=== PATIENT | male | born 1930 | race Caucasian/White ===

== ENCOUNTER 2017-11-28 11:24 | Emergency (ER) | payer OTHER ==
[~2017-11-28 11:24] MED LIST: ASCAUNK PO; ASPCH81X PO; CLON0.2T11 PO; FINA5TAB4 PO; FOLI1TAB8 PO; GLIM4TAB PO; HYDR12.56 PO; LOSA1TAB38 PO; METO-596 PO; MULTTAB58 PO; PANT40TA PO; SENN1TAB77 PO; SIMV40TA2; SULF800T23 PO; TAMS0.4C59 PO; TRAM-453 PO; WARF5TAB7 PO; [UNRECOGNIZED DRUG - CODE] PO
[2017-11-28 11:31] VITALS: TEMP 36.5
[2017-11-28] MEDS ORDERED: ACET500T58 PO (12:16)
[2017-11-28] MEDS ORDERED: ATOR-24 PO (12:16)
[2017-11-28] MEDS ORDERED: ASCO100061 PO (12:16)
[2017-11-28] MEDS ORDERED: TAMS0.4C38 PO (12:16)
--- NOTE | 2017-11-28 12:50 | DIAGNOSTIC IMAGING REPORT ---
CHEST ONE VIEW PORTABLE CLINICAL HISTORY: Fever. Sepsis. COMPARISON STUDY: Chest radiograph May 18, 2012. FINDINGS: Note is made of median sternotomy wires and mediastinal surgical clips. No pneumothorax is present. A small right pleural effusion is noted. Right infrahilar opacity is present. Note is made of prominent basilar congestion with suspected mild pulmonary edema. There is moderate cardiomegaly. IMPRESSION: 1. Mild pulmonary edema. 2. Small right pleural effusion with right infrahilar opacity which may reflect atelectasis or consolidation. Radiographic follow up to ensure resolution is recommended. 3. Moderate cardiomegaly. Electronically signed by: Valentín García M.D. 11/28/2017 12:49 PM Dictated Date/Time: 11/28/2017 12:47 PM
[2017-11-28 13:10] LABS: BASO % 0.6 %; BASO ABS # 0.04 K/uL (0-0.2); EOS % 2.9 %; EOS ABS # 0.18 K/uL (0-0.5); HEMATOCRIT 33.4 % (42-52); HEMOGLOBIN 11.1 g/dL (14.0-18.0); IG# 0.01 K/uL (0.00-0.02); LYMPH % 9.6 %; MEAN CELL VOLUME 84.8 fL (80-100); MEAN CORPUSCULAR HEMOGLOBIN 28.2 pg (25-34); MEAN CORPUSCULAR HGB CONC 33.2 g/dl (32-36); MEAN PLATELET VOLUME 8.8 fL (7.4-10.4); MONO % 8.9 %; MONO ABS # 0.56 K/uL (0.11-0.59); NEUT % 77.8 %; NEUT ABS # 4.87 K/uL (1.4-6.5); PLATELET COUNT 176 K/uL (130-400); RED CELL DISTRIBUTION WIDTH CV 15.6 % (11.5-14.5); RED CELL DISTRIBUTION WIDTH SD 48.8 fL (36.4-46.3); WHITE BLOOD COUNT 6.26 K/uL (4.8-10.8)
[2017-11-28 13:28] LABS: ALBUMIN 3.3 gm/dl (3.4-5.0); ALT/SGPT 49 U/L (12-78); AST/SGOT 50 U/L (15-37); BLOOD UREA NITROGEN 41 mg/dl (7-18); CALCIUM 8.6 mg/dl (8.5-10.1); CARBON DIOXIDE 22 mmol/L (21-32); CREATININE 2.13 mg/dl (0.60-1.40); GLUCOSE 150 mg/dl (70-99); POTASSIUM 5.2 mmol/L (3.5-5.1); SODIUM 139 mmol/L (136-145)
[2017-11-28 13:33] LABS: ALKALINE PHOSPHATASE 189 U/L (45-117); TOTAL PROTEIN 7.3 gm/dl (6.4-8.2)
[2017-11-28 13:43] LABS: PTT PATIENT 53.9 SECONDS (21.0-31.0)
[2017-11-28 14:03] LABS: INR 3.7 (0.9-1.1)
[2017-11-28] MEDS ORDERED: SODIUM CHLORIDE 0.9% 500ML 500 ML IV STA (14:14)
--- NOTE | 2017-11-28 14:55 | EMERGENCY ROOM VISIT NOTE ---
History Report prepared by Flex: Annmarie Riley Under the Supervision of: Dr. Colt Singleton D.O. First contact with patient: 12:04 Chief Complaint: RASH Stated Complaint: DR THINKS HE MAY HAVE SHINGLES History of Present Illness The patient is an 87 year old male who presents to the Emergency Room with complaints of a worsening rash starting a few days ago. The patient states that he believes that he may have Shingles. He reports that the rash he has is very itchy. He states that the rash started on his back and has since spread down his arms. He states that he easily can rub them open. He reports that at the same time, his lips became dry and keep bleeding. He reports that he had to use a wet wash cloth this morning to get his lips open. The patient states that he is unsure how he got the shingles since he lives by himself. He reports that he came to the ED because his home health nurse thought it was shingles and said he needed to come to the ED. The patient reports that he takes Coumadin. The patient denies seeing his PCP for this rash. Source of History: patient Onset: a few days ago Position: other (global) Quality: other (rash, itching) Timing: worsening Note: The patient complains of his lips being dry and bleeding. Review of Systems See HPI for pertinent positives & negatives. A total of 10 systems reviewed and were otherwise negative. Past Medical & Surgical Medical Problems: (1) GERD (gastroesophageal reflux disease) (2) HTN (hypertension) (3) Hyperlipidemia Surgical Problems: (1) History of open heart surgery Family History No pertinent family history Social History Smoking Status: Never Smoker Drug Use: none Marital Status: single Housing Status: lives alone Occupation Status: retired Current/Historical Medications Scheduled Ascorbic Acid (Ascorbic Acid), 1,000 MG PO BID Aspirin (Aspirin Chewable), 81 MG PO Q2D Atorvastatin (Lipitor), 40 MG PO DAILY Clonidine Hcl (Catapres), 0.2 MG PO TID Finasteride (Proscar), 5 MG PO DAILY Folic Acid (Folvite), 1 MG PO DAILY Glimepiride (Amaryl), 4 MG PO DAILY Hydrochlorothiazide (Hctz), 12.5 MG PO DAILY Losartan Potassium (Cozaar), 100 MG PO DAILY Metoprolol Tartrate (Lopressor), 100 MG PO BID Multiple Vitamin (Multivitamin), 1 TAB PO DAILY Pantoprazole Sodium (Protonix), 40 MG PO DAILY Sennosides (Senokot), 8.6 MG PO BID Sulfa/Trimethoprim (Bactrim Ds 800MG/160MG), 1 TAB PO BID Tamsulosin Hcl (Flomax), 0.4 MG PO DAILY Warfarin Sod (Jantoven), 5 MG PO DAILY Scheduled PRN Acetaminophen (Acetaminophen), 1 TAB PO Q6 PRN for Pain or Fever Miscellaneous Medications Simvastatin (Zocor) Allergies Coded Allergies: Lisinopril (Verified Allergy, Unknown, ., 11/28/17) Physical Exam Vital Signs Date Time Temp Pulse Resp B/P (MAP) Pulse Ox O2 Delivery O2 Flow Rate FiO2 11/28/17 13:20 72 16 115/76 94 Room Air 11/28/17 11:31 36.5 75 16 143/61 94 Room Air Physical Exam CONSTITUTIONAL/VITAL SIGNS: Reviewed / noted above. GENERAL: Non-toxic in appearance. INTEGUMENTARY: Warm, dry, and [place]. 4-5 erythematous blanching non raised lesions on the back as well as several similar appearing lesions on the bilateral upper extremities. Small lesion noted on the right angle of the lip. HEAD: Normocephalic. EYES: without scleral icterus or trauma. ENT/OROPHARYNX: clear and moist. No intraoral lesions. LYMPHADENOPATHY/NECK: Is supple without lymphadenopathy or meningismus. RESPIRATORY: Lungs clear and equal. CARDIOVASCULAR: Regular rate and rhythm. GI/ABDOMEN: Soft and nontender. No organomegaly or pulsatile mass. No rebound or guarding. Normal bowel sounds. EXTREMITIES: Warm and well perfused. BACK: No CVA tenderness. NEUROLOGICAL: Intact without focal deficits. PSYCHIATRIC: normal affect. MUSCULOSKELETAL: Normally developed with good muscle tone. Medical Decision & Procedures ER Provider Diagnostic Interpretation: Radiology results as stated below per my review and radiologist interpretation: CHEST ONE VIEW PORTABLE CLINICAL HISTORY: Fever. Sepsis. COMPARISON STUDY: Chest radiograph May 18, 2012. FINDINGS: Note is made of median sternotomy wires and mediastinal surgical clips. No pneumothorax is present. A small right pleural effusion is noted. Right infrahilar opacity is present. Note is made of prominent basilar congestion with suspected mild pulmonary edema. There is moderate cardiomegaly. IMPRESSION: 1. Mild pulmonary edema. 2. Small right pleural effusion with right infrahilar opacity which may reflect atelectasis or consolidation. Radiographic follow up to ensure resolution is recommended. 3. Moderate cardiomegaly. Electronically signed by: Valentín García M.D. 11/28/2017 12:49 PM Dictated Date/Time: 11/28/2017 12:47 PM Laboratory Results 11/28/17 12:55 Red Blood Count 3.94, Mean Corpuscular Volume 84.8, Mean Corpuscular Hemoglobin 28.2, Mean Corpuscular Hemoglobin Concent 33.2, Mean Platelet Volume 8.8, Neutrophils (%) (Auto) 77.8, Lymphocytes (%) (Auto) 9.6, Monocytes (%) (Auto) 8.9, Eosinophils (%) (Auto) 2.9, Basophils (%) (Auto) 0.6, Neutrophils # (Auto) 4.87, Lymphocytes # (Auto) 0.60, Monocytes # (Auto) 0.56, Eosinophils # (Auto) 0.18, Basophils # (Auto) 0.04 11/28/17 12:55 Test 11/28/17 12:55 White Blood Count 6.26 K/uL (4.8-10.8) Red Blood Count 3.94 M/uL (4.7-6.1) Hemoglobin 11.1 g/dL (14.0-18.0) Hematocrit 33.4 % (42-52) Mean Corpuscular Volume 84.8 fL (80-100) Mean Corpuscular Hemoglobin 28.2 pg (25-34) Mean Corpuscular Hemoglobin Concent 33.2 g/dl (32-36) Platelet Count 176 K/uL (130-400) Mean Platelet Volume 8.8 fL (7.4-10.4) Neutrophils (%) (Auto) 77.8 % Lymphocytes (%) (Auto) 9.6 % Monocytes (%) (Auto) 8.9 % Eosinophils (%) (Auto) 2.9 % Basophils (%) (Auto) 0.6 % Neutrophils # (Auto) 4.87 K/uL (1.4-6.5) Lymphocytes # (Auto) 0.60 K/uL (1.2-3.4) Monocytes # (Auto) 0.56 K/uL (0.11-0.59) Eosinophils # (Auto) 0.18 K/uL (0-0.5) Basophils # (Auto) 0.04 K/uL (0-0.2) RDW Standard Deviation 48.8 fL (36.4-46.3) RDW Coefficient of Variation 15.6 % (11.5-14.5) Immature Granulocyte % (Auto) 0.2 % Immature Granulocyte # (Auto) 0.01 K/uL (0.00-0.02) Erythrocyte Sedimentation Rate 45 mm/hr (0-14) Prothrombin Time 37.8 SECONDS (9.0-12.0) Prothromb Time International Ratio 3.7 (0.9-1.1) Activated Partial Thromboplast Time 53.9 SECONDS (21.0-31.0) Partial Thromboplastin Ratio 2.1 Anion Gap 8.0 mmol/L (3-11) Estimated GFR () 31.3 Estimated GFR (Non- 27.0 BUN/Creatinine Ratio 19.4 (10-20) Calcium Level 8.6 mg/dl (8.5-10.1) Total Bilirubin 0.4 mg/dl (0.2-1) Direct Bilirubin 0.2 mg/dl (0-0.2) Aspartate Amino Transf (AST/SGOT) 50 U/L (15-37) Alanine Aminotransferase (ALT/SGPT) 49 U/L (12-78) Alkaline Phosphatase 189 U/L (45-117) Total Creatine Kinase 76 U/L (39-308) Creatine Kinase MB 2.0 ng/ml (0.5-3.6) Creatine Kinase MB Ratio 2.6 (0-3.0) Troponin I < 0.015 ng/ml (0-0.045) C-Reactive Protein 2.07 mg/dl (0-0.29) Total Protein 7.3 gm/dl (6.4-8.2) Albumin 3.3 gm/dl (3.4-5.0) Laboratory results as stated above per my review. Medications Administered Medications (Trade) Dose Ordered Sig/Mio Route Start Time Stop Time Status Last Admin Dose Admin Sodium Chloride 500 ml @ 999 mls/hr Q31M STAT IV 11/28/17 14:14 11/28/17 14:44 DC 11/28/17 14:18 999 MLS/HR ED Course 1231: Previous medical records were reviewed. The patient was evaluated in room C7. A complete history and physical examination was performed. 1413: I reevaluated the patient and he is doing okay. I am going to speak to the patient's pretzel twister. 1414: Ordered NSS 500 ml @ 999 mls/hr IV. 1439: I discussed the patient's case with Dr. Oropeza -Dermatology. She states that the patient can see them on Tuesday at his scheduled appointment or they can see him sooner if he wants to call them. 1456: On reevaluation, the patient is resting comfortably. I discussed the results and findings with the patient. He verbalized agreement of the treatment plan. The patient was discharged home. 1500: Ordered Triamcinolone Acetonide 1 appln EXT. Medical Decision Differential diagnosis: Etiologies such as contact dermatitis, viral exanthem, urticaria, allergic reaction, Bloom-Johnathan syndrome, toxic epidermal necrolysis, erythema multiforme, cellulitis, scabies, HSV, varicella, zoster, eczema, staph scalded skin syndrome, fungal infection, as well as others were entertained. This is an 87-year-old male who presents to the ED with a chief complaint of a rash. The patient reports it is somewhat itchy. He has noticed that for the past couple of days. The patient has no other specific complaints. Denies any fevers or recent illness. He does have a history of skin cancer. He is seeing a pretzel twister for this. He is scheduled to see them on Tuesday. The patient has no other acute symptoms. The patient's sed rate and CRP are elevated. His creatinine is slightly elevated at 2.1. This is elevated above his baseline around 1.5. BUN is 41. Glucose is 150. INR 3.7. He is on Coumadin. Chest x- ray reveals a right infrahilar opacity versus atelectasis. The patient was told the results of the test. His rash is about quarter sized and erythematous in nature. It is minimally raised at best. The skin appears to be very fragile overlying the rash. It is on his back, slightly on his chest and on his upper extremities. There is no discharge. The patient does not appear to be uncomfortable toxic. I spoke with the patient's pretzel twister Yuliet Oropeza from the [facility] dermatology office in [place]. She gave them the number for the patient to call for follow-up to the nurses station or the patient can wait till Tuesday. She did recommend triamcinolone cream. This was ordered and the patient will be discharged. Medication Reconcilliation Current Medication List: was personally reviewed by me Blood Pressure Screening Patient's blood pressure: Elevated blood pressure Blood pressure disposition: Elevated BP felt to be situational Consults Time Called: 1422 Consulting Physician: Dr. Sandip Casiano Returned Call: [phone] I discussed the patient's case with Dr. Sandip Casiano. She states that the patient can see them on Tuesday at his scheduled appointment or they can see him sooner if he wants to call them. Impression Primary Impression: Rash Scribe Attestation The scribe's documentation has been prepared under my direction and personally reviewed by me in its entirety. I confirm that the note above accurately reflects all work, treatment, procedures, and medical decision making performed by me. Departure Information Dispostion Home / Self-Care Referrals aJgdish Dinh M.D. (PCP) Forms HOME CARE DOCUMENTATION FORM, IMPORTANT VISIT INFORMATION, WORK / SCHOOL INSTRUCTIONS Patient Instructions My [facility] Additional Instructions Follow-up with Dr. Oropeza on Tuesday as scheduled or you can be seen sooner by calling [phone]. Triamcinolone cream: Apply the cream to the affected areas 2-4 times a day. Follow-up with your doctor for further care and evaluation in 1-7 days. Return to the emergency department for worsening or new symptoms or any concerns. You have been examined and treated today on an emergency basis only. This is not a substitute for, or an effort to provide, complete comprehensive medical care. It is impossible to recognize and treat all injuries or illnesses in a single emergency department visit. It is therefore important that you follow up closely with your doctor. Call as soon as possible for an appointment.
[2017-11-28] MEDS ORDERED: TRIAMCINOLONE ACET 0.1% CR 15 GM TUBE EXT ONE (15:00)
[2017-11-28 15:50] VITALS: BP 177/67; PULSE 60; O2SAT 95
== END 2017-11-28 15:50 | disposition home or self-care (01) ==
LOC: C.EDB 11:26 → C.EDC 15:50
DX: R21 Rash and other nonspecific skin eruption (principal); I10 Essential (primary) hypertension; E78.5 Hyperlipidemia, unspecified; K21.9 Gastro-esophageal reflux disease without esophagitis; Z98.890 Other specified postprocedural states; Z88.8 Allergy status to other drugs, medicaments and biological substances; Z85.828 Personal history of other malignant neoplasm of skin; Z79.01 Long term (current) use of anticoagulants; Z79.82 Long term (current) use of aspirin; Z79.899 Other long term (current) drug therapy

== ENCOUNTER 2019-02-07 22:13 | Inpatient (IN) ==
[2019-02-07] MEDS ORDERED: SODIUM CHLORIDE 0.9% 500 ML IV SCH (22:45)
--- NOTE | 2019-02-07 22:52 | XRay Report ---
XR chest 1V portable CLINICAL HISTORY: weakness mental status change COMPARISON STUDY: 11/28/2017 FINDINGS: Infiltrate right base. Prior median sternotomy. Lungs otherwise appear clear. Left hemidiap hragm is smooth. IMPRESSION: Infiltrate right base. The above report was generated using voice recognition software. It may contain grammatical, syntax or spelling errors. Electronically signed by: Cuco Busch M.D. 02/07/2019 10:51 PM
[2019-02-07 23:13] LABS: Basophils # (auto) 0.02 K/uL (0-0.2); Basophils % (auto) 0.1 %; Hematocrit (blood only) 28.8 % (42-52); Hemoglobin 9.6 g/dL (14.0-18.0); Immature Granulocytes # (auto) 0.08 K/uL (0.00-0.02); Immature Granulocytes % (auto) 0.6 %; Lymphocytes # (auto) 0.66 K/uL (1.2-3.4); Lymphocytes % (auto) 4.9 %; Mean Corpuscular Hgb Conc 33.3 g/dL (32-36); Mean Corpuscular Volume 87.8 fL (80-100); Mean Platelet Volume 8.6 fL (7.4-10.4); Monocytes # (auto) 1.13 K/uL (0.11-0.59); Monocytes % (auto) 8.4 %; Neutrophils # (auto) 11.53 K/uL (1.4-6.5); Platelet Count 235 K/uL (130-400); RDW Coefficient of Variation 15.9 % (11.5-14.5); RDW Standard Deviation 50.6 fL (36.4-46.3); Red Blood Count 3.28 M/uL (4.7-6.1); White Blood Count 13.42 K/uL (4.8-10.8)
[2019-02-07 23:32] LABS: Prothrombin Time > 90.0 Seconds (9.0-12.0)
--- NOTE | 2019-02-07 23:33 | Emergency Department Note ---
Entered by Charlene Golden acting as a scribe for Colt Singleton DO History of Present Illness General Chief complaint: Fall Stated complaint: FALL, LACERATION TO ELBOW, RIB PAIN, EYE IMJURY Time Seen by Provider: 02/07/19 22:19 Source: patient Mode of arrival: EMS History of Present Illness Onset (ago): hour(s) 2 Location: hip Pain Consistency: + other (episode ) Maximum Pain Intensity: 6 Exacerbated By: + movement Treatments prior to arrival: none The patient is an 88 year old male who presents to the ED with complaints of an episode of fall injuries sustained about 2 hours prior to arrival. The patient states that he fell in his kitchen. He states that he lives in his own apartment. The patient notes that when he fell, the bracelet he is wearing alarmed his neighbor that he had fell. The patient reports that he was unable to get himself up from the ground because he has bad hips. He reports that he has pain in his hips when he ambulates. He states that he was on the floor for about 30 minutes before someone found him. The patient states that he has no pain in the ED. Home Medications Home Medications Medication Instructions Recorded Confirmed Type ascorbic acid (vitamin C) 500 mg 1,000 mg PO BID cap 03/17/18 02/07/19 History capsule aspirin 81 mg chewable tablet 81 mg PO Q OTHER DAY tab 03/17/18 02/07/19 History atorvastatin 40 mg tablet 40 mg PO DAILY 03/17/18 02/07/19 History clonidine HCl 0.1 mg tablet 0.1 mg PO TID 03/17/18 02/07/19 History ferrous sulfate 325 mg (65 mg 325 mg PO BID tab 03/17/18 02/07/19 History iron) tablet finasteride 5 mg tablet 5 mg PO DAILY tab 03/17/18 02/07/19 History folic acid 1 mg tablet 1 mg PO DAILY 03/17/18 02/07/19 History glimepiride 4 mg tablet 4 mg PO QAM tab 03/17/18 02/07/19 History losartan 100 mg tablet 100 mg PO DAILY 03/17/18 02/07/19 History multivitamin tablet 1 tab PO DAILY 03/17/18 02/07/19 History metoprolol tartrate 50 mg tablet 50 mg PO BID 07/04/18 02/07/19 History doxazosin 1 mg PO HS 02/07/19 02/07/19 History sennosides [Senokot] 8.6 mg PO BID PRN 02/07/19 02/07/19 History triamcinolone acetonide 1 applic TOPICAL BID PRN 02/07/19 02/07/19 History warfarin 1.25 mg PO WK 02/07/19 02/07/19 History warfarin 2.5 mg PO 6XWK 02/07/19 02/07/19 History Allergies Allergy/AdvReac Type Severity Reaction Status Date / Time lisinopril Allergy Unknown Unknown Verified 02/07/19 23:49 Past Med/Surg History Medical History GERD (gastroesophageal reflux disease) (Chronic) HTN (hypertension) (Chronic) Hyperlipidemia (Chronic) Surgical History History of open heart surgery (Chronic) Social History Current Living Situation: Alone Feels Safe at Home: No Smoking Status: Never smoker Review of Systems See HPI for pertinent positives & negatives. and A total of 10 systems reviewed and were otherwise negative Physical Exam Vital Signs Vital Signs - 24 hr 02/07/19 22:20 02/07/19 23:56 Temperature 37.0 C Temperature Source Oral Sepsis Recent Fever Within 48 Hours No Sepsis New/Unexplained Change in Mental Status No Sepsis Action Taken by Nursing No Action Required Pulse Rate 67 Pulse Rate [Right Finger] 60 Pulse Rhythm Regular Pulse Rhythm [Right Finger] Regular Pulse Strength Normal Pulse Strength [Right Finger] Normal Respiratory Rate 20 16 Respiratory Effort / Characteristics Non-Labored Non-Labored Respiratory Depth Normal Normal Respiratory Pattern Regular Regular Blood Pressure 147/53 H Blood Pressure [Right Arm] 147/55 H Blood Pressure Mean 84 Blood Pressure Mean [Right Arm] 85 Blood Pressure Position Lying Blood Pressure Position [Right Arm] Lying Pulse Oximetry 98 95 Oxygen Delivery Method Room Air Room Air CONSTITUTIONAL/VITAL SIGNS: Reviewed / noted above. GENERAL: Non-toxic in appearance. INTEGUMENTARY: Warm, dry, and Athena. Small skin tear to the left elbow with some bruising. Small abrasions on the lower extremities. A couple abrasions to the right arm. HEAD: Normocephalic. EYES: without scleral icterus or trauma. ENT/OROPHARYNX: clear and moist. LYMPHADENOPATHY/NECK: Is supple without lymphadenopathy or meningismus. RESPIRATORY: Lungs clear and equal. CARDIOVASCULAR: Regular rate and rhythm. GI/ABDOMEN: Soft and nontender. No organomegaly or pulsatile mass. No rebound or guarding. Normal bowel sounds. EXTREMITIES: Warm and well perfused. Bandage over the right lower extremity that appears to be chronic in nature. Bilateral hip pain with movement. BACK: No CVA tenderness. NEUROLOGICAL: Intact without focal deficits. PSYCHIATRIC: normal affect. MUSCULOSKELETAL: Normally developed with good muscle tone. Course 2227: Past medical records reviewed. The patient was evaluated in room C9. A complete history and physical exam was performed. 2340: I discussed the patients case with Justine Huertas. He verbally agreed to admit the patient for further management and treatment. Administered Medications Azithromycin 500 mg/ Dextrose 255 mls @ 125 mls/hr IV ONE ONE Stop: 02/08/19 01:38 Last Admin: 02/07/19 23:47 Dose: 125 mls/hr Documented by: [id number] Discontinued Medications Ceftriaxone Sodium (Rocephin) Confirm Administered Dose 1,000 mg IV .STK-MED ONE Stop: 02/07/19 23:50 Last Admin: 02/07/19 23:49 Dose: Not Given Documented by: [id number] Dextrose (Dextrose 50%) Confirm Administered Dose 50 ml IV .STK-MED ONE Stop: 02/07/19 23:59 Last Admin: 02/08/19 00:00 Dose: 50 ml Documented by: [id number] Sodium Chloride (Nss) 500 mls @ 999 mls/hr IV .Q31M LOCO Stop: 02/07/19 23:15 Last Infusion: 02/07/19 23:41 Dose: 0 mls/hr Documented by: [id number] Admin: 02/07/19 23:01 Dose: 999 mls/hr Documented by: [id number] Ceftriaxone Sodium 1,000 mg/ (Dextrose) 60 mls @ 100 mls/hr IV NOW STA; Protocol Stop: 02/08/19 00:11 Last Admin: 02/07/19 23:47 Dose: 100 mls/hr Documented by: [id number] Medical Decision Making Differential Diagnosis Differential diagnosis: Etiologies such as fracture, cervical/vertebral injury, dislocation, intra- abdominal process, pneumothorax, intrathoracic trauma, intracranial injury, soft tissue injury, neurologic process, as well as other traumatic pathologies were entertained. Differential Diagnosis includes but is not limited to dehydration, stroke, anemia, hypoglycemia, hyponatremia, hypernatremia, urinary tract infection, pneumonia, bronchitis, sepsis, gastroenteritis, additional abdominal pathology, metabolic abnormalities and infections. Medical Records Attestation: I reviewed the patient's medical records. Home Medications Current Medication List: was personally reviewed by me Laboratory Data Attestation: I reviewed the patient's lab results. Result diagrams: 02/07/19 23:01 02/07/19 23:01 Lab Results 02/07/19 02/07/19 02/07/19 Range/Units 23:01 23:01 23:01 WBC 13.42 H (4.8-10.8) K/uL RBC 3.28 L (4.7-6.1) M/uL Hgb 9.6 L (14.0-18.0) g/dL Hct 28.8 L (42-52) % MCV 87.8 (80-100) fL MCH 29.3 (25-34) pg MCHC 33.3 (32-36) g/dL RDW Std Deviation 50.6 H (36.4-46.3) fL RDW Coeff of [place] 15.9 H (11.5-14.5) % Plt Count 235 (130-400) K/uL MPV 8.6 (7.4-10.4) fL Immature Gran % (Auto) 0.6 % Neut % (Auto) 86.0 % Lymph % (Auto) 4.9 % Cass % (Auto) 8.4 % Eos % (Auto) 0.0 % Baso % (Auto) 0.1 % Immature Gran # (Auto) 0.08 H (0.00-0.02) K/uL Neut # (Auto) 11.53 H (1.4-6.5) K/uL Lymph # (Auto) 0.66 L (1.2-3.4) K/uL Cass # (Auto) 1.13 H (0.11-0.59) K/uL Eos # (Auto) 0.00 (0-0.5) K/uL Baso # (Auto) 0.02 (0-0.2) K/uL PT > 90.0 H (9.0-12.0) Seconds INR > 10.4 H* (0.9-1.1) Sodium 140 (136-145) mmol/L Potassium 4.8 (3.5-5.1) mmol/L Chloride 111 H (98-107) mmol/L Carbon Dioxide 22 (21-32) mmol/L Anion Gap 7 (3-11) BUN 28 H (7-18) mg/dl Creatinine 2.10 H (0.6-1.4) mg/dl Est Cr Clr Drug Dosing 23.7 ml/min Est GFR ( Amer) 31.6 Est GFR (Non-Af Amer) 27.3 BUN/Creatinine Ratio 13.5 (10-20) Glucose 36 L* (70-99) mg/dl POC Glucose (70-99) Calcium 8.5 (8.5-10.1) mg/dl Magnesium 2.2 (1.8-2.4) mg/dl Total Bilirubin 0.5 (0.2-1) mg/dl AST 60 H (15-37) U/L ALT 50 (12-78) U/L Alkaline Phosphatase 185 H (45-117) U/L Total Creatine Kinase 535 H (39-308) U/L Troponin I 0.029 (0-0.045) ng/ml Total Protein 6.3 L (6.4-8.2) gm/dl Albumin 3.2 L (3.4-5.0) gm/dl Globulin 3.1 (2.5-4.0) gm/dl Albumin/Globulin Ratio 1.0 (0.9-2) TSH 3.300 (0.300-4.500) uIu/ml 02/08/19 02/08/19 Range/Units 00:06 00:47 WBC (4.8-10.8) K/uL RBC (4.7-6.1) M/uL Hgb (14.0-18.0) g/dL Hct (42-52) % MCV (80-100) fL MCH (25-34) pg MCHC (32-36) g/dL RDW Std Deviation (36.4-46.3) fL RDW Coeff of [place] (11.5-14.5) % Plt Count (130-400) K/uL MPV (7.4-10.4) fL Immature Gran % (Auto) % Neut % (Auto) % Lymph % (Auto) % Cass % (Auto) % Eos % (Auto) % Baso % (Auto) % Immature Gran # (Auto) (0.00-0.02) K/uL Neut # (Auto) (1.4-6.5) K/uL Lymph # (Auto) (1.2-3.4) K/uL Cass # (Auto) (0.11-0.59) K/uL Eos # (Auto) (0-0.5) K/uL Baso # (Auto) (0-0.2) K/uL PT (9.0-12.0) Seconds INR (0.9-1.1) Sodium (136-145) mmol/L Potassium (3.5-5.1) mmol/L Chloride (98-107) mmol/L Carbon Dioxide (21-32) mmol/L Anion Gap (3-11) BUN (7-18) mg/dl Creatinine (0.6-1.4) mg/dl Est Cr Clr Drug Dosing ml/min Est GFR ( Amer) Est GFR (Non-Af Amer) BUN/Creatinine Ratio (10-20) Glucose (70-99) mg/dl POC Glucose 125 H 94 (70-99) Calcium (8.5-10.1) mg/dl Magnesium (1.8-2.4) mg/dl Total Bilirubin (0.2-1) mg/dl AST (15-37) U/L ALT (12-78) U/L Alkaline Phosphatase (45-117) U/L Total Creatine Kinase (39-308) U/L Troponin I (0-0.045) ng/ml Total Protein (6.4-8.2) gm/dl Albumin (3.4-5.0) gm/dl Globulin (2.5-4.0) gm/dl Albumin/Globulin Ratio (0.9-2) TSH (0.300-4.500) uIu/ml Imaging Data Radiologist's Impression: Radiology results as stated below per my review and the radiologist's interpretation: XR chest 1V portable CLINICAL HISTORY: weakness mental status change COMPARISON STUDY: 11/28/2017 FINDINGS: Infiltrate right base. Prior median sternotomy. Lungs otherwise appear clear. Left hemidiaphragm is smooth. IMPRESSION: Infiltrate right base. The above report was generated using voice recognition software. It may contain grammatical, syntax or spelling errors. CT thoracic spine wo con CT DOSE: 2285.96 mGy.cm HISTORY: Trauma fall TECHNIQUE: Multiaxial CT images of the thoracic spine were performed and reformatted in the sagittal and coronal plane without the use of contrast. A dose lowering technique was utilized adhering to the principles of ALARA. COMPARISON: None. FINDINGS: Vertebral body stature is unremarkable. Moderate degenerative disc change is noted throughout. There is a right pleural effusion. A small left pleural effusion. There are mild bibasilar parenchymal infiltrative changes. There is atherosclerotic change and ectasia of the thoracic aorta. IMPRESSION: 1. No acute process of the thoracic spine. 2. Moderate degenerative changes throughout. 3. Right and to a lesser extent left pleural effusion. 4. Right and to a lesser extent left basilar parenchymal infiltrative change. The above report was generated using voice recognition software. It may contain grammatical, syntax or spelling errors. Electronically signed by: Cuco Busch M.D. 02/07/2019 11:40 PM Study: CT pelvis HISTORY: Trauma. COMPARISON: None. 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 Degenerative subchondral cystic change. Mild acetabular protrusion. Old healed fracture left pubic ring. Degenerative change of the sacroiliac joints. Degenerative change symphysis pubis. IMPRESSION: 1. No acute bony abnormality. 2. Findings consistent with prior surgery as well as old posttraumatic change. 3. Generalized degenerative changes throughout Electronically signed by: Cuco Busch M.D. 02/07/2019 11:50 PM Electronically signed by: Cuco Busch M.D. 02/07/2019 10:[address] head/brain wo con CT DOSE: HISTORY: Mental status change fall TECHNIQUE: Multiaxial CT images of the head were performed without the use of intravenous contrast. A dose lowering technique was utilized adhering to the p rinciples of ALARA. Comparison: None. Findings: The paranasal sinuses and mastoid air cells are clear. The calvarium and skull base are intact. The ventricles and sulci are within normal limits. Th ere is no mass, hematoma, midline shift, or acute infarct. 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 Age-related atrophy and chronic small vessel changes are also present. Impression: No acute intracranial abnormality. Chronic changes as noted. The above report was generated using voice recognition software. It may contain grammatical, syntax or spelling errors. Electronically signed by: Cuco Busch M.D. 02/07/2019 11:37 PM ECG Data Attestation: I personally reviewed and interpreted this ECG as follows: Indication: other (fall injuries ) Rate (beats per minute): 64 Rhythm: sinus rhythm Findings: + 1st degree AV block; no PAC, no PVC, no ST elevation and no ectopy Blood Pressure Blood Pressure Findings: Elevated blood pressure Blood Pressure Disposition: did not require urgent referral MDM Narrative This is an 88-year-old male who presents to the ED with a chief complaint of a fall and the inability to get up. The patient is somewhat of a poor historian. He states that he fell at his home. He had a medic alert button and called EMS and was brought here for evaluation. The patient reports bilateral hip pain that is mostly chronic in nature. He has difficulty sitting up because of the pain. The patient has some skin tears on the extremities as well as some bruising on the extremities. He has some discomfort with the bilateral hips wit h movement. His initial blood pressure was elevated. He is afebrile. Vital signs are otherwise normal. He was treated with IV fluids normal saline. A chest x-ray reveals a right base infiltrate. A CT scan of the pelvis is negative. CT scan of the thoracic spine was negative. The patient's EKG shows a sinus rhythm at a rate of 64. His hemoglobin is 9.6. His white blood cell count was 13.42. INR is greater than 10.4. His glucose came back at 35. Total CK was 535. The patient was given half amp of D 50. He was also ordered IV Rocephin and IV Zithromax. I spoke with Dr. barreto, who will see the patient for further inpatient evaluation and care. Impression & Plan Right lower lobe pneumonia, Hypoglycemia, Fall, Weakness Discharge Plan Visit Data Chief Complaint: Fall Stated Complaint: FALL, LACERATION TO ELBOW, RIB PAIN, EYE IMJURY ED Provider: Colt Singleton Discharge Problem: Right lower lobe pneumonia, Hypoglycemia, Fall, Weakness Patient Disposition: Being Evaluated by Hospitalist Forms Stand Alone Forms: My [facility] Prescriptions Prescriptions: No Action ascorbic acid (vitamin C) 500 mg capsule 1,000 mg PO BID RF: 0 aspirin [Brandon Chewable Aspirin] 81 mg tablet,chewable 81 mg PO Q OTHER DAY RF: 0 atorvastatin [Lipitor] 40 mg tablet 40 mg PO DAILY RF: 0 clonidine HCl [Catapres] 0.1 mg tablet 0.1 mg PO TID RF: 0 ferrous sulfate 325 mg (65 mg iron) tablet 325 mg PO BID RF: 0 finasteride [Proscar] 5 mg tablet 5 mg PO DAILY RF: 0 folic acid 1 mg tablet 1 mg PO DAILY RF: 0 glimepiride [Amaryl] 4 mg tablet 4 mg PO QAM RF: 0 losartan [Cozaar] 100 mg tablet 100 mg PO DAILY RF: 0 multivitamin tablet 1 tab PO DAILY RF: 0 metoprolol tartrate [Lopressor] 50 mg tablet 50 mg PO BID RF: 0 warfarin 2.5 mg Tablet 2.5 mg PO 6XWK RF: 0 warfarin 2.5 mg Tablet 1.25 mg PO WK RF: 0 sennosides [Senokot] 8.6 mg Tablet 8.6 mg PO BID PRN (Reason: Constipation) RF: 0 doxazosin 1 mg Tablet 1 mg PO HS RF: 0 triamcinolone acetonide 0.1 % Cream 1 applic TOPICAL BID PRN (Reason: Skin Irritation) RF: 0 Referrals Referrals: Varghese Spann DO [Primary Care Provider] - Discharge Problem: Right lower lobe pneumonia Qualifiers: Pneumonia type: due to unspecified organism Qualified Code(s): J18.1 - Lobar pneumonia, unspecified organism Fall Qualifiers: Encounter type: initial encounter Qualified Code(s): W19.XXXA - Unspecified fall, initial encounter The scribe's documentation has been prepared under my direction and personally reviewed by me in its entirety. I confirm that the note above accurately reflects all work, treatment, procedures, and medical decision making performed by me.
[2019-02-07] MEDS ORDERED: AZITHROMYCIN 500 MG in DEXTROSE 5% 250 ML IV ONE (23:36)
[2019-02-07] MEDS ORDERED: cefTRIAXone SODIUM 1,000 MG in DEXTROSE 5% 50 ML IV STA (23:36)
--- NOTE | 2019-02-07 23:38 | CT Scan Report ---
CT head/brain wo con CT DOSE: HISTORY: Mental status change fall TECHNIQUE: Multiaxial CT images of the head were performed without the use of intravenous contrast. A dose lowering technique was utilized adhering to the principles of ALARA. Comparison: None. Findings: The paranasal sinuses and mastoid air cells are clear. The calvarium and skull base are int act. The ventricles and sulci are within normal limits. There is no mass, hematoma, midline shift, or acute infarct. 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 Age-related atrophy and chronic small vessel changes are also present. Impression: No acute intracranial abnormality. Chronic changes as noted. The above report was generated using voice recognition software. It may contain grammatical, syntax or spelling errors. Electronically signed by: Cuco Busch M.D. 02/07/2019 11:37 PM
[2019-02-07 23:40] LABS: INR > 10.4 (0.9-1.1)
--- NOTE | 2019-02-07 23:42 | CT Scan Report ---
CT thoracic spine wo con CT DOSE: 2285.96 mGy.cm HISTORY: Trauma fall TECHNIQUE: Multiaxial CT images of the thoracic spine were performed and reformatted in the sagittal and coronal plane without the use of contrast. A dose lowering technique was utilized adhering to th e principles of ALARA. COMPARISON: None. FINDINGS: Vertebral body stature is unremarkable. Moderate degenerative disc change is noted througho ut. There is a right pleural effusion. A small left pleural effusion. There are mild bibasilar parenchyma l infiltrative changes. There is atherosclerotic change and ectasia of the thoracic aorta. IMPRESSION: 1. No acute process of the thoracic spine. 2. Moderate degenerative changes throughout. 3. Right and to a lesser extent left pleural effusion. 4. Right and to a lesser extent left basilar parenchymal infiltrative change. The above report was generated using voice recognition software. It may contain grammatical, syntax or spelling errors. Electronically signed by: Cuco Busch M.D. 02/07/2019 11:40 PM
[2019-02-07] MEDS ORDERED: cefTRIAXone SODIUM 1000MG/50ML D5W IV ONE (23:49)
[2019-02-07 23:50] LABS: Albumin Level 3.2 gm/dl (3.4-5.0); Bilirubin,Total 0.5 mg/dl (0.2-1); Calcium 8.5 mg/dl (8.5-10.1); Creatinine Clr Calc Pharmacy 23.7 ml/min; Est GFR (African American) 31.6; Est GFR (Non-African American) 27.3; Globulin 3.1 gm/dl (2.5-4.0); Magnesium 2.2 mg/dl (1.8-2.4); Potassium 4.8 mmol/L (3.5-5.1); Total Protein 6.3 gm/dl (6.4-8.2); Troponin I 0.029 ng/ml (0-0.045)
[2019-02-07 23:51] LABS: BUN Creatinine Ratio 13.5 (10-20)
--- NOTE | 2019-02-07 23:51 | CT Scan Report ---
Study: CT pelvis HISTORY: Trauma. COMPARISON: None. 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 Degenerative subchondral cystic change. Mild acetabular protrusion. Old healed fracture left pubic ring. Degenerative change of the sacroiliac joints. Degenerative reis e symphysis pubis. IMPRESSION: 1. No acute bony abnormality. 2. Findings consistent with prior surgery as well as old posttraumatic change. 3. Generalized degenerative changes throughout Electronically signed by: Cuco Busch M.D. 02/07/2019 11:50 PM
[2019-02-07] MEDS ORDERED: DEXTROSE 50% 50 ML SYRINGE IV ONE (23:58)
[2019-02-08] MEDS ORDERED: SENNA 8.6 MG TAB PO PRN (03:47)
[2019-02-08] MEDS ORDERED: SODIUM CHLORIDE 0.9% 1000ML 1,000 ML IV SCH (03:47)
[2019-02-08] MEDS ORDERED: TRIAMCINOLONE ACET 0.1% CR 15 GM TUBE TOP PRN (03:47)
[2019-02-08] MEDS ORDERED: PHYTONADIONE 5 MG TAB PO STA ×2 (03:47→08:28)
[2019-02-08] MEDS ORDERED: ONDANSETRON INJ 2 MG/ML 2 ML VIAL IV PRN (03:47)
[2019-02-08] MEDS ORDERED: POLYETHYLENE (MIRALAX) 17 GM PACK PO PRN (03:47)
[2019-02-08] MEDS ORDERED: NITROGLYCERIN SL 0.4 MG/TAB TAB SL PRN (03:47)
--- NOTE | 2019-02-08 04:33 | History and Physical Report ---
DATE OF ADMISSION: 02/07/2019 CHIEF COMPLAINT: Fall. HISTORY OF PRESENT ILLNESS: This is an 88-year-old male with past medical history significant for type 2 diabetes, hyperlipidemia, CAD, chronic kidney disease stage III, venous insufficiency, lower extremity edema, ulcers to lower extremity, status post prosthetic aortic valve replacement, paroxysmal atrial fibrillation, hypertension, venous thrombosis, BPH, hip joint replacement status, anemia of chronic kidney disease, status post patent foramen ovale closure, history of MRSA, history of TIA, presents with fall. The patient says he lives alone. Neighbors checks on him. There is no family close by. He walks with help of walker, he can drive his car, he generally eats the frozen food. He says there is a lot of pain in his hips, there is some ambulatory dysfunction because of that and he goes to wound care for his lower extremity wounds and lower extremities are wrapped .. Yesterday, he felt weak and fell at home and could not get up and lot of pain in his hip region, was brought in here. In the ER, the workup showed right basilar pneumonia and we are called for admission. The patient denies any fever, denies any cough, no chest pain, no shortness of breath, no headaches. But feeling chilly and shaky. Hard of hearing. No runny nose, no sore throat, no difficulty swallowing as per patient. No nausea, no abdominal pain. Normal bowel and bladder movements. No rash. Currently resting comfortably and hemodynamically stable. ALLERGIES: LISINOPRIL, BACTRIM. PAST MEDICAL HISTORY: As mentioned above. PAST SURGICAL HISTORY: CABG, cystoscopy, Mohs surgery, tonsillectomy, adenoidectomy, repair of the atrial septal defect, inguinal hernia reduction, bioprosthetic aortic valve replacement, right total hip replacement. MEDICATIONS: The patient is on glimepiride 4 mg p.o. daily, metoprolol 50 mg p.o. b.i.d., doxazosin 1 mg p.o. at bedtime, Proscar 5 mg p.o. daily, clonidine 0.1 mg p.o. t.i.d., folic acid 1 mg p.o. daily, ferrous sulfate 325 mg p.o. b.i.d., Lipitor 40 mg p.o. daily, losartan 100 mg p.o. daily, Coumadin 1.5 mg on Tuesday and 2.5 mg on rest of the days, triamcinolone cream apply to affected area b.i.d., Senokot 8.6 mg p.o. b.i.d., multivitamin 1 tablet daily, vitamin C 1000 mg p.o. b.i.d., aspirin 81 mg every other day. FAMILY HISTORY: Significant for father had kidney cancer at age of 68. Mother at the age of 57. Sister has stroke. SOCIAL HISTORY: Single, lives alone. No family close by. No smoking history. No alcohol, no drug use. REVIEW OF SYMPTOMS: As per HPI. Rest of review of systems negative. PHYSICAL EXAMINATION: GENERAL: The patient is alert and oriented. Hard of hearing. VITAL SIGNS: Temperature 37, pulse 60, respiratory rate 16, blood pressure 147/55, oxygen 95% on room air. HEENT: No pallor, no icterus. Pupils equal, round, and reactive to light. NECK: No JVD, no neck masses, no carotid bruits. CARDIOVASCULAR: S1, S2 heard, regular rate and rhythm, no murmur, no gallop. RESPIRATORY SYSTEM: Normal AP diameter. No thyromegaly. No wheezing, no crackles. ABDOMEN: Soft, bowel sounds present, nontender. No distention. CENTRAL NERVOUS SYSTEM: Cranial nerves II-XII grossly intact. Nonfocal. EXTREMITIES: Bilateral lower extremity wounds and bilateral lower extremity were wrapped in dressing, somewhat foul smelling. LABORATORY DATA: WBC 13.4, hemoglobin 9.6, hematocrit 28.8, platelets 235. PT greater than 10. INR greater than 15.4. Sodium 140, potassium 4.8, chloride 118, CO2 of 22, BUN 28, creatinine 2.1, serum glucose 36, calcium 8.5, magnesium 2.2, total bilirubin 0.5, AST 60, ALT 50, alkaline phosphatase is 185, total creatine kinase 585, troponin I less than 0.029, TSH is 3.3. Chest x-ray, infiltrate right base. Thoracic spine CT, no acute findings. Pelvic CT, no acute bony abnormality. CT of the head, no acute findings. EKG: Junctional rhythm with rate of 64, no acute ST changes seen. ASSESSMENT AND PLAN: This 88-year-old male who presents with fall and found to have pneumonia. 1. Status post fall mechanical, most likely secondary to pneumonia. The patient was in junctional rhythm. We will monitor on tele floor. repeat EKG, monitor on tele floor. PT and OT. 2. Pneumonia, right lung base. Starting on Rocephin and doxycycline. Follow the cultures. Follow the response. 3. Bilateral lower extremity wounds, lower extremity edema, history of venous insufficiency, history of venous thrombosis. There are wrapped in dressing. Follows with wound care. We will consult wound care. Antibiotics as above. 4. History of deep venous thrombosis. INR is supratherapeutic at 10.4. Vitamin K 5 mg p.o.now and follow INR. 5. History of atrial fibrillation, currently in junctional rhythm and will follow repeat EKG in morning. Continue his Lopressor with holding parameters. Holding Coumadin because of INR is supratherapeutic. 6. History of coronary artery disease status post coronary artery bypass graft, on aspirin, statin and beta-shubham, currently stable. 7. History of diabetes. Hold glimepiride. Placed on Lantus sliding scale. Follow hemoglobin A1c levels, follow the blood sugars while in the hospital. 8. Hypertension. Continue clonidine, Lopressor, losartan with holding parameters. 9. Anemia of chronic kidney disease. Baseline hemoglobin around 11. Hb 9.6 today. Ordered Hemoccult. will follow the results. 10. VARUN on CKD stage 3. Baseline Cr 1.3. presented with Cr 2. Will follow labs in am., 11. History of prosthetic aortic valve replacement. 12. History of transient ischemic attack, on aspirin and statin. 13. Elevated CPK. Will follow repeat labs. 14. Deep venous thrombosis prophylaxis. INR is supratherapeutic. DISPOSITION: Admit to med/surg tele. Level 1 full code as per discussion with the patient. MTDD
--- NOTE | 2019-02-08 07:06 | CT Scan Report ---
LUMBAR SPINE CT CT DOSE: HISTORY: Back pain. fall TECHNIQUE: Multiaxial CT images of the lumbar spine were performed and reformatted in the sagittal an d coronal plane without the use of contrast. A dose lowering technique was utilized adhering to the principles of ALARA. COMPARISON: None. FINDINGS: No acute fractures within the lumbar spine. Moderate disc space narrowing at L1-L2 and kuldeep re disc space narrowing at L2-L3. Mild disc space narrowing at L4-L5 and L5-S1. Moderate to severe fa cet degenerative changes within the mid to lower lumbar spine. 3 mm of anterolisthesis of L4 and L5. Slight concavity within the inferior endplates of L3 and L4 are likely old. The visualized sacrum mika ears intact. Right pleural effusion is noted. Moderate central canal narrowing at L4-L5. IMPRESSION: No acute fractures within the lumbar spine. Degenerative changes as described above. Electronically signed by: Davidson Carnes M.D. 02/08/2019 7:05 AM
[2019-02-08 07:34] LABS: Basophils # (auto) 0.01 K/uL (0-0.2); Basophils % (auto) 0.1 %; Hematocrit (blood only) 22.6 % (42-52); Hemoglobin 7.7 g/dL (14.0-18.0); Immature Granulocytes # (auto) 0.01 K/uL (0.00-0.02); Immature Granulocytes % (auto) 0.1 %; Lymphocytes # (auto) 0.79 K/uL (1.2-3.4); Lymphocytes % (auto) 10.4 %; Mean Corpuscular Hgb Conc 34.1 g/dL (32-36); Mean Corpuscular Volume 86.9 fL (80-100); Mean Platelet Volume 8.5 fL (7.4-10.4); Monocytes # (auto) 0.86 K/uL (0.11-0.59); Monocytes % (auto) 11.3 %; Neutrophils # (auto) 5.91 K/uL (1.4-6.5); Neutrophils % (auto) 78.1 %; Platelet Count 178 K/uL (130-400); RDW Coefficient of Variation 15.8 % (11.5-14.5); RDW Standard Deviation 48.6 fL (36.4-46.3); White Blood Count 7.58 K/uL (4.8-10.8)
[2019-02-08] MEDS: CARBOHYDRATES FOR HYPOGLYCEMIA PO PRN ×2 (07:45→16:38)
[2019-02-08 07:51] LABS: Prothrombin Time > 90.0 Seconds (9.0-12.0)
[2019-02-08 07:54] LABS: INR > 10.4 (0.9-1.1)
[2019-02-08 08:09] LABS: Acanthocytes 1+
[2019-02-08] MEDS ORDERED: GLUCOSE 10 TABS/TUBE PO PRN (08:15)
[2019-02-08] MEDS ORDERED: GLUCAGON FOR INJ 1 MG VIAL IM PRN (08:15)
[2019-02-08] MEDS ORDERED: GLUCOSE 40% GEL 15 GM TUBE PO PRN (08:15)
[2019-02-08] MEDS: FOLIC ACID 1 MG TAB PO SCH (08:15)
[2019-02-08] MEDS ORDERED: DEXTROSE 50% 50 ML SYRINGE IV PRN (08:15)
[2019-02-08] MEDS: FERROUS SULFATE 325 MG TAB PO SCH ×2 (08:16→20:36)
[2019-02-08] MEDS: FINASTERIDE 5 MG TAB PO SCH (08:16)
[2019-02-08] MEDS: ATORVASTATIN 40 MG TAB PO SCH (08:16)
[2019-02-08] MEDS: MULTIVITAMIN TAB PO SCH (08:16)
[2019-02-08] MEDS: ASCORBIC ACID 500 MG TAB PO SCH ×2 (08:16→20:36)
[2019-02-08 08:18] LABS: BUN Creatinine Ratio 15.4 (10-20); Calcium 7.9 mg/dl (8.5-10.1); Creatinine Clr Calc Pharmacy 25.3 ml/min; Est GFR (African American) 37.6; Est GFR (Non-African American) 32.4; Magnesium 2.1 mg/dl (1.8-2.4)
[2019-02-08 08:19] LABS: Estimated Average Glucose 229 mg/dl; Hemoglobin A1C 9.6 % (4.5-5.6)
--- NOTE | 2019-02-08 08:22 | Hospitalist Progress Note ---
Date of Service February 08, 2019 Assessment & Plan (1) Right lower lobe pneumonia: Patient is a 88-year-old male with multiple comorbidities who came to ED after a fall. He thinks he passed out Complains of pain in his hip, ambulatory dysfunction secondary to fall. In ED, work-up showed right basilar pneumonia, found to be hypoglycemic. S/P Fall/ Probable Syncope Per patient he thinks he passed out and found himself on floor in his bedroom. Was unable to get up, called him med alert button and was brought to hospital. Prior episode of syncope - Tele monitor- Junctional rhythm with HR dropping to as low as 30s - BP - 92/50 CT pelvisno acute fracture, severe degenerative left hip with flattening of superior aspect of femoral head and acetabulum, degenerative subchondral cystic change. Prior surgical findings. Old healed fracture left pubic ring, CT he adno acute abnormality, CT lumbar spineno fractures, degenerative changes, CT thoracic spinedegenerative changes, no fracture, left pleural effusion with left basilar parenchymal infiltrate -Consult cardiology for possible cardiac etiology for syncope/Junctional rhythm History of atrial fibrillation EKG/Monitor= Junctional Rhythm. Heart rate down to 30s. Prior episode of syncope. -On lopressor, clonidine--> Hold for now. -Holding Coumadin because of INR is supratherapeutic. -Cardiology consult placed- discussed case with cardiology as with junctional rhythm, dropping heart rate, prior episode of syncope, need to evaluate further Bilateral Infiltrates on X ray, probably pneumonia X ray Chest- Right basilar infiltrate CT thoracic spine shows- Left pleural effusion > right with left basilar parenchymal infiltrate -Clinically does not have any significant respiratory symptoms -IV Rocephin, Azithromycin in ED, Continue with IV Rocephin, Doxycycline -Blood culture [id number], unable to collect sputum culture Hypoglycemia in setting of diabetes mellitus, [id number] Could be contributing to generalized weakness Blood sugar on [id number], continues to be hypoglycemic with sugar up to 80s now -Home medicationglimepiride 4 mg -Discontinued Lantus -ISS -HBA1C - 9.6 Anemia of chronic kidney disease Acute on chronic anemia, rule out blood loss in setting of supratherapeutic INR, hemoglobin drop Baseline hemoglobin around 11. Hb down to 7.7 -FOBT ordered. No overt signs of GI bleeding, but INR is 10.4 X 2. Per patient dark stool as on iron tablet -Received Vit K 5 mg, still INR 10.4, will give one more dose of vit k as could be bleeding with HB dropping further Supra therapeutic INR INR 10.4 Home regimenwarfarin 2.5 mg 6 times a week, 1.25 mg once a week Indicationatrial fibrillation Received vitamin K 5 mg on admission. INR continues to be 10.4. Will give 1 more dose of 5 mg p.o. as hemoglobin dropped to 7.7 Bilateral lower extremity wounds, lower extremity edema, history of venous insufficiency, history of venous thrombosis. - Follows with wound care. - Consulted wound care - Monitor Hypertension. BP borderline low -Hold clonidine 0.1 mg twice daily, Lopressor 50 mg BID. Will discontinue Losartan -On IVF for CK elevation in 500s -Monitor closely -Continue clonidine, Lopressor, losartan with holding parameters. History of deep venous thrombosis. INR is supratherapeutic History of coronary artery disease status post coronary artery bypass graft - on aspirin, statin and beta-shubham CKD stage 3. Baseline Cr around 2.0 -Creatinine near baseline History of prosthetic aortic valve replacement. History of transient ischemic attack -on aspirin -Hold Statin (CPK elevated) Elevated CPK. CK - 535 s/p fall. -IV Fluids- Continue -Monitor Deep venous thrombosis prophylaxis. INR is supratherapeutic. Disposition Subjective Patient is sitting at the edge of bed. Denies any complaints. Denies any headache, dizziness, lightheadedness, chest pain, shortness of breath, fever, chills. No abdominal pain, diarrhea, constipation. Denies any significant cough, SOB, chest pain Does have chronic hip pain and ambulatory dysfunction at baseline Tele monitor- Junctional rhythm with Heart rhythm going down to as low as 30s Physical Exam Physical Exam: GENERAL- AAOX3, No acute distress, FRAIL , Chronically ill looking EYES- Echymosis below right eye NECK- Supple, no JVD LUNGS- Air entry bilaterally equal. No rales, rhonchi, crackles, wheezes heard. HEART- Regular rate and rhythm. No murmurs ABDOMEN- Soft, non tender, non distended, Bowel sounds heard. EXTREMITIES- Good peripheral pulses, no edema NEUROMUSCULAR- AAOX3, Grossly no focal deficits EXTREMITIES- Bilateral lower extremity wound Results & Data Vital Signs (Past 12 Hours) Vital Signs Temp Pulse Pulse Resp BP BP Pulse Ox 02/08/19 08:14 37.1 C 72 16 116/65 94 02/08/19 05:30 69 02/08/19 03:40 36.7 C 61 20 126/90 97 02/08/19 03:23 66 18 116/47 L 96 02/08/19 01:40 63 16 110/75 95 02/08/19 00:00 95 02/07/19 23:56 60 16 147/55 H 95 02/07/19 22:20 37.0 C 67 20 147/53 H 98 (1) Right lower lobe pneumonia Pneumonia type: due to unspecified organism Qualified Code(s): J18.1 - Lobar pneumonia, unspecified organism
[2019-02-08] MEDS: INSULIN ASPART 100 UNITS/ML 3 ML PEN SC SCH ×4 (08:25→21:39)
[2019-02-08] MEDS ORDERED: cloNIDine HCl 0.1 MG TAB PO SCH (09:00)
[2019-02-08] MEDS ORDERED: INSULIN GLARGINE SOLOSTAR 100 UNITS/ML 3 ML PEN SC SCH ×2 (09:00→21:00)
[2019-02-08] MEDS ORDERED: LOSARTAN POTASSIUM 50 MG TAB PO SCH (09:00)
[2019-02-08] MEDS ORDERED: METOPROLOL TARTRATE 50 MG TAB PO SCH (09:00)
[2019-02-08] MEDS ORDERED: DOXYCYCLINE HYCLATE 100 MG in DEXTROSE 5% 100 ML IV SCH (09:00)
[2019-02-08] MEDS ORDERED: PHARMACY GLYCEMIC MGMT CONSULT PRN (13:42)
--- NOTE | 2019-02-08 14:24 | Pharmacy Report ---
Glycemic Control Consultation - Date of Service February 08, 2019 - Scope Scope: Glycemic Pharmacist consulted by Dr Rodríguez Franz on 02/08/19 for glycemic control and to write orders per [facility] inpatient glycemic control protocol - Objective Weight: 73.7 kg Accuchecks BSG (last 24hrs): 02/07/19 02/08/19 02/08/19 23:01 00:06 00:47 Glucose 36 L* POC Glucose 125 H 94 02/08/19 02/08/19 02/08/19 03:12 07:17 07:38 Glucose 43 L* POC Glucose 122 H 50 L* 02/08/19 02/08/19 02/08/19 07:40 08:04 11:39 Glucose POC Glucose 55 L* 81 74 Laboratory Data (last 24hrs): 02/07/19 02/08/19 23:01 07:17 Potassium 4.8 5.0 Carbon Dioxide 22 21 Anion Gap 7 6.0 Creatinine 2.10 H 1.82 H Est Cr Clr Drug Dosing 23.7 25.3 HbA1c: Hemoglobin A1c 9.6 % (4.5-5.6) H 02/08/19 07:17 - Recent Pertinent Medications Outpatient Anti-diabetic Regimen: * Glimepiride (Amaryl) 4mg PO daily * A1c = 9.6 % 02/08/19 The patient is currently receiving: * Basal insulin: d/c this morning * Correctional Insulin: Novolog Correction per scale ACHS Goal Range: Low 120 mg/dL - High 150 mg/dL Correction Factor: 30 mg/dL/unit * Prandial insulin: Per carb ratio of 1 unit per 12 grams CHO consumed * Oral Agents: On hold for admission Risk Factors for Insulin Resistance: * Infection - Assessment & Plan Assessment & Plan: ASSESSMENT: * 88yo T2DM male admitted with syncope, fall, PNA * Pt is maintained on oral antidiabetic agent as an outpatient (glimepiride). A1c is elevated but near goal range based on age and co-morbidities (goal A1c likely 8-9%) * Sulfonylureas can cause long standing hypoglycemia with renal impairment. Scr 2.1 --> 1.82mg/dl. Pt with hypo on admission and BSGs remain below goal range despite no insulin given. Will continue to titrate insulin conservatively. May consider changing outpatient regimen to alternative agent to prevent hypoglycemia. PLAN FOR INPATIENT GLYCEMIC CONTROL: * Holding outpatient oral diabetes medications * Basal insulin * Hold at this time, may need basal insulin based on A1c but will not give until BSG >180 mg/dl * Lantus 7 units @ HS if BSG > 180mg/dl * Bolus insulin * NovoLog per scale ACHS or Q6hrs while NPO * Goal Range: Low 120 mg/dL - High 150 mg/dL * Correction Factor: 30 mg/dL/unit * Nutritional / Prandial insulin per carb ratio of 1 unit per 12 grams CHO consumed * Please note that the plan above was derived based on current level of insulin resistance and hospital stress. These recommendations are appropriate for inpatient admission only. Plan of care upon discharge will need to be reassessed to avoid potential outpatient hypo/hyperglycemia. Thank you.
--- NOTE | 2019-02-08 14:46 | Cardiology Consultation ---
Date of Consultation February 08, 2019 Assessment & Plan (1) Mobitz type 1 second degree AV block: (2) Junctional bradycardia: (3) Paroxysmal atrial fibrillation: (4) Right lower lobe pneumonia: (5) Hypotension: (6) Hypoglycemia: (7) Fall: (8) Chronic venous insufficiency: 88-year-old patient presents with fall versus syncope. Telemetry reviewed demonstrating sinus rhythm, sinus bradycardia with long first-degree AV block and periods of Mobitz type I second-degree AV block. Heart rate has not significantly changed compared to prior 24-hour Holter monitor performed in December 2017. There are questionable periods of junctional bradycardia during presumed hours of sleep. No significant pauses or symptomatic bradycardia recorded. Recommend holding AV sukhdev blocking agents and clonidine at this time. Continue to monitor telemetry. Patient appears mildly volume depleted in the setting of acute right lower lobe community-acquired pneumonia. Continue gentle hydration and IV antibiotic therapy. He is received 2 doses of vitamin K for supratherapeutic INR. Recommend repeat INR in a.m. Monitor for any signs/symptoms of GI/ blood loss. Follow daily H&H. I will continue to monitor patient during hospitalization. Thank you for allowing me to participate in the care of your patient. History of Present Illness Reason for Consultation: Syncope, junctional bradycardia Requesting Physician: Dr. Lucille Franz Attending Physician: Lucille Franz History of Present Illness 88-year-old male presented to the emergency department with fall possible syncope. Patient well-known to the undersigned. Carries history of paroxysmal atrial fibrillation, second-degree AV block Mobitz type I, bioprosthetic AVR, coronary artery disease with prior bypass grafting, labile hypertension, and chronic lower extremity edema with ulceration. Patient reports walking through his home and then waking up lying on the floor. He is unsure whether he passed out however he does not recall events surrounding the fall. There is evidence of head trauma with ecchymosis near his left orbit. Denies any sensation of lightheadedness, dizziness, syncope or near syncope recently. No chest pain or unusual shortness of breath. Denies cough, fever, chills, or sick contacts. Chest x-ray on admission demonstrates right lower lobe consolidation. Elevated white blood cell count noted on admission. Antibiotics initiated. Patient now borderline hypotensive. Metoprolol and clonidine placed on hold. Hypoglycemia as well as supratherapeutic INR noted on admission. Patient denies any noncompliance with current medications. Recent history significant for prior 24-hour Holter monitor demonstrating second-degree AV block Mobitz type I in December 2017. At that time metoprolol was reduced from 100 mg twice daily down to 50 mg twice daily. At the time patient denied any lightheadedness, dizziness, syncope, or near syncope. Allergies Allergy/AdvReac Type Severity Reaction Status Date / Time lisinopril Allergy Unknown Unknown Verified 02/07/19 23:49 Home Medications Home Medications Medication Instructions Recorded Confirmed Type ascorbic acid (vitamin C) 500 mg 1,000 mg PO BID cap 03/17/18 02/07/19 History capsule aspirin 81 mg chewable tablet 81 mg PO Q OTHER DAY tab 03/17/18 02/07/19 History atorvastatin 40 mg tablet 40 mg PO DAILY 03/17/18 02/07/19 History clonidine HCl 0.1 mg tablet 0.1 mg PO TID 03/17/18 02/07/19 History ferrous sulfate 325 mg (65 mg 325 mg PO BID tab 03/17/18 02/07/19 History iron) tablet finasteride 5 mg tablet 5 mg PO DAILY tab 03/17/18 02/07/19 History folic acid 1 mg tablet 1 mg PO DAILY 03/17/18 02/07/19 History glimepiride 4 mg tablet 4 mg PO QAM tab 03/17/18 02/07/19 History losartan 100 mg tablet 100 mg PO DAILY 03/17/18 02/07/19 History multivitamin tablet 1 tab PO DAILY 03/17/18 02/07/19 History metoprolol tartrate 50 mg tablet 50 mg PO BID 07/04/18 02/07/19 History doxazosin 1 mg PO HS 02/07/19 02/07/19 History sennosides [Senokot] 8.6 mg PO BID PRN 02/07/19 02/07/19 History triamcinolone acetonide 1 applic TOPICAL BID PRN 02/07/19 02/07/19 History warfarin 1.25 mg PO WK 02/07/19 02/07/19 History warfarin 2.5 mg PO [id number] 02/07/19 02/07/19 History Patient History Medical History GERD (gastroesophageal reflux disease) (Chronic) HTN (hypertension) (Chronic) Hyperlipidemia (Chronic) Surgical History History of open heart surgery (Chronic) Social History Preferred Language: [place] Communication Ability: very [place] Communication Ability Comment: wears hearing aides Kaiako Kura [place] Required: No Beliefs That Will Affect Care: None Current Living Situation: Alone Current Living Situation Comment: lives alone in apartment Other Information That Helps Us Care for You: Yes (Goes to wound clinic for bilat. unna boots) Feels Safe at Home: Yes Safety Concerns: Feels Safe At This Time Smoking Status: Never smoker Do You Dip or Chew Tobacco: No Second Hand Exposure: No Hx Alcohol Use: No Hx Substance Use: No Review of Systems Review of Systems: All systems reviewed & are unremarkable except as noted in HPI & below Physical Exam Physical Exam: General: NAD, AAO x3, well nourished. [place]. Chronically ill. HEENT: Normocephalic. Atraumatic. Conjunctiva pink, no scleral icterus. No carotid bruits, the carotid upstrokes are brisk. No JVD. No HJR Heart: Regular normal S-1 and S-2 no S-3 or S-4 gallop. 1-2/6 low pitched early peaking, systolic ejection murmur, heard best at right second intercostal space at the left sternal border. No rubs appreciated. PMI is not displaced. No RV heave. Lungs: Crackles at the bases bilaterally. No rhonchi or wheeze. Abdomen: Normal bowel sounds. Soft. Nontender. No masses or organomegaly. No abdominal bruits. Extremities: No clubbing, or cyanosis. Plus 1-2 B/L LE edema, LE wrapped with compression stocking. Pulses: radial=2/4. Neuro: No focal deficits. Results & Data Vital Signs (Past 12 Hours) Vital Signs Temp Pulse Pulse Resp BP BP Pulse Ox 02/08/19 12:04 36.7 C 53 L 16 92/50 L 97 02/08/19 08:14 37.1 C 72 16 116/65 94 02/08/19 08:00 74 02/08/19 05:30 69 02/08/19 03:40 36.7 C 61 20 126/90 97 02/08/19 03:23 66 18 116/47 L 96 Laboratory Results Laboratory Results - last 24 hr 02/07/19 02/07/19 02/07/19 23:01 23:01 23:01 WBC 13.42 H RBC 3.28 L Hgb 9.6 L Hct 28.8 L MCV 87.8 MCH 29.3 MCHC 33.3 RDW Std Deviation 50.6 H RDW Coeff of [place] 15.9 H Plt Count 235 MPV 8.6 Immature Gran % (Auto) 0.6 Neut % (Auto) 86.0 Lymph % (Auto) 4.9 [place] % (Auto) 8.4 Eos % (Auto) 0.0 Baso % (Auto) 0.1 Immature Gran # (Auto) 0.08 H Neut # (Auto) 11.53 H Lymph # (Auto) 0.66 L [place] # (Auto) 1.13 H Eos # (Auto) 0.00 Baso # (Auto) 0.02 Acanthocytes (Spur) PT > 90.0 H INR > 10.4 H* Sodium 140 Potassium 4.8 Chloride 111 H Carbon Dioxide 22 Anion Gap 7 BUN 28 H Creatinine 2.10 H Est Cr Clr Drug Dosing 23.7 Est GFR ( Amer) 31.6 Est GFR (Non-Af Amer) 27.3 BUN/Creatinine Ratio 13.5 Glucose 36 L* POC Glucose Estimat Average Glucose Hemoglobin A1c Calcium 8.5 Magnesium 2.2 Total Bilirubin 0.5 AST 60 H ALT 50 Alkaline Phosphatase 185 H Total Creatine Kinase 535 H Troponin I 0.029 Total Protein 6.3 L Albumin 3.2 L Globulin 3.1 Albumin/Globulin Ratio 1.0 TSH 3.300 02/08/19 02/08/19 02/08/19 00:06 00:47 03:12 WBC RBC Hgb Hct MCV MCH MCHC RDW Std Deviation RDW Coeff of [place] Plt Count MPV Immature Gran % (Auto) Neut % (Auto) Lymph % (Auto) [place] % (Auto) Eos % (Auto) Baso % (Auto) Immature Gran # (Auto) Neut # (Auto) Lymph # (Auto) [place] # (Auto) Eos # (Auto) Baso # (Auto) Acanthocytes (Spur) PT INR Sodium Potassium Chloride Carbon Dioxide Anion Gap BUN Creatinine Est Cr Clr Drug Dosing Est GFR ( Amer) Est GFR (Non-Af Amer) BUN/Creatinine Ratio Glucose POC Glucose 125 H 94 122 H Estimat Average Glucose Hemoglobin A1c Calcium Magnesium Total Bilirubin AST ALT Alkaline Phosphatase Total Creatine Kinase Troponin I Total Protein Albumin Globulin Albumin/Globulin Ratio [facility] 02/08/19 02/08/19 02/08/19 07:17 07:17 07:17 WBC 7.58 RBC 2.60 L Hgb 7.7 L Hct 22.6 L MCV 86.9 MCH 29.6 MCHC 34.1 RDW Std Deviation 48.6 H RDW Coeff of [place] 15.8 H Plt Count 178 MPV 8.5 Immature Gran % (Auto) 0.1 Neut % (Auto) 78.1 Lymph % (Auto) 10.4 [place] % (Auto) 11.3 Eos % (Auto) 0.0 Baso % (Auto) 0.1 Immature Gran # (Auto) 0.01 Neut # (Auto) 5.91 Lymph # (Auto) 0.79 L [place] # (Auto) 0.86 H Eos # (Auto) 0.00 Baso # (Auto) 0.01 Acanthocytes (Spur) 1+ PT > 90.0 H INR > 10.4 H* Sodium 138 Potassium 5.0 Chloride 111 H Carbon Dioxide 21 Anion Gap 6.0 BUN 28 H Creatinine 1.82 H Est Cr Clr Drug Dosing 25.3 Est GFR ( Amer) 37.6 Est GFR (Non-Af Amer) 32.4 BUN/Creatinine Ratio 15.4 Glucose 43 L* POC Glucose Estimat Average Glucose Hemoglobin A1c Calcium 7.9 L Magnesium 2.1 Total Bilirubin AST ALT Alkaline Phosphatase Total Creatine Kinase Troponin I Total Protein Albumin Globulin Albumin/Globulin Ratio [facility] 02/08/19 02/08/19 02/08/19 07:17 07:17 07:38 WBC RBC Hgb Hct MCV MCH MCHC RDW Std Deviation RDW Coeff of [place] Plt Count MPV Immature Gran % (Auto) Neut % (Auto) Lymph % (Auto) [place] % (Auto) Eos % (Auto) Baso % (Auto) Immature Gran # (Auto) Neut # (Auto) Lymph # (Auto) [place] # (Auto) Eos # (Auto) Baso # (Auto) Acanthocytes (Spur) PT INR Sodium Potassium Chloride Carbon Dioxide Anion Gap BUN Creatinine Est Cr Clr Drug Dosing Est GFR ( Amer) Est GFR (Non-Af Amer) BUN/Creatinine Ratio Glucose POC Glucose 50 L* Estimat Average Glucose 229 Hemoglobin A1c 9.6 H Calcium Magnesium Total Bilirubin AST ALT Alkaline Phosphatase Total Creatine Kinase 707 H Troponin I Total Protein Albumin Globulin Albumin/Globulin Ratio TSH 02/08/19 02/08/19 02/08/19 07:40 08:04 11:39 WBC RBC Hgb Hct MCV MCH MCHC RDW Std Deviation RDW Coeff of [place] Plt Count MPV Immature Gran % (Auto) Neut % (Auto) Lymph % (Auto) [place] % (Auto) Eos % (Auto) Baso % (Auto) Immature Gran # (Auto) Neut # (Auto) Lymph # (Auto) [place] # (Auto) Eos # (Auto) Baso # (Auto) Acanthocytes (Spur) PT INR Sodium Potassium Chloride Carbon Dioxide Anion Gap BUN Creatinine Est Cr Clr Drug Dosing Est GFR ( Amer) Est GFR (Non-Af Amer) BUN/Creatinine Ratio Glucose POC Glucose 55 L* 81 74 Estimat Average Glucose Hemoglobin A1c Calcium Magnesium Total Bilirubin AST ALT Alkaline Phosphatase Total Creatine Kinase Troponin I Total Protein Albumin Globulin Albumin/Globulin Ratio TSH (1) Right lower lobe pneumonia Pneumonia type: due to unspecified organism Qualified Code(s): J18.1 - Lobar pneumonia, unspecified organism (2) Hypotension Hypotension type: hypotension due to hypovolemia Qualified Code(s): I95.89 - Other hypotension; E86.1 - Hypovolemia (3) Fall Encounter type: initial encounter Qualified Code(s): W19.XXXA - Unspecified fall, initial encounter
[2019-02-08] MEDS: ACETAMINOPHEN 325 MG TAB PO PRN (20:24)
[2019-02-08] MEDS: DOXAZOSIN MESYLATE 1 MG TAB PO SCH (20:36)
[2019-02-08] MEDS: DOXYCYCLINE HYCLATE 100 MG CAP PO SCH (20:36)
[2019-02-08] MEDS: TRAMADOL HCL 50 MG TABLET PO PRN (22:42)
[2019-02-08] MEDS ORDERED: cefTRIAXone SODIUM 1,000 MG in DEXTROSE 5% 50 ML IV SCH (23:00)
[2019-02-09 06:05] LABS: Basophils # (auto) 0.01 K/uL (0-0.2); Basophils % (auto) 0.2 %; Hemoglobin 7.1 g/dL (14.0-18.0); Immature Granulocytes # (auto) 0.02 K/uL (0.00-0.02); Immature Granulocytes % (auto) 0.3 %; Lymphocytes # (auto) 0.84 K/uL (1.2-3.4); Lymphocytes % (auto) 13.5 %; Mean Corpuscular Hgb Conc 33.8 g/dL (32-36); Mean Corpuscular Volume 86.8 fL (80-100); Mean Platelet Volume 8.9 fL (7.4-10.4); Monocytes # (auto) 0.65 K/uL (0.11-0.59); Monocytes % (auto) 10.5 %; Neutrophils # (auto) 4.68 K/uL (1.4-6.5); Neutrophils % (auto) 75.5 %; Platelet Count 161 K/uL (130-400); RDW Coefficient of Variation 16.2 % (11.5-14.5); RDW Standard Deviation 50.6 fL (36.4-46.3); Red Blood Count 2.42 M/uL (4.7-6.1)
[2019-02-09 06:16] LABS: INR 1.8 (0.9-1.1); Prothrombin Time 17.8 Seconds (9.0-12.0)
[2019-02-09 06:35] LABS: Acanthocytes 1+; Ovalocytes 1+
[2019-02-09 06:44] LABS: BUN Creatinine Ratio 18.4 (10-20); Calcium 7.5 mg/dl (8.5-10.1); Est GFR (African American) 35.2; Est GFR (Non-African American) 30.4; Potassium 5.4 mmol/L (3.5-5.1)
--- NOTE | 2019-02-09 07:32 | Hospitalist Progress Note ---
Date of Service February 09, 2019 Assessment & Plan (1) Right lower lobe pneumonia: Patient is a 88-year-old male with multiple comorbidities who came to ED after a fall. He thinks he passed out Complains of pain in his hip, ambulatory dysfunction secondary to fall. In ED, work-up showed right basilar pneumonia, found to be hypoglycemic. S/P Fall/ Probable Syncope Per patient he thinks he passed out and found himself on floor in his bedroom. Was unable to get up, called him med alert button and was brought to hospital. Prior episode of syncope - Tele monitor- Junctional rhythm with HR dropping to as low as 30s while at rest. Now 80s after dc of clonidine, metoprolol. Work up- CT pelvisno acute fracture, severe degenerative left hip with flattening of superior aspect of femoral head and acetabulum, degenerative subchondral cystic change. Prior surgical findings. Old healed fracture left pubic ring, CT headno acute abnormality, CT lumbar spineno fractures, degenerative changes, CT thoracic spinedegenerative changes, no fracture, left pleural effusion with left basilar parenchymal infiltrate -Appreciate cardiology inputs History of atrial fibrillation EKG/Monitor= Junctional Rhythm. Heart rate down to 30s while sleeping. Prior episode of syncope. Now HR in 80s after holding clonidine, Lopressor -Held coumadin as INR was supratherapeutic and now hemoglobin dropping -Cardiology inputs appreciated= Monitor while off metoprolol, clonidine Anemia of chronic kidney disease Acute on chronic anemia, rule out blood loss in setting of supratherapeutic INR, hemoglobin drop Baseline hemoglobin around 11. dropping down to 7.1 today -FOBT ordered. No overt signs of GI bleeding, but INR is 10.4 X 2. Per patient dark stool as on iron tablet -Received Vit K 5 mg, x 2 tabs, INR now 1.8 -Will transfuse 1 unit PRBC today -Monitor H & H and f/up FOBT Supra therapeutic INR - Resolved INR 10.4 Home regimenwarfarin 2.5 mg 6 times a week, 1.25 mg once a week Indicationatrial fibrillation with no prior hx of stroke/TIA Received vitamin K 5 mg x 2 --> INR 1.8 -Monitor off coumadin Bilateral Infiltrates on X ray, probably pneumonia X ray Chest- Right basilar infiltrate CT thoracic spine shows- Left pleural effusion > right with left basilar parenchymal infiltrate -Clinically does not have any significant respiratory symptoms -IV Rocephin, Azithromycin in ED, Continue with IV Rocephin, Doxycycline -Blood culture [id number], unable to collect sputum culture Hypoglycemia in setting of diabetes mellitus, [id number] - Resolved Could be contributing to generalized weakness Blood sugar on [id number], continues to be hypoglycemic with sugar up to 80s now -Home medicationglimepiride 4 mg -Holding lantus till BGS > 180. -ISS -HBA1C - 9.6 (Goal given age is higher) -Appreciate pharmacy inputs Elevated CPK. CK - 535 s/p fall. Now increasing -IV Fluids- Continue -Monitor Bilateral lower extremity wounds, lower extremity edema, history of venous insufficiency, history of venous thrombosis. - Follows with wound care. - Consulted wound care - Monitor Hypertension. BP borderline low -Hold clonidine 0.1 mg twice daily, Lopressor 50 mg BID. Will discontinue Losartan -On IVF for CK elevation in 500s -Monitor closely -Continue clonidine, Lopressor, losartan with holding parameters. History of deep venous thrombosis. INR is supratherapeutic History of coronary artery disease status post coronary artery bypass graft - on aspirin, statin and beta-shubham CKD stage 3. Baseline Cr around 2.0 -Creatinine near baseline History of prosthetic aortic valve replacement. History of transient ischemic attack -on aspirin -Hold Statin (CPK elevated) Deep venous thrombosis prophylaxis. INR is 1.8 Disposition Medical mx in progress Subjective Patient is a bit confused today about where he is. Remembers his home address and now knows that he is in the hospital. Denies any complaints. Denies any headache, dizziness, lightheadedness, chest pain, shortness of breath, fever, chills. No abdominal pain, diarrhea, constipation. Denies any significant cough, SOB, chest pain Does have chronic hip pain and ambulatory dysfunction at baseline Tele monitor - NSR now in 80s Physical Exam Physical Exam: GENERAL- AAOX3, No acute distress, FRAIL , Chronically ill looking EYES- Echymosis below right eye NECK- Supple, no JVD LUNGS- Air entry bilaterally equal. No rales, rhonchi, crackles, wheezes heard. HEART- Regular rate and rhythm. No murmurs ABDOMEN- Soft, non tender, non distended, Bowel sounds heard. EXTREMITIES- Good peripheral pulses, no edema NEUROMUSCULAR- AAOX3, Grossly no focal deficits EXTREMITIES- Bilateral lower extremity wound Results & Data Vital Signs (Past 12 Hours) Vital Signs Temp Pulse Pulse Resp BP BP Pulse Ox 02/09/19 05:14 76 02/09/19 04:45 36.6 C 69 18 118/62 96 02/09/19 03:47 02/09/19 00:00 36.6 C 80 20 104/55 L 96 02/08/19 20:00 36.5 C 68 20 108/61 98 Pulse Ox 02/09/19 05:14 02/09/19 04:45 02/09/19 03:47 96 02/09/19 00:00 02/08/19 20:00 (1) Right lower lobe pneumonia Pneumonia type: due to unspecified organism Qualified Code(s): J18.1 - Lobar pneumonia, unspecified organism
[2019-02-09] MEDS ORDERED: SODIUM CHLORIDE 0.9% 250 ML IV PRN (07:57)
[2019-02-09] MEDS: INSULIN ASPART 100 UNITS/ML 3 ML PEN SC SCH ×4 (08:13→20:43)
[2019-02-09] MEDS: INSULIN GLARGINE SOLOSTAR 100 UNITS/ML 3 ML PEN SC SCH ×2 (08:20→20:44)
[2019-02-09 08:29] LABS: Reticulocyte % 2.5 % (0.5-2.0); Reticulocytes # 0.06 10^6/uL (0.02-0.10)
[2019-02-09 08:58] LABS: Ferritin 559.9 ng/ml (8-388)
[2019-02-09] MEDS: ASPIRIN 81 MG ECTAB PO SCH (09:50)
[2019-02-09] MEDS: FERROUS SULFATE 325 MG TAB PO SCH ×2 (09:50→20:52)
[2019-02-09] MEDS: FINASTERIDE 5 MG TAB PO SCH (09:50)
[2019-02-09] MEDS: MULTIVITAMIN TAB PO SCH (09:50)
[2019-02-09] MEDS: DOXYCYCLINE HYCLATE 100 MG CAP PO SCH ×2 (09:50→20:52)
[2019-02-09] MEDS: ASCORBIC ACID 500 MG TAB PO SCH ×2 (09:51→20:52)
[2019-02-09] MEDS: FOLIC ACID 1 MG TAB PO SCH (09:54)
--- NOTE | 2019-02-09 11:25 | Pharmacy Report ---
Pharmacy Glycemic Short Note 2 - Date of Service February 09, 2019 - Glycemic Short BSG Results (Last 24 hours): 02/08/19 02/08/19 02/08/19 11:39 16:34 16:35 Glucose POC Glucose 74 67 L* 61 L* 02/08/19 02/08/19 02/09/19 16:56 20:42 05:41 Glucose 174 H POC Glucose 81 118 H 02/09/19 07:38 Glucose POC Glucose 184 H OUTPATIENT ANTIDIABETIC REGIMEN: * Glimepiride (Amaryl) 4mg PO daily * A1c = 9.6 % 02/08/19 ASSESSMENT: * 88yo T2DM male admitted with syncope, fall, PNA * Pt is maintained on oral antidiabetic agent as an outpatient (glimepiride). A1c is elevated but near goal range based on age and co-morbidities (goal A1c likely 8-9%) * Sulfonylureas can cause long standing hypoglycemia with renal impairment. Scr 2.1 --> 1.82mg/dl. Pt with hypo on admission and BSGs remain below goal range despite no insulin given. Will continue to titrate insulin conservatively. May consider changing outpatient regimen to alternative agent to prevent hypoglycemia. * AM fasting BSG up to 184mg/dl this morning. Will start low dose insulin protocol based on weight and low stress. PLAN FOR INPATIENT GLYCEMIC CONTROL: * Holding outpatient oral diabetes medications * Basal insulin * Lantus SQ BID - dosing based on BSG * BSG below 180 mg/dl --> HOLD * BSG 180mg.dl or above -> 7 units * Bolus insulin: no change * NovoLog per scale ACHS or Q6hrs while NPO * Goal Range: Low 120 mg/dL - High 150 mg/dL * Correction Factor: 30 mg/dL/unit * Nutritional / Prandial insulin per carb ratio of 1 unit per 12 grams CHO consumed
--- NOTE | 2019-02-09 12:00 | Fluoroscopy Report ---
FL video swallow HISTORY: aspiration TECHNIQUE: Video fluoroscopic evaluation of swallowing was performed in the AP and lateral projection s by the speech pathology staff. The patient was fed thin liquid barium, nectar thick liquid, and pud ding, and cracker with paste... FLUOROSCOPY TIME: 1.3 minutes. NUMBER OF FLUOROSCOPY IMAGES: 0 COMPARISON STUDY: None. FINDINGS: No aspiration or penetration was visualized. There is mild vallecular residue. IMPRESSION: 1. Vallecular residue. No evidence for aspiration or penetration. 2. Please see the speech pathologist report for detailed findings and recommendations. Electronically signed by: Franky Lal M.D. 02/09/2019 11:59 AM
--- NOTE | 2019-02-09 13:00 | Cardiology Progress Note ---
Date of Service February 09, 2019 Assessment & Plan (1) Mobitz type 1 second degree AV block: (2) Junctional bradycardia: (3) Paroxysmal atrial fibrillation: (4) Right lower lobe pneumonia: (5) Hypotension: (6) Hypoglycemia: (7) Fall: (8) Chronic venous insufficiency: 88-year-old patient presents with fall versus syncope. Telemetry reviewed demonstrating sinus rhythm, sinus bradycardia with long first-degree AV block and periods of Mobitz type I second-degree AV block. Clonidine and metoprolol placed on hold. Heart rate improving with average heart rates 60 to 75 bpm currently. Intermittent Mobitz type I second-degree AV block noted. Patient denies lightheadedness, dizziness, syncope, or near syncope since admission. No significant pauses on telemetry. Continue to hold AV sukhdev blocking agents and clonidine at this time. Repeat ECG in a.m. Antibiotics and gentle IV hydration per internal medicine. INR subtherapeutic today after 2 doses of vitamin K. Restart Coumadin at reduced dose with repeat INR in a.m. Subjective Patient seen and examined at the bedside. Denies chest pain, shortness of breath, palpitations, lightheadedness, dizziness, syncope, or syncope. Denies cough, orthopnea, or PND. Clonidine and metoprolol remain on hold. Heart rate improved on telemetry. Remains sinus rhythm with a first-degree AV block and intermittent second-degree AV block Mobitz type I. Low amplitude P waves noted. Review of Systems Review of Systems: All systems reviewed & are unremarkable except as noted in HPI & below Physical Exam Physical Exam: General: NAD, AAO x3, well nourished. [place]. Chronically ill. HEENT: Normocephalic. Atraumatic. Conjunctiva pink, no scleral icterus. No carotid bruits, the carotid upstrokes are brisk. No JVD. No HJR Heart: Regular with ectopy, normal S-1 and S-2 no S-3 or S-4 gallop. 1-2/6 low pitched early peaking, systolic ejection murmur, heard best at right second intercostal space at the left sternal border. No rubs appreciated. PMI is not displaced. No RV heave. Lungs: Crackles at the bases bilaterally. No rhonchi or wheeze. Abdomen: Normal bowel sounds. Soft. Nontender. No masses or organomegaly. No abdominal bruits. Extremities: No clubbing, or cyanosis. Plus 1-2 B/L LE edema, LE wrapped. Pulses: radial=2/4. Neuro: No focal deficits. Results & Data Vital Signs (Past 12 Hours) Vital Signs Temp Pulse Pulse Resp BP BP Pulse Ox 02/09/19 12:45 36.5 C 72 18 128/51 L 97 02/09/19 12:15 63 18 103/50 L 98 02/09/19 12:11 36.7 C 63 16 111/48 L 97 02/09/19 12:00 36 C L 63 18 109/66 94 02/09/19 11:42 36.6 C 63 18 120/61 02/09/19 07:49 36.5 C 84 16 127/58 L 93 02/09/19 05:14 76 02/09/19 04:45 36.6 C 69 18 118/62 96 02/09/19 03:47 Pulse Ox 02/09/19 12:45 02/09/19 12:15 02/09/19 12:11 02/09/19 12:00 02/09/19 11:42 02/09/19 07:49 02/09/19 05:14 02/09/19 04:45 02/09/19 03:47 96 (1) Right lower lobe pneumonia Pneumonia type: due to unspecified organism Qualified Code(s): J18.1 - Lobar pneumonia, unspecified organism (2) Hypotension Hypotension type: hypotension due to hypovolemia Qualified Code(s): I95.89 - Other hypotension; E86.1 - Hypovolemia (3) Fall Encounter type: initial encounter Qualified Code(s): W19.XXXA - Unspecified fall, initial encounter
[2019-02-09] MEDS: SODIUM CHLORIDE 0.9% 1000ML 1,000 ML IV SCH (14:26)
[2019-02-09] MEDS ORDERED: SODIUM CHLORIDE 0.9% 500 ML IV SCH (17:00)
[2019-02-09] MEDS: TRAMADOL HCL 50 MG TABLET PO PRN (19:49)
[2019-02-09] MEDS: DOXAZOSIN MESYLATE 1 MG TAB PO SCH (20:52)
[2019-02-10] MEDS: SODIUM CHLORIDE 0.9% 1000ML 1,000 ML IV SCH (03:17)
[2019-02-10] MEDS: FERROUS SULFATE 325 MG TAB PO SCH ×2 (08:27→20:57)
[2019-02-10] MEDS: MULTIVITAMIN TAB PO SCH (08:27)
[2019-02-10] MEDS: FINASTERIDE 5 MG TAB PO SCH (08:27)
[2019-02-10] MEDS: ASCORBIC ACID 500 MG TAB PO SCH ×2 (08:27→20:57)
[2019-02-10] MEDS: FOLIC ACID 1 MG TAB PO SCH (08:28)
[2019-02-10] MEDS: DOXYCYCLINE HYCLATE 100 MG CAP PO SCH ×2 (08:28→20:58)
[2019-02-10] MEDS: INSULIN GLARGINE SOLOSTAR 100 UNITS/ML 3 ML PEN SC SCH ×2 (08:29→20:48)
[2019-02-10] MEDS: INSULIN ASPART 100 UNITS/ML 3 ML PEN SC SCH ×4 (08:40→20:48)
[2019-02-10 08:59] LABS: Hematocrit (blood only) 25.1 % (42-52); Hemoglobin 8.5 g/dL (14.0-18.0); Mean Corpuscular Hgb Conc 33.9 g/dL (32-36); Mean Corpuscular Volume 86.6 fL (80-100); Mean Platelet Volume 8.6 fL (7.4-10.4); Platelet Count 188 K/uL (130-400); RDW Coefficient of Variation 15.8 % (11.5-14.5); RDW Standard Deviation 48.4 fL (36.4-46.3); White Blood Count 8.61 K/uL (4.8-10.8)
[2019-02-10 09:08] LABS: INR 1.2 (0.9-1.1); Prothrombin Time 12.4 Seconds (9.0-12.0)
[2019-02-10 09:17] LABS: BUN Creatinine Ratio 20.3 (10-20); Calcium 7.9 mg/dl (8.5-10.1); Est GFR (African American) 44.3; Est GFR (Non-African American) 38.2; Potassium 4.7 mmol/L (3.5-5.1)
--- NOTE | 2019-02-10 10:07 | Hospitalist Progress Note ---
Date of Service February 10, 2019 Assessment & Plan (1) Right lower lobe pneumonia: Patient is a 88-year-old male with multiple comorbidities who came to ED after a fall. He thinks he passed out Complains of pain in his hip, ambulatory dysfunction secondary to fall. In ED, work-up showed right basilar pneumonia, found to be hypoglycemic. S/P Fall/ Probable Syncope Per patient he thinks he passed out and found himself on floor in his bedroom. Was unable to get up, called him med alert button and was brought to hospital. Prior episode of syncope - Tele monitor- Junctional rhythm with HR dropping to as low as 30s while at rest. Now 80s after dc of clonidine, metoprolol. Work up- CT pelvisno acute fracture, severe degenerative left hip with flattening of superior aspect of femoral head and acetabulum, degenerative subchondral cystic change. Prior surgical findings. Old healed fracture left pubic ring, CT headno acute abnormality, CT lumbar spineno fractures, degenerative changes, CT thoracic spinedegenerative changes, no fracture, left pleural effusion with left basilar parenchymal infiltrate -Appreciate cardiology inputs History of atrial fibrillation EKG/Monitor= Junctional Rhythm. Heart rate down to 30s while sleeping. Prior episode of syncope. Now HR in 80s after holding clonidine, Lopressor -Held coumadin as INR was supratherapeutic and Hb dropped. Risks > Benefits about anticoagulation. Patient lives alone, high risk of fall, multiple bruises, supratherpeutic INR 10 on presentation. Understands risk of stroke. Ok with discontinuation of coumadin. -Cardiology inputs appreciated= Monitor while off metoprolol, clonidine Anemia of chronic kidney disease Acute on chronic anemia, rule out blood loss in setting of supratherapeutic INR, hemoglobin drop Baseline hemoglobin around 11. dropping down to 7.1 today -FOBT ordered. No overt signs of GI bleeding, but INR is 10.4 X 2. Per patient dark stool as on iron tablet -Received Vit K 5 mg, x 2 tabs, INR subtherapeutic -S/P 1 unit PRBC transfusion since admission -Monitor H & H and f/up FOBT Supra therapeutic INR - Resolved INR 10.4 Home regimenwarfarin 2.5 mg 6 times a week, 1.25 mg once a week Indicationatrial fibrillation with no prior hx of stroke/TIA Received vitamin K 5 mg x 2 --> INR 1.8 -Discontinued coumadin as above Bilateral Infiltrates on X ray, probably pneumonia X ray Chest- Right basilar infiltrate CT thoracic spine shows- Left pleural effusion > right with left basilar parenchymal infiltrate -Clinically does not have any significant respiratory symptoms -IV Rocephin, Azithromycin in ED, Continue with Doxycycline -Blood culture x2Neg, unable to collect sputum culture Hypoglycemia in setting of diabetes mellitus, [id number] - Resolved Could be contributing to generalized weakness Blood sugar on [id number], continues to be hypoglycemic with sugar up to 80s now -Home medicationglimepiride 4 mg -On Lantus BID - 7 units if BGS >180, hold if < 180 -ISS -HBA1C - 9.6 (Goal given age is higher) -Appreciate pharmacy inputs Elevated CPK. CK - 535 s/p fall. Increased to 800s -IV Fluids- Ok to discontinue IVF -Monitor Bilateral lower extremity wounds, lower extremity edema, history of venous insufficiency, history of venous thrombosis. - Follows with wound care. - Consulted wound care - Monitor Hypertension. BP borderline low -Hold clonidine 0.1 mg twice daily, Lopressor 50 mg BID. Discontinued Losartan -Monitor closely History of deep venous thrombosis. INR is subtherapeutic now. Hold with HB dropping History of coronary artery disease status post coronary artery bypass graft - on aspirin, statin and beta-shubham CKD stage 3. Baseline Cr around 2.0 -Creatinine near baseline History of prosthetic aortic valve replacement. History of transient ischemic attack -on aspirin -Hold Statin (CPK elevated) Deep venous thrombosis prophylaxis. INR is 1.8 Full code per patient Disposition Medical mx in progress PT/OT pending Lives alone at home. Neighbors help him. No family members, no POAS Subjective Patient states that he does not feel good today. Does feel a little nauseous. Does have some cough but unable to produce phlegm. Does have chronic hip pain bilaterally. Denies any chest pain, shortness of breath, vomiting, abdominal pain, fever, chills. On and off does have some confusion Physical Exam Physical Exam: GENERAL- AAOX3, No acute distress, FRAIL , Chronically ill looking EYES- Ecchymosis below right eye NECK- Supple, no JVD LUNGS- Air entry bilaterally equal. No rales, rhonchi, crackles, wheezes heard. HEART- Regular rate and rhythm. No murmurs ABDOMEN- Soft, non tender, non distended, Bowel sounds heard. EXTREMITIES- Good peripheral pulses, no edema NEUROMUSCULAR- AAOX3, Grossly no focal deficits EXTREMITIES- Bilateral lower extremity wound SKIN- Multiple bruises Results & Data Vital Signs (Past 12 Hours) Vital Signs Temp Pulse Resp BP Pulse Ox 02/10/19 07:56 36.8 C 85 16 122/56 L 97 02/10/19 03:00 36.6 C 88 20 110/56 L 96 02/09/19 23:00 36.8 C 72 20 110/50 L 91 (1) Right lower lobe pneumonia Pneumonia type: due to unspecified organism Qualified Code(s): J18.1 - Lobar pneumonia, unspecified organism
--- NOTE | 2019-02-10 13:48 | Cardiology Progress Note ---
Date of Service February 10, 2019 Assessment & Plan (1) Mobitz type 1 second degree AV block: (2) Junctional bradycardia: (3) Paroxysmal atrial fibrillation: (4) Right lower lobe pneumonia: (5) Hypotension: (6) Hypoglycemia: (7) Fall: (8) Chronic venous insufficiency: 88-year-old patient presents with fall versus syncope. Telemetry reviewed demonstrating sinus rhythm, sinus bradycardia with long first-degree AV block and periods of Mobitz type I second-degree AV block. Clonidine and metoprolol placed on hold. Heart rate improving with average heart rates 60 to 75 bpm currently. Intermittent Mobitz type I second-degree AV block noted. Patient denies lightheadedness, dizziness, syncope, or near syncope since admission. No significant pauses on telemetry. Continue to hold AV sukhdev blocking agents and clonidine at this time. R No further bradycardia arrhythmias other than Mobitz 1 observed of significance. Patient clinically appears to be gradually improving hemoglobin better renal function letter to need to avoid AV node blocking drugs and clonidine and not resume Continue to maintain telemetry as activity levels are increased underlying medical issues are treated Subjective Patient seen and examined chart medications telemetry reviewed. Patient complains of hip pain and chronic chest wall tenderness right greater than left. No cardiac complaints no shortness of breath. No dizziness or lightheadedness. Telemetry reveals sinus mechanism with Mobitz 1 second-degree AV block no profound bradycardia arrhythmias Physical Exam Physical Exam: Exam: General: NAD, AAO x3, thin. [place]. Chronically ill. HEENT: Normocephalic. Atraumatic. Conjunctiva pink, no scleral icterus. No carotid bruits, the carotid upstrokes are brisk. No JVD. No HJR chest focal tenderness on palpation heart: Regular with ectopy, normal S-1 and S-2 no S-3 or S-4 gallop. 1-2/6 low pitched early peaking, systolic ejection murmur, heard b est at right second intercostal space at the left sternal border. No rubs appreciated. PMI is not displaced. No RV heave. Lungs: Crackles at the bases bilaterally. No rhonchi or wheeze. Abdomen: Normal bowel sounds. Soft. Nontender. No masses or organomegaly. No abdominal bruits. Extremities: No clubbing, or cyanosis. Plus 1-2 B/L LE edema, LE wrapped. Pulses: radial=2/4. Neuro: No focal deficits. Results & Data Vital Signs (Past 12 Hours) Vital Signs Temp Pulse Resp BP Pulse Ox 02/10/19 11:00 36.5 C 93 H 16 103/56 L 98 02/10/19 07:56 36.8 C 85 16 122/56 L 97 02/10/19 03:00 36.6 C 88 20 110/56 L 96 Laboratory Results Laboratory Results - last 24 hr 02/09/19 02/09/19 02/09/19 08:08 16:17 20:04 WBC RBC Hgb Hct MCV MCH MCHC RDW Std Deviation RDW Coeff of [place] Plt Count MPV PT INR Sodium Potassium Chloride Carbon Dioxide Anion Gap BUN Creatinine Est Cr Clr Drug Dosing Est GFR ( Amer) Est GFR (Non-Af Amer) BUN/Creatinine Ratio Glucose POC Glucose 181 H 193 H Calcium Total Creatine Kinase Crossmatch See Detail 02/10/19 02/10/19 02/10/19 07:33 08:43 08:43 WBC 8.61 RBC 2.90 L Hgb 8.5 L Hct 25.1 L MCV 86.6 MCH 29.3 MCHC 33.9 RDW Std Deviation 48.4 H RDW Coeff of [place] 15.8 H Plt Count 188 MPV 8.6 PT 12.4 H INR 1.2 H Sodium Potassium Chloride Carbon Dioxide Anion Gap BUN Creatinine Est Cr Clr Drug Dosing Est GFR ( Amer) Est GFR (Non-Af Amer) BUN/Creatinine Ratio Glucose POC Glucose 153 H Calcium Total Creatine Kinase Crossmatch 02/10/19 02/10/19 08:43 11:34 WBC RBC Hgb Hct MCV MCH MCHC RDW Std Deviation RDW Coeff of [place] Plt Count MPV PT INR Sodium 140 Potassium 4.7 Chloride 111 H Carbon Dioxide 20 L Anion Gap 9.0 BUN 32 H Creatinine 1.59 H D Est Cr Clr Drug Dosing 29.0 Est GFR ( Amer) 44.3 Est GFR (Non-Af Amer) 38.2 BUN/Creatinine Ratio 20.3 H Glucose 145 H POC Glucose 160 H Calcium 7.9 L Total Creatine Kinase 534 H Crossmatch (1) Right lower lobe pneumonia Pneumonia type: due to unspecified organism Qualified Code(s): J18.1 - Lobar pneumonia, unspecified organism (2) Hypotension Hypotension type: hypotension due to hypovolemia Qualified Code(s): I95.89 - Other hypotension; E86.1 - Hypovolemia (3) Fall Encounter type: initial encounter Qualified Code(s): W19.XXXA - Unspecified fall, initial encounter
[2019-02-10] MEDS: DOCUSATE SODIUM 100 MG CAP PO SCH (20:57)
[2019-02-10] MEDS: DOXAZOSIN MESYLATE 1 MG TAB PO SCH (20:58)
[2019-02-11 08:02] LABS: INR 1.2 (0.9-1.1); Prothrombin Time 12.4 Seconds (9.0-12.0)
[2019-02-11] MEDS ORDERED: POLYETHYLENE (MIRALAX) 17 GM PACK PO PRN (09:21)
[2019-02-11] MEDS: FERROUS SULFATE 325 MG TAB PO SCH ×2 (10:11→20:26)
[2019-02-11] MEDS: DOXYCYCLINE HYCLATE 100 MG CAP PO SCH ×2 (10:12→20:26)
[2019-02-11] MEDS: ASCORBIC ACID 500 MG TAB PO SCH ×2 (10:12→20:26)
[2019-02-11] MEDS: FOLIC ACID 1 MG TAB PO SCH (10:12)
[2019-02-11] MEDS: INSULIN GLARGINE SOLOSTAR 100 UNITS/ML 3 ML PEN SC SCH ×2 (10:12→20:13)
[2019-02-11] MEDS: MULTIVITAMIN TAB PO SCH (10:12)
[2019-02-11] MEDS: ASPIRIN 81 MG ECTAB PO SCH (10:12)
[2019-02-11] MEDS: INSULIN ASPART 100 UNITS/ML 3 ML PEN SC SCH ×4 (10:14→20:13)
[2019-02-11] MEDS: FINASTERIDE 5 MG TAB PO SCH (10:17)
[2019-02-11] MEDS: DOCUSATE SODIUM 100 MG CAP PO SCH (10:20)
--- NOTE | 2019-02-11 10:21 | Hospitalist Progress Note ---
Date of Service February 11, 2019 Assessment & Plan (1) Right lower lobe pneumonia: Patient is a 88-year-old male with multiple comorbidities who came to ED after a fall. He thinks he passed out Complains of pain in his hip, ambulatory dysfunction secondary to fall. In ED, work-up showed right basilar pneumonia, found to be hypoglycemic. S/P Fall/ Probable Syncope Per patient he thinks he passed out and found himself on floor in his bedroom. Was unable to get up, called him med alert button and was brought to hospital. Prior episode of syncope - Tele monitor- Junctional rhythm with HR dropping to as low as 30s while at rest. Now 80s after dc of clonidine, metoprolol. Work up- CT pelvisno acute fracture, severe degenerative left hip with flattening of superior aspect of femoral head and acetabulum, degenerative subchondral cystic change. Prior surgical findings. Old healed fracture left pubic ring, CT headno acute abnormality, CT lumbar spineno fractures, degenerative changes, CT thoracic spinedegenerative changes, no fracture, left pleural effusion with left basilar parenchymal infiltrate -Appreciate cardiology inputs History of atrial fibrillation EKG/Monitor= Junctional Rhythm/ Mobitz type 1 . Heart rate down to 30s while sleeping. Now HR is up to 130s. -Metoprolol 50 mg bid and Clonidine 0.1 mg TID were held due to Mobitz type 1 and HR down to 30s--> Restart Metoprolol at 12.5 mg PO BID - d/w cardiology -Held coumadin as INR was supratherapeutic and Hb dropped. Risks > Benefits about anticoagulation. Patient lives alone, high risk of fall, multiple bruises, supratherpeutic INR 10 on presentation. Understands risk of stroke. Ok with discontinuation of coumadin. -Cardiology inputs appreciated= Monitor while off metoprolol, clonidine Anemia of chronic kidney disease Acute on chronic anemia, rule out blood loss in setting of supratherapeutic INR, Hb drop Baseline hemoglobin around 11. dropping down to 7.1 today -FOBT ordered. No overt signs of GI bleeding, but INR is 10.4 X 2. Per patient dark stool as on iron tablet -Received Vit K 5 mg, x 2 tabs, INR subtherapeutic -S/P 1 unit PRBC transfusion since admission -Monitor H & H and f/up FOBT Supra therapeutic INR - Resolved INR 10.4 Home regimenwarfarin 2.5 mg 6 times a week, 1.25 mg once a week Indicationatrial fibrillation with no prior hx of stroke/TIA Received vitamin K 5 mg x 2 --> INR 1.8 -Discontinued coumadin as above Bilateral Infiltrates on X ray, probably pneumonia X ray Chest- Right basilar infiltrate CT thoracic spine shows- Left pleural effusion > right with left basilar parenchymal infiltrate -Clinically does not have any significant respiratory symptoms -S/P IV Rocephin, Azithromycin in ED, Continue with Doxycycline -Blood culture x2 Neg, unable to collect sputum culture Hypoglycemia in setting of diabetes mellitus, [id number] - Resolved Could be contributing to generalized weakness Blood sugar on [id number], continues to be hypoglycemic with sugar up to 80s now -Home medicationglimepiride 4 mg -On Lantus BID - 7 units if BGS >180, hold if < 180 -ISS -HBA1C - 9.6 (Goal given age is higher) -Appreciate pharmacy inputs Elevated CPK. CK - 535 s/p fall. Increased to 800s -S/P IVF -Monitor Bilateral lower extremity wounds, lower extremity edema, history of venous insufficiency, history of venous thrombosis. - Follows with wound care. - Consulted wound care - Monitor Hypertension. BP borderline low -Hold clonidine 0.1 mg twice daily, Lopressor 50 mg BID. Discontinued Losartan -Monitor closely History of deep venous thrombosis. INR is subtherapeutic now. Hold with HB dropping History of coronary artery disease status post coronary artery bypass graft - on aspirin, statin and beta-shubham CKD stage 3. Baseline Cr around 2.0 -Creatinine near baseline History of prosthetic aortic valve replacement. History of transient ischemic attack -on aspirin -Hold Statin (CPK elevated) Deep venous thrombosis prophylaxis. INR is 1.8 Full code per patient Disposition Medical mx in progress PT/OT pending Lives alone at home. Neighbors help him. No family members, no POAS Will need to go to a facility as unable to care for himself. Hesitant but understands and agreeable. Subjective Patient is very hard of hearing. Patient denies any complaints. Appetite is poor. Denies any nausea, vomiting, pain. Generalized weakness + Telemetry reveals Mobitz 1 second-degree AV block and now HR going up to 130s Physical Exam Physical Exam: GENERAL- AAOX3, No acute distress, FRAIL , Chronically ill looking HARD OF HEARING + Few teeth left EYES- Ecchymosis below right eye NECK- Supple, no JVD LUNGS- Air entry bilaterally equal. No rales, rhonchi, crackles, wheezes heard. HEART- Regular rate and rhythm. No murmurs ABDOMEN- Soft, non tender, non distended, Bowel sounds heard. EXTREMITIES- Good peripheral pulses, no edema NEUROMUSCULAR- AAOX2, Grossly no focal deficits EXTREMITIES- Bilateral lower extremity wounds-compression wraps SKIN- Multiple bruises/ ecchymosis - joe right lower abdomen Pressure ulcers on sacrum , tear left elbow Results & Data Vital Signs (Past 12 Hours) Vital Signs Temp Pulse Resp BP Pulse Ox 02/11/19 07:36 37.2 C 73 18 137/57 L 92 02/11/19 03:23 37.6 C H 97 H 18 107/49 L 90 02/11/19 00:00 36.9 C 110 H 18 95/46 L 95 (1) Right lower lobe pneumonia Pneumonia type: due to unspecified organism Qualified Code(s): J18.1 - Lobar pneumonia, unspecified organism
--- NOTE | 2019-02-11 11:35 | Cardiology Progress Note ---
Date of Service February 11, 2019 Assessment & Plan (1) Mobitz type 1 second degree AV block: Heart rates now running higher being driven by other issues. Plan on resuming beta-shubham at reduced dose watch closely for signs or symptoms of tachybradycardia syndrome further high degree AV (2) Junctional bradycardia: (3) Paroxysmal atrial fibrillation: (4) Right lower lobe pneumonia: (5) Hypotension: (6) Hypoglycemia: (7) Fall: (8) Chronic venous insufficiency: 88-year-old patient presents with fall versus syncope. Telemetry reviewed demonstrating sinus rhythm, sinus bradycardia with long first-degree AV block and periods of Mobitz type I second-degree AV block. Clonidine and metoprolol placed on hold. Heart rate improving with average heart rates 60 to 75 bpm currently. Intermittent Mobitz type I second-degree AV block noted. Patient denies lightheadedness, dizziness, syncope, or near syncope since admission. No significant pauses on telemetry. Continue to hold AV sukhdev blocking agents and clonidine at this time. R No further bradycardia arrhythmias other than Mobitz 1 observed of significance. Patient clinically appears to be gradually improving hemoglobin better renal function letter to need to avoid AV node blocking drugs and clonidine and not resume Continue to maintain telemetry as activity levels are increased underlying medical issues are treated Subjective And treatment Patient is very hard of hearing. Patient denies any complaints. Still poor appetite and chest wall tenderness Telemetry reveals Mobitz 1 second-degree AV block and now HR going up to 130s Physical Exam Physical Exam: Exam: General: NAD, AAO x3, thin. [place]. Chronically ill. HEENT: Normocephalic. Atraumatic. Conjunctiva pink, no scleral icterus. No carotid bruits, the carotid upstrokes are brisk. No JVD. No HJR chest focal tenderness on palpation. Heart: Regular with ectopy, normal S-1 and S-2 no S-3 or S-4 gallop. 1-2/6 low pitched early peaking, systolic ejection murmur, heard best at right second intercostal space at the left sternal border. No rubs appreciated. PMI is not displaced. No RV heave. Lungs: Crackles at the bases bilaterally. No rhonchi or wheeze. Abdomen: Normal bowel sounds. Soft. Nontender. No masses or organomegaly. No abdominal bruits. Extremities: No clubbing, or cyanosis. Plus 1-2 B/L LE edema, LE wrapped. Pulses: radial=2/4. Neuro: No focal deficits. Results & Data Vital Signs (Past 12 Hours) Vital Signs Temp Pulse Resp BP Pulse Ox 02/11/19 11:14 36.6 C 119 H 18 122/55 L 90 02/11/19 07:36 37.2 C 73 18 137/57 L 92 02/11/19 03:23 37.6 C H 97 H 18 107/49 L 90 02/11/19 00:00 36.9 C 110 H 18 95/46 L 95 (1) Right lower lobe pneumonia Pneumonia type: due to unspecified organism Qualified Code(s): J18.1 - Lobar pneumonia, unspecified organism (2) Hypotension Hypotension type: hypotension due to hypovolemia Qualified Code(s): I95.89 - Other hypotension; E86.1 - Hypovolemia (3) Fall Encounter type: initial encounter Qualified Code(s): W19.XXXA - Unspecified fall, initial encounter
[2019-02-11] MEDS: TRAMADOL HCL 50 MG TABLET PO PRN (13:20)
--- NOTE | 2019-02-11 14:35 | Pharmacy Report ---
PHA: Glycemic Control AP - Date of Service February 11, 2019 - Assessment & Plan The patient is currently receiving 14 units of insulin per day. BSGs ranging 118 - 160 mg/dl over the past 24hrs. * Basal insulin: Lantus 5 units every 12 hours * Correctional Insulin: Novolog Correction per scale ACHS Goal Range: Low 120 mg/dL - High 150 mg/dL Correction Factor: 25 mg/dL/unit * Prandial insulin: Per carb ratio of 1 unit per 10 grams CHO consumed BSGs continue to improve, no changes needed to inpatient regimen at this time. Pharmacy will continue to monitor patient daily and write orders per [facility] inpatient glycemic control protocol. Thanks. * Please note that the plan above was derived based on current level of insulin resistance and hospital stress. These recommendations are appropriate for inpatient admission only. Plan of care upon discharge will need to be reassessed to avoid potential outpatient hypo/hyperglycemia.
[2019-02-11 14:49] LABS: Appearance Urine Cloudy (Clear); Bacteria Urine Automated Negative (Negative); Bilirubin Urine Negative (Negative); Blood Urine 3+ (Negative); Color Urine Dark Yellow; Glucose Urine UA Negative (Negative); Ketones Urine Trace (Negative); Leukocyte Esterase Urine 1+ (Negative); Nitrite Urine Negative (Negative); Protein Urine 1+ (Negative); RBC Urine Automated >30 /hpf (0-4); Specific Gravity Urine 1.023 (1.000-1.030); Urobilinogen Urine Negative (Negative)
[2019-02-11] MEDS: METOPROLOL TARTRATE 25 MG TAB PO SCH (20:26)
[2019-02-11] MEDS: DOXAZOSIN MESYLATE 1 MG TAB PO SCH (20:26)
[2019-02-11] MEDS ORDERED: DOCUSATE SODIUM 100 MG CAP PO SCH (21:00)
[2019-02-12 07:29] LABS: Hematocrit (blood only) 24.7 % (42-52); Hemoglobin 8.1 g/dL (14.0-18.0); Mean Corpuscular Hgb Conc 32.8 g/dL (32-36); Mean Corpuscular Volume 89.2 fL (80-100); Mean Platelet Volume 8.5 fL (7.4-10.4); Platelet Count 216 K/uL (130-400); RDW Coefficient of Variation 17.3 % (11.5-14.5); RDW Standard Deviation 52.1 fL (36.4-46.3); Red Blood Count 2.77 M/uL (4.7-6.1); White Blood Count 7.83 K/uL (4.8-10.8)
[2019-02-12 07:46] LABS: INR 1.3 (0.9-1.1); Prothrombin Time 12.7 Seconds (9.0-12.0)
[2019-02-12 08:07] LABS: BUN Creatinine Ratio 24.3 (10-20); Calcium 8.4 mg/dl (8.5-10.1); Creatinine Clr Calc Pharmacy 29.7 ml/min; Est GFR (African American) 45.6; Est GFR (Non-African American) 39.4; Potassium 5.1 mmol/L (3.5-5.1)
[2019-02-12] MEDS: FOLIC ACID 1 MG TAB PO SCH (08:39)
[2019-02-12] MEDS: MULTIVITAMIN TAB PO SCH (08:39)
[2019-02-12] MEDS: ASCORBIC ACID 500 MG TAB PO SCH ×2 (08:40→22:39)
[2019-02-12] MEDS: DOXYCYCLINE HYCLATE 100 MG CAP PO SCH ×2 (08:40→22:38)
[2019-02-12] MEDS: FINASTERIDE 5 MG TAB PO SCH (08:40)
[2019-02-12] MEDS: METOPROLOL TARTRATE 25 MG TAB PO SCH ×2 (08:40→21:34)
[2019-02-12] MEDS: INSULIN ASPART 100 UNITS/ML 3 ML PEN SC SCH ×4 (08:44→21:33)
[2019-02-12] MEDS: INSULIN GLARGINE SOLOSTAR 100 UNITS/ML 3 ML PEN SC SCH ×2 (08:49→21:36)
[2019-02-12] MEDS: FERROUS SULFATE 325 MG TAB PO SCH ×2 (10:35→21:28)
[2019-02-12] MEDS ORDERED: MICONAZOLE NITRATE POWDER 43 GM EXT PRN (12:08)
--- NOTE | 2019-02-12 12:16 | Cardiology Progress Note ---
Date of Service February 12, 2019 Assessment & Plan (1) Mobitz type 1 second degree AV block: Tolerating reduced medications on low-dose beta-shubham without high degree AV block would continue low-dose Blood pressures begun to run higher off high-dose Toprol and clonidine Would consider increasing doxazosin if blood pressure persistently elevated Would not increase metoprolol or restart clonidine r (2) Junctional bradycardia: No further recurrences of significance (3) Paroxysmal atrial fibrillation: Brief episodes observe this admission note patient high risk for anticoagulation multiple falls including current admission (4) Right lower lobe pneumonia: (5) Hypotension: (6) Hypoglycemia: (7) Fall: (8) Chronic venous insufficiency: Lower extremities wrapped Subjective Patient seen and examined, chart medications telemetry reviewed No significant arrhythmias patient variable AV block but no high-grade conduction abnormalities or pauses. 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) Chest (Breasts): Additional Comments: Tender palpation right greater than left with flank ecchymosis on the right Gastrointestinal (Abdomen): Percussion/Palpation: abdomen soft; abdomen nontender Results & Data Vital Signs (Past 12 Hours) Vital Signs Laboratory Results - last 24 hr 02/11/19 02/11/19 02/11/19 16:33 19:42 Unknown WBC RBC Hgb Hct MCV MCH MCHC RDW Std Deviation RDW Coeff of [place] Plt Count MPV PT INR Sodium Potassium Chloride Carbon Dioxide Anion Gap BUN Creatinine Est Cr Clr Drug Dosing Est GFR ( Amer) Est GFR (Non-Af Amer) BUN/Creatinine Ratio Glucose POC Glucose 154 H 191 H Calcium Total Creatine Kinase Urine Color Dark Yellow Urine Appearance Cloudy A Urine pH 5.0 Ur Specific [place] 1.023 Urine Protein 1+ H Urine Glucose (UA) Negative Urine Ketones Trace H Urine Blood 3+ H Urine Nitrite Negative Urine Bilirubin Negative Urine Urobilinogen Negative Ur Leukocyte Esterase 1+ H Urine WBC (Auto) 1-5 Urine RBC (Auto) >30 H U Hyaline Cast (Auto) 1-5 U Epithel Cells (Auto) 5-10 H Urine Bacteria (Auto) Negative 02/12/19 02/12/19 02/12/19 07:15 07:15 07:15 WBC 7.83 RBC 2.77 L Hgb 8.1 L Hct 24.7 L MCV 89.2 MCH 29.2 MCHC 32.8 RDW Std Deviation 52.1 H RDW Coeff of [place] 17.3 H Plt Count 216 MPV 8.5 PT 12.7 H INR 1.3 H Sodium 141 Potassium 5.1 Chloride 111 H Carbon Dioxide 20 L Anion Gap 10.0 BUN 38 H Creatinine 1.55 H Est Cr Clr Drug Dosing 29.7 Est GFR ( Amer) 45.6 Est GFR (Non-Af Amer) 39.4 BUN/Creatinine Ratio 24.3 H Glucose 206 H POC Glucose Calcium 8.4 L Total Creatine Kinase 562 H Urine Color Urine Appearance Urine pH Ur Specific [place] Urine Protein Urine Glucose (UA) Urine Ketones Urine Blood Urine Nitrite Urine Bilirubin Urine Urobilinogen Ur Leukocyte Esterase Urine WBC (Auto) Urine RBC (Auto) U Hyaline Cast (Auto) U Epithel Cells (Auto) Urine Bacteria (Auto) 02/12/19 02/12/19 07:35 12:05 WBC RBC Hgb Hct MCV MCH MCHC RDW Std Deviation RDW Coeff of [place] Plt Count MPV PT INR Sodium Potassium Chloride Carbon Dioxide Anion Gap BUN Creatinine Est Cr Clr Drug Dosing Est GFR ( Amer) Est GFR (Non-Af Amer) BUN/Creatinine Ratio Glucose POC Glucose 223 H 190 H Calcium Total Creatine Kinase Urine Color Urine Appearance Urine pH Ur Specific [place] Urine Protein Urine Glucose (UA) Urine Ketones Urine Blood Urine Nitrite Urine Bilirubin Urine Urobilinogen Ur Leukocyte Esterase Urine WBC (Auto) Urine RBC (Auto) U Hyaline Cast (Auto) U Epithel Cells (Auto) Urine Bacteria (Auto) Temp Pulse Pulse Resp BP Pulse Ox 02/12/19 08:48 106 H 02/12/19 07:51 36.5 C 79 16 164/70 H 92 02/12/19 07:12 36.6 C 86 20 143/66 H 92 02/12/19 05:36 36.4 C L 91 H 20 169/64 H 90 (1) Right lower lobe pneumonia Pneumonia type: due to unspecified organism Qualified Code(s): J18.1 - Lobar pneumonia, unspecified organism (2) Hypotension Hypotension type: hypotension due to hypovolemia Qualified Code(s): I95.89 - Other hypotension; E86.1 - Hypovolemia (3) Fall Encounter type: initial encounter Qualified Code(s): W19.XXXA - Unspecified fall, initial encounter
--- NOTE | 2019-02-12 13:01 | Hospitalist Progress Note ---
Date of Service February 12, 2019 Assessment & Plan (1) Right lower lobe pneumonia: Patient is a 88-year-old male with multiple comorbidities who came to ED after a fall. He thinks he passed out Complains of pain in his hip, ambulatory dysfunction secondary to fall. In ED, work-up showed right basilar pneumonia, found to be hypoglycemic. S/P Fall/ Probable Syncope : Per patient he thinks he passed out and found himself on floor in his bedroom. Was unable to get up, called him med alert button and was brought to hospital. Prior episode of syncope - Tele monitor- Junctional rhythm with HR dropping to as low as 30s while at rest. Doing well with reduced dose of metoprolol, off clonidine. No further junctional rhythm noted. Work up- CT pelvisno acute fracture, severe degenerative left hip with flattening of superior aspect of femoral head and acetabulum, degenerative subchondral cystic change. Prior surgical findings. Old healed fracture left pubic ring, CT headno acute abnormality, CT lumbar spineno fractures, degenerative changes, CT thoracic spinedegenerative changes, no fracture, left pleural effusion with left basilar parenchymal infiltrate -Appreciate cardiology inputs History of atrial fibrillation EKG/Monitor= Junctional Rhythm/ Mobitz type 1 second-degree AV block. HR had dropped to 30s with junctional rhythm while sleeping x 1 episode --> held metoprolol 50 mg twice daily/clonidine 0.1 mg TID --> Mobitz type I second- degree AV block with normal rate --> HR did go up to 130s --> Restarted Metoprolol 12.5 mg PO BID on 02/11/19 --> HR now stable -Held coumadin as INR was supratherapeutic and Hb dropped. Risks > Benefits about anticoagulation. Patient lives alone, high risk of fall, multiple bruises, supratherpeutic INR 10 on presentation. Understands risk of stroke. Ok with discontinuation of coumadin. -Cardiology inputs appreciated= Monitor while off metoprolol, clonidine Anemia of chronic kidney disease Acute on chronic anemia, rule out blood loss in setting of supratherapeutic INR, Hb drop Baseline hemoglobin around 11. dropping down to 7.1 today -FOBT - +ve . No overt signs of GI bleeding, but INR is 10.4 X 2. Per patient dark stool as on iron tablet. D/w about scopes- hesitant and refusing at present. -Received Vit K 5 mg, x 2 tabs, INR subtherapeutic -S/P 1 unit PRBC transfusion since admission -Monitor H & H - stable so far Supra therapeutic INR - Resolved INR 10.4 Home regimenwarfarin 2.5 mg 6 times a week, 1.25 mg once a week Indicationatrial fibrillation with no prior hx of stroke/TIA Received vitamin K 5 mg x 2 --> INR 1.3 -Discontinued coumadin as above Bilateral Infiltrates on X ray, probably pneumonia X ray Chest- Right basilar infiltrate CT thoracic spine shows- Left pleural effusion > right with left basilar parenchymal infiltrate -Clinically does not have any significant respiratory symptoms -S/P IV Rocephin, Azithromycin in ED, Continue with Doxycycline -Blood culture x 2 Neg, unable to collect sputum culture Hypoglycemia in setting of diabetes mellitus, [id number] - Resolved Could be contributing to generalized weakness Blood sugar on [id number], continues to be hypoglycemic with sugar up to 80s now -Home medicationglimepiride 4 mg -On Lantus / ISS per pharmacy -HBA1C - 9.6 (Goal given age is higher) -Appreciate pharmacy inputs Elevated CPK - Trending down CK - 535 s/p fall. -S/P IVF -Monitor Bilateral lower extremity wounds, lower extremity edema, history of venous insufficiency, history of venous thrombosis. - Follows with wound care. - Consulted wound care - Monitor Hypertension. BP borderline low -Hold clonidine 0.1 mg twice daily, Lopressor 50 mg BID. Discontinued Losartan -Monitor closely History of deep venous thrombosis. INR is subtherapeutic now. Hold with HB dropping History of coronary artery disease status post coronary artery bypass graft - on aspirin, statin and beta-shubham CKD stage 3. Baseline Cr around 2.0 -Creatinine near baseline History of prosthetic aortic valve replacement. History of transient ischemic attack -on aspirin -Hold Statin (CPK elevated) Physical deconditioning Has had multiple falls, lives alone at home. Bilateral lower extremity wounds with chronic skin changes. Unable to move on his own. -PT/OT on board Deep venous thrombosis prophylaxis. INR is 1.8 Full code per patient Disposition Medical mx in progress [facility]commends [facility] Lives alone at home. Neighbors help him. No family members, no POAS Agreeable to going to penitentiary facility Likely discharge in 1-2 days Subjective Hard of hearing, hears better with an amplifier Patient is concerned about his mobility as hardly able to move his legs. Denies any significant pain, cough, shortness of breath, fever, chills Denies any abdominal pain, nausea, vomiting. Saturating at 92% on room air Physical Exam Physical Exam: GENERAL- AAOX3, No acute distress, FRAIL , Chronically ill looking EYES- Ecchymosis below right eye NECK- Supple, no JVD LUNGS- Air entry bilaterally equal. No rales, rhonchi, crackles, wheezes heard. HEART- Regular rate and rhythm. No murmurs ABDOMEN- Soft, non tender, non distended, Bowel sounds heard. EXTREMITIES- Good peripheral pulses, no edema NEUROMUSCULAR- AAOX3, Grossly no focal deficits EXTREMITIES- Bilateral lower extremity wounds with chronic skin changes - Compression wraps + SKIN- Multiple bruises and ecchymosis all over, especially on right lower chest Results & Data Vital Signs (Past 12 Hours) Vital Signs Temp Pulse Pulse Resp BP Pulse Ox 02/12/19 08:48 106 H 02/12/19 07:51 36.5 C 79 16 164/70 H 92 02/12/19 07:12 36.6 C 86 20 143/66 H 92 02/12/19 05:36 36.4 C L 91 H 20 169/64 H 90 (1) Right lower lobe pneumonia Pneumonia type: due to unspecified organism Qualified Code(s): J18.1 - Lobar pneumonia, unspecified organism
[2019-02-12] MEDS: DOXAZOSIN MESYLATE 1 MG TAB PO SCH (21:37)
[2019-02-13 06:25] LABS: INR 1.3 (0.9-1.1); Prothrombin Time 13.5 Seconds (9.0-12.0)
[2019-02-13] MEDS: INSULIN GLARGINE SOLOSTAR 100 UNITS/ML 3 ML PEN SC SCH ×2 (09:07→20:20)
[2019-02-13] MEDS: INSULIN ASPART 100 UNITS/ML 3 ML PEN SC SCH ×4 (09:08→20:21)
[2019-02-13] MEDS: FERROUS SULFATE 325 MG TAB PO SCH ×2 (09:11→20:19)
[2019-02-13] MEDS: FOLIC ACID 1 MG TAB PO SCH (09:11)
[2019-02-13] MEDS: ASPIRIN 81 MG ECTAB PO SCH (09:11)
[2019-02-13] MEDS: DOXYCYCLINE HYCLATE 100 MG CAP PO SCH ×2 (09:12→20:20)
[2019-02-13] MEDS: FINASTERIDE 5 MG TAB PO SCH (09:12)
[2019-02-13] MEDS: METOPROLOL TARTRATE 25 MG TAB PO SCH (09:12)
[2019-02-13] MEDS: MULTIVITAMIN TAB PO SCH (09:12)
[2019-02-13] MEDS: ASCORBIC ACID 500 MG TAB PO SCH ×2 (09:12→20:19)
--- NOTE | 2019-02-13 10:43 | Hospitalist Progress Note ---
Date of Service February 13, 2019 Assessment & Plan (1) Right lower lobe pneumonia: Patient is a 88-year-old male with multiple comorbidities who came to ED after a fall. He thinks he passed out Complains of pain in his hip, ambulatory dysfunction secondary to fall. In ED, work-up showed right basilar pneumonia, found to be hypoglycemic. Tachybradycardia syndrome : Hx of A fib on coumadin EKG/Monitor on admission --> Junctional Rhythm/ Mobitz type 1 second-degree AV block. HR had dropped to 30s with junctional rhythm while sleeping x 1 episode --> held metoprolol 50 mg BID/clonidine 0.1 mg TID --> Mobitz type I second-degree AV block with normal rate --> HR did go up to 130s --> Restarted Metoprolol 12.5 mg PO BID on 02/11/19 --> HR better--> 02/13/19- again HR dropped to 30s -Discussed with cardiology - Plan is for pacemaker tomorrow as had syncope in past, multiple falls, unreliable historian. -Held coumadin as INR was supratherapeutic and Hb dropped/multiple falls/lives alone. Risks > Benefits about anticoagulation. Patient lives alone, high risk of fall, multiple bruises, supratherpeutic INR 10 on presentation. Understands risk of stroke. Ok with discontinuation of coumadin. (Has bioprosthetic valve per cardiology review of notes) -Appreciate cardiology inputs S/P Fall/ Probable Syncope : Per patient he thinks he passed out and found himself on floor in his bedroom. Was unable to get up, called him med alert button and was brought to hospital. Prior episode of syncope - Mx as above Work up- CT pelvisno acute fracture, severe degenerative left hip with flatte radha of superior aspect of femoral head and acetabulum, degenerative subchondral cystic change. Prior surgical findings. Old healed fracture left pubic ring, CT headno acute abnormality, CT lumbar spineno fractures, degenerative changes, CT thoracic spinedegenerative changes, no fracture, left pleural effusion with left basilar parenchymal infiltrate -Appreciate cardiology inputs Anemia of chronic kidney disease Acute on chronic anemia, rule out blood loss in setting of supratherapeutic INR, Hb drop Baseline hemoglobin around 11. dropping down to 7.1 today -FOBT - +ve . No overt signs of GI bleeding, but INR is 10.4 X 2. Per patient dark stool as on iron tablet. D/w about scopes- hesitant and refusing at present. -Received Vit K 5 mg, x 2 tabs, INR subtherapeutic -S/P 1 unit PRBC transfusion since admission -Monitor H & H - stable so far Supra therapeutic INR - Resolved INR 10.4 Home regimenwarfarin 2.5 mg 6 times a week, 1.25 mg once a week Indicationatrial fibrillation with no prior hx of stroke/TIA, Bioprosthetic valve (per cardiology review of notes) Received vitamin K 5 mg x 2 --> INR subtherapeutic -Discontinued coumadin as above Bilateral Infiltrates on X ray, probably pneumonia X ray Chest- Right basilar infiltrate CT thoracic spine shows- Left pleural effusion > right with left basilar parenchymal infiltrate -Clinically does not have any significant respiratory symptoms -S/P IV Rocephin, Azithromycin in ED, Continue with Doxycycline (Day 6/7) -Blood culture x 2 Neg, unable to collect sputum culture Hypoglycemia in setting of diabetes mellitus, [id number] - Resolved Could be contributing to generalized weakness Blood sugar on [id number], continues to be hypoglycemic with sugar up to 80s now -Home medicationglimepiride 4 mg -On Lantus / ISS per pharmacy -HBA1C - 9.6 (Goal given age is higher) -Appreciate pharmacy inputs Elevated CPK - Trending down CK - 535 s/p fall. -S/P IVF -Restarted Atorvastatin Bilateral lower extremity wounds, lower extremity edema, history of venous insufficiency, history of venous thrombosis. - Follows with wound care. - Consulted wound care Hypertension. BP borderline low -Held clonidine 0.1 mg twice daily, Lopressor dose decreased to 12.5 mg BID from 50 mg BID. Discontinued Losartan as CKD. Increased Doxazosin to 2 mg from 1 mg -Monitor History of deep venous thrombosis. INR is subtherapeutic now. Hold with HB dropping History of coronary artery disease status post coronary artery bypass graft - on aspirin, statin and beta-shubham (dose reduced as above) CKD stage 3. Baseline Cr around 2.0 -Creatinine near baseline History of bioprosthetic aortic valve replacement. -Held coumadin as above. History of transient ischemic attack -on aspirin , statin restarted Physical deconditioning Has had multiple falls, lives alone at home. Bilateral lower extremity wounds with chronic skin changes. Unable to move on his own. -PT/OT on board Deep venous thrombosis prophylaxis. INR is 1.8 Full code per patient Disposition For pacemaker tomorrow PT/OTrecommends correction facility Lives alone at home. Neighbors help him. No family members, no POAs Agreeable to going to correction facility Likely discharge in 1-2 days after pacemaker placement tomorrow Subjective Hard of hearing, hears better with an amplifier Patient is concerned about his mobility as hardly able to move his legs. Denies any significant pain, cough, shortness of breath, fever, chills Denies any abdominal pain, nausea, vomiting. Saturating at 94% on room air Tele monitor- HR dropping down to 30s. Tachy rodrigue syndrome Physical Exam Physical Exam: GENERAL- AAOX3, No acute distress, FRAIL , Chronically ill looking EYES- Ecchymosis below right eye NECK- Supple, no JVD LUNGS- Air entry bilaterally equal. No rales, rhonchi, crackles, wheezes heard. HEART- Regular rate and rhythm. No murmurs ABDOMEN- Soft, non tender, non distended, Bowel sounds heard. NEUROMUSCULAR- AAOX3, Grossly no focal deficits EXTREMITIES- Bilateral lower extremity wounds with chronic skin changes - Compression wraps + SKIN- Multiple bruises and ecchymosis all over, especially on right lower chest and back PRESSURE ULCER= SACRUM Results & Data Vital Signs (Past 12 Hours) Vital Signs Temp Pulse Pulse Resp BP Pulse Ox 02/13/19 07:38 36.4 C L 71 16 123/65 94 02/13/19 04:00 37.0 C 69 20 122/58 L 93 02/13/19 00:00 36.9 C 60 20 105/54 L 92 02/12/19 23:30 59 L (1) Right lower lobe pneumonia Pneumonia type: due to unspecified organism Qualified Code(s): J18.1 - Lobar pneumonia, unspecified organism
--- NOTE | 2019-02-13 11:04 | Cardiology Progress Note ---
Date of Service February 13, 2019 Assessment & Plan (1) Tachy-rodrigue syndrome: Patient continues to demonstrate evidence of variable AV conduction with tachybradycardia syndrome despite very low-dose therapies. Given presentation with falls and syncope, significant tachybradycardia syndrome will require pacemaker for ongoing management Discussed with the EP with tentative plans for tomorrow (2) Paroxysmal atrial fibrillation: Brief episodes observe this admission note patient high risk for anticoagulation multiple falls including current admission (3) Chronic venous insufficiency: Lower extremities wrapped (4) S/P AVR: Patient status post bioprosthetic aortic valve replacement and coronary bypass grafting in 2006 Patient received a 23 mm Jose Gordon bioprosthesis Coronary bypass grafting with ABAD graft to LAD, saphenous vein graft diagonal, saphenous vein graft to posterior descending artery as well as PFO closure Echocardiogram February 2017 with normal valve gradients, normal LV function We will repeat this inpatient stay (5) 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 Telemetry however demonstrates worsening tachybradycardia phenomena despite very low-dose beta- shubham. No fevers or chills. No chest pains or discomfort. Appetite fair Physical Exam Eyes: PERRL, conjunctivae normal, anicteric sclerae Neck: trachea midline, no thyromegaly Respiratory: Auscultation: + diminished lung sounds Cardiovascular: Rate/Rhythm: regular rate Heart Sounds: normal S1 and + murmur (Harsh grade 2/6 to 3/6 systolic murmur heard best left lower sternal border no diastolic murmur) Vessels: no JVD Extremities: + edema (Chronic wrapped stasis induration of both lower extremities) Gastrointestinal (Abdomen): Percussion/Palpation: abdomen soft; abdomen nontender Results & Data Vital Signs (Past 12 Hours) Vital Signs Temp Pulse Pulse Resp BP Pulse Ox 02/13/19 07:38 36.4 C L 71 16 123/65 94 02/13/19 04:00 37.0 C 69 20 122/58 L 93 02/13/19 00:00 36.9 C 60 20 105/54 L 92 02/12/19 23:30 59 L
[2019-02-13] MEDS: DOXAZOSIN MESYLATE 1 MG TAB PO SCH (20:20)
[2019-02-14 07:32] LABS: Hematocrit (blood only) 22.9 % (42-52); Hemoglobin 7.5 g/dL (14.0-18.0); Mean Corpuscular Hgb Conc 32.8 g/dL (32-36); Mean Corpuscular Volume 91.2 fL (80-100); Mean Platelet Volume 8.6 fL (7.4-10.4); Platelet Count 179 K/uL (130-400); RDW Coefficient of Variation 19.1 % (11.5-14.5); RDW Standard Deviation 55.5 fL (36.4-46.3); Red Blood Count 2.51 M/uL (4.7-6.1); White Blood Count 4.76 K/uL (4.8-10.8)
[2019-02-14 08:05] LABS: BUN Creatinine Ratio 35.3 (10-20); Calcium 8.3 mg/dl (8.5-10.1); Creatinine Clr Calc Pharmacy 39.7 ml/min; Est GFR (African American) 64.8; Est GFR (Non-African American) 55.9; Magnesium 2.1 mg/dl (1.8-2.4); Potassium 4.1 mmol/L (3.5-5.1)
[2019-02-14] MEDS: INSULIN ASPART 100 UNITS/ML 3 ML PEN SC SCH ×4 (08:54→20:18)
[2019-02-14] MEDS: INSULIN GLARGINE SOLOSTAR 100 UNITS/ML 3 ML PEN SC SCH ×2 (08:57→20:18)
[2019-02-14] MEDS: ATORVASTATIN 40 MG TAB PO SCH (09:00)
[2019-02-14] MEDS: FINASTERIDE 5 MG TAB PO SCH (09:00)
[2019-02-14] MEDS: FERROUS SULFATE 325 MG TAB PO SCH ×2 (09:00→20:07)
[2019-02-14] MEDS: FOLIC ACID 1 MG TAB PO SCH (09:00)
[2019-02-14] MEDS: MULTIVITAMIN TAB PO SCH (09:00)
[2019-02-14] MEDS: ASCORBIC ACID 500 MG TAB PO SCH ×2 (09:00→20:08)
[2019-02-14] MEDS: DOXYCYCLINE HYCLATE 100 MG CAP PO SCH ×2 (09:00→20:08)
[2019-02-14] MEDS ORDERED: LIDOCAINE HCL 1% 20 ML VIAL ONE (10:50)
[2019-02-14] MEDS ORDERED: BACITRACIN INJ 50,000 UNIT VIAL ONE (10:50)
[2019-02-14] MEDS ORDERED: BUPIVACAINE 0.25% 30 ML VIAL ONE (10:50)
[2019-02-14] MEDS ORDERED: fentaNYL citrate 100 MCG/2 ML VIAL ONE (10:59)
[2019-02-14] MEDS ORDERED: CEFAZOLIN 250 MG/ML 1 GM VIAL ONE (10:59)
[2019-02-14] MEDS ORDERED: MIDAZOLAM HCL 5 MG/ML 1 ML VIAL ONE (10:59)
[2019-02-14] MEDS ORDERED: SODIUM CHLORIDE 0.9% 250 ML IV PRN (11:20)
--- NOTE | 2019-02-14 11:31 | Hospitalist Progress Note ---
Date of Service February 14, 2019 Assessment & Plan (1) Right lower lobe pneumonia: Patient is a 88-year-old male with multiple comorbidities who came to ED after a fall. He thinks he passed out Complains of pain in his hip, ambulatory dysfunction secondary to fall. In ED, work-up showed right basilar pneumonia, found to be hypoglycemic. Tachybradycardia syndrome : Hx of A fib on coumadin at baseline EKG/Monitor on admission --> Junctional Rhythm/ Mobitz type 1 second-degree AV block with fluctuating HR 30-130s. -Initially metoprolol 50 mg twice daily/clonidine 0.1 mg 3 times daily were held. Heart rate went up to 130s. Metoprolol was restarted at 12.5 mg twice daily,HR went down to 30s again. -Discussed with cardiology/ EP - Plan is for pacemaker today as had syncope in past, multiple falls, significant tachybradycardia syndrome, unreliable historian. -Held coumadin as INR was supratherapeutic and Hb dropped/multiple falls/lives alone. Risks > Benefits about anticoagulation. Patient lives alone, high risk of fall, multiple bruises, supratherpeutic INR 10 on presentation. Understands risk of stroke. Ok with discontinuation of coumadin. (Has bioprosthetic aortic valve per cardiology review of notes) -Appreciate cardiology/ EP inputs S/P Fall/ Probable Syncope : Per patient he thinks he passed out and found himself on floor in his bedroom. Was unable to get up, called him med alert button and was brought to hospital. Prior episode of syncope / Falls - Mx as above Work up- CT pelvisno acute fracture, severe degenerative left hip with flattening of superior aspect of femoral head and acetabulum, degenerative subchondral cystic change. Prior surgical findings. Old healed fracture left pubic ring, CT headno acute abnormality, CT lumbar spineno fractures, degenerative changes, CT thoracic spinedegenerative changes, no fracture, left pleural effusion with left basilar parenchymal infiltrate Anemia of chronic kidney disease Acute on chronic anemia, probable blood loss in setting of supratherapeutic INR Baseline hemoglobin around 11. dropped down to 7.1 and now again to 7.6 -FOBT - +ve . No overt signs of GI bleeding, but INR is 10.4 X 2. Per patient dark stool as on iron tablet. D/w about scopes- hesitant and refusing at present. -Received Vit K 5 mg, x 2 tabs, INR subtherapeutic -S/P 1 unit PRBC transfusion since admission. Giving 1 unit PRBC today. -Monitor H & H and tranfuse PRN Supra therapeutic INR - Resolved INR 10.4 Home regimenwarfarin 2.5 mg 6 times a week, 1.25 mg once a week Indicationatrial fibrillation with no prior hx of stroke/TIA, Bioprosthetic aortic valve (per cardiology review of notes) Received vitamin K 5 mg x 2 --> INR subtherapeutic -Discontinued coumadin as above Bilateral Infiltrates on X ray, probably pneumonia X ray Chest- Right basilar infiltrate CT thoracic spine shows- Left pleural effusion > right with left basilar parenchymal infiltrate -Clinically does not have any significant respiratory symptoms -S/P IV Rocephin, Azithromycin in ED, Continue with Doxycycline (Day 01/21). Last day today -Blood culture x 2 Neg, unable to collect sputum culture Hypoglycemia in setting of diabetes mellitus, [id number] - Resolved Could be contributing to generalized weakness Blood sugar on [id number], continues to be hypoglycemic with sugar up to 80s now -Home medicationglimepiride 4 mg -On Lantus / ISS per pharmacy -HBA1C - 9.6 (Goal given age is higher) -Appreciate pharmacy inputs Elevated CPK - Trending down CK - 535 s/p fall. -S/P IVF -Restarted Atorvastatin Bilateral lower extremity wounds, lower extremity edema, history of venous insufficiency, history of venous thrombosis. - Follows with wound care. - Consulted wound care Hypertension. BP borderline low -Discontinued clonidine 0.1 mg twice daily, Lopressor dose decreased to 12.5 mg BID from 50 mg BID. Discontinued Losartan as CKD. Increased Doxazosin to 2 mg from 1 mg -Monitor History of deep venous thrombosis. INR is subtherapeutic now. Hold with HB dropping History of coronary artery disease status post coronary artery bypass graft - on aspirin, statin and beta-shubham (dose reduced as above) CKD stage 3. Baseline Cr around 2.0 -Creatinine near baseline History of bioprosthetic aortic valve replacement. -Held coumadin as above. 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 Bilateral lower extremity wounds with chronic skin changes. Unable to move on his own without assistance -PT/OT on board Nutrition Patient only has one tooth. Lives on frozen food/soups/cookies at home. Appetite continues to be fair. States he just does not feel like eating -[employer] consulted Deep venous thrombosis prophylaxis. INR is subtherapeutic. Avoid chemical prophylaxis given dropping hemoglobin Full code per patient Disposition For pacemaker today PT/OTrecommends senior care facility- [facility] referral placed. Agreeable to go to SNF as unable to take care of himself at home, lives alone with no family members or POAs. Likely discharge in 1-2 days Subjective Hard of hearing, hears better with an amplifier Patient does have generalized weakness. Body aches/soreness. No bloody bowel movements. Appetite continues to be fair. Has only one tooth. Denies any chest pain, dizziness, lightheadedness, palpitations, shortness of breath. Telemetry monitorshows tachybradycardia syndrome Physical Exam Physical Exam: GENERAL- AAOX2, No acute distress, FRAIL , Chronically ill looking HEENT-hard of hearing, ecchymosis below right eye. Has only one tooth LUNGS- Air entry bilaterally equal. No rales, rhonchi, crackles, wheezes heard. HEART- Regular rate and rhythm. No murmurs ABDOMEN- Soft, non tender, non distended, Bowel sounds heard. NEUROMUSCULAR- AAOX2, Grossly no focal deficits EXTREMITIES- Bilateral lower extremity wounds with chronic skin changes - Compression wraps + SKIN- Multiple bruises and ecchymosis all over, especially on right lower chest and back PRESSURE ULCER= SACRUM Results & Data Vital Signs (Past 12 Hours) Vital Signs Temp Pulse Resp BP Pulse Ox 02/14/19 08:28 36.9 C 63 18 122/52 L 93 02/14/19 04:00 36.6 C 61 20 116/59 L 94 (1) Right lower lobe pneumonia Pneumonia type: due to unspecified organism Qualified Code(s): J18.1 - Lobar pneumonia, unspecified organism
--- NOTE | 2019-02-14 12:24 | Post Anesthesia Assessment ---
Date of Service February 14, 2019 Post Sedation Assessment Vital Signs Temp Pulse Pulse Resp BP Pulse Ox 02/14/19 08:28 36.9 C 63 18 122/52 L 93 02/14/19 04:00 36.6 C 61 20 116/59 L 94 02/13/19 23:13 36.7 C 57 L 21 109/42 L 93 02/13/19 19:03 36.7 C 70 20 145/68 H 92 02/13/19 16:53 56 L 02/13/19 15:07 36.5 C 62 20 148/62 H 91 Recovery Score Activity: Moves 4 extremities Respiration: Deep Breath/Cough Circulation: +/-20% PreAnes Value Consciousness: Fully Awake Oxygen Saturation: > 92% On Room Air Discharge Sedation Level of Care: Fast Track Phase II Post Sedation Plan On clinical assessment, the patient appears to have tolerated the sedation without complications. Patient is recovering as anticipated. Patient will continue to be monitored by nursing and may be discharged when sedation discharge criteria are met per below protocol. Upon Completions of procedure and additional 15 minutes continue every 5 minute vital signs and the P.A.R. score; then discharge to a Phase I or Fast Track to Phase II per the following guidelines: * Discharge Patient to appropriate Phase II area if PAR is 8 or greater or return to pre- procedure baseline. The post - procedure orders will be as directed. * If PAR score is less than 8 or not return to pre-procedure baseline then patient will follow Phase I monitoring till PAR is reached for Phase II. The Phase I may be done in procedure room or may call to secure a Phase I area. * If naloxone or flumazenil are used for reversal, hold in Phase I for continued monitoring from when last reversal dose was given for a minimum of 60 minutes or longer pending the nurse and/or physician discretion of patient condition before discharge to Phase II. Please call the Sedation Physician to re-evaluate and complete post-note for discharge to Phase II area. Do NOT discharge from procedure sedation or Phase 1 until post- sedation evaluation note is complete by procedure /sedation MD Sedation Discharge Instructions to be given to the patient at discharge to home.
--- NOTE | 2019-02-14 12:25 | Cardiology Progress Note ---
Date of Service February 14, 2019 Assessment & Plan (1) Tachy-rodrigue syndrome: Patient continues to demonstrate evidence of variable AV conduction with tachybradycardia syndrome despite very low-dose therapies. Given presentation with falls and syncope, significant tachybradycardia syndrome will require pacemaker for ongoing management Tentative plans for pacemaker today If patient is transition to extended care facility or fall management can be entertained consideration may be made for resumption of warfarin until now would remain off (2) Paroxysmal atrial fibrillation: Brief episodes observe this admission note patient high risk for anticoa gulation multiple falls including current admission (3) Chronic venous insufficiency: Lower extremities wrapped (4) S/P AVR: Patient status post bioprosthetic aortic valve replacement and coronary bypass grafting in 2006 Patient received a 23 mm Jose Gordon bioprosthesis Coronary bypass grafting with ABAD graft to LAD, saphenous vein graft diagonal, saphenous vein graft to posterior descending artery as well as PFO closure Echocardiogram February 2017 with normal valve gradients, normal LV function We will repeat this inpatient stay (5) Venous stasis ulcers of both lower extremities: Chronic, blood cultures this admission negative (6) HTN (hypertension): Subjective No acute complaints other than chronic leg pain Hard of hearing, hears better with an amplifier No acute complaints other than chronic leg pain No further dizziness or syncope Telemetry monitorshows tachybradycardia syndrome Physical Exam Eyes: PERRL, conjunctivae normal, anicteric sclerae Neck: trachea midline, no thyromegaly Respiratory: Auscultation: + diminished lung sounds Cardiovascular: Rate/Rhythm: regular rate Heart Sounds: normal S1 and + murmur (Harsh grade 2/6 to 3/6 systolic murmur heard best left lower sternal border no diastolic murmur) Vessels: no JVD Extremities: + edema (Chronic wrapped stasis induration of both lower extremities) Gastrointestinal (Abdomen): Percussion/Palpation: abdomen soft; abdomen nontender Skin: Diffuse ecchymoses gradually improving, chronic stasis induration wrapped on lower extrema Results & Data Vital Signs (Past 12 Hours) Vital Signs Temp Pulse Resp BP Pulse Ox 02/14/19 08:28 36.9 C 63 18 122/52 L 93 02/14/19 04:00 36.6 C 61 20 116/59 L 94
--- NOTE | 2019-02-14 12:26 | Operative Report ---
Post Operative Report Pre & Post Diagnosis tbs Operation Date: 02/14/19 15:00 <No data on this case meets the specified criteria> Procedure Operation Date: 02/14/19 15:00 Actual Procedures p Pacer with A/V Leads (Dual) - Georgiana Fabian DO Surgeon Georgiana Fabian, DO Auto Body Mechanic none Estimated Blood Loss 15 Findings Consistent with Post-Op Diagnosis Specimens none Description of Procedure see official report I attest to the content of the Intraoperative Record and any orders documented therein. Any exceptions are noted below.
--- NOTE | 2019-02-14 15:19 | Pharmacy Report ---
Pharmacy Glycemic Short Note 2 - Date of Service February 14, 2019 - Glycemic Short BSG Results (Last 24 hours): 02/13/19 02/13/19 02/14/19 16:35 20:11 06:44 Glucose 137 H POC Glucose 174 H 242 H 02/14/19 07:58 Glucose POC Glucose 158 H OUTPATIENT ANTIDIABETIC REGIMEN: * Glimepiride (Amaryl) 4mg PO daily * A1c = 9.6 % 02/08/19 ASSESSMENT: * 88yo T2DM male admitted with syncope, fall, PNA * Pt is maintained on oral antidiabetic agent as an outpatient (glimepiride). A1c is elevated but near goal range based on age and co-morbidities (goal A1c likely 8-9%) * Sulfonylureas can cause long standing hypoglycemia with renal impairment. Scr 2.1 --> 1.16mg/dl. Will continue to titrate insulin. May consider changing outpatient regimen to alternative agent to prevent hypoglycemia. PLAN FOR INPATIENT GLYCEMIC CONTROL: * Holding outpatient oral diabetes medications * Basal insulin * Lantus SQ BID - dosing based on BSG * BSG below 180 mg/dl --> 5 * BSG 180mg/dl or above -> 7 units * Bolus insulin: no change * NovoLog per scale ACHS or Q6hrs while NPO * Goal Range: Low 120 mg/dL - High 150 mg/dL * Correction Factor: 25 mg/dL/unit * Nutritional / Prandial insulin per carb ratio of 1 unit per 10 grams CHO consumed
[2019-02-14] MEDS: ACETAMINOPHEN 325 MG TAB PO PRN (18:26)
[2019-02-14] MEDS: TRAMADOL HCL 50 MG TABLET PO PRN (19:21)
[2019-02-14] MEDS: DOXAZOSIN MESYLATE 1 MG TAB PO SCH (20:07)
[2019-02-14] MEDS: CEFAZOLIN 1000MG 1,000 MG/7.5 ML SYR IV SCH (20:11)
[2019-02-14] MEDS ORDERED: METOPROLOL TARTRATE 25 MG TAB PO SCH (21:00)
[2019-02-15 05:59] LABS: Basophils # (auto) 0.01 K/uL (0-0.2); Basophils % (auto) 0.2 %; Hematocrit (blood only) 27.4 % (42-52); Hemoglobin 8.9 g/dL (14.0-18.0); Immature Granulocytes # (auto) 0.02 K/uL (0.00-0.02); Immature Granulocytes % (auto) 0.4 %; Lymphocytes # (auto) 0.64 K/uL (1.2-3.4); Lymphocytes % (auto) 12.9 %; Mean Corpuscular Hgb Conc 32.5 g/dL (32-36); Mean Corpuscular Volume 91.9 fL (80-100); Mean Platelet Volume 8.7 fL (7.4-10.4); Monocytes # (auto) 0.63 K/uL (0.11-0.59); Monocytes % (auto) 12.7 %; Neutrophils # (auto) 3.66 K/uL (1.4-6.5); Neutrophils % (auto) 73.8 %; Platelet Count 163 K/uL (130-400); RDW Coefficient of Variation 19.4 % (11.5-14.5); RDW Standard Deviation 58.3 fL (36.4-46.3); Red Blood Count 2.98 M/uL (4.7-6.1); White Blood Count 4.96 K/uL (4.8-10.8)
[2019-02-15 06:27] LABS: Calcium 8.3 mg/dl (8.5-10.1); Creatinine Clr Calc Pharmacy 43.9 ml/min; Est GFR (African American) 73.1; Est GFR (Non-African American) 63.1; Potassium 3.9 mmol/L (3.5-5.1)
--- NOTE | 2019-02-15 07:36 | XRay Report ---
XR chest 2V routine CLINICAL HISTORY: Post pacemaker chest x-ray COMPARISON STUDY: 02/07/2019 FINDINGS: The heart is enlarged. There is been interval placement of a left subclavian dual-chamber c entral venous pacemaker. No pneumothorax is visualized. There is an increasing right pleural effusion . There is a small left pleural effusion. There are associated right lower lung zone airspace opacity statistically representing compressive atelectasis although an infectious/inflammatory process could appear similar.[ IMPRESSION: 1. No evidence of pneumothorax status post placement of a left subclavian dual-chamber central venous pacemaker 2. Increasing right pleural effusion with associated right basilar atelectasis/consolidation 3. Small left pleural effusion Electronically signed by: Franky Lal M.D. 02/15/2019 7:35 AM
[2019-02-15] MEDS: TRAMADOL HCL 50 MG TABLET PO PRN (08:10)
[2019-02-15] MEDS: ATORVASTATIN 40 MG TAB PO SCH (08:11)
[2019-02-15] MEDS: FOLIC ACID 1 MG TAB PO SCH (08:11)
[2019-02-15] MEDS: DOXYCYCLINE HYCLATE 100 MG CAP PO SCH (08:11)
[2019-02-15] MEDS: ASCORBIC ACID 500 MG TAB PO SCH ×2 (08:11→21:29)
[2019-02-15] MEDS: FINASTERIDE 5 MG TAB PO SCH (08:11)
[2019-02-15] MEDS: FERROUS SULFATE 325 MG TAB PO SCH ×2 (08:11→21:25)
[2019-02-15] MEDS: ASPIRIN 81 MG ECTAB PO SCH (08:11)
[2019-02-15] MEDS: MULTIVITAMIN TAB PO SCH (08:11)
[2019-02-15] MEDS: INSULIN ASPART 100 UNITS/ML 3 ML PEN SC SCH ×4 (08:13→21:28)
[2019-02-15] MEDS: INSULIN GLARGINE SOLOSTAR 100 UNITS/ML 3 ML PEN SC SCH ×2 (08:14→21:26)
[2019-02-15] MEDS: CEFAZOLIN 1000MG 1,000 MG/7.5 ML SYR IV SCH (08:27)
--- NOTE | 2019-02-15 14:14 | Cardiology Progress Note ---
Date of Service February 15, 2019 Assessment & Plan (1) Tachy-rodrigue syndrome: Patient continues to demonstrate evidence of variable AV conduction with tachybradycardia syndrome despite very low-dose therapies. Given presentation with falls and syncope, significant tachybradycardia syndrome will require pacemaker for ongoing management Pacemaker inserted 02/14/2019 now with good function Beta-shubham increased to 25 mg twice per day of metoprolol. Rhythm demonstrates atrial fibrillation controlled ventricular response rate, intermittent pacing Appears patient is being transitioned to extended care facility. Would consider cautiously resuming warfarin once stability assured (2) Paroxysmal atrial fibrillation: Brief episodes observe this admission note patient high risk for anticoagulation multiple falls including current admission (3) Chronic venous insufficiency: Lower extremities wrapped (4) S/P AVR: Patient status post bioprosthetic aortic valve replacement and coronary bypass grafting in 2006 Patient received a 23 mm Jose Gordon bioprosthesis Coronary bypass grafting with ABAD graft to LAD, saphenous vein graft diagonal, saphenous vein graft to posterior descending artery as well as PFO closure Echocardiogram February 2017 with normal valve gradients, normal LV function We will repeat this inpatient stay (5) Venous stasis ulcers of both lower extremities: Chronic, blood cultures this admission negative (6) HTN (hypertension): Subjective Patient seen and examined, chart, telemetry reviewed. No specific complaints aches and pains are getting better though hip and leg novelty twister tender. Pacemaker site is healing with mild tenderness no ecchymosis or hematoma. Device functioning appropriately Physical Exam Constitutional: + frail appearing; no acute distress Eyes: PERRL, conjunctivae normal, anicteric sclerae Neck: trachea midline, no thyromegaly Respiratory: Auscultation: + diminished lung sounds Cardiovascular: Rate/Rhythm: regular rate Heart Sounds: normal S1 and + murmur (Harsh grade 2/6 to 3/6 systolic murmur heard best left lower sternal border no diastolic murmur) Vessels: no JVD Extremities: + edema (Chronic wrapped stasis induration of both lower extremities) Chest (Breasts): Chest: + pacemaker (Pacemaker site intact without hematoma or drainage) Gastrointestinal (Abdomen): Percussion/Palpation: abdomen soft; abdomen nontender Musculoskeletal: Lower extremities with stasis changes and wrapped Results & Data Vital Signs (Past 12 Hours) Vital Signs Temp Pulse Pulse Resp BP BP Pulse Ox 02/15/19 11:13 36.4 C L 69 23 127/48 L 93 02/15/19 08:00 61 02/15/19 07:17 36.8 C 71 18 156/74 H 96 02/15/19 04:13 36.5 C 63 22 149/60 H 92 Laboratory Results Laboratory Results - last 24 hr 02/14/19 02/14/19 02/14/19 13:06 16:25 20:12 WBC RBC Hgb Hct MCV MCH MCHC RDW Std Deviation RDW Coeff of [place] Plt Count MPV Immature Gran % (Auto) Neut % (Auto) Lymph % (Auto) Hickman % (Auto) Eos % (Auto) Baso % (Auto) Immature Gran # (Auto) Neut # (Auto) Lymph # (Auto) Hickman # (Auto) Eos # (Auto) Baso # (Auto) Sodium Potassium Chloride Carbon Dioxide Anion Gap BUN Creatinine Est Cr Clr Drug Dosing Est GFR ( Amer) Est GFR (Non-Af Amer) BUN/Creatinine Ratio Glucose POC Glucose 145 H 162 H Calcium Blood Type A Positive Antibody Screen NEGATIVE Crossmatch See Detail 02/15/19 02/15/19 02/15/19 05:27 05:27 07:15 WBC 4.96 RBC 2.98 L Hgb 8.9 L Hct 27.4 L MCV 91.9 MCH 29.9 MCHC 32.5 RDW Std Deviation 58.3 H RDW Coeff of [place] 19.4 H Plt Count 163 MPV 8.7 Immature Gran % (Auto) 0.4 Neut % (Auto) 73.8 Lymph % (Auto) 12.9 Hickman % (Auto) 12.7 Eos % (Auto) 0.0 Baso % (Auto) 0.2 Immature Gran # (Auto) 0.02 Neut # (Auto) 3.66 Lymph # (Auto) 0.64 L Hickman # (Auto) 0.63 H Eos # (Auto) 0.00 Baso # (Auto) 0.01 Sodium 148 H Potassium 3.9 Chloride 119 H Carbon Dioxide 24 Anion Gap 5.0 BUN 35 H Creatinine 1.05 Est Cr Clr Drug Dosing 43.9 Est GFR ( Amer) 73.1 Est GFR (Non-Af Amer) 63.1 BUN/Creatinine Ratio 33.0 H Glucose 104 H POC Glucose 117 H Calcium 8.3 L Blood Type Antibody Screen Crossmatch 02/15/19 11:15 WBC RBC Hgb Hct MCV MCH MCHC RDW Std Deviation RDW Coeff of [place] Plt Count MPV Immature Gran % (Auto) Neut % (Auto) Lymph % (Auto) Hickman % (Auto) Eos % (Auto) Baso % (Auto) Immature Gran # (Auto) Neut # (Auto) Lymph # (Auto) Hickman # (Auto) Eos # (Auto) Baso # (Auto) Sodium Potassium Chloride Carbon Dioxide Anion Gap BUN Creatinine Est Cr Clr Drug Dosing Est GFR ( Amer) Est GFR (Non-Af Amer) BUN/Creatinine Ratio Glucose POC Glucose 168 H Calcium Blood Type Antibody Screen Crossmatch
--- NOTE | 2019-02-15 16:09 | Hospitalist Progress Note ---
Date of Service February 15, 2019 Assessment & Plan (1) Right lower lobe pneumonia: Patient is an 88 yr male with multiple comorbidities who came to ED after a fall and Possible Syncope. Complains of pain in his hip, ambulatory dysfunction secondary to fall. In ED, work-up showed right basilar pneumonia, found to be hypoglycemic. Tachybradycardia syndrome : H/O A fib on coumadin at baseline Variable AV conduction with tachybradycardia syndrome Presented with fall, syncope S/P pacemaker insertion on February 14, 2019 Metoprolol, Coumadin to be resumed as per cardiology recommendations Appreciate cardiology input Given H/O multiple falls, bruises/lives alone, Microscopic hematuria and FOBT in setting of supratherapeutic INR, S/P 2 units PRBCs--anticoagulation held for now Microscopic Hematuria: In setting of Supratherapeutic INR Plan to repeat UA in 2 weeks as outpatient May need Urology eval as outpatient Monitor CBC FOBT: In Setting of supratherapeutic INR No overt bleeding Refuses Scopes currently May need further eval by GI as outpatient Monitor CBC S/P Fall/ Probable Syncope : Patient believes that he passed out and found himself on floor in his bedroom. Was unable to get up, called him med alert button and was brought to hospital. Prior episode of syncope / Falls CT pelvisno acute fracture, severe degenerative left hip with flattening of superior aspect of femoral head and acetabulum, degenerative subchondral cystic change. Prior surgical findings. Old healed fracture left pubic ring CT headno acute abnormality CT lumbar spineno fractures, degenerative changes CT thoracic spinedegenerative changes, no fracture, left pleural effusion with left basilar parenchymal infiltrate Anemia of chronic kidney disease Acute on chronic anemia, probable blood loss in setting of supratherapeutic INR Baseline hemoglobin around 10 S/P 2 units PRBCs FOBT+ve in setting of Supratherapeutic INR: No overt GI bleeding, refuses Scopes currently INR reversed with Vit K 5 mg Monitor CBC History of bioprosthetic aortic valve Supra therapeutic INR S/P Vit K Resolved Coumadin held for now Possible Pneumonia Atelectasis X ray Chest- Right basilar infiltrate CT thoracic spine shows- Left pleural effusion > right with left basilar parenchymal infiltrate Has minimal dry Cough S/P IV Rocephin, Azithromycin in ED, To complete 7 day course of Doxycycline Blood culture x 2:Neg Incentive spirometry for atlectasis Hypoglycemia in setting of diabetes mellitus, [id number] - Resolved Could be contributing to generalized weakness Blood sugar on [id number] -Home medicationglimepiride 4 mg On Lantus / ISS per pharmacy HBA1C - 9.6 (Goal given age is higher) Appreciate pharmacy inputs Elevated CPK - Trending down CK - 535 s/p fall. S/P IVF Restarted Atorvastatin Bilateral lower extremity wounds, lower extremity edema H/O venous insufficiency H/O venous thrombosis. Follows with wound care. Consulted wound care Hypertension. BP borderline low Discontinued clonidine 0.1 mg twice daily Discontinued Losartan due to CKD Lopressor dose need to be adjusted Increased Doxazosin to 2 mg from 1 mg Monitor H/O DVT INR subtherapeutic on presentation Coumadin held for now due to above H/O CAD S/P CABG on aspirin, statin beta-shubham need to be resumed CKD III Baseline Cr around 2.0 Cr at baseline History of bioprosthetic aortic valve replacement. Held coumadin as above. 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 Bilateral lower extremity wounds with chronic skin changes. Unable to move on his own without assistance PT/OT Nutrition Patient only has one tooth. Lives on frozen food/soups/cookies at home. Appetite continues to be fair. States he just does not feel like eating Country Director consulted DVT Px: Teds for now Code Status Full code Disposition Needs SNF placement Agreeable to go to SNF as unable to take care of himself at home, lives alone with no family members or POAs. Subjective Patient is seen and examined at bedside Has minimal dry cough Complains of mild soreness at the site of pacemaker Complains of chronic bilateral hip pain States having right rib pain since the fall Denies any SOB, dizziness, nausea, abd pain Offers no other complaints Review of Systems Review of Systems: All systems reviewed & are unremarkable except as noted in HPI & below Physical Exam Physical Exam: Physical Exam: Vitals signs as noted above General Appearance:No apparent distress, +Frail Head: normocephalic, Atraumatic Eyes: normal inspection, EOMI Neck: supple, Trachea midline Respiratory/Chest: Decreased breath sounds on right , CTA, +Pacemaker on left side Cardiovascular: S1, S2, +systolic murmur Abdomen/GI:Soft, Non tender, Bowel sounds present Extremities/Musculoskelatal:normal inspection, B/L LE edema Neurologic/Psych:AAOX3, grossly no focal neurological deficits, +hearing loss Skin: normal color, warm Results & Data Vital Signs (Past 12 Hours) Vital Signs Temp Pulse Pulse Resp BP BP Pulse Ox 02/15/19 15:47 36.4 C L 65 18 121/56 L 93 02/15/19 11:13 36.4 C L 69 23 127/48 L 93 02/15/19 08:00 61 02/15/19 07:17 36.8 C 71 18 156/74 H 96 02/15/19 04:13 36.5 C 63 22 149/60 H 92 Laboratory Results Short CBC 02/15/19 Range/Units 05:27 WBC 4.96 (4.8-10.8) K/uL Hgb 8.9 L (14.0-18.0) g/dL Hct 27.4 L (42-52) % Plt Count 163 (130-400) K/uL BMP 02/15/19 05:27 Sodium 148 H Potassium 3.9 Chloride 119 H Carbon Dioxide 24 BUN 35 H Creatinine 1.05 Glucose 104 H Calcium 8.3 L Diagnostic Findings CXR: 1. No evidence of pneumothorax status post placement of a left subclavian dual- chamber central venous pacemaker 2. Increasing right pleural effusion with associated right basilar atelectasis/consolidation 3. Small left pleural effusion (1) Right lower lobe pneumonia Pneumonia type: due to unspecified organism Qualified Code(s): J18.1 - Lobar pneumonia, unspecified organism
[2019-02-15] MEDS: DOXAZOSIN MESYLATE 1 MG TAB PO SCH (21:25)
[2019-02-15] MEDS: ACETAMINOPHEN 325 MG TAB PO PRN (23:32)
[2019-02-16 05:41] LABS: Hematocrit (blood only) 28.7 % (42-52); Hemoglobin 9.4 g/dL (14.0-18.0)
[2019-02-16 06:20] LABS: Calcium 8.2 mg/dl (8.5-10.1); Est GFR (African American) 81.5; Est GFR (Non-African American) 70.3; Potassium 3.9 mmol/L (3.5-5.1)
[2019-02-16] MEDS: INSULIN ASPART 100 UNITS/ML 3 ML PEN SC SCH ×2 (08:02→12:20)
[2019-02-16] MEDS: ASCORBIC ACID 500 MG TAB PO SCH (08:03)
[2019-02-16] MEDS: ATORVASTATIN 40 MG TAB PO SCH (08:03)
[2019-02-16] MEDS: MULTIVITAMIN TAB PO SCH (08:03)
[2019-02-16] MEDS: INSULIN GLARGINE SOLOSTAR 100 UNITS/ML 3 ML PEN SC SCH (08:03)
[2019-02-16] MEDS: FERROUS SULFATE 325 MG TAB PO SCH (08:04)
[2019-02-16] MEDS: FOLIC ACID 1 MG TAB PO SCH (08:04)
[2019-02-16] MEDS: FINASTERIDE 5 MG TAB PO SCH (08:04)
[2019-02-16] MEDS: TRAMADOL HCL 50 MG TABLET PO PRN ×2 (08:13→14:37)
--- NOTE | 2019-02-16 10:57 | Cardiology Progress Note ---
Date of Service February 16, 2019 Assessment & Plan (1) Tachy-rodrigue syndrome: Patient continues to demonstrate evidence of variable AV conduction with tachybradycardia syndrome despite very low-dose therapies. Given presentation with falls and syncope, significant tachybradycardia syndrome Pacemaker inserted 02/14/2019 now with good function Beta-shubham increased to 25 mg twice per day of metoprolol. Rhythm demonstrates atrial fibrillation controlled ventricular response rate, intermitt ent pacing Metoprolol reordered Appears patient is being transitioned to extended care facility. Would consider cautiously resuming warfarin once stability assured (2) Paroxysmal atrial fibrillation: Brief episodes observe this admission note patient high risk for anticoagulation multiple falls including current admission If patient in stable facility and fall risk reduced anticoagulation indicated from cardiac standpoint (3) Chronic venous insufficiency: Lower extremities wrapped (4) S/P AVR: Patient status post bioprosthetic aortic valve replacement and coronary bypass grafting in 2006 Patient received a 23 mm Jose Gordon bioprosthesis Coronary bypass grafting with ABAD graft to LAD, saphenous vein graft diagonal, saphenous vein graft to posterior descending artery as well as PFO closure Echocardiogram this admission demonstrates moderate severe aortic prosthetic valve stenosis as well as mild to moderate mitral stenosis Management as previously ordered (5) Venous stasis ulcers of both lower extremities: Chronic, blood cultures this admission negative (6) HTN (hypertension): Subjective Patient seen and examined, chart, medications, telemetry reviewed. No complaints other than mild tenderness of the pacemaker site multiple arthralgias and contusions. Patient metoprolol is been on hold no dizziness or lightheadedness no significant tachyarrhythmias. Pacemaker functioning appropriately Physical Exam Constitutional: + frail appearing; no acute distress Eyes: PERRL, conjunctivae normal, anicteric sclerae Neck: trachea midline, no thyromegaly Respiratory: Auscultation: + diminished lung sounds Cardiovascular: Rate/Rhythm: regular rate Heart Sounds: normal S1 and + murmur (Harsh grade 2/6 to 3/6 systolic murmur heard best left lower sternal border no diastolic murmur) Vessels: no JVD Extremities: + edema (Chronic wrapped stasis induration of both lower extremities) Chest (Breasts): Chest: + pacemaker (Pacemaker site intact without hematoma or drainage) Gastrointestinal (Abdomen): Percussion/Palpation: abdomen soft; abdomen n ontender Skin: Diffuse ecchymosis right flank and shoulder improving Results & Data Vital Signs (Past 12 Hours) Vital Signs Temp Pulse Resp BP Pulse Ox 02/16/19 07:10 36.7 C 64 24 126/55 L 95 02/16/19 03:59 36.5 C 71 20 126/56 L 94 02/15/19 23:28 36.6 C 68 16 136/59 L 93
--- NOTE | 2019-02-16 11:25 | Pharmacy Report ---
Glycemic Control Progress Note - Date of Service February 16, 2019 - Scope Glycemic Pharmacist consulted for glycemic control to write orders per [facility] inpatient glycemic control protocol. - Objective Accuchecks BSG(last 24 hours):: 02/15/19 02/15/19 02/15/19 11:15 16:06 20:06 Glucose POC Glucose 168 H 120 H 174 H 02/16/19 02/16/19 05:19 08:00 Glucose 98 POC Glucose 96 HbA1c:: Hemoglobin A1c 9.6 % (4.5-5.6) H 02/08/19 07:17 - Recent Pertinent Medications The patient is currently receiving: * Basal insulin: Lantus 5 or 7 units every 12 hours * Correctional Insulin: Novolog Correction per scale ACHS Goal Range: Low 110 mg/dL - High 150 mg/dL Correction Factor: 25 mg/dL/unit * Prandial insulin: Per carb ratio of 1 unit per 10 grams CHO consumed - Outpatient Anti-Diabetic Meds amaryl 4 mg PO daily - Assessment & Plan ASSESSMENT: * See progress note from 02/09/19 for more background info, in short: * Pt receiving SQ basal bolus insulin regimen for hyperglycemia secondary to baseline DM (outpatient regimen on hold). * Patient is currently receiving an average of 20 units of insulin per day * 12 units of basal insulin * 8 units of prandial/correctional insulin * BSGs ranging 117 - 174 mg/dl over the past 24hrs * Changes needed to insulin regimen: * AM Fasting BSG = 96 mg/dl. This is below goal range for patient based on inpatient targets and co-morbidities. Therefore Basal insulin will be reduced to 5 units twice daily (16% reduction) * Post-prandial BSGs are in range typically. Tighten carbohydrate ratio slightly. * Total daily dose = ~20 units. PLAN FOR INPATIENT GLYCEMIC CONTROL: * DECREASING Lantus to 5 units SQ BID * Continuing correction factor of 25 mg/dl/unit * Continuing carb ratio of 1 unit per 9 grams CHO consumed * Continuing goal range of Low 110 mg/dL - High 150 mg/dL RECOMMENDATIONS FOR DISCHARGE: * Patient's HbA1C is uncontrolled at 9.6%. Could consider initiation of insulin as an outpatient per the ADA guidelines for HbA1C over 9%. * Please note that the plan above was derived based on current level of insulin resistance and hospital stress. These recommendations are appropriate for inpatient admission only. Plan of care upon discharge will need to be reassessed to avoid potential outpatient hypo/hyperglycemia. Thank you.
[2019-02-16 11:39] VITALS: PULSE 62; TEMP 97.5; O2SAT 93
--- NOTE | 2019-02-16 12:28 | Hospitalist Progress Note ---
Date of Service February 16, 2019 Assessment & Plan (1) Right lower lobe pneumonia: Patient is an 88 yr male with multiple comorbidities who came to ED after a fall and Possible Syncope. Complains of pain in his hip, ambulatory dysfunction secondary to fall. In ED, work-up showed right basilar pneumonia, found to be hypoglycemic. Tachybradycardia syndrome : H/O A fib on coumadin at baseline Variable AV conduction with tachybradycardia syndrome Presented with fall, syncope S/P pacemaker insertion on February 14, 2019 Continue Metoprolol Appreciate cardiology input Given H/O multiple falls, bruises/lives alone, Microscopic hematuria and FOBT in setting of supratherapeutic INR, S/P 2 units PRBCs--anticoagulation held for now Plan to restart Coumadin cautiously as per cardiology recommendations when able Microscopic Hematuria: In setting of Supratherapeutic INR Plan to repeat UA in 2 weeks as outpatient May need Urology eval as outpatient Monitor CBC Hb stable FOBT: In Setting of supratherapeutic INR No overt bleeding Refuses Scopes currently May need further eval by GI as outpatient Monitor CBC Hb stable S/P Fall/ Probable Syncope : Patient believes that he passed out and found himself on floor in his bedroom. Was unable to get up, called him med alert button and was brought to hospital. Prior episode of syncope / Falls CT pelvisno acute fracture, severe degenerative left hip with flattening of superior aspect of femoral head and acetabulum, degenerative subchondral cystic change. Prior surgical findings. Old healed fracture left pubic ring CT headno acute abnormality CT lumbar spineno fractures, degenerative changes CT thoracic spinedegenerative changes, no fracture, left pleural effusion with left basilar parenchymal infiltrate Anemia of chronic kidney disease Acute on chronic anemia, probable blood loss in setting of supratherapeutic INR Baseline hemoglobin around 10 S/P 2 units PRBCs FOBT+ve in setting of Supratherapeutic INR: No overt GI bleeding, refuses Scopes currently INR reversed with Vit K 5 mg Monitor CBC History of bioprosthetic aortic valve Supra therapeutic INR S/P Vit K Resolved Coumadin held for now Possible Pneumonia Atelectasis X ray Chest- Right basilar infiltrate CT thoracic spine shows- Left pleural effusion > right with left basilar parenchymal infiltrate Has minimal dry Cough S/P IV Rocephin, Azithromycin in ED, Completed 7 day course of Doxycycline Blood culture x 2:Neg Incentive spirometry for atlectasis Hypoglycemia in setting of diabetes mellitus, [id number] - Resolved Could be contributing to generalized weakness Blood sugar on [id number] Home medicationglimepiride 4 mg On Lantus / ISS per pharmacy HBA1C - 9.6 (Goal given age is higher) Appreciate pharmacy inputs May need to discharge on Basal insulin upon discharge May need to discontinue glimepiride due to hypoglycemic episodes Elevated CPK - Trending down CK - 535 s/p fall. S/P IVF Restarted Atorvastatin Bilateral lower extremity wounds, lower extremity edema H/O venous insufficiency H/O venous thrombosis. Follows with wound care. Consulted wound care Hypertension. BP borderline low Discontinued clonidine 0.1 mg twice daily Discontinued Losartan due to CKD Continue Metorpolol 25mg BID Increased Doxazosin to 2 mg from 1 mg Monitor H/O DVT INR subtherapeutic on presentation Coumadin held for now due to above H/O CAD S/P CABG on aspirin, statin, Beta Alton CKD III Baseline Cr around 2.0 Cr at baseline History of bioprosthetic aortic valve replacement. Held coumadin as above. 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 Bilateral lower extremity wounds with chronic skin changes. Unable to move on his own without assistance PT/OT Nutrition Patient only has one tooth. Lives on frozen food/soups/cookies at home. Appetite continues to be fair. States he just does not feel like eating Supervisor [employer] consulted DVT Px: Teds for now Code Status Full code Disposition Needs SNF placement Agreeable to go to SNF as unable to take care of himself at home, lives alone with no family members or POAs. Case Management on board Subjective Patient is seen and examined at bedside Reports generalized pain No other complaints Has mild soreness at the site of pacemaker Denies any SOB, dizziness, nausea, abd pain Discussed with Cardiology today Review of Systems Review of Systems: All systems reviewed & are unremarkable except as noted in HPI & below Physical Exam Physical Exam: Physical Exam: Vitals signs as noted above General Appearance:No apparent distress, +Frail Head: normocephalic, Atraumatic Eyes: normal inspection, EOMI Neck: supple, Trachea midline Respiratory/Chest: Decreased breath sounds on right , CTA, +Pacemaker on left side Cardiovascular: S1, S2, +systolic murmur Abdomen/GI:Soft, Non tender, Bowel sounds present Extremities/Musculoskelatal:normal inspection, B/L LE edema Neurologic/Psych:AAOX3, grossly no focal neurological deficits, +hearing loss Skin: normal color, warm Results & Data Vital Signs (Past 12 Hours) Vital Signs Temp Pulse Resp BP Pulse Ox 02/16/19 11:38 36.4 C L 62 18 113/42 L 93 02/16/19 07:10 36.7 C 64 24 126/55 L 95 02/16/19 03:59 36.5 C 71 20 126/56 L 94 Laboratory Results Short CBC 02/16/19 Range/Units 05:19 Hgb 9.4 L (14.0-18.0) g/dL Hct 28.7 L (42-52) % BMP 02/16/19 05:19 Sodium 145 Potassium 3.9 Chloride 116 H Carbon Dioxide 23 BUN 34 H Creatinine 0.96 Glucose 98 Calcium 8.2 L (1) Right lower lobe pneumonia Pneumonia type: due to unspecified organism Qualified Code(s): J18.1 - Lobar pneumonia, unspecified organism
--- NOTE | 2019-02-16 15:01 | Discharge Summary ---
Date of Service February 16, 2019 Admission HPI Per Admitting Provider DATE OF ADMISSION: 02/07/2019 CHIEF COMPLAINT: Fall. HISTORY OF PRESENT ILLNESS: This is an 88-year-old male with past medical history significant for type 2 diabetes, hyperlipidemia, CAD, chronic kidney disease stage III, venous insufficiency, lower extremity edema, ulcers to lower extremity, status post prosthetic aortic valve replacement, paroxysmal atrial fibrillation, hypertension, venous thrombosis, BPH, hip joint replacement status, anemia of chronic kidney disease, status post patent foramen ovale closure, history of MRSA, history of TIA, presents with fall. The patient says he lives alone. Neighbors checks on him. There is no family close by. He walks with help of walker, he can drive his car, he generally eats the frozen food. He says there is a lot of pain in his hips, there is some ambulatory dysfunction because of that and he goes to wound care for his lower extremity wounds and lower extremities are wrapped .. Yesterday, he felt weak and fell at home and could not get up and lot of pain in his hip region, was brought in here. In the ER, the workup showed right basilar pneumonia and we are called for admission. The patient denies any fever, denies any cough, no chest pain, no shortness of breath, no headaches. But feeling chilly and shaky. Hard of hearing. No runny nose, no sore throat, no difficulty swallowing as per patient. No nausea, no abdominal pain. Normal bowel and bladder movements. No rash. Currently resting comfortably and hemodynamically stable. Admission Exam Per Admitting Provider PHYSICAL EXAMINATION: GENERAL: The patient is alert and oriented. Hard of hearing. VITAL SIGNS: Temperature 37, pulse 60, respiratory rate 16, blood pressure 147/55, oxygen 95% on room air. HEENT: No pallor, no icterus. Pupils equal, round, and reactive to light. NECK: No JVD, no neck masses, no carotid bruits. CARDIOVASCULAR: S1, S2 heard, regular rate and rhythm, no murmur, no gallop. RESPIRATORY SYSTEM: Normal AP diameter. No thyromegaly. No wheezing, no crackles. ABDOMEN: Soft, bowel sounds present, nontender. No distention. CENTRAL NERVOUS SYSTEM: Cranial nerves II-XII grossly intact. Nonfocal. EXTREMITIES: Bilateral lower extremity wounds and bilateral lower extremity were wrapped in dressing, somewhat foul smelling. Principal Diagnosis Discharge Information Discharge Diagnosis Tachybradycardia syndrome S/P Pacemaker Syncope Supra therapeutic INR Possible Pneumonia Multiple falls Hypoglycemia Discharge Goals Decrease discomfort,Improve disease control, Improve function Discharge Activity Limitations As commented below Discharge Data Allergies Allergy/AdvReac Type Severity Reaction Status Date / Time lisinopril Allergy Unknown Unknown Verified 02/07/19 23:49 Consultations 02/07/19 23:38 ED Decision to Admit Stat 02/08/19 03:47 Consult Case Management - Discharge Planning Routine 02/08/19 13:18 Consult Cardiology Routine 02/13/19 10:02 Consult Nutrition Routine Procedures Performed Operation Date: 02/14/19 15:00 Actual Procedures p Pacer with A/V Leads (Dual) - Georgiana Fabian, Thoracic CT: 1. No acute process of the thoracic spine. 2. Moderate degenerative changes throughout. 3. Right and to a lesser extent left pleural effusion. 4. Right and to a lesser extent left basilar parenchymal infiltrative change. Pelvic CT: 1. No acute bony abnormality. 2. Findings consistent with prior surgery as well as old posttraumatic change. 3. Generalized degenerative changes throughout Lumbar CT: No acute fractures within the lumbar spine. Degenerative changes as described above. CT Head: No acute intracranial abnormality. Chronic changes as noted. CXR: Infiltrate right base. Video Swallow: 1. Vallecular residue. No evidence for aspiration or penetration. 2. Please see the speech pathologist report for detailed findings and recommendations. Ordered Studies 02/07/19 22:37 CT head/brain wo con Stat CT lumbar spine wo con Stat CT pelvis wo con Stat CT thoracic spine wo con Stat 02/09/19 11:00 FL video swallow Routine 02/14/19 06:45 EP Lab Images for PACS ONCE Hospital Course (1) Right lower lobe pneumonia: Patient is an 88 yr male with multiple comorbidities who came to ED after a fall and Possible Syncope. Complains of pain in his hip, ambulatory dysfunction secondary to fall. In ED, work-up showed right basilar pneumonia, found to be hypoglycemic. Tachybradycardia syndrome : H/O A fib on coumadin at baseline Variable AV conduction with tachybradycardia syndrome Presented with fall, syncope S/P pacemaker insertion on February 14, 2019 Continue Metoprolol Appreciate cardiology input Given H/O multiple falls, bruises/lives alone, Microscopic hematuria and FOBT in setting of supratherapeutic INR, S/P 2 units PRBCs--anticoagulation held for now Plan to restart Coumadin cautiously as per cardiology recommendations when able Microscopic Hematuria: In setting of Supratherapeutic INR Plan to repeat UA in 2 weeks as outpatient May need Urology eval as outpatient Monitor CBC Hb stable FOBT: In Setting of supratherapeutic INR No overt bleeding Refuses Scopes currently May need further eval by GI as outpatient Monitor CBC Hb stable S/P Fall/ Probable Syncope : Patient believes that he passed out and found himself on floor in his bedroom. Was unable to get up, called him med alert button and was brought to hospital. Prior episode of syncope / Falls CT pelvisno acute fracture, severe degenerative left hip with flattening of superior aspect of femoral head and acetabulum, degenerative subchondral cystic change. Prior surgical findings. Old healed fracture left pubic ring CT headno acute abnormality CT lumbar spineno fractures, degenerative changes CT thoracic spinedegenerative changes, no fracture, left pleural effusion with left basilar parenchymal infiltrate Anemia of chronic kidney disease Acute on chronic anemia, probable blood loss in setting of supratherapeutic INR Baseline hemoglobin around 10 S/P 2 units PRBCs FOBT+ve in setting of Supratherapeutic INR: No overt GI bleeding, refuses Scopes currently INR reversed with Vit K 5 mg Monitor CBC History of bioprosthetic aortic valve Supra therapeutic INR S/P Vit K Resolved Coumadin held for now Possible Pneumonia Atelectasis X ray Chest- Right basilar infiltrate CT thoracic spine shows- Left pleural effusion > right with left basilar parenchymal infiltrate Has minimal dry Cough S/P IV Rocephin, Azithromycin in ED, Completed 7 day course of Doxycycline Blood culture x 2:Neg Incentive spirometry for atlectasis Hypoglycemia in setting of diabetes mellitus, [id number] - Resolved Could be contributing to generalized weakness Blood sugar on [id number] Home medicationglimepiride 4 mg On Lantus / ISS per pharmacy HBA1C - 9.6 (Goal given age is higher) Appreciate pharmacy inputs May need to discharge on Basal insulin upon discharge May need to discontinue glimepiride due to hypoglycemic episodes Elevated CPK - Trending down CK - 535 s/p fall. S/P IVF Restarted Atorvastatin Bilateral lower extremity wounds, lower extremity edema H/O venous insufficiency H/O venous thrombosis. Follows with wound care. Consulted wound care Hypertension. BP borderline low Discontinued clonidine 0.1 mg twice daily Discontinued Losartan due to CKD Continue Metorpolol 25mg BID Increased Doxazosin to 2 mg from 1 mg Monitor H/O DVT INR subtherapeutic on presentation Coumadin held for now due to above H/O CAD S/P CABG on aspirin, statin, Beta Alton CKD III Baseline Cr around 2.0 Cr at baseline History of bioprosthetic aortic valve replacement. Held coumadin as above. 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 Bilateral lower extremity wounds with chronic skin changes. Unable to move on his own without assistance PT/OT Nutrition Patient only has one tooth. Lives on frozen food/soups/cookies at home. Appetite continues to be fair. States he just does not feel like eating Petroleum Inspector consulted DVT Px: Teds for now Code Status Full code Disposition Needs SNF placement Agreeable to go to SNF as unable to take care of himself at home, lives alone with no family members or POAs. Case Management on board Total Time Total Time Spent Total Time Spent (In Minutes): 42 minutes Total Time Includes: Examination of the Patient, Discharge Planning, Medication Reconciliation, Communication With Other Providers and Other Discharge Plan Discharge Items Patient Disposition: Transfer [facility] Reason For Visit: FALL Discharge Diagnosis: Tachybradycardia syndrome S/P Pacemaker Syncope Supra therapeutic INR Possible Pneumonia Multiple falls Hypoglycemia Discharge Goals: Decrease discomfort, Improve disease control and Improve function Activity: As commented below Activity Comment: do not lift the left elbow over the left shoulder for 1 month Lifting: No more than 10 pounds Lifting Comment: do not lift more than 10 pounds with the left arm for 2 weeks Bathing: Keep incision dry Bathing Comment: can shower 02/16; let water run over the insicion do not scrub it Non-emergency contact: Primary Care Provider and Stock Crane Operator Call non-emergency contact if: you have any medication questions, your symptoms worsen, your pain is not controlled, your pain is worsening, your pain is unusual for you, your pain is concerning for you, you have a fever, your wound has increased redness, your wound has increased drainage and your wound pain has increased Follow-up/Referrals: Varghese Spann DO [Primary Care Provider] - Diet: Carb Consistent or DM2 and Heart Healthy Diet Texture: Dental soft (bite-sized) Other Ambulatory Orders: Complete Blood Count no Diff (Routine) Timeframe: 1 Week Location: Determined by Patient Ordered By: Alan Green Prothrombin Time INR (Routine) Timeframe: 2 Days Facility: [facility] - Location: Administration / Operations Ordered By: Alan Green Addtl Provider Instructions: Follow-up with your primary care physician Dr. Olivia on February 21, 2019 at 10:55 AM Follow-up with your artificial inseminator Dr. Fabian/ for pacemaker check and follow up evaluation Follow up with [facility] for management of coumadin dosing Discussed with your physician for further evaluation of blood in urine (Microscopic Hematuria) and blood in stool (Positive Fecal Occult) in setting of Elevated INR--as outpatient as advised Your glimepiride is discontinued secondary to hypoglycemic episodes Your started on Lantus 10 units daily, Januvia 50 mg daily for management of your blood sugar levels Discuss with your Physician for further medication adjustments Your Coumadin was held during hospital stay, secondary to elevated INR and risk for falls. Plan to restart Coumadin 02/17/19 as recommended by your Stock Crane Operator. If you develop any bleeding issues, please stop taking coumadin and discuss with your Physician for further recommendations. Your losartan, clonidine were discontinued. Your doxazosin dose is increased to 2 mg daily. And your metoprolol dose is decreased to 25 mg twice a day. Seek immediate medical attention if your symptoms reoccur or worsen ACTIVITY RECOMMENDATIONS: * Do not raise affected arm over head for 2 weeks. SPECIAL CARE INSTRUCTIONS: * If bleeding occurs, apply direct pressure to area for 5 minutes. * Call your doctor if you have severe pain, fever, drainage or bleeding at site. * Keep dressing on and dry for 48 hours then remove. * Keep any scheduled doctor's appointment. * Implant Card - hand held device with website information given. SKIN IRRITATION: * You may experience some redness and/or swelling in the area where radiation was administered. If any skin irritation occurs, please contact your family physician. FOLLOW UP VISIT: Keep any scheduled doctor appointments Prescriptions: New doxazosin [Cardura] 1 mg Tablet 2 mg PO HS 30 Days Qty: 60 RF: 0 metoprolol tartrate 25 mg Tablet 25 mg PO BID 30 Days Qty: 60 RF: 0 Lantus Solostar U-100 Insulin 100 unit/mL (3 mL) Insulin Pen 10 unit SC DAILY 30 Days Qty: 3 RF: 0 Januvia 50 mg tablet 50 mg PO DAILY Qty: 30 RF: 1 Continued ascorbic acid (vitamin C) 500 mg capsule 1,000 mg PO BID RF: 0 aspirin [Brandon Chewable Aspirin] 81 mg tablet,chewable 81 mg PO Q OTHER DAY RF: 0 atorvastatin [Lipitor] 40 mg tablet 40 mg PO DAILY RF: 0 ferrous sulfate 325 mg (65 mg iron) tablet 325 mg PO BID RF: 0 finasteride [Proscar] 5 mg tablet 5 mg PO DAILY RF: 0 folic acid 1 mg tablet 1 mg PO DAILY RF: 0 multivitamin tablet 1 tab PO DAILY RF: 0 warfarin 2.5 mg Tablet 2.5 mg PO [id number] RF: 0 warfarin 2.5 mg Tablet 1.25 mg PO WK RF: 0 sennosides [Senokot] 8.6 mg Tablet 8.6 mg PO BID PRN (Reason: Constipation) RF: 0 triamcinolone acetonide 0.1 % Cream 1 applic TOPICAL BID PRN (Reason: Skin Irritation) RF: 0 Discontinued clonidine HCl [Catapres] 0.1 mg tablet 0.1 mg PO TID RF: 0 glimepiride [Amaryl] 4 mg tablet 4 mg PO QAM RF: 0 losartan [Cozaar] 100 mg tablet 100 mg PO DAILY RF: 0 metoprolol tartrate [Lopressor] 50 mg tablet 50 mg PO BID RF: 0 doxazosin 1 mg Tablet 1 mg PO HS RF: 0 Stand-Alone Forms: [facility] Discharge Orders: Discharge Order (Routine); Ordered 02/16/19 Ordered By: Alan Green Skilled Items Patient informed of condition?: Yes DNR: No Discharge Level of Care: Skilled Communicable Disease: No Discharge Prognosis: Improving Admission Data Admit Date/Time: 02/08/19 01:32 Attending Provider: Alan Green Admit Provider: Johnnie Ruiz Primary Care Provider: Varghese Spann Other Providers: Johnnie Ruiz ; Kendall Juarez ; Lucille Franz Service: Telemetry Medical Other Interventions: Discharge Summary Assessment (RN) Last Done: 02/16/19 15:41 Pending Studies at Discharge: No
[2019-02-16 15:44] VITALS: BP 127/48
[2019-02-16] MEDS ORDERED: INSULIN GLARGINE SOLOSTAR 100 UNITS/ML 3 ML PEN SC SCH (21:00)
--- NOTE | 2019-02-27 15:55 | Operative Report ---
DATE OF OPERATION: 02/14/2019 PREOPERATIVE DIAGNOSIS: Tachybrady syndrome. POSTOPERATIVE DIAGNOSIS: Tachybrady syndrome. PROCEDURE: Dual chamber rate responsive permanent pacemaker under fluoroscopic guidance. SURGEON: Georgiana Fabian DO. ARCHITECTURAL MODEL MAKER: None. ANESTHESIA: Monitored conscious sedation administered under my supervision by Nadine Holly. Start time 11:22, end time 12:15. Total of 3 mg of Versed and 75 mcg of fentanyl. INTRAVENOUS FLUIDS: 50 mL. ANTIBIOTICS: 1 gram of Ancef. URINE OUTPUT: Not applicable. SPECIMENS: None. FINDINGS: See below. DRAINS: None. BLOOD LOSS: Less than 20 mL. INDICATIONS: This is an 88-year-old gentleman with a past medical history for tachybrady syndrome, paroxysmal atrial fibrillation, no longer on anticoagulation due to high fall risk, chronic venous insufficiency, status post AVR with Jose-Gordon 23 mm bioprosthetic valve in the past as well as CAD status post CABG in 2006 with ABAD to LAD, SVG to diagonal and PDA, hypertension and a PFO closure. He was admitted to [facility] on 02/08/2019 secondary to falls and found to have evidence of tachybrady syndrome and recommended a dual chamber pacemaker prior to discharge. CONSENT: Consent was obtained prior to the patient going into the Electrophysiology lab. The patient was informed of the risks, benefits and alternative procedure. Risks include but not limited to sudden cardiac , cardiac arrhythmias, cerebrovascular accident, myocardial infarction, injury to the blood vessels, chamber of the heart, lung, bleeding, and infection. The patient understood these risks and agreed to the procedure as planned. Informed consent was obtained. DESCRIPTION OF THE PROCEDURE: 10 mL of 1% lidocaine, bupivacaine mixture were given in the left deltopectoral groove. Incision was made in left deltopectoral groove. Blunt dissection was performed down to identify the cephalic vein. Cephalic vein was identified and isolated using 0 silk ties. The vein was nicked with 11 blade and a guidewire was inserted without any resistance. An 8-Mauritanian sheath was inserted over the guidewire without any resistance. Dilator was removed and a second guidewire was inserted through the 8-Mauritanian sheath to allow for retained venous access. Sheath was removed, flushed, dilator reinserted over and then was reinserted over one of the guidewires. The guidewire and dilator removed. Right ventricular pacing lead was then advanced into right ventricle and positioned into right ventricular apex under fluoroscopic guidance. There was adequate pacing and sensing thresholds and no diaphragmatic stimulation with high output pacing. The 8-Mauritanian sheath was peeled away and the second 8-Mauritanian sheath was inserted over the retained guidewire without any resistance. Guidewire and dilator removed. The right atrial lead was then advanced into right atrium and positioned interatrial appendage under fluoroscopic guidance. There was adequate pacing and sensing thresholds and no diaphragmatic stimulation with high output pacing. The 8-Mauritanian sheath was peeled away and lead was fixated to pectoralis muscle using 0 silk suture. The pacemaker pocket was created using blunt dissection over the pectoralis muscle within the pectoral fascia. The pocket was flushed with copious amounts of bacitracin, saline wash and inspected for hemostasis. Pulse generator was then attached to leads, making sure that the pins were in appropriate position, passed set screw and set screws were all tightened. Pulse generator was then placed in the TYRX pouch followed then by being placed in the pocket, making sure that the leads were lying flat beneath the device. A stay stitch using 0 silk suture was used to secure the device to pectoralis muscle. The incision was then closed in 3-layer fashion with 2-0 Vicryl and sutures followed by 3-0 Vicryl interrupted suture. A 4-0 Monocryl running stitch and Dermabond was applied. EQUIPMENT: 1. Pulse generator is a Medtronic Erica XT DR HAHN MariiaDelfin [id number], serial number [id number], antibiotic TYRX pouch, lot number [id number], expiration 03/17/2019: 2. Right atrial lead Medtronic 5076-52 cm, serial number [id number]. 2. Right ventricular lead, Medtronic 5076-58 cm, serial number [id number]. INTRAOPERATIVE TESTIN. Right atrial lead: Fib waves were 4.1 millivolts, impedance 621 ohms, no threshold testing as patient was in AFib. 2. Right ventricular lead: R-wave 10.5 millivolts, impedance 765 ohms, threshold 0.4 volts at 0.7 milliamps. FINAL MEASUREMENTS THROUGH THE DEVICE: 1. Right atrial lead fib waves 0.8 millivolts, impedance 418 ohms, no threshold testing. The patient is in AFib. 2. Right ventricular lead: R-wave 10.2 millivolts, impedance 650 ohms, threshold 0.75 volts at 0.4 milliseconds. FINAL PARAMETERS: MVP-60/120. Right atrial amplitude 3.5 volts, pulse width 0.4 milliseconds, sensitivity 0.3 millivolts. Right ventricular amplitude 3.5 volts, pulse width 0.4 milliseconds, sensitivity 0.9 millivolts. IMPRESSION: Successful implantation of a dual chamber rate responsive permanent pacemaker under fluoroscopic guidance secondary to tachybrady syndrome. PLAN: Monitor patient overnight, 12-lead ECG, chest x-ray. He is not allowed to lift left elbow or left shoulder for 1 month. He cannot lift more than 10 pounds with the left arm for 2 weeks. He can shower in 2 days, at that time, he can remove the Tegaderm and he will follow up in our [facility] office for device and wound check on 02/23/2019. I attest to the content of the Intraoperative Record and any orders documented therein. Any exception s are noted below.
== END 2019-02-16 16:56 | DRG 242 ==
LOC: ED 22:13 → SUATTDRO 02-08 01:32 → 2N 02-08 01:32 → 2E 02-14 12:40

== ENCOUNTER 2019-02-28 09:28 | Inpatient (IN) ==
[2019-02-28] MEDS ORDERED: SODIUM CHLORIDE 0.9% 250 ML IV PRN ×2 (09:54→17:00)
[2019-02-28] MEDS ORDERED: SODIUM CHLORIDE 0.9% 1000ML 1,000 ML IV SCH (10:00)
[2019-02-28 10:38] LABS: Hematocrit (blood only) 21.7 % (42-52); Hemoglobin 7.3 g/dL (14.0-18.0); Mean Corpuscular Hgb Conc 33.6 g/dL (32-36); Mean Corpuscular Volume 91.6 fL (80-100); Platelet Count 242 K/uL (130-400); RDW Coefficient of Variation 17.6 % (11.5-14.5); RDW Standard Deviation 58.2 fL (36.4-46.3); Red Blood Count 2.37 M/uL (4.7-6.1); White Blood Count 10.42 K/uL (4.8-10.8)
[2019-02-28 10:55] LABS: Alanine Aminotransferase 17 U/L (12-78); Albumin Level 1.9 gm/dl (3.4-5.0); Aspartate Aminotransferase 21 U/L (15-37); BUN Creatinine Ratio 70.5 (10-20); Blood Urea Nitrogen 98 mg/dl (7-18); Calcium 7.4 mg/dl (8.5-10.1); Carbon Dioxide 24 mmol/L (21-32); Chloride 111 mmol/L (98-107); Est GFR (African American) 52.1; Est GFR (Non-African American) 44.9; Glucose 223 mg/dl (70-99); Potassium 4.8 mmol/L (3.5-5.1); Sodium 141 mmol/L (136-145)
[2019-02-28 10:58] LABS: Albumin Globulin Ratio 0.7 (0.9-2); Alkaline Phosphatase 161 U/L (45-117); Bilirubin,Total 0.6 mg/dl (0.2-1); Globulin 2.6 gm/dl (2.5-4.0); Total Protein 4.5 gm/dl (6.4-8.2)
[2019-02-28 11:01] LABS: Partial Thromboplastin Ratio 1.9; Prothrombin Time 70.1 Seconds (9.0-12.0)
[2019-02-28 11:03] LABS: INR 7.9 (0.9-1.1); Partial Thromboplastin Time 51.8 Seconds (21.0-31.0)
[2019-02-28 11:05] LABS: Acanthocytes 1+; Anisocytosis Present; Basophils # (auto) 0.03 K/uL (0-0.2); Basophils % (auto) 0.3 %; Immature Granulocytes # (auto) 0.06 K/uL (0.00-0.02); Immature Granulocytes % (auto) 0.6 %; Lymphocytes # (auto) 0.78 K/uL (1.2-3.4); Lymphocytes % (auto) 7.5 %; Monocytes % (auto) 7.7 %; Neutrophils # (auto) 8.75 K/uL (1.4-6.5); Neutrophils % (auto) 83.9 %
[2019-02-28] MEDS ORDERED: PHYTONADIONE 10 MG in SODIUM CHLORIDE 0.9% 50 ML IV ONE (12:06)
[2019-02-28] MEDS ORDERED: PANTOprazole 80 MG in DEXTROSE 5% 100 ML IV ONE (14:00)
--- NOTE | 2019-02-28 14:14 | Gastrointestinal Consultation ---
Date of Consultation February 28, 2019 Assessment & Plan (1) GI bleed: 88 year old male with history of afib on coumadin, x/p AV replacement in 2006, tachy rodrigue syndrome s/p pacer placement and recent admission for falls, pneumonia presenting from OP cardiology for SOB. Noted to have melena in the ED w/ HGB 7.3 w/ slight bump in BUN to 98 w/ INR 7.9. He denies pain, nausea/vomiting or prior coffee ground emesis/hematemesis. He is awake, alert and oriented answering questions appropriately although a poor historian. Vitals stable w/ systolic BP 120's. and pulse 60. Would recommend to trend HGB, reverse INR, transfuse and keep NPO for EGD pending clinical course. DDX: AVM, gastric/duodenal ulcer or gastritis given elevated INR. - NPO - IV PPI bolus and drip - Hold Coumadin - 10 mg Vit K was given in the ED - Would repeat INR tonight - INR less than 1.6 for EGD - Please arrange additional Vit K PRN persistently elevated INR - Trend HGB - RBC Transfusion per primary sevice - FFP x 1 dose - Chest XR - Check BNP - Check troponin - PRN lasix if volume overload - Tentative plan for EGD 03/01/19 in GI lab pending anesthesia assesment Thank you for allowing us to participate in the care of this patient. Please call with any acute changes, questions or concerns. Please see addendum below with additional recommendation from my supervising physician. Present on Admission?: Yes Supervising Physician Co-Signing Physician Notes I have seen and examined the patient and discussed the management with ZANDRA Vaca. 88 yo male with longstanding prosthetic aortic valve (2006), recent pacemaker placement mika 14 days ago, recent admission for pna to [facility], recommended to come to the ER per his outpatient cardiology clinic provider for symptomatic sob. One reported episode of melena in ed, hgb 7.3, and slight bun rise from chronic baseline elevation. Patient does have symptomatic sob, no accessory respiratory muscle use, no visible jvd seen on exam, abd soft nt nd +bs, no visible melena seen by myself. No reported hematemesis. He is a poor historian but agreeable to an egd. Would plan for EGD upon reversal of his INR and cardiology assessment. Further detailed plan of care per recommendations as in Ingrid's assessment and plan. History of Present Illness Reason for Consultation: melena Requesting Physician: Catherine Attending Physician: Catherine History of Present Illness 88 year old male with history of T2DM, CKD-3, CAD s/p CABG, dyslipidemia, HTN, BPH, anemia of CKD, TIA, s/p aortiv valve replacement in 2006 and afib on coumadin, tachybrady s/p pacer in January who presents from OP cardiology appointment for evaluation of SOB - GI was asked to evaluate for anemia and melena. Pt was seen and evaluated, chart reviewed. No family/friends at bedside. Pt is a poor historian. Unclear to me who is POA. Recent admission for fall, pneumonia, supratherapeutic INR He is not certain why he is here and is very concerned about missing his appointment. He denies any abdominal pain, nausea, vomiting. He does report chronic GERD explained as a mild epigastric burning w/ regurgitation. He is unsure of any change in his bowel movements but does note increased frequency of stool. Denies any vomiting, hematemesis or coffee ground emesis. Per nursing in the ED, pt had a large episodes of melanotic stool around 1pm. He reports dizziness and SOB but denies any chest pain. EGD 2006: Bulge seen in stomach body, likely secondary to impression of gallbladder. Apparent stricture at apex of bulb. No activeulcer disease was seen. EGD 2006: Normal esophagus. Gastritis. Biopsied for H.pylori. Multiple duodenal ulcers with clean base. Duodenitis. Biopsied for histology. None of the lesions noted appeared to be at risk forrebleeding. Allergies Allergy/AdvReac Type Severity Reaction Status Date / Time lisinopril Allergy Unknown Unknown Verified 02/28/19 10:31 sulfamethoxazole Allergy Unknown Unverified 02/28/19 10:31 [From Bactrim] trimethoprim [From Bactrim] Allergy Unknown Unverified 02/28/19 10:31 Home Medications Home Medications Medication Instructions Recorded Confirmed Type ascorbic acid (vitamin C) 500 mg 1,000 mg PO BID cap 03/17/18 02/28/19 History capsule aspirin 81 mg chewable tablet 81 mg PO Q OTHER DAY tab 03/17/18 02/28/19 History atorvastatin 40 mg tablet 40 mg PO DAILY 03/17/18 02/28/19 History ferrous sulfate 325 mg (65 mg 325 mg PO BID tab 03/17/18 02/28/19 History iron) tablet finasteride 5 mg tablet 5 mg PO DAILY tab 03/17/18 02/28/19 History folic acid 1 mg tablet 1 mg PO DAILY 03/17/18 02/28/19 History multivitamin tablet 1 tab PO DAILY 03/17/18 02/28/19 History sennosides [Senokot] 8.6 mg PO BID PRN 02/07/19 02/28/19 History triamcinolone acetonide 1 applic TOPICAL BID PRN 02/07/19 02/28/19 History doxazosin [Cardura] 2 mg PO HS 30 Days #60 tab 02/16/19 02/28/19 Rx insulin glargine [Lantus Solostar 10 unit SC DAILY 30 Days #3 ml 02/16/19 02/28/19 Rx U-100 Insulin] metoprolol tartrate 25 mg PO BID 30 Days #60 tab 02/16/19 02/28/19 Rx sitagliptin 50 mg tablet 50 mg PO DAILY 02/23/19 02/28/19 History warfarin 4 mg tablet 4 mg PO DIRECTED 02/23/19 02/28/19 History warfarin 5 mg tablet 5 mg PO DIRECTED 02/23/19 02/28/19 History acetaminophen 650 mg PO Q6H PRN 02/28/19 02/28/19 History acetaminophen 650 mg PO Q6H PRN 02/28/19 02/28/19 History dronabinol [Marinol] 2.5 mg PO BID 02/28/19 02/28/19 History tramadol 50 mg PO DAILY PRN 02/28/19 02/28/19 History Patient History Medical History History of TIA (transient ischemic attack) (Chronic) BPH (benign prostatic hyperplasia) (Chronic) 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) Aortic valve stenosis (Chronic) s/p bioprosthetic avr 11/21/06 along with CABG x 2 and PFO closure T2DM (type 2 diabetes mellitus) (Chronic) CAD (coronary artery disease) (Chronic) Tachy-rodrigue syndrome Paroxysmal atrial fibrillation Junctional bradycardia Mobitz type 1 second degree AV block Weakness (Chronic) 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) Chronic venous insufficiency (Chronic) HTN (hypertension) (Chronic) Hyperlipidemia (Chronic) GERD (gastroesophageal reflux disease) (Chronic) GERD (gastroesophageal reflux disease) (Chronic) HTN (hypertension) (Chronic) Hyperlipidemia (Chronic) Surgical History History of total right hip arthroplasty Status post patent foramen ovale closure 11/21/06 S/P AVR s/p bioprosthetic avr 11/21/06 along with CABG x 2 and PFO closure History of open heart surgery (Chronic) History of open heart surgery (Chronic) Family History Father Cancer kidney Mother Stroke Sister Stroke Social History Preferred Language: Icelandic Communication Ability: Effective Supervisor Sheet Manufacturing Required: No Beliefs That Will Affect Care: None Current Living Situation: Snf Current Living Situation Comment: Has been at [facility] x 2-3 weeks s/p hospitalization Feels Safe at Home: Yes Smoking Status: Never smoker Second Hand Exposure: No ; Hx Alcohol Use: No Hx Substance Use: No Review of Systems Constitutional: no fever, no chills and no fatigue Ear, Nose, Mouth, Throat: + dizziness Respiratory: + dyspnea; no cough, no chest congestion and no wheezing Cardiovascular: + dyspnea and + lightheadedness; no chest pain, no chest pain at rest, no dyspnea at rest, no palpitations and no syncope Gastrointestinal: + heartburn and + diarrhea/loose stools; no abdominal pain, no belching, no vomiting, no coffee ground emesis, no hematemesis, no dysphagia and no blood in stools Physical Exam Constitutional: + ill appearing (chronicly ill); no acute distress Neck: trachea midline Respiratory: Auscultation: + diminished lung sounds; no wheezes Pt has difficulty completing sentence due to shortness of breath Cardiovascular: Heart Sounds: normal S1, normal S2 and + murmur (systolic) Gastrointestinal (Abdomen): normal bowel sounds, soft, nontender, no hepatosplenomegaly Skin: palor Results & Data Vital Signs (Past 12 Hours) Vital Signs Temp Pulse Resp BP Pulse Ox 02/28/19 13:45 60 22 123/42 L 100 02/28/19 13:31 60 27 H 115/42 L 100 02/28/19 13:30 36.7 C 60 22 91/43 L 100 02/28/19 13:25 61 23 91/43 L 100 02/28/19 13:20 62 20 02/28/19 13:10 60 20 100 02/28/19 13:00 61 22 101/38 L 02/28/19 12:50 60 32 H 02/28/19 12:40 60 24 02/28/19 12:31 61 22 78/40 L 02/28/19 12:30 57 L 24 02/28/19 12:20 60 19 02/28/19 12:10 60 20 02/28/19 12:01 62 22 104/50 L 02/28/19 12:00 64 23 02/28/19 11:50 61 17 02/28/19 11:40 60 18 02/28/19 11:30 60 21 143/58 H 02/28/19 11:20 62 30 H 02/28/19 11:10 60 18 02/28/19 11:00 60 14 111/60 97 02/28/19 10:50 60 19 96 02/28/19 10:43 63 18 98/48 L 98 02/28/19 10:40 60 18 02/28/19 10:30 60 18 02/28/19 10:20 66 35 H 02/28/19 10:10 60 19 02/28/19 10:00 60 25 H 116/43 L 99 02/28/19 09:50 55 L 23 94 02/28/19 09:47 61 27 H 97 02/28/19 09:46 36.8 C 67 28 H 124/42 L 98 02/28/19 09:44 61 24 114/44 L 95 02/28/19 09:41 60 28 H 96 Laboratory Results 02/28/19 02/28/19 02/28/19 Range/Units 10:03 10:03 10:03 WBC 10.42 (4.8-10.8) K/uL RBC 2.37 L (4.7-6.1) M/uL Hgb 7.3 L (14.0-18.0) g/dL Hct 21.7 L (42-52) % MCV 91.6 (80-100) fL MCH 30.8 (25-34) pg MCHC 33.6 (32-36) g/dL RDW Std Deviation 58.2 H (36.4-46.3) fL RDW Coeff of [place] 17.6 H (11.5-14.5) % Plt Count 242 (130-400) K/uL MPV 9.0 (7.4-10.4) fL Immature Gran % (Auto) 0.6 % Neut % (Auto) 83.9 % Lymph % (Auto) 7.5 % Major % (Auto) 7.7 % Eos % (Auto) 0.0 % Baso % (Auto) 0.3 % Immature Gran # (Auto) 0.06 H (0.00-0.02) K/uL Neut # (Auto) 8.75 H (1.4-6.5) K/uL Lymph # (Auto) 0.78 L (1.2-3.4) K/uL Major # (Auto) 0.80 H (0.11-0.59) K/uL Eos # (Auto) 0.00 (0-0.5) K/uL Baso # (Auto) 0.03 (0-0.2) K/uL Anisocytosis Present Acanthocytes (Spur) 1+ PT 70.1 H (9.0-12.0) Seconds INR 7.9 H* (0.9-1.1) APTT 51.8 H* (21.0-31.0) Seconds PTT Ratio 1.9 Sodium 141 (136-145) mmol/L Potassium 4.8 (3.5-5.1) mmol/L Chloride 111 H (98-107) mmol/L Carbon Dioxide 24 (21-32) mmol/L Anion Gap 6.0 (3-11) BUN 98 H (7-18) mg/dl Creatinine 1.39 (0.6-1.4) mg/dl Est Cr Clr Drug Dosing Not Reportable Est GFR ( Amer) 52.1 Est GFR (Non-Af Amer) 44.9 BUN/Creatinine Ratio 70.5 H (10-20) Glucose 223 H (70-99) mg/dl Calcium 7.4 L (8.5-10.1) mg/dl Total Bilirubin 0.6 (0.2-1) mg/dl AST 21 (15-37) U/L ALT 17 (12-78) U/L Alkaline Phosphatase 161 H (45-117) U/L Total Protein 4.5 L (6.4-8.2) gm/dl Albumin 1.9 L (3.4-5.0) gm/dl Globulin 2.6 (2.5-4.0) gm/dl Albumin/Globulin Ratio 0.7 L (0.9-2) POC Stool Occult Blood (Negative) Blood Type Antibody Screen Crossmatch 02/28/19 02/28/19 Range/Units 10:03 09:41 WBC (4.8-10.8) K/uL RBC (4.7-6.1) M/uL Hgb (14.0-18.0) g/dL Hct (42-52) % MCV (80-100) fL MCH (25-34) pg MCHC (32-36) g/dL RDW Std Deviation (36.4-46.3) fL RDW Coeff of [place] (11.5-14.5) % Plt Count (130-400) K/uL MPV (7.4-10.4) fL Immature Gran % (Auto) % Neut % (Auto) % Lymph % (Auto) % Major % (Auto) % Eos % (Auto) % Baso % (Auto) % Immature Gran # (Auto) (0.00-0.02) K/uL Neut # (Auto) (1.4-6.5) K/uL Lymph # (Auto) (1.2-3.4) K/uL Major # (Auto) (0.11-0.59) K/uL Eos # (Auto) (0-0.5) K/uL Baso # (Auto) (0-0.2) K/uL Anisocytosis Acanthocytes (Spur) PT (9.0-12.0) Seconds INR (0.9-1.1) APTT (21.0-31.0) Seconds PTT Ratio Sodium (136-145) mmol/L Potassium (3.5-5.1) mmol/L Chloride (98-107) mmol/L Carbon Dioxide (21-32) mmol/L Anion Gap (3-11) BUN (7-18) mg/dl Creatinine (0.6-1.4) mg/dl Est Cr Clr Drug Dosing Est GFR ( Amer) Est GFR (Non-Af Amer) BUN/Creatinine Ratio (10-20) Glucose (70-99) mg/dl Calcium (8.5-10.1) mg/dl Total Bilirubin (0.2-1) mg/dl AST (15-37) U/L ALT (12-78) U/L Alkaline Phosphatase (45-117) U/L Total Protein (6.4-8.2) gm/dl Albumin (3.4-5.0) gm/dl Globulin (2.5-4.0) gm/dl Albumin/Globulin Ratio (0.9-2) POC Stool Occult Blood Positive A (Negative) Blood Type A Positive Antibody Screen NEGATIVE Crossmatch See Detail
--- NOTE | 2019-02-28 14:25 | History & Physical Report ---
Date of Service February 28, 2019 Assessment & Plan (1) Symptomatic anemia: (2) GI bleed: (3) Supratherapeutic INR: (4) Acute kidney injury superimposed on chronic kidney disease: (5) Weakness: This is a 88-year-old male who has a known significant past medical history of recent TBS s/p PPM 02/14, PAF on Coumadin, CAD with history of CABG x2 in 11/2006, history of PFO closure 11/2006, history of bioprosthetic AVR in 11/2006, moderate stenosis of bioprosthetic AVR, bilateral venous insufficiency, T2DM, HTN, HLD, CKD stage III, anemia of chronic disease, history of TIA, BPH who presents to [facility] ED secondary to shortness of breath melena x1 day. In ED patient was found to have hemoglobin of 7.3 and 21.7 along with notable melena, FOBT positive Patient otherwise poor historian chief complaint is SOB, otherwise no abdominal pain INR significantly elevated 7.9 -spoke with [facility] who stated last dose of Coumadin was 4 mg on 02/23 and has been on hold secondary to elevated INR BUN/creatinine elevated at 98 and 1.39, likely prerenal in etiology given hypovo lemia Pt initially hypotensive but improved with IVF Received 10mg Vit K IV x1, 2 units PRBC ordered PPI bolus and gtt started in ED admit to telemetry GI consulted - spoke with ZANDRA Quintero NPO Transfuse 2 units PRBC - Lasix 20mg IV in between units due to Aortic valve stenosis H/H q6 hr repeat PT/INR at 4pm - administer additional VIT K if INR > 1.6 obtain CXR, troponin, pro-bnp hold warfarin tentative EGD 03/01 per GI pending anesthesia assessment Spoke with Dr. Mcleod, recommends repeat PT/INR 9pm, does not recommend FFP. IF INR still not in range in a.m. 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 Fabian pacer site healing well monitor (9) Aortic valve stenosis: Patient had bioprosthetic aortic valve in 11/2006 Echocardiogram 01/2019 revealed EF 65 to 70%, bioprosthetic AVR with moderate to borderline severe aortic valve stenosis, mild to moderate mitral valve stenosis, right ventricular systolic pressure 50-60mmhg caution with IVF and blood products Give Lasix in between units of blood (10) Chronic venous insufficiency: pt with b/l lower ext venous insufficiency also with sacral erythema present on admission consult wound care nurse daily wound care (11) T2DM (type 2 diabetes mellitus): Last AIC 9.6, 02/07/19 hold januvia lantus/novolog per protocol (12) HTN (hypertension): Blood pressure low in setting of hypovolemia hold oral antihypertensives (13) Hyperlipidemia: on statin, hold in current setting (14) DVT prophylaxis: None given GIB no SCD/TEDS given significant PVD and wounds to lower ext Disposition: case management consulted, likely return to [facility] Follow up: PCP: Dr. Spann upon discharge, Dr. Griffith at [facility] Patient was seen and examined in collaboration with Dr. Alexander, please see addendum History of Present Illness Chief Complaint: SOB, melena x 1 day. Primary Care Provider: [facility] This is a 88-year-old male who has a known significant past medical history of recent TBS s/p PPM 02/14, PAF on Coumadin, CAD with history of CABG x2 in 11/2006, history of PFO closure 11/2006, history of bioprosthetic AVR in 11/2006, moderate stenosis of bioprosthetic AVR, bilateral venous insufficiency, T2DM, HTN, HLD, CKD stage III, anemia of chronic disease, history of TIA, BPH who presents to [facility] ED secondary to shortness of breath melena x1 day. Patient had follow-up in cardiology clinic for pacemaker today in which she was notably dyspneic with conversation, fatigue, complaining of dizziness and overall look for; therefore, he was referred to ED. Of significance patient recently confined 02/08-02/16 secondary to falls and possible pneumonia. 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 Fabian. He was also noted to have anemia requiring 2 units of PRBC and a positive FOBT. Patient was not seen by GI was referred colonoscopies and was having no signs of GI bleeding; therefore was not further explored. Patient is overall poor historian and ROS is unreliable. He does admit to being treated with at rest and with exertion, decreased appetite, weakness, difficulty with walking. He denies any f/c/s, chest pain, palpitations, n/v/d. He is unsure if he stool has been black, but nurse at bedside states pt just had loose dark tarry BM. Allergies Allergy/AdvReac Type Severity Reaction Status Date / Time lisinopril Allergy Unknown Unknown Verified 02/28/19 10:31 sulfamethoxazole Allergy Unknown Unverified 02/28/19 10:31 [From Bactrim] trimethoprim [From Bactrim] Allergy Unknown Unverified 02/28/19 10:31 Home Medications Home Medications Medication Instructions Recorded Confirmed Type ascorbic acid (vitamin C) 500 mg 1,000 mg PO BID cap 03/17/18 02/28/19 History capsule aspirin 81 mg chewable tablet 81 mg PO Q OTHER DAY tab 03/17/18 02/28/19 History atorvastatin 40 mg tablet 40 mg PO DAILY 03/17/18 02/28/19 History ferrous sulfate 325 mg (65 mg 325 mg PO BID tab 03/17/18 02/28/19 History iron) tablet finasteride 5 mg tablet 5 mg PO DAILY tab 03/17/18 02/28/19 History folic acid 1 mg tablet 1 mg PO DAILY 03/17/18 02/28/19 History multivitamin tablet 1 tab PO DAILY 03/17/18 02/28/19 History sennosides [Senokot] 8.6 mg PO BID PRN 02/07/19 02/28/19 History triamcinolone acetonide 1 applic TOPICAL BID PRN 02/07/19 02/28/19 History doxazosin [Cardura] 2 mg PO HS 30 Days #60 tab 02/16/19 02/28/19 Rx insulin glargine [Lantus Solostar 10 unit SC DAILY 30 Days #3 ml 02/16/19 02/28/19 Rx U-100 Insulin] metoprolol tartrate 25 mg PO BID 30 Days #60 tab 02/16/19 02/28/19 Rx sitagliptin 50 mg tablet 50 mg PO DAILY 02/23/19 02/28/19 History warfarin 4 mg tablet 4 mg PO DIRECTED 02/23/19 02/28/19 History warfarin 5 mg tablet 5 mg PO DIRECTED 02/23/19 02/28/19 History acetaminophen 650 mg PO Q6H PRN 02/28/19 02/28/19 History acetaminophen 650 mg PO Q6H PRN 02/28/19 02/28/19 History dronabinol [Marinol] 2.5 mg PO BID 02/28/19 02/28/19 History tramadol 50 mg PO DAILY PRN 02/28/19 02/28/19 History Past Med/Surg History Medical History History of TIA (transient ischemic attack) (Chronic) BPH (benign prostatic hyperplasia) (Chronic) 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) Aortic valve stenosis (Chronic) s/p bioprosthetic avr 11/21/06 along with CABG x 2 and PFO closure T2DM (type 2 diabetes mellitus) (Chronic) CAD (coronary artery disease) (Chronic) Tachy-rodrigue syndrome Paroxysmal atrial fibrillation Junctional bradycardia Mobitz type 1 second degree AV block Weakness (Chronic) 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) Chronic venous insufficiency (Chronic) HTN (hypertension) (Chronic) Hyperlipidemia (Chronic) GERD (gastroesophageal reflux disease) (Chronic) GERD (gastroesophageal reflux disease) (Chronic) HTN (hypertension) (Chronic) Hyperlipidemia (Chronic) Surgical History History of total right hip arthroplasty Status post patent foramen ovale closure 11/21/06 S/P AVR s/p bioprosthetic avr 11/21/06 along with CABG x 2 and PFO closure History of open heart surgery (Chronic) History of open heart surgery (Chronic) Family History Father Cancer kidney Mother Stroke Sister Stroke Social History Preferred Language: Serbian Communication Ability: Effective 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 Required: No Beliefs That Will Affect Care: None Current Living Situation: Care Home Current Living Situation Comment: Has been at [facility] x 2-3 weeks s/p hospitalization Feels Safe at Home: Yes Smoking Status: Never smoker Second Hand Exposure: No ; Hx Alcohol Use: No Hx Substance Use: No Review of Systems Review of Systems: Unobtainable due to cognitive status ROS obtainable but unreliable due to confusion Physical Exam Physical Exam: Gen:Elderly, well developed M, lying in bed, chronically ill appearing, NAD, +pale, dyspneic with conversation, answers questions appropriately but unsure of accuracy Head: Normocephalic, Atraumatic Eyes: Sclera pale, no conjunctival injection, PERRLA, EOMI ENT: Gross hearing intact, normal pharynx, mucous membranes dry poor dentition Neck: supple, no adenopathy, No JVD, no bruit, Resp: Clear to auscultation b/l, diminished at bases b/l poor inspiratory effort on ausculatation, no wheeze, rales, rhonchi. Normal insp/exp effort, no accessory muscle use CV: LACW PPM incision site CDI healing well. Regular rate, regular rhythm, no murmur, rub, gallop, or ectopy Abd: +BS x 4, soft, nontender, nondistended Musculoskeletal: moves extremities active rom x 4, strength intact, good teachers aide strength Extremities: b/l venous stasis with ulcerations lower ext, no sudarshan edema b/l Skin: warm, moist, no rash, + turgor, cap refill > 2sec Neuro: Alert and oriented x 3, speech normal, good mood/affect, cran nerve 2-12 intact grossly : + erythema to sacrum, blanchable, noted black tarry stool around rectum no sudarshan blood Results & Data Vital Signs (Past 12 Hours) Vital Signs Temp Pulse Resp BP Pulse Ox 02/28/19 13:45 60 22 123/42 L 100 02/28/19 13:31 60 27 H 115/42 L 100 02/28/19 13:30 36.7 C 60 22 91/43 L 100 02/28/19 13:25 61 23 91/43 L 100 02/28/19 13:20 62 20 02/28/19 13:10 60 20 100 02/28/19 13:00 61 22 101/38 L 02/28/19 12:50 60 32 H 02/28/19 12:40 60 24 02/28/19 12:31 61 22 78/40 L 02/28/19 12:30 57 L 24 02/28/19 12:20 60 19 02/28/19 12:10 60 20 02/28/19 12:01 62 22 104/50 L 02/28/19 12:00 64 23 02/28/19 11:50 61 17 02/28/19 11:40 60 18 02/28/19 11:30 60 21 143/58 H 02/28/19 11:20 62 30 H 02/28/19 11:10 60 18 02/28/19 11:00 60 14 111/60 97 02/28/19 10:50 60 19 96 02/28/19 10:43 63 18 98/48 L 98 02/28/19 10:40 60 18 02/28/19 10:30 60 18 02/28/19 10:20 66 35 H 02/28/19 10:10 60 19 02/28/19 10:00 60 25 H 116/43 L 99 02/28/19 09:50 55 L 23 94 02/28/19 09:47 61 27 H 97 02/28/19 09:46 36.8 C 67 28 H 124/42 L 98 02/28/19 09:44 61 24 114/44 L 95 02/28/19 09:41 60 28 H 96 Laboratory Results Short CBC 02/28/19 Range/Units 10:03 WBC 10.42 (4.8-10.8) K/uL Hgb 7.3 L (14.0-18.0) g/dL Hct 21.7 L (42-52) % Plt Count 242 (130-400) K/uL BMP 02/28/19 10:03 Sodium 141 Potassium 4.8 Chloride 111 H Carbon Dioxide 24 BUN 98 H Creatinine 1.39 Glucose 223 H Calcium 7.4 L Liver Function 02/28/19 Range/Units 10:03 Total Bilirubin 0.6 (0.2-1) mg/dl AST 21 (15-37) U/L ALT 17 (12-78) U/L Alkaline Phosphatase 161 H (45-117) U/L Albumin 1.9 L (3.4-5.0) gm/dl Medications Administered Sodium Chloride (Nss 1000ml) 1,000 mls @ 100 mls/hr IV .Q10H LOCO Stop: 02/28/19 19:59 Last Admin: 02/28/19 11:00 Dose: 100 mls/hr Documented by: [id number] Discontinued Medications Phytonadione 10 mg/ Sodium (Chloride) 51 mls @ 102 mls/hr IV ONE ONE Stop: 02/28/19 12:35 Last Infusion: 02/28/19 13:15 Dose: 0 mls/hr Documented by: [id number] Admin: 02/28/19 12:45 Dose: 102 mls/hr Documented by: [id number] ECG Rate (beats per minute): 64 Findings: + paced rhythm Code Status & VTE Plan Code Status Full Code VTE Prophylaxis Plan VTE Prophylaxis will be ordered: No Supervising Physician Co-Signing Physician Notes Attending addendum: The patient was seen and examined in the emergency room This is a 88-year-old male who has a known significant past medical history of recent TBS s/p PPM 02/14, PAF on Coumadin, CAD with history of CABG x2 in 11/2006, history of PFO closure 11/2006, history of bioprosthetic AVR in 11/2006, moderate stenosis of bioprosthetic AVR, bilateral venous insufficiency, T2DM, HTN, HLD, CKD stage III, anemia of chronic disease, history of TIA, BPH who presents to [facility] ED secondary to shortness of breath melena x1 day. Urinary to have very low hemoglobin on admission with use amount of black tarry stool positive for blood Complains to have weakness but denies any other symptoms On examination Generally weak and lying in bed comfortably Hemodynamically stable with blood pressure the lower side Chest-minimal crackles at the bases Heart-S1-S2 2/6 systolic murmur over precordium, Abdomenbenign ANALYST-alert and awake. Has dementia Extremities chronic skin changes involving the lower leg, bilateral leg ulceration and excoriation of the feet Labs and imaging studies reviewed Has significant GI bleed with low hemoglobin and high INR Discussed with GI and coagulation clinic Has been getting blood transfusion sent INR reversed with intravenous vitamin K Agree with assessment plan as outlined above by Adelaida Alexander
[2019-02-28] MEDS: PANTOprazole 40 MG in DEXTROSE 5% 100 ML IV SCH ×2 (15:09→20:18)
--- NOTE | 2019-02-28 16:22 | Emergency Department Note ---
Entered by Paige Dinh acting as a scribe for Sergo Caal DO History of Present Illness General Chief complaint: Abnormal Labs/Diagnostic Testing Stated complaint: anemic, hypotensive Time Seen by Provider: 02/28/19 09:43 Source: patient and EMS Mode of arrival: EMS Limitations: no limitations History of Present Illness Onset (ago): day(s) 1 Radiation: non-radiation Pain Consistency: + constant Relieved By: + none Exacerbated By: + none Associated symptoms: + shortness of breath and + other (-hematochezia, -melena, +dizziness); no chest pain Treatments prior to arrival: none The patient is an 88 year old male w/ PMHx of paroxysmal A-Fib, dementia, HTN and HLD who presents to the ED w/ CC of abnormal lab work. He was brought to the ED via EMS from [facility]. EMS reports he is at [facility] because he underwent pacemaker insertion surgery approximately 2 weeks ago at [facility]. This morning, the patient was seen at [facility] for a recheck appointment. At the office, he was found be pale with fast respirations and a Hemoglobin of 7, so they called EMS to bring the patient to the ED. The patient states "I was a little dizzy this morning". He is normal ly on 2L NC and complains of increased shortness of breath for the past few days. He denies any chest pain, hematochezia or melena. Home Medications Home Medications Medication Instructions Recorded Confirmed Type ascorbic acid (vitamin C) 500 mg 1,000 mg PO BID cap 03/17/18 02/28/19 History capsule aspirin 81 mg chewable tablet 81 mg PO Q OTHER DAY tab 03/17/18 02/28/19 History atorvastatin 40 mg tablet 40 mg PO DAILY 03/17/18 02/28/19 History ferrous sulfate 325 mg (65 mg 325 mg PO BID tab 03/17/18 02/28/19 History iron) tablet finasteride 5 mg tablet 5 mg PO DAILY tab 03/17/18 02/28/19 History folic acid 1 mg tablet 1 mg PO DAILY 03/17/18 02/28/19 History multivitamin tablet 1 tab PO DAILY 03/17/18 02/28/19 History sennosides [Senokot] 8.6 mg PO BID PRN 02/07/19 02/28/19 History triamcinolone acetonide 1 applic TOPICAL BID PRN 02/07/19 02/28/19 History doxazosin [Cardura] 2 mg PO HS 30 Days #60 tab 02/16/19 02/28/19 Rx insulin glargine [Lantus Solostar 10 unit SC DAILY 30 Days #3 ml 02/16/19 02/28/19 Rx U-100 Insulin] metoprolol tartrate 25 mg PO BID 30 Days #60 tab 02/16/19 02/28/19 Rx sitagliptin 50 mg tablet 50 mg PO DAILY 02/23/19 02/28/19 History warfarin 4 mg tablet 4 mg PO DIRECTED 02/23/19 02/28/19 History warfarin 5 mg tablet 5 mg PO DIRECTED 02/23/19 02/28/19 History acetaminophen 650 mg PO Q6H PRN 02/28/19 02/28/19 History acetaminophen 650 mg PO Q6H PRN 02/28/19 02/28/19 History dronabinol [Marinol] 2.5 mg PO BID 02/28/19 02/28/19 History tramadol 50 mg PO DAILY PRN 02/28/19 02/28/19 History Allergies Allergy/AdvReac Type Severity Reaction Status Date / Time lisinopril Allergy Unknown Unknown Verified 02/28/19 10:31 sulfamethoxazole Allergy Unknown Unverified 02/28/19 10:31 [From Bactrim] trimethoprim [From Bactrim] Allergy Unknown Unverified 02/28/19 10:31 Past Med/Surg History Medical History History of TIA (transient ischemic attack) (Chronic) BPH (benign prostatic hyperplasia) (Chronic) 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) Aortic valve stenosis (Chronic) s/p bioprosthetic avr 11/21/06 along with CABG x 2 and PFO closure T2DM (type 2 diabetes mellitus) (Chronic) CAD (coronary artery disease) (Chronic) Tachy-rodrigue syndrome Paroxysmal atrial fibrillation Junctional bradycardia Mobitz type 1 second degree AV block Weakness (Chronic) 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) Chronic venous insufficiency (Chronic) HTN (hypertension) (Chronic) Hyperlipidemia (Chronic) GERD (gastroesophageal reflux disease) (Chronic) GERD (gastroesophageal reflux disease) (Chronic) HTN (hypertension) (Chronic) Hyperlipidemia (Chronic) Surgical History History of total right hip arthroplasty Status post patent foramen ovale closure 11/21/06 S/P AVR s/p bioprosthetic avr 11/21/06 along with CABG x 2 and PFO closure History of open heart surgery (Chronic) History of open heart surgery (Chronic) Family History Father Cancer kidney Mother Stroke Sister Stroke Social History Preferred Language: German Communication Ability: Effective Stratigrapher Required: No Beliefs That Will Affect Care: None Current Living Situation: Senior Care Current Living Situation Comment: Has been at [facility] x 2-3 weeks s/p h ospitalization Feels Safe at Home: Yes Smoking Status: Never smoker Second Hand Exposure: No ; Hx Alcohol Use: No Hx Substance Use: No Review of Systems See HPI for pertinent positives & negatives. and A total of 10 systems reviewed and were otherwise negative Physical Exam Vital Signs Vital Signs - 24 hr 02/28/19 09:41 02/28/19 09:44 02/28/19 09:46 Temperature 36.8 C Temperature Source Oral Sepsis Recent Fever Within 48 Hours No Sepsis New/Unexplained Change in Mental Status No Sepsis Action Taken by Nursing No Action Required Pulse Rate 60 61 67 Pulse Rate [Finger] Pulse Rate from SpO2 Sensor 61 Pulse Rhythm Regular Pulse Strength Normal Respiratory Rate 28 H 24 28 H Respiratory Effort / Characteristics Non-Labored Spontaneous Respiratory Depth Normal Respiratory Pattern Tachypnea Blood Pressure 114/44 L 124/42 L Blood Pressure [Left Arm] Blood Pressure Mean 67 69 Blood Pressure Mean [Left Arm] Blood Pressure Position Lying Pulse Oximetry 96 95 98 Oxygen Delivery Method Nasal Cannula Nasal Cannula Nasal Cannula Oxygen Flow Rate 2 2 2 02/28/19 09:47 02/28/19 09:50 02/28/19 10:00 Temperature Temperature Source Sepsis Recent Fever Within 48 Hours Sepsis New/Unexplained Change in Mental Status Sepsis Action Taken by Nursing Pulse Rate 61 55 L 60 Pulse Rate [Finger] Pulse Rate from SpO2 Sensor 61 60 60 Pulse Rhythm Pulse Strength Respiratory Rate 27 H 23 25 H Respiratory Effort / Characteristics Respiratory Depth Respiratory Pattern Blood Pressure 116/43 L Blood Pressure [Left Arm] Blood Pressure Mean 67 Blood Pressure Mean [Left Arm] Blood Pressure Position Pulse Oximetry 97 94 99 Oxygen Delivery Method Nasal Cannula Nasal Cannula Nasal Cannula Oxygen Flow Rate 2 2 2 02/28/19 10:10 02/28/19 10:15 02/28/19 10:20 Temperature Temperature Source Sepsis Recent Fever Within 48 Hours Sepsis New/Unexplained Change in Mental Status Sepsis Action Taken by Nursing Pulse Rate 60 60 66 Pulse Rate [Finger] Pulse Rate from SpO2 Sensor Pulse Rhythm Pulse Strength Respiratory Rate 19 19 35 H Respiratory Effort / Characteristics Respiratory Depth Respiratory Pattern Blood Pressure Blood Pressure [Left Arm] Blood Pressure Mean Blood Pressure Mean [Left Arm] Blood Pressure Position Pulse Oximetry Oxygen Delivery Method Nasal Cannula Nasal Cannula Oxygen Flow Rate 2 2 02/28/19 10:30 02/28/19 10:40 02/28/19 10:43 Temperature Temperature Source Sepsis Recent Fever Within 48 Hours Sepsis New/Unexplained Change in Mental Status Sepsis Action Taken by Nursing Pulse Rate 60 60 63 Pulse Rate [Finger] Pulse Rate from SpO2 Sensor 63 Pulse Rhythm Pulse Strength Respiratory Rate 18 18 18 Respiratory Effort / Characteristics Respiratory Depth Respiratory Pattern Blood Pressure 98/48 L Blood Pressure [Left Arm] Blood Pressure Mean 64 Blood Pressure Mean [Left Arm] Blood Pressure Position Pulse Oximetry 98 Oxygen Delivery Method Nasal Cannula Nasal Cannula Nasal Cannula Oxygen Flow Rate 2 2 2 02/28/19 10:45 02/28/19 10:50 02/28/19 11:00 Temperature Temperature Source Sepsis Recent Fever Within 48 Hours Sepsis New/Unexplained Change in Mental Status Sepsis Action Taken by Nursing Pulse Rate 62 60 60 Pulse Rate [Finger] Pulse Rate from SpO2 Sensor 60 60 Pulse Rhythm Pulse Strength Respiratory Rate 19 19 14 Respiratory Effort / Characteristics Respiratory Depth Respiratory Pattern Blood Pressure 111/60 Blood Pressure [Left Arm] Blood Pressure Mean 77 Blood Pressure Mean [Left Arm] Blood Pressure Position Pulse Oximetry 97 96 97 Oxygen Delivery Method Nasal Cannula Nasal Cannula Oxygen Flow Rate 2 2 02/28/19 11:10 02/28/19 11:15 02/28/19 11:20 Temperature Temperature Source Sepsis Recent Fever Within 48 Hours Sepsis New/Unexplained Change in Mental Status Sepsis Action Taken by Nursing Pulse Rate 60 60 62 Pulse Rate [Finger] Pulse Rate from SpO2 Sensor Pulse Rhythm Pulse Strength Respiratory Rate 18 15 30 H Respiratory Effort / Characteristics Respiratory Depth Respiratory Pattern Blood Pressure Blood Pressure [Left Arm] Blood Pressure Mean Blood Pressure Mean [Left Arm] Blood Pressure Position Pulse Oximetry Oxygen Delivery Method Nasal Cannula Nasal Cannula Oxygen Flow Rate 2 2 02/28/19 11:30 02/28/19 11:40 02/28/19 11:45 Temperature Temperature Source Sepsis Recent Fever Within 48 Hours Sepsis New/Unexplained Change in Mental Status Sepsis Action Taken by Nursing Pulse Rate 60 60 66 Pulse Rate [Finger] Pulse Rate from SpO2 Sensor Pulse Rhythm Pulse Strength Respiratory Rate 21 18 28 H Respiratory Effort / Characteristics Respiratory Depth Respiratory Pattern Blood Pressure 143/58 H Blood Pressure [Left Arm] Blood Pressure Mean 86 Blood Pressure Mean [Left Arm] Blood Pressure Position Pulse Oximetry Oxygen Delivery Method Nasal Cannula Nasal Cannula Oxygen Flow Rate 2 2 2 02/28/19 11:50 02/28/19 12:00 02/28/19 12:01 Temperature Temperature Source Sepsis Recent Fever Within 48 Hours Sepsis New/Unexplained Change in Mental Status Sepsis Action Taken by Nursing Pulse Rate 61 64 62 Pulse Rate [Finger] Pulse Rate from SpO2 Sensor Pulse Rhythm Pulse Strength Respiratory Rate 17 23 22 Respiratory Effort / Characteristics Respiratory Depth Respiratory Pattern Blood Pressure 104/50 L Blood Pressure [Left Arm] Blood Pressure Mean 68 Blood Pressure Mean [Left Arm] Blood Pressure Position Pulse Oximetry Oxygen Delivery Method Nasal Cannula Nasal Cannula Nasal Cannula Oxygen Flow Rate 2 2 2 02/28/19 12:10 02/28/19 12:15 02/28/19 12:20 Temperature Temperature Source Sepsis Recent Fever Within 48 Hours Sepsis New/Unexplained Change in Mental Status Sepsis Action Taken by Nursing Pulse Rate 60 60 60 Pulse Rate [Finger] Pulse Rate from SpO2 Sensor Pulse Rhythm Pulse Strength Respiratory Rate 20 23 19 Respiratory Effort / Characteristics Respiratory Depth Respiratory Pattern Blood Pressure Blood Pressure [Left Arm] Blood Pressure Mean Blood Pressure Mean [Left Arm] Blood Pressure Position Pulse Oximetry Oxygen Delivery Method Nasal Cannula Nasal Cannula Oxygen Flow Rate 2 2 2 02/28/19 12:30 02/28/19 12:31 02/28/19 12:40 Temperature Temperature Source Sepsis Recent Fever Within 48 Hours Sepsis New/Unexplained Change in Mental Status Sepsis Action Taken by Nursing Pulse Rate 57 L 61 60 Pulse Rate [Finger] Pulse Rate from SpO2 Sensor Pulse Rhythm Pulse Strength Respiratory Rate 24 22 24 Respiratory Effort / Characteristics Respiratory Depth Respiratory Pattern Blood Pressure 78/40 L Blood Pressure [Left Arm] Blood Pressure Mean 52 Blood Pressure Mean [Left Arm] Blood Pressure Position Pulse Oximetry Oxygen Delivery Method Nasal Cannula Nasal Cannula Nasal Cannula Oxygen Flow Rate 2 2 2 02/28/19 12:45 02/28/19 12:50 02/28/19 13:00 Temperature Temperature Source Sepsis Recent Fever Within 48 Hours Sepsis New/Unexplained Change in Mental Status Sepsis Action Taken by Nursing Pulse Rate 60 60 61 Pulse Rate [Finger] Pulse Rate from SpO2 Sensor Pulse Rhythm Pulse Strength Respiratory Rate 28 H 32 H 22 Respiratory Effort / Characteristics Respiratory Depth Respiratory Pattern Blood Pressure 101/38 L Blood Pressure [Left Arm] Blood Pressure Mean 59 Blood Pressure Mean [Left Arm] Blood Pressure Position Pulse Oximetry Oxygen Delivery Method Nasal Cannula Nasal Cannula Oxygen Flow Rate 2 2 2 02/28/19 13:10 02/28/19 13:15 02/28/19 13:20 Temperature Temperature Source Sepsis Recent Fever Within 48 Hours Sepsis New/Unexplained Change in Mental Status Sepsis Action Taken by Nursing Pulse Rate 60 61 62 Pulse Rate [Finger] Pulse Rate from SpO2 Sensor 60 Pulse Rhythm Pulse Strength Respiratory Rate 20 24 20 Respiratory Effort / Characteristics Respiratory Depth Respiratory Pattern Blood Pressure Blood Pressure [Left Arm] Blood Pressure Mean Blood Pressure Mean [Left Arm] Blood Pressure Position Pulse Oximetry 100 100 Oxygen Delivery Method Nasal Cannula Nasal Cannula Oxygen Flow Rate 2 2 2 02/28/19 13:25 02/28/19 13:30 02/28/19 13:31 Temperature 36.7 C Temperature Source Rectal Sepsis Recent Fever Within 48 Hours Sepsis New/Unexplained Change in Mental Status Sepsis Action Taken by Nursing Pulse Rate 61 60 60 Pulse Rate [Finger] Pulse Rate from SpO2 Sensor 62 60 60 Pulse Rhythm Pulse Strength Respiratory Rate 23 22 27 H Respiratory Effort / Characteristics Respiratory Depth Respiratory Pattern Blood Pressure 91/43 L 91/43 L 115/42 L Blood Pressure [Left Arm] Blood Pressure Mean 59 59 66 Blood Pressure Mean [Left Arm] Blood Pressure Position Pulse Oximetry 100 100 100 Oxygen Delivery Method Nasal Cannula Nasal Cannula Nasal Cannula Oxygen Flow Rate 2 2 2 02/28/19 13:45 02/28/19 13:46 02/28/19 14:00 Temperature Temperature Source Sepsis Recent Fever Within 48 Hours Sepsis New/Unexplained Change in Mental Status Sepsis Action Taken by Nursing Pulse Rate 60 60 60 Pulse Rate [Finger] Pulse Rate from SpO2 Sensor Pulse Rhythm Pulse Strength Respiratory Rate 30 H 31 H 31 H Respiratory Effort / Characteristics Respiratory Depth Respiratory Pattern Blood Pressure 123/42 L 123/42 L Blood Pressure [Left Arm] Blood Pressure Mean 69 69 Blood Pressure Mean [Left Arm] Blood Pressure Position Lying Pulse Oximetry 100 Oxygen Delivery Method Oxygen Flow Rate 2 2 2 02/28/19 14:01 02/28/19 14:15 02/28/19 14:30 Temperature Temperature Source Sepsis Recent Fever Within 48 Hours Sepsis New/Unexplained Change in Mental Status Sepsis Action Taken by Nursing Pulse Rate 59 L 61 60 Pulse Rate [Finger] Pulse Rate from SpO2 Sensor Pulse Rhythm Pulse Strength Respiratory Rate 28 H 27 H 21 Respiratory Effort / Characteristics Respiratory Depth Respiratory Pattern Blood Pressure 105/49 L 113/56 L 96/44 L Blood Pressure [Left Arm] Blood Pressure Mean 67 75 61 Blood Pressure Mean [Left Arm] Blood Pressure Position Pulse Oximetry 100 100 100 Oxygen Delivery Method Oxygen Flow Rate 2 2 2 02/28/19 14:45 02/28/19 15:00 02/28/19 15:15 Temperature Temperature Source Sepsis Recent Fever Within 48 Hours Sepsis New/Unexplained Change in Mental Status Sepsis Action Taken by Nursing Pulse Rate 60 61 60 Pulse Rate [Finger] Pulse Rate from SpO2 Sensor Pulse Rhythm Pulse Strength Respiratory Rate 22 19 19 Respiratory Effort / Characteristics Respiratory Depth Respiratory Pattern Blood Pressure 109/41 L 102/42 L 100/43 L Blood Pressure [Left Arm] Blood Pressure Mean 63 62 62 Blood Pressure Mean [Left Arm] Blood Pressure Position Pulse Oximetry 100 100 100 Oxygen Delivery Method Oxygen Flow Rate 2 2 2 02/28/19 16:00 Temperature Temperature Source Sepsis Recent Fever Within 48 Hours Sepsis New/Unexplained Change in Mental Status Sepsis Action Taken by Nursing Pulse Rate Pulse Rate [Finger] 61 Pulse Rate from SpO2 Sensor Pulse Rhythm Pulse Strength Respiratory Rate 20 Respiratory Effort / Characteristics Respiratory Depth Respiratory Pattern Blood Pressure Blood Pressure [Left Arm] 110/41 L Blood Pressure Mean Blood Pressure Mean [Left Arm] 64 Blood Pressure Position Pulse Oximetry 99 Oxygen Delivery Method Oxygen Flow Rate GENERAL: Patient is laying in bed, alert, ill appearing, pale and disheveled, no distress, non-toxic EYE EXAM: normal conjunctiva OROPHARYNX: no exudate, no erythema, lips, buccal mucosa, and tongue normal and mucous membranes are moist NECK: supple, no nuchal rigidity, no adenopathy, non-tende LUNGS: Clear to auscultation. Normal chest wall mechanics HEART: no murmurs, S1 normal and S2 normal CHEST: Pacer pocket in left upper chest wall with dermabond in place ABDOMEN: abdomen soft, non-tender, normo-active bowel sounds, no masses, no rebound or guarding. RECTAL: Gross melena BACK: Back is symmetrical on inspection and there is no deformity, no midline tenderness, no CVA tenderness. SKIN: no rashes, bruising along left lateral leg. UPPER EXTREMITIES: upper extremities are grossly normal. LOWER EXTREMITIES: No pitting edema. Wound on left mid velez, wound on right mid velez. NEURO EXAM: Patient is awake and alert, following commands, not oriented to year, cranial nerves II-XII grossly intact, normal speech, no gross weakness of arms, no gross weakness of legs. Gross sensation intact. Course ED COURSE: Vital signs were reviewed and showed the patient is hypotensive. The patients medical record was reviewed The above diagnostic studies were performed and reviewed. ED treatments and interventions as stated above. 0948: The patient was evaluated in room B6. A complete history and physical examination was performed. 1210: I discussed the patients case with Ira Mijares PA-C, [facility] Hospitalist. The patient will be further evaluated 1225: Upon reevaluation, the patient is resting comfortably. I discussed my findings with the patient and he understands and agrees with the treatment plan. Based on the patients age, coexisting illnesses, exam and lab findings the decision to treat as an inpatient was made. The patient remained stable while under my care. The patient will be evaluated for further management. Administered Medications Sodium Chloride (Nss 1000ml) 1,000 mls @ 100 mls/hr IV .Q10H [facility] Stop: 02/28/19 19:59 Last Admin: 02/28/19 11:00 Dose: 100 mls/hr Documented by: [id number] Pantoprazole Sodium 40 mg/ (Dextrose) 100 mls @ 20 mls/hr IV Q5H [facility] Stop: 03/30/19 14:14 Last Admin: 02/28/19 15:09 Dose: 20 mls/hr Documented by: [id number] Discontinued Medications Phytonadione 10 mg/ Sodium (Chloride) 51 mls @ 102 mls/hr IV ONE ONE Stop: 02/28/19 12:35 Last Infusion: 02/28/19 13:15 Dose: 0 mls/hr Documented by: [id number] Admin: 02/28/19 12:45 Dose: 102 mls/hr Documented by: [id number] Pantoprazole Sodium 80 mg/ (Dextrose) 120 mls @ 480 mls/hr IV NOW ONE Stop: 02/28/19 14:14 Last Infusion: 02/28/19 15:09 Dose: 0 mls/hr Documented by: [id number] Admin: 02/28/19 14:51 Dose: 480 mls/hr Documented by: [id number] Medical Decision Making Differential Diagnosis Differential Diagnosis includes but is not limited to dehydration, stroke, anemia, hypoglycemia, hyponatremia, hypernatremia, urinary tract infection, pneumonia, bronchitis, sepsis, gastroenteritis, additional abdominal pathology, metabolic abnormalities and infections. Medical Records Attestation: I reviewed the patient's medical records. Home Medications Current Medication List: was personally reviewed by me Laboratory Data Attestation: I reviewed the patient's lab results. Result diagrams: 02/28/19 10:03 02/28/19 10:03 Lab Results 02/28/19 02/28/19 02/28/19 Range/Units 09:41 10:03 10:03 WBC 10.42 (4.8-10.8) K/uL RBC 2.37 L (4.7-6.1) M/uL Hgb 7.3 L (14.0-18.0) g/dL Hct 21.7 L (42-52) % MCV 91.6 (80-100) fL MCH 30.8 (25-34) pg MCHC 33.6 (32-36) g/dL RDW Std Deviation 58.2 H (36.4-46.3) fL RDW Coeff of [place] 17.6 H (11.5-14.5) % Plt Count 242 (130-400) K/uL MPV 9.0 (7.4-10.4) fL Immature Gran % (Auto) 0.6 % Neut % (Auto) 83.9 % Lymph % (Auto) 7.5 % [place] % (Auto) 7.7 % Eos % (Auto) 0.0 % Baso % (Auto) 0.3 % Immature Gran # (Auto) 0.06 H (0.00-0.02) K/uL Neut # (Auto) 8.75 H (1.4-6.5) K/uL Lymph # (Auto) 0.78 L (1.2-3.4) K/uL [place] # (Auto) 0.80 H (0.11-0.59) K/uL Eos # (Auto) 0.00 (0-0.5) K/uL Baso # (Auto) 0.03 (0-0.2) K/uL Anisocytosis Present Acanthocytes (Spur) 1+ PT (9.0-12.0) Seconds INR (0.9-1.1) APTT (21.0-31.0) Seconds PTT Ratio Sodium (136-145) mmol/L Potassium (3.5-5.1) mmol/L Chloride (98-107) mmol/L Carbon Dioxide (21-32) mmol/L Anion Gap (3-11) BUN (7-18) mg/dl Creatinine (0.6-1.4) mg/dl Est Cr Clr Drug Dosing Est GFR ( Amer) Est GFR (Non-Af Amer) BUN/Creatinine Ratio (10-20) Glucose (70-99) mg/dl Calcium (8.5-10.1) mg/dl Total Bilirubin (0.2-1) mg/dl AST (15-37) U/L ALT (12-78) U/L Alkaline Phosphatase (45-117) U/L Total Protein (6.4-8.2) gm/dl Albumin (3.4-5.0) gm/dl Globulin (2.5-4.0) gm/dl Albumin/Globulin Ratio (0.9-2) POC Stool Occult Blood Positive A (Negative) Blood Type A Positive Antibody Screen NEGATIVE Crossmatch See Detail 02/28/19 02/28/19 Range/Units 10:03 10:03 WBC (4.8-10.8) K/uL RBC (4.7-6.1) M/uL Hgb (14.0-18.0) g/dL Hct (42-52) % MCV (80-100) fL MCH (25-34) pg MCHC (32-36) g/dL RDW Std Deviation (36.4-46.3) fL RDW Coeff of [place] (11.5-14.5) % Plt Count (130-400) K/uL MPV (7.4-10.4) fL Immature Gran % (Auto) % Neut % (Auto) % Lymph % (Auto) % [place] % (Auto) % Eos % (Auto) % Baso % (Auto) % Immature Gran # (Auto) (0.00-0.02) K/uL Neut # (Auto) (1.4-6.5) K/uL Lymph # (Auto) (1.2-3.4) K/uL [place] # (Auto) (0.11-0.59) K/uL Eos # (Auto) (0-0.5) K/uL Baso # (Auto) (0-0.2) K/uL Anisocytosis Acanthocytes (Spur) PT 70.1 H (9.0-12.0) Seconds INR 7.9 H* (0.9-1.1) APTT 51.8 H* (21.0-31.0) Seconds PTT Ratio 1.9 Sodium 141 (136-145) mmol/L Potassium 4.8 (3.5-5.1) mmol/L Chloride 111 H (98-107) mmol/L Carbon Dioxide 24 (21-32) mmol/L Anion Gap 6.0 (3-11) BUN 98 H (7-18) mg/dl Creatinine 1.39 (0.6-1.4) mg/dl Est Cr Clr Drug Dosing Not Reportable Est GFR ( Amer) 52.1 Est GFR (Non-Af Amer) 44.9 BUN/Creatinine Ratio 70.5 H (10-20) Glucose 223 H (70-99) mg/dl Calcium 7.4 L (8.5-10.1) mg/dl Total Bilirubin 0.6 (0.2-1) mg/dl AST 21 (15-37) U/L ALT 17 (12-78) U/L Alkaline Phosphatase 161 H (45-117) U/L Total Protein 4.5 L (6.4-8.2) gm/dl Albumin 1.9 L (3.4-5.0) gm/dl Globulin 2.6 (2.5-4.0) gm/dl Albumin/Globulin Ratio 0.7 L (0.9-2) POC Stool Occult Blood (Negative) Blood Type Antibody Screen Crossmatch ECG Data Attestation: I personally reviewed and interpreted this ECG as follows: Indication: weakness Rate (beats per minute): 64 Rhythm: other (Ventricularly paced) Findings: + PVC and + left axis deviation Blood Pressure Blood Pressure Findings: Low blood pressure MDM Narrative Patient is an 80-year-old male who was referred in from cardiology as he appeared weak and lethargic. Upon arrival he is found to be slightly hypotensive. Does have a past medical history of recent pacemaker placement along with a prosthetic valve on Coumadin. IV was established blood work was obtained and showed a hemoglobin of 7.3. Previous hemoglobin was 9. INR was at 7.9. BMP was elevated glucose. Patient had dark melanotic stool which was heme positive. Patient was typed and crossed and was ordered 2 units of PRBCs while in the ER. Patient was updated bedside and discussed with the hospitalist. His INR was treated with IV vitamin K he was monitored closely. Patient was c onsented for blood and admitted to the hospitalist Impression & Plan GI bleed, Symptomatic anemia Critical Care Time Critical Care Time: Yes Total Critical Care Time: 30 I have personally spent 30 minutes of critical care time in the direct ma nagement of this patient. This includes bedside care, interpretation of diagnostic studies, and testing, discussion with consultants, patient, and family members, and other required patient management activities. This 30 minutes is in excess of all separately billable procedures. Discharge Plan Visit Data Chief Complaint: Abnormal Labs/Diagnostic Testing Stated Complaint: anemic, hypotensive ED Provider: Sergo Caal Discharge Problem: GI bleed, Symptomatic anemia Patient Disposition: Being Evaluated by Hospitalist The scribe's documentation has been prepared under my direction and personally reviewed by me in its entirety. I confirm that the note above accurately reflects all work, treatment, procedures, and medical decision making performed by me.
[2019-02-28] MEDS ORDERED: GLUCAGON FOR INJ 1 MG VIAL SQ PRN (17:00)
[2019-02-28] MEDS ORDERED: GLUCOSE 10 TABS/TUBE PO PRN (17:00)
[2019-02-28] MEDS ORDERED: POLYETHYLENE (MIRALAX) 17 GM PACK PO PRN (17:00)
[2019-02-28] MEDS ORDERED: ACETAMINOPHEN 325 MG TAB PO PRN (17:00)
[2019-02-28] MEDS ORDERED: INSULIN ASPART 100 UNITS/ML 3 ML PEN SC SCH (17:00)
[2019-02-28] MEDS ORDERED: ONDANSETRON INJ 2 MG/ML 2 ML VIAL IV PRN (17:00)
[2019-02-28] MEDS ORDERED: DEXTROSE 50% 50 ML SYRINGE IV PRN (17:00)
[2019-02-28] MEDS ORDERED: GLUCOSE 40% GEL 15 GM TUBE PO PRN (17:00)
[2019-02-28] MEDS ORDERED: CARBOHYDRATES FOR HYPOGLYCEMIA PO PRN (17:00)
[2019-02-28] MEDS ORDERED: FUROSEMIDE 20 MG in SYRINGE 0 ML IV ONE (17:00)
[2019-02-28 17:15] LABS: Troponin I 0.064 ng/ml (0-0.045)
--- NOTE | 2019-02-28 17:33 | XRay Report ---
TWO VIEW CHEST CLINICAL HISTORY: Preoperative examination. FINDINGS: AP and lateral chest radiographs are compared to study dated 02/15/2019. The AP view is signi ficantly degraded by patient rotation. A 2-lead cardiac pacemaker is unchanged in position and partia lly obscures the left upper chest. The patient is status post midline sternotomy and cardiac valve thorne rgery. The heart is enlarged and there is atherosclerotic calcification of the thoracic aorta. There is pulmonary vascular congestion. There are layering pleural effusions with bibasilar consolidation, right larger than left. There is no pneumothorax. The skeletal structures are osteopenic. The bony th orax appears intact. IMPRESSION: 1. Cardiomegaly with evidence of congestive failure. 2. There are right larger than left pleural effusions with bibasilar consolidation. The right pleural effusion appears modestly decreased in size from 02/15/2019. Electronically signed by: Ahsan Lutz M.D. 02/28/2019 5:32 PM
[2019-02-28 17:57] LABS: Hematocrit (blood only) 25.9 % (42-52); Hemoglobin 8.5 g/dL (14.0-18.0)
[2019-02-28] MEDS ORDERED: Nursing to Pharmacy Communication ONE (17:57)
[2019-02-28 18:32] LABS: Appearance Urine Cloudy (Clear); Bacteria Urine Automated Negative (Negative); Bilirubin Urine Negative (Negative); Blood Urine Trace (Negative); Color Urine Dark Yellow; Epithelial Cell Urine Auto 0-5 /lpf (0-5); Glucose Urine UA Negative (Negative); Ketones Urine Negative (Negative); Leukocyte Esterase Urine 3+ (Negative); Nitrite Urine Negative (Negative); Protein Urine Negative (Negative); Specific Gravity Urine 1.022 (1.000-1.030); Urobilinogen Urine Negative (Negative); WBC Urine Automated >30 /hpf (0-5)
[2019-02-28] MEDS: INSULIN ASPART 100 UNITS/ML 3 ML PEN SC SCH (18:41)
[2019-02-28] MEDS: INSULIN GLARGINE SOLOSTAR 100 UNITS/ML 3 ML PEN SC SCH (20:19)
[2019-02-28] MEDS: METOPROLOL TARTRATE 25 MG TAB PO SCH (20:20)
[2019-02-28 21:18] LABS: INR 1.7 (0.9-1.1); Prothrombin Time 16.7 Seconds (9.0-12.0)
[2019-02-28 23:25] LABS: Hematocrit (blood only) 26.1 % (42-52); Hemoglobin 8.6 g/dL (14.0-18.0)
[2019-02-28] MEDS: TRAMADOL HCL 50 MG TABLET PO PRN (23:53)
[2019-03-01] MEDS: INSULIN ASPART 100 UNITS/ML 3 ML PEN SC SCH ×5 (00:05→20:20)
[2019-03-01] MEDS: PANTOprazole 40 MG in DEXTROSE 5% 100 ML IV SCH ×4 (01:41→17:06)
[2019-03-01 05:54] LABS: Hematocrit (blood only) 25.2 % (42-52); Hemoglobin 8.5 g/dL (14.0-18.0); Mean Corpuscular Hgb Conc 33.7 g/dL (32-36); Mean Corpuscular Volume 90.3 fL (80-100); Mean Platelet Volume 9.9 fL (7.4-10.4); Platelet Count 203 K/uL (130-400); RDW Coefficient of Variation 16.3 % (11.5-14.5); RDW Standard Deviation 53.4 fL (36.4-46.3); Red Blood Count 2.79 M/uL (4.7-6.1); White Blood Count 8.11 K/uL (4.8-10.8)
[2019-03-01 06:05] LABS: INR 1.4 (0.9-1.1); Prothrombin Time 13.6 Seconds (9.0-12.0)
[2019-03-01 06:41] LABS: BUN Creatinine Ratio 76.8 (10-20); Blood Urea Nitrogen 109 mg/dl (7-18); Calcium 7.3 mg/dl (8.5-10.1); Carbon Dioxide 24 mmol/L (21-32); Chloride 114 mmol/L (98-107); Est GFR (African American) 50.7; Est GFR (Non-African American) 43.8; Glucose 145 mg/dl (70-99); Potassium 3.9 mmol/L (3.5-5.1); Sodium 145 mmol/L (136-145)
[2019-03-01] MEDS: INSULIN GLARGINE SOLOSTAR 100 UNITS/ML 3 ML PEN SC SCH ×2 (08:32→21:02)
[2019-03-01] MEDS: METOPROLOL TARTRATE 25 MG TAB PO SCH ×2 (08:38→21:02)
--- NOTE | 2019-03-01 10:05 | History & Physical Bridge Note ---
Date of Service March 01, 2019 History & Physical Bridge Note I have examined the patient, reviewed the History & Physical and in the interval since the performance of the History & Physical I have noted the following changes of clinical significance: no changes noted EGD for evaluation of melena yesterday in the setting of a supratherapeutic INR
--- NOTE | 2019-03-01 10:08 | Anesthesiology Consultation ---
Date of Service March 01, 2019 Assessment & Plan (1) Encounter for pre-operative examination: Chart Review Chart Review: Acceptable Risk for Surgery and Patient NOT seen in Pre Admission Testing Consults Requested none ASA ASA4 Proposed Anesthesia Anesthesia Type: MAC Risk / Benefits Reviewed With: PT / POA / Parent / Guardian, Accepts Plan and Informed Consent Obtained History Surgery Operation Date: 03/01/19 08:30 Proposed Procedures p Esophagogastroduodenoscopy Dr. Soledad Rowe M.D. Height/Weight Weight: 67.1 kg Allergies Allergy/AdvReac Type Severity Reaction Status Date / Time lisinopril Allergy Unknown Unknown Verified 02/28/19 10:31 sulfamethoxazole Allergy Unknown Unverified 02/28/19 10:31 [From Bactrim] trimethoprim [From Bactrim] Allergy Unknown Unverified 02/28/19 10:31 Medications Home Medications Medication Instructions Recorded Confirmed Last Taken ascorbic acid (vitamin C) 500 mg 1,000 mg PO BID cap 03/17/18 02/28/19 02/27/19 capsule aspirin 81 mg chewable tablet 81 mg PO Q OTHER DAY tab 03/17/18 02/28/19 02/27/19 atorvastatin 40 mg tablet 40 mg PO DAILY 03/17/18 02/28/19 02/27/19 ferrous sulfate 325 mg (65 mg 325 mg PO BID tab 03/17/18 02/28/19 02/27/19 iron) tablet finasteride 5 mg tablet 5 mg PO DAILY tab 03/17/18 02/28/19 02/27/19 folic acid 1 mg tablet 1 mg PO DAILY 03/17/18 02/28/19 02/27/19 multivitamin tablet 1 tab PO DAILY 03/17/18 02/28/19 02/27/19 sennosides [Senokot] 8.6 mg PO BID PRN 02/07/19 02/28/19 Unknown triamcinolone acetonide 1 applic TOPICAL BID PRN 02/07/19 02/28/19 Unknown doxazosin [Cardura] 2 mg PO HS 30 Days #60 tab 02/16/19 02/28/19 02/27/19 insulin glargine [Lantus Solostar 10 unit SC DAILY 30 Days #3 ml 02/16/19 02/28/19 02/27/19 U-100 Insulin] metoprolol tartrate 25 mg PO BID 30 Days #60 tab 02/16/19 02/28/19 02/27/19 sitagliptin 50 mg tablet 50 mg PO DAILY 02/23/19 02/28/19 02/27/19 warfarin 4 mg tablet 4 mg PO DIRECTED 02/23/19 02/28/19 02/23/19 warfarin 5 mg tablet 5 mg PO DIRECTED 02/23/19 02/28/19 02/22/19 acetaminophen 650 mg PO Q6H PRN 02/28/19 02/28/19 Unknown acetaminophen 650 mg PO Q6H PRN 02/28/19 02/28/19 02/24/19 dronabinol [Marinol] 2.5 mg PO BID 02/28/19 02/28/19 02/27/19 tramadol 50 mg PO DAILY PRN 02/28/19 02/28/19 Unknown Active Medications Generic Name Dose Route Start Last Admin Trade Name Freq PRN Reason Stop Dose Admin Pantoprazole Sodium 40 mg/ 100 mls @ 20 mls/hr 02/28/19 14:15 03/01/19 08:38 Dextrose IV 03/30/19 14:14 20 mls/hr Q5H LOCO Administration Insulin Aspart 0 units 02/28/19 18:00 03/01/19 06:28 Novolog Flexpen SC 03/30/19 17:59 1 units Q6H LOCO Administration Insulin Glargine 0 - 6 units 02/28/19 21:00 03/01/19 08:32 Lantus Solostar Pen SC 03/30/19 20:59 3 units BID LOCO Administration Metoprolol Tartrate 25 mg 02/28/19 21:00 03/01/19 08:38 Lopressor PO 03/30/19 20:59 25 mg BID LOCO Administration Tramadol HCl 50 mg 02/28/19 17:00 02/28/19 23:53 Ultram PO 03/30/19 16:59 50 mg DAILY PRN Administration Pain NPO Date Last Intake of Fluids: 02/28/19 Time Last Intake of Fluids: 22:00 Date Last Intake of Solids: 02/28/19 Time Last Intake of Solids: 18:00 Past Medical History Medical History History of TIA (transient ischemic attack) (Chronic) BPH (benign prostatic hyperplasia) (Chronic) 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) Aortic valve stenosis (Chronic) s/p bioprosthetic avr 11/21/06 along with CABG x 2 and PFO closure T2DM (type 2 diabetes mellitus) (Chronic) CAD (coronary artery disease) (Chronic) Tachy-rodrigue syndrome Paroxysmal atrial fibrillation Junctional bradycardia Mobitz type 1 second degree AV block Weakness (Chronic) 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) Chronic venous insufficiency (Chronic) HTN (hypertension) (Chronic) Hyperlipidemia (Chronic) GERD (gastroesophageal reflux disease) (Chronic) GERD (gastroesophageal reflux disease) (Chronic) HTN (hypertension) (Chronic) Hyperlipidemia (Chronic) Exercise / Class Metabolic Activity II 4-5 Yardwork/Stairs/Walk up hill Past Family History Family History Father Cancer kidney Mother Stroke Sister Stroke Past Surgical History Surgical History History of total right hip arthroplasty Status post patent foramen ovale closure 11/21/06 S/P AVR s/p bioprosthetic avr 11/21/06 along with CABG x 2 and PFO closure History of open heart surgery (Chronic) History of open heart surgery (Chronic) Past Anesthesia History No Hx of Anesthesia Complications and No Family Hx of Anesthesia Complications History of PONV No Hx of PONV and No Hx of Motion Sickness Social History Smoking Status: Unknown if ever smoked Hx Alcohol Use: No Hx Substance Use: No Physical Exam Vital Signs Last Vital Signs Temp 36.4 C L 03/01/19 09:39 Pulse 60 03/01/19 09:39 Resp 18 03/01/19 09:39 BP 114/45 L 03/01/19 09:39 Pulse Ox 98 03/01/19 09:39 ENMT Mouth: no TMJ abnormality Thyromental Distance: > or= 3.5 Finger Breadths Mallampati Class: II Neck normal visual inspection Respiratory normal respiratory effort Auscultation: lungs clear to auscultation bilaterally Cardiovascular Rate/Rhythm: regular rate and regular rhythm Heart Sounds: no murmur Vessels: no carotid bruit Neurologic moves all extremities Psychiatric Orientation: alert and oriented x 3 Testing Laboratory Results 03/01/19 05:18 03/01/19 05:18 PT 13.6 Seconds (9.0-12.0) H 03/01/19 05:18 INR 1.4 (0.9-1.1) H 03/01/19 05:18 APTT 51.8 Seconds (21.0-31.0) H* 02/28/19 10:03 Urine Color Dark Yellow 02/28/19 18:15 Urine Appearance Cloudy (Clear) A 02/28/19 18:15 Urine pH 5.0 (4.5-7.5) 02/28/19 18:15 Ur Specific [place] 1.022 (1.000-1.030) 02/28/19 18:15 Urine Protein Negative (Negative) 02/28/19 18:15 Urine Glucose (UA) Negative (Negative) 02/28/19 18:15 Urine Ketones Negative (Negative) 02/28/19 18:15 Urine Nitrite Negative (Negative) 02/28/19 18:15 Ur Leukocyte Esterase 3+ (Negative) H 02/28/19 18:15 Urine WBC (Auto) >30 /hpf (0-5) H 02/28/19 18:15 Urine RBC (Auto) 5-10 /hpf (0-4) H 02/28/19 18:15 U Hyaline Cast (Auto) 1-5 /lpf (0-5) 02/28/19 18:15 U Epithel Cells (Auto) 0-5 /lpf (0-5) 02/28/19 18:15 Urine Bacteria (Auto) Negative (Negative) 02/28/19 18:15 Blood Type A Positive 02/28/19 10:03 Antibody Screen NEGATIVE 02/28/19 10:03 03/01/19 02/28/19 06:13 23:49 POC Glucose 173 H 157 H
[2019-03-01] MEDS ORDERED: PROPOFOL IV EMULSION 10 MG/ML 20 ML VIAL IV ONE (10:25)
[2019-03-01] MEDS ORDERED: PHENYLEPHRINE 100MCG/ML 5ML SYR ONE (10:25)
[2019-03-01] MEDS ORDERED: LIDOCAINE HCL 2% 2 ML VIAL/AMP(20MG/ML) INFIL ONE (10:25)
--- NOTE | 2019-03-01 10:27 | GI REPORT ---
Patient Name: Kolton You Procedure Date: 03/01/2019 10:06 AM Date of : 1930 Admit Type: Inpatient Age: 88 Gender: Male Attending MD: Cata Rowe M.d. Procedure: Upper GI endoscopy Providers: Cata Rowe M.d. Referring MD: Alan Green Md Indications: Melena Medicines: Propofol per Anesthesia, Lidocaine Complications: No immediate complications. Estimated Blood Loss: Estimated blood loss: none. Procedure: Pre-Anesthesia Assessment: - Patient identification and proposed procedure were verified prior to the procedure by the physician, the nurse and the anesthesiologist. The procedure was verified in the pre-procedure area. - Prior to the procedure, a History and Physical was performed, and patient medications, allergies and sensitivities were reviewed. The patient's tolerance of previous anesthesia was reviewed. - The risks and benefits of the procedure and the sedation options and risks were discussed with the patient. All questions were answered and informed consent was obtained. - ASA Grade Assessment: III - A patient with severe systemic disease. After obtaining informed consent, the endoscope was passed under direct vision. Throughout the procedure, the patient's blood pressure, pulse, and oxygen saturations were monitored continuously. The Scope was introduced through the mouth, and advanced to the third part of duodenum. The upper GI endoscopy was accomplished without difficulty. The patient tolerated the procedure well. Findings: The examined esophagus was normal. A single localized, 4 mm non-bleeding erosion was found in the gastric fundus. There were no stigmata of recent bleeding. The entire examined stomach was normal. The duodenal bulb and second portion of the duodenum were normal. There was bile present. Impression: - Normal esophagus. - Erosion noted in the fundus. - Normal stomach. - Normal duodenal bulb and second portion of the duodenum. Recommendation: - Allow IV PPI drip to run out then would transition to PPI 40 mg po daily (given ckdz), prior to his am meal, for at least the next 8 weeks. - Likely bled in the setting of a supratherapeutic INR (INR of approximately 7.9) at the time of reported melenic episode. - Return to the floor. Oriana Flores M.d. 03/01/2019 10:26:40 AM This report has been signed electronically. Note Initiated On: 03/01/2019 10:06 AM Number of Addenda: 0 I attest to the content of the Intraoperative Record and orders documented therein, exceptions below {[id number]}
--- NOTE | 2019-03-01 11:34 | Anesthesiology Progress Note ---
Date of Service March 01, 2019 Anesthesia Post Procedure Vital Signs Vital Signs: Temp Pulse Pulse Resp BP BP BP 03/01/19 11:28 60 20 117/40 L 03/01/19 11:18 60 20 101/38 L 03/01/19 11:09 61 20 105/43 L 03/01/19 10:59 60 20 97/38 L 03/01/19 10:50 60 20 103/42 L 03/01/19 10:43 97/40 L 03/01/19 10:40 90/42 L 03/01/19 10:35 61 20 94/39 L 03/01/19 10:28 70/39 L 03/01/19 09:39 36.4 C L 60 18 114/45 L 03/01/19 08:00 60 03/01/19 06:57 36.3 C L 63 20 91/47 L 03/01/19 04:09 36.5 C 61 21 95/51 L 03/01/19 00:40 60 02/28/19 23:27 36.8 C 60 23 96/55 L 02/28/19 20:33 36.7 C 67 120/40 L 02/28/19 20:00 36.5 C 62 130/58 L 02/28/19 19:50 36.4 C L 61 16 121/66 02/28/19 19:03 36.7 C 61 122/62 02/28/19 18:48 36.6 C 62 129/53 L 02/28/19 18:30 36.4 C L 60 18 118/83 02/28/19 16:50 36.5 C 60 18 117/59 L 02/28/19 16:27 36.2 C L 60 132/65 02/28/19 16:15 60 16 106/74 02/28/19 16:01 60 25 H 110/41 L 02/28/19 16:00 60 61 23 110/41 L 02/28/19 15:46 60 23 106/42 L 02/28/19 15:45 61 22 02/28/19 15:31 60 21 100/35 L 02/28/19 15:30 60 24 02/28/19 15:15 60 19 100/43 L 02/28/19 15:00 61 19 102/42 L 02/28/19 14:45 60 22 109/41 L 02/28/19 14:30 60 21 96/44 L 02/28/19 14:15 61 27 H 113/56 L 02/28/19 14:01 59 L 28 H 105/49 L 02/28/19 14:00 60 31 H 02/28/19 13:46 60 31 H 123/42 L 02/28/19 13:45 60 30 H 123/42 L 02/28/19 13:31 60 27 H 115/42 L 02/28/19 13:30 36.7 C 60 22 91/43 L 02/28/19 13:25 61 23 91/43 L 02/28/19 13:20 62 20 02/28/19 13:15 61 24 02/28/19 13:10 60 20 02/28/19 13:00 61 22 101/38 L 02/28/19 12:50 60 32 H 02/28/19 12:45 60 28 H 02/28/19 12:40 60 24 02/28/19 12:31 61 22 78/40 L 02/28/19 12:30 57 L 24 02/28/19 12:20 60 19 02/28/19 12:15 60 23 02/28/19 12:10 60 20 02/28/19 12:01 62 22 104/50 L 02/28/19 12:00 64 23 02/28/19 11:50 61 17 02/28/19 11:45 66 28 H 02/28/19 11:40 60 18 Pulse Ox 03/01/19 11:28 98 03/01/19 11:18 98 03/01/19 11:09 98 03/01/19 10:59 97 03/01/19 10:50 96 03/01/19 10:43 03/01/19 10:40 03/01/19 10:35 100 03/01/19 10:28 03/01/19 09:39 98 03/01/19 08:00 03/01/19 06:57 99 03/01/19 04:09 100 03/01/19 00:40 02/28/19 23:27 92 02/28/19 20:33 02/28/19 20:00 02/28/19 19:50 100 02/28/19 19:03 02/28/19 18:48 02/28/19 18:30 98 02/28/19 16:50 94 02/28/19 16:27 02/28/19 16:15 100 02/28/19 16:01 02/28/19 16:00 100 02/28/19 15:46 02/28/19 15:45 02/28/19 15:31 02/28/19 15:30 100 02/28/19 15:15 100 02/28/19 15:00 100 02/28/19 14:45 100 02/28/19 14:30 100 02/28/19 14:15 100 02/28/19 14:01 100 02/28/19 14:00 02/28/19 13:46 02/28/19 13:45 100 02/28/19 13:31 100 02/28/19 13:30 100 02/28/19 13:25 100 02/28/19 13:20 02/28/19 13:15 100 02/28/19 13:10 100 02/28/19 13:00 02/28/19 12:50 02/28/19 12:45 02/28/19 12:40 02/28/19 12:31 02/28/19 12:30 02/28/19 12:20 02/28/19 12:15 02/28/19 12:10 02/28/19 12:01 02/28/19 12:00 02/28/19 11:50 02/28/19 11:45 02/28/19 11:40 Pain Intensity Bilateral Leg: Pain Intensity: 5 Transfer of Care Handoff Completed per policy Notes Mental Status: alert / awake / arousable Patient Amnestic to Procedure: Yes Nausea / Vomiting: adequately controlled Pain: adequately controlled Airway Patency, RR, SpO2: stable & adequate BP & HR: stable & adequate Hydration State: stable & adequate Anesthetic Complications: no major complications apparent and Pt Satisfied with anesthetic care
[2019-03-01 12:41] LABS: Hematocrit (blood only) 22.7 % (42-52); Hemoglobin 7.8 g/dL (14.0-18.0)
--- NOTE | 2019-03-01 16:34 | Hospitalist Progress Note ---
Date of Service March 01, 2019 Assessment & Plan (1) Symptomatic anemia: (2) GI bleed: (3) Supratherapeutic INR: (4) Acute kidney injury superimposed on chronic kidney disease: (5) Weakness: Patient is an 88 yr male with multiple comorbidities presents with H/O secondary to shortness of breath, melena x1 day. Symptomatic anemia Acute GI bleeding Likely secondary to Coumadin in setting of Supratherapeutic INR S/P EGD:Normal esophagus. Erosion noted in the fundus. Normal stomach. Normal duodenal bulb and second portion of the duodenum. S/P 2 units PRBCs Hb drop today likely hemodilutional secondary to IV fluids INR reversed Hold Coumadin for now Monitor CBC and Transfuse PRBCs PRN Appreciate GI Input On IV protonix ggt Plan to transition to PO Protonix in AM VARUN on CKD III Baseline Cr around Mid 1s Received IV fluids For nephrotoxic agents as able Monitor renal function (6) CAD (coronary artery disease): H/O CABG X2 11/2006 along with PFO closure ABAD-LAD, SVG to daig and PDA Was on asa every other day, statin, BB H/O Intolerance to sam inhibitors Resume home medications as able Hold aspirin for now (7) Paroxysmal atrial fibrillation: Ventricular paced Rate controlled on metoprolol hold warfarin in setting of GI bleed Monitor INR (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 Fabian Coumadin held for now On Metoprolol monitor (9) Aortic valve stenosis: Patient had bioprosthetic aortic valve in 11/2006 Echocardiogram 01/2019 revealed EF 65 to 70%, bioprosthetic AVR with moderate to borderline severe aortic valve stenosis, mild to moderate mitral valve stenosis, right ventricular systolic pressure 50-60mmhg Monitor volume status (10) Chronic venous insufficiency: B/L lower extremity venous insufficiency Sacral erythema present on admission consulted wound care nurse (11) T2DM (type 2 diabetes mellitus): Last AIC 9.6, 02/07/19 hold januvia Continue Lantus/novolog per protocol (12) HTN (hypertension): BP relatively low Hold Doxazosin for now Monitor (13) Hyperlipidemia: on statin Chronic respiratory failure with hypoxia Continue supplemental oxygen (14) DVT prophylaxis: DVT Px: SCD/TEDS Disposition: case management consulted Subjective Patient is seen and examined at bedside Had EGD today Complains of abdominal pain today Also complains of right leg pain since the fall Denies any chest pain, shortness of breath, nausea, dizziness On IV Protonix drip Review of Systems Review of Systems: All systems reviewed & are unremarkable except as noted in HPI & below Physical Exam Physical Exam: Physical Exam: Vitals signs as noted above General Appearance:No apparent distress, +Frail Head: normocephalic, Atraumatic Eyes: normal inspection, EOMI Neck: supple, Trachea midline Respiratory/Chest: Decreased breath sounds, CTA, +Pacemaker on left side Cardiovascular: S1, S2, +systolic murmur Abdomen/GI:Soft, Epigastric tender, Bowel sounds present Extremities/Musculoskelatal:normal inspection, B/L LE edema, leg wounds Neurologic/Psych:AAOX3, grossly no focal neurological deficits, +hearing loss Skin: normal color, warm Results & Data Vital Signs (Past 12 Hours) Vital Signs Temp Pulse Pulse Resp BP BP Pulse Ox 03/01/19 15:27 36.3 C L 60 17 100/54 L 99 03/01/19 11:38 60 20 107/39 L 98 03/01/19 11:28 60 20 117/40 L 98 03/01/19 11:18 60 20 101/38 L 98 03/01/19 11:09 61 20 105/43 L 98 03/01/19 10:59 60 20 97/38 L 97 03/01/19 10:50 60 20 103/42 L 96 03/01/19 10:43 97/40 L 03/01/19 10:40 90/42 L 03/01/19 10:35 61 20 94/39 L 100 03/01/19 10:28 70/39 L 03/01/19 09:39 36.4 C L 60 18 114/45 L 98 03/01/19 08:00 60 03/01/19 06:57 36.3 C L 63 20 91/47 L 99 Laboratory Results Short CBC 02/28/19 02/28/19 03/01/19 Range/Units 17:50 23:07 05:18 WBC 8.11 (4.8-10.8) K/uL Hgb 8.5 L 8.6 L 8.5 L (14.0-18.0) g/dL Hct 25.9 L 26.1 L 25.2 L (42-52) % Plt Count 203 (130-400) K/uL 03/01/19 Range/Units 12:28 WBC (4.8-10.8) K/uL Hgb 7.8 L (14.0-18.0) g/dL Hct 22.7 L (42-52) % Plt Count (130-400) K/uL BMP 03/01/19 05:18 Sodium 145 Potassium 3.9 D Chloride 114 H Carbon Dioxide 24 BUN 109 H Creatinine 1.42 H Glucose 145 H Calcium 7.3 L Cardiac Enzymes 02/28/19 02/28/19 02/28/19 Range/Units 10:03 17:50 23:07 Troponin I 0.064 H* 0.078 H* 0.080 H* (0-0.045) ng/ml Urine 02/28/19 Range/Units 18:15 Urine Color Dark Yellow Urine Appearance Cloudy A (Clear) Urine pH 5.0 (4.5-7.5) Ur Specific [place] 1.022 (1.000-1.030) Urine Protein Negative (Negative) Urine Glucose (UA) Negative (Negative)
[2019-03-01] MEDS ORDERED: TRIAMCINOLONE ACET 0.1% CR 15 GM TUBE TOP PRN (16:37)
[2019-03-01] MEDS ORDERED: SENNA 8.6 MG TAB PO PRN (16:37)
[2019-03-01 17:40] LABS: Hematocrit (blood only) 22.6 % (42-52); Hemoglobin 7.8 g/dL (14.0-18.0)
[2019-03-01] MEDS ORDERED: Nursing to Pharmacy Communication ONE (20:06)
[2019-03-01] MEDS: DRONABINOL 2.5 MG CAP PO SCH (21:01)
[2019-03-02 00:04] LABS: Hematocrit (blood only) 21.8 % (42-52); Hemoglobin 7.3 g/dL (14.0-18.0)
[2019-03-02 05:45] LABS: Hemoglobin 7.3 g/dL (14.0-18.0)
[2019-03-02 06:13] LABS: INR 1.3 (0.9-1.1); Prothrombin Time 13.4 Seconds (9.0-12.0)
[2019-03-02 06:14] LABS: Est GFR (African American) 55.4; Est GFR (Non-African American) 47.8
[2019-03-02] MEDS ORDERED: SODIUM CHLORIDE 0.9% 250 ML IV PRN (08:18)
[2019-03-02] MEDS: FINASTERIDE 5 MG TAB PO SCH (08:19)
[2019-03-02] MEDS: METOPROLOL TARTRATE 25 MG TAB PO SCH ×2 (08:19→20:39)
[2019-03-02] MEDS: PANTOprazole 40 MG TAB PO SCH (08:20)
[2019-03-02] MEDS: ATORVASTATIN 40 MG TAB PO SCH (08:20)
[2019-03-02] MEDS: FOLIC ACID 1 MG TAB PO SCH (08:20)
[2019-03-02] MEDS: DRONABINOL 2.5 MG CAP PO SCH ×2 (08:28→20:39)
[2019-03-02] MEDS: INSULIN ASPART 100 UNITS/ML 3 ML PEN SC SCH ×4 (08:49→20:41)
[2019-03-02] MEDS: INSULIN GLARGINE SOLOSTAR 100 UNITS/ML 3 ML PEN SC SCH ×2 (08:50→20:42)
[2019-03-02 16:16] LABS: Hematocrit (blood only) 26.6 % (42-52); Hemoglobin 8.9 g/dL (14.0-18.0)
--- NOTE | 2019-03-02 17:23 | Hospitalist Progress Note ---
Date of Service March 02, 2019 Assessment & Plan (1) Symptomatic anemia: (2) GI bleed: (3) Supratherapeutic INR: (4) Acute kidney injury superimposed on chronic kidney disease: (5) Weakness: Patient is an 88 yr male with multiple comorbidities presents with H/O secondary to shortness of breath, melena x1 day. Symptomatic anemia Acute GI bleeding Likely secondary to Coumadin in setting of Supratherapeutic INR S/P EGD:Normal esophagus. Erosion noted in the fundus. Normal stomach. Normal duodenal bulb and second portion of the duodenum. S/P 3 units PRBCs Hb drop to 7.3 today INR reversed Hold Aspirin, Coumadin for now Monitor CBC and Transfuse PRBCs PRN Appreciate GI Input IV Protonix ggt>> transitioned to PO Anemia work up pending VARUN on CKD III Baseline Cr around Mid 1s Received IV fluids For nephrotoxic agents as able Monitor renal function (6) CAD (coronary artery disease): H/O CABG X2 11/2006 along with PFO closure ABAD-LAD, SVG to daig and PDA Was on asa every other day, statin, BB H/O Intolerance to sam inhibitors Resume home medications as able Hold aspirin for now (7) Paroxysmal atrial fibrillation: Ventricular paced Rate controlled on metoprolol hold warfarin in setting of GI bleed Monitor INR (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 Fabian Coumadin held for now On Metoprolol monitor (9) Aortic valve stenosis: Patient had bioprosthetic aortic valve in 11/2006 Echocardiogram 01/2019 revealed EF 65 to 70%, bioprosthetic AVR with moderate to borderline severe aortic valve stenosis, mild to moderate mitral valve stenosis, right ventricular systolic pressure 50-60mmhg Monitor volume status (10) Chronic venous insufficiency: B/L lower extremity venous insufficiency Sacral erythema present on admission consulted wound care nurse (11) T2DM (type 2 diabetes mellitus): Last AIC 9.6, 02/07/19 hold januvia Continue Lantus/novolog per protocol (12) HTN (hypertension): BP relatively low Hold Doxazosin for now Monitor (13) Hyperlipidemia: on statin Chronic respiratory failure with hypoxia Continue supplemental oxygen (14) DVT prophylaxis: DVT Px: SCD/TEDS Disposition: case management consulted Subjective Patient is seen and examined at bedside Hb dropped to 7.3 today We will give 1 unit PRBC No obvious source of bleeding Abdominal pain resolved Denies any chest pain, shortness of breath, nausea, dizziness No other complaints Review of Systems Review of Systems: All systems reviewed & are unremarkable except as noted in HPI & below Physical Exam Physical Exam: Physical Exam: Vitals signs as noted above General Appearance:No apparent distress, +Frail Head: normocephalic, Atraumatic Eyes: normal inspection, EOMI Neck: supple, Trachea midline Respiratory/Chest: Decreased breath sounds, CTA, +Pacemaker on left side Cardiovascular: S1, S2, +systolic murmur Abdomen/GI:Soft, non tender, Bowel sounds present Extremities/Musculoskelatal:normal inspection, B/L LE edema, leg wounds Neurologic/Psych:AAOX3, grossly no focal neurological deficits, +hearing loss Skin: normal color, warm Results & Data Vital Signs (Past 12 Hours) Vital Signs Temp Pulse Pulse Resp BP BP Pulse Ox 03/02/19 15:35 36.6 C 60 19 100/44 L 100 03/02/19 12:07 36.5 C 60 18 106/56 L 100 03/02/19 11:47 36.7 C 60 16 125/61 99 03/02/19 11:12 36.8 C 61 16 117/58 L 100 03/02/19 10:47 36.6 C 60 18 98/43 L 99 03/02/19 10:17 36.5 C 60 18 101/52 L 100 03/02/19 10:02 36.5 C 60 18 108/55 L 100 03/02/19 10:01 36.6 C 60 18 108/55 L 99 03/02/19 09:42 36.5 C 60 16 104/56 L 99 Laboratory Results Short CBC 03/01/19 03/01/19 03/02/19 Range/Units 17:27 23:44 05:10 Hgb 7.8 L 7.3 L 7.3 L (14.0-18.0) g/dL Hct 22.6 L 21.8 L 22.0 L (42-52) % 03/02/19 Range/Units 15:48 Hgb 8.9 L (14.0-18.0) g/dL Hct 26.6 L (42-52) % BMP 03/02/19 05:10 Creatinine 1.32
[2019-03-02] MEDS: TRAMADOL HCL 50 MG TABLET PO PRN (20:38)
[2019-03-03 06:37] LABS: INR 1.4 (0.9-1.1); Prothrombin Time 13.8 Seconds (9.0-12.0)
[2019-03-03 06:40] LABS: Hematocrit (blood only) 26.3 % (42-52); Hemoglobin 8.6 g/dL (14.0-18.0); Reticulocyte % 4.2 % (0.5-2.0); Reticulocytes # 0.12 10^6/uL (0.02-0.10)
[2019-03-03 07:12] LABS: Est GFR (African American) 58.6; Est GFR (Non-African American) 50.6
[2019-03-03 07:17] LABS: Ferritin 287.4 ng/ml (8-388); Iron 31 mcg/dl (35-175)
[2019-03-03 08:37] LABS: Folate (Folic Acid) 21.79 ng/ml (>5.38)
[2019-03-03] MEDS: METOPROLOL TARTRATE 25 MG TAB PO SCH ×2 (08:42→21:00)
[2019-03-03] MEDS: FOLIC ACID 1 MG TAB PO SCH (08:42)
[2019-03-03] MEDS: FINASTERIDE 5 MG TAB PO SCH (08:42)
[2019-03-03] MEDS: PANTOprazole 40 MG TAB PO SCH (08:42)
[2019-03-03] MEDS: ATORVASTATIN 40 MG TAB PO SCH (08:42)
[2019-03-03] MEDS: DRONABINOL 2.5 MG CAP PO SCH ×2 (08:47→20:59)
[2019-03-03] MEDS: INSULIN ASPART 100 UNITS/ML 3 ML PEN SC SCH ×4 (09:04→21:00)
[2019-03-03] MEDS: INSULIN GLARGINE SOLOSTAR 100 UNITS/ML 3 ML PEN SC SCH ×2 (09:05→20:59)
[2019-03-03] MEDS: ASPIRIN 81 MG ECTAB PO SCH (13:08)
[2019-03-03] MEDS: DOXYCYCLINE HYCLATE 100 MG CAP PO SCH ×2 (13:08→21:00)
--- NOTE | 2019-03-03 17:00 | Hospitalist Progress Note ---
Date of Service March 03, 2019 Assessment & Plan (1) Symptomatic anemia: (2) GI bleed: (3) Supratherapeutic INR: (4) Acute kidney injury superimposed on chronic kidney disease: (5) Weakness: Patient is an 88 yr male with multiple comorbidities presents with H/O secondary to shortness of breath, melena x1 day. Symptomatic anemia Acute GI bleeding Likely secondary to Coumadin in setting of Supratherapeutic INR S/P EGD:Normal esophagus. Erosion noted in the fundus. Normal stomach. Normal duodenal bulb and second portion of the duodenum. S/P 3 units PRBCs INR reversed Hb drop to 8.6 today IV Protonix ggt>> transitioned to PO Resume Aspirin today Continue to hold Coumadin Monitor CBC and Transfuse PRBCs PRN Appreciate GI Input Normal Ferritin, Folate, Vit B12 levels Peripheral smear pending VARUN on CKD III Baseline Cr around Mid 1s Received IV fluids For nephrotoxic agents as able Monitor renal function B/L LE wounds Empirically started on Doxycycline Wound Care consulted (6) CAD (coronary artery disease): H/O CABG X2 11/2006 along with PFO closure ABAD-LAD, SVG to daig and PDA H/O Intolerance to sam inhibitors Resume aspirin Continue lipitor, Metoprolol (7) Paroxysmal atrial fibrillation: Ventricular paced Rate controlled on metoprolol hold warfarin in setting of GI bleed Monitor INR (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 Fabian Coumadin held for now On Metoprolol monitor (9) Aortic valve stenosis: Patient had bioprosthetic aortic valve in 11/2006 Echocardiogram 01/2019 revealed EF 65 to 70%, bioprosthetic AVR with moderate to borderline severe aortic valve stenosis, mild to moderate mitral valve stenosis, right ventricular systolic pressure 50-60mmhg Monitor volume status (10) Chronic venous insufficiency: B/L lower extremity venous insufficiency Sacral erythema present on admission consulted wound care nurse (11) T2DM (type 2 diabetes mellitus): Last AIC 9.6, 02/07/19 hold januvia Continue Lantus/novolog per protocol (12) HTN (hypertension): BP improving Hold Doxazosin for now Monitor (13) Hyperlipidemia: on statin Chronic respiratory failure with hypoxia Continue supplemental oxygen (14) DVT prophylaxis: DVT Px: SCD/TEDS Disposition: case management consulted Subjective Patient is seen and examined at bedside No bleeding issues today Hb 8.6 today Offers no complaints Will resume aspirin today Denies any chest pain, shortness of breath, nausea, dizziness, abd pain No other complaints Review of Systems Review of Systems: All systems reviewed & are unremarkable except as noted in HPI & below Physical Exam Physical Exam: Physical Exam: Vitals signs as noted above General Appearance:No apparent distress, +Frail Head: normocephalic, Atraumatic Eyes: normal inspection, EOMI Neck: supple, Trachea midline Respiratory/Chest: Decreased breath sounds, CTA, +Pacemaker on left side Cardiovascular: S1, S2, +systolic murmur Abdomen/GI:Soft, Epigastric tender, Bowel sounds present Extremities/Musculoskelatal:normal inspection, B/L LE edema, leg wounds Neurologic/Psych:AAOX3, grossly no focal neurological deficits, +hearing loss Skin: normal color, warm Results & Data Vital Signs (Past 12 Hours) Vital Signs Temp Pulse Resp BP BP Pulse Ox 03/03/19 15:32 36.5 C 75 18 119/57 L 100 03/03/19 11:25 36.4 C L 60 20 111/51 L 98 03/03/19 07:08 36.6 C 63 16 100/33 L 98 Laboratory Results Short CBC 03/03/19 Range/Units 05:29 Hgb 8.6 L (14.0-18.0) g/dL Hct 26.3 L (42-52) % BMP 03/03/19 05:29 Creatinine 1.26
[2019-03-03] MEDS: TRAMADOL HCL 50 MG TABLET PO PRN (20:59)
[2019-03-04 06:11] LABS: Hematocrit (blood only) 26.7 % (42-52); Hemoglobin 8.8 g/dL (14.0-18.0)
[2019-03-04] MEDS: METOPROLOL TARTRATE 25 MG TAB PO SCH ×2 (08:15→21:31)
[2019-03-04] MEDS: FINASTERIDE 5 MG TAB PO SCH (08:16)
[2019-03-04] MEDS: FOLIC ACID 1 MG TAB PO SCH (08:16)
[2019-03-04] MEDS: PANTOprazole 40 MG TAB PO SCH (08:16)
[2019-03-04] MEDS: DOXYCYCLINE HYCLATE 100 MG CAP PO SCH ×2 (08:16→21:29)
[2019-03-04] MEDS: ATORVASTATIN 40 MG TAB PO SCH (08:16)
[2019-03-04] MEDS: DRONABINOL 2.5 MG CAP PO SCH ×2 (08:18→21:28)
[2019-03-04] MEDS: INSULIN GLARGINE SOLOSTAR 100 UNITS/ML 3 ML PEN SC SCH ×2 (08:20→21:21)
[2019-03-04] MEDS: INSULIN ASPART 100 UNITS/ML 3 ML PEN SC SCH ×4 (08:24→21:21)
--- NOTE | 2019-03-04 14:54 | Hospitalist Progress Note ---
Date of Service March 04, 2019 Assessment & Plan (1) Symptomatic anemia: (2) GI bleed: (3) Supratherapeutic INR: (4) Acute kidney injury superimposed on chronic kidney disease: (5) Weakness: Patient is an 88 yr male with multiple comorbidities presents with H/O secondary to shortness of breath, melena x1 day. Symptomatic anemia Acute GI bleeding Likely secondary to Coumadin in setting of Supratherapeutic INR S/P EGD:Normal esophagus. Erosion noted in the fundus. Normal stomach. Normal duodenal bulb and second portion of the duodenum. S/P 3 units PRBCs INR reversed Hb drop to 8.8 today IV Protonix ggt>> transitioned to PO Resume Aspirin today Continue to hold Coumadin Monitor CBC and Transfuse PRBCs PRN Appreciate GI Input Normal Ferritin, Folate, Vit B12 levels Peripheral smear pending VARUN on CKD III:Resolved Baseline Cr around Mid 1s Received IV fluids For nephrotoxic agents as able Monitor renal function B/L LE wounds Continue Doxycycline Day#2 Wound Care consulted (6) CAD (coronary artery disease): H/O CABG X2 11/2006 along with PFO closure ABAD-LAD, SVG to daig and PDA H/O Intolerance to sam inhibitors Continue lipitor, Metoprolol Aspirin resumed (7) Paroxysmal atrial fibrillation: Ventricular paced Rate controlled on metoprolol Monitor INR:1.4 Resume low dose coumadin today If Hb drops, will plan to discontinue coumadin considering risks Vs benefits (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 Fabian On Metoprolol, coumadin monitor (9) Aortic valve stenosis: Patient had bioprosthetic aortic valve in 11/2006 Echocardiogram 01/2019 revealed EF 65 to 70%, bioprosthetic AVR with moderate to borderline severe aortic valve stenosis, mild to moderate mitral valve stenosis, right ventricular systolic pressure 50-60mmhg Monitor volume status (10) Chronic venous insufficiency: B/L lower extremity venous insufficiency Sacral erythema present on admission consulted wound care nurse (11) T2DM (type 2 diabetes mellitus): Last AIC 9.6, 02/07/19 hold januvia Continue Lantus/novolog per protocol (12) HTN (hypertension): BP improving Hold Doxazosin for now Monitor (13) Hyperlipidemia: on statin Chronic respiratory failure with hypoxia Continue supplemental oxygen (14) DVT prophylaxis: DVT Px: Resumed coumadin Disposition: case management consulted Subjective Patient is seen and examined at bedside Hb stable Feels tired No acute bleeding issues Will coumadin today Denies any chest pain, shortness of breath, nausea, dizziness, abd pain No other complaints Review of Systems Review of Systems: All systems reviewed & are unremarkable except as noted in HPI & below Physical Exam Physical Exam: Physical Exam: Vitals signs as noted above General Appearance:No apparent distress, +Frail Head: normocephalic, Atraumatic Eyes: normal inspection, EOMI Neck: supple, Trachea midline Respiratory/Chest: Decreased breath sounds, CTA, +Pacemaker on left side Cardiovascular: S1, S2, +systolic murmur Abdomen/GI:Soft, Epigastric tender, Bowel sounds present Extremities/Musculoskelatal:normal inspection, B/L LE edema, leg wounds Neurologic/Psych:AAOX3, grossly no focal neurological deficits, +hearing loss Skin: normal color, warm Results & Data Vital Signs (Past 12 Hours) Vital Signs Temp Pulse Resp BP BP Pulse Ox 03/04/19 13:18 36.7 C 62 17 116/50 L 96 03/04/19 07:20 36.5 C 62 20 100/45 L 95 03/04/19 03:23 36.3 C L 63 16 128/59 L 96 Laboratory Results Short CBC 03/04/19 Range/Units 05:18 Hgb 8.8 L (14.0-18.0) g/dL Hct 26.7 L (42-52) %
[2019-03-04] MEDS: WARFARIN SOD 2.5 MG TAB PO SCH (17:31)
[2019-03-05 06:00] LABS: INR 1.6 (0.9-1.1); Prothrombin Time 15.9 Seconds (9.0-12.0)
[2019-03-05 06:17] LABS: BUN Creatinine Ratio 38.8 (10-20); Blood Urea Nitrogen 44 mg/dl (7-18); Calcium 8.1 mg/dl (8.5-10.1); Carbon Dioxide 26 mmol/L (21-32); Chloride 115 mmol/L (98-107); Est GFR (African American) 66.2; Est GFR (Non-African American) 57.1; Glucose 106 mg/dl (70-99); Potassium 3.8 mmol/L (3.5-5.1); Sodium 146 mmol/L (136-145)
[2019-03-05 08:23] LABS: Basophils # (auto) 0.04 K/uL (0-0.2); Basophils % (auto) 0.6 %; Eosinophils # (auto) 0.01 K/uL (0-0.5); Eosinophils % (auto) 0.1 %; Hemoglobin 9.5 g/dL (14.0-18.0); Immature Granulocytes # (auto) 0.04 K/uL (0.00-0.02); Immature Granulocytes % (auto) 0.6 %; Lymphocytes # (auto) 0.85 K/uL (1.2-3.4); Lymphocytes % (auto) 12.2 %; Mean Corpuscular Hgb Conc 32.8 g/dL (32-36); Mean Corpuscular Volume 93.5 fL (80-100); Mean Platelet Volume 9.1 fL (7.4-10.4); Monocytes # (auto) 0.83 K/uL (0.11-0.59); Monocytes % (auto) 11.9 %; Neutrophils # (auto) 5.18 K/uL (1.4-6.5); Neutrophils % (auto) 74.6 %; Platelet Count 257 K/uL (130-400); RDW Coefficient of Variation 17.2 % (11.5-14.5); RDW Standard Deviation 56.2 fL (36.4-46.3); White Blood Count 6.95 K/uL (4.8-10.8)
[2019-03-05] MEDS: INSULIN ASPART 100 UNITS/ML 3 ML PEN SC SCH ×4 (08:52→21:04)
[2019-03-05] MEDS: FINASTERIDE 5 MG TAB PO SCH (08:53)
[2019-03-05] MEDS: DOXYCYCLINE HYCLATE 100 MG CAP PO SCH ×2 (08:53→21:03)
[2019-03-05] MEDS: ASPIRIN 81 MG ECTAB PO SCH (08:53)
[2019-03-05] MEDS: PANTOprazole 40 MG TAB PO SCH (08:54)
[2019-03-05] MEDS: METOPROLOL TARTRATE 25 MG TAB PO SCH ×2 (08:54→21:05)
[2019-03-05] MEDS: FOLIC ACID 1 MG TAB PO SCH (08:54)
[2019-03-05] MEDS: INSULIN GLARGINE SOLOSTAR 100 UNITS/ML 3 ML PEN SC SCH ×2 (08:54→21:03)
[2019-03-05] MEDS: ATORVASTATIN 40 MG TAB PO SCH (08:54)
[2019-03-05] MEDS ORDERED: MICONAZOLE NITRATE POWDER 43 GM EXT PRN (09:00)
[2019-03-05] MEDS: DRONABINOL 2.5 MG CAP PO SCH ×2 (09:13→21:11)
[2019-03-05] MEDS: TRAMADOL HCL 50 MG TABLET PO PRN (10:16)
--- NOTE | 2019-03-05 17:25 | Hospitalist Progress Note ---
Date of Service March 05, 2019 Assessment & Plan (1) Symptomatic anemia: (2) GI bleed: (3) Supratherapeutic INR: (4) Acute kidney injury superimposed on chronic kidney disease: (5) Weakness: Patient is an 88 yr male with multiple comorbidities presents with H/O secondary to shortness of breath, melena x1 day. Symptomatic anemia Acute GI bleeding Likely secondary to Coumadin in setting of Supratherapeutic INR S/P EGD:Normal esophagus. Erosion noted in the fundus. Normal stomach. Normal duodenal bulb and second portion of the duodenum. S/P 3 units PRBCs INR reversed Hb 9.5 today IV Protonix ggt>> transitioned to PO Resumed Aspirin, Coumadin Monitor CBC and Transfuse PRBCs PRN Appreciate GI Input Normal Ferritin, Folate, Vit B12 levels Peripheral smear suggestive of secondary to CKG, GI bleed Black stools today Monitor CBC closely VARUN on CKD III:Resolved Baseline Cr around Mid 1s Received IV fluids For nephrotoxic agents as able Monitor renal function B/L LE wounds Continue Doxycycline Day#3 Continue Wound Care (6) CAD (coronary artery disease): H/O CABG X2 11/2006 along with PFO closure ABAD-LAD, SVG to daig and PDA H/O Intolerance to sam inhibitors Continue Aspirin, lipitor, Metoprolol (7) Paroxysmal atrial fibrillation: Ventricular paced Rate controlled on metoprolol Monitor INR:1.6 Resumed low dose coumadin yesterday If Hb drops, will plan to discontinue coumadin considering risks Vs benefits (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 Fabian On Metoprolol, coumadin monitor (9) Aortic valve stenosis: Patient had bioprosthetic aortic valve in 11/2006 Echocardiogram 01/2019 revealed EF 65 to 70%, bioprosthetic AVR with moderate to borderline severe aortic valve stenosis, mild to moderate mitral valve stenosis, right ventricular systolic pressure 50-60mmhg Monitor volume status (10) Chronic venous insufficiency: B/L lower extremity venous insufficiency Sacral erythema present on admission consulted wound care nurse (11) T2DM (type 2 diabetes mellitus): Last AIC 9.6, 02/07/19 hold januvia Continue Lantus/novolog per protocol (12) HTN (hypertension): BP Stable Continue current meds Monitor (13) Hyperlipidemia: on statin Chronic respiratory failure with hypoxia Continue supplemental oxygen (14) DVT prophylaxis: DVT Px: On coumadin Disposition: case management consulted Subjective Patient is seen and examined at bedside Has Urinary Retention Had black stools today as per RN Hb stable Denies any chest pain, shortness of breath, nausea, dizziness, abd pain Review of Systems Review of Systems: All systems reviewed & are unremarkable except as noted in HPI & below Physical Exam Physical Exam: Physical Exam: Vitals signs as noted above General Appearance:No apparent distress, +Frail Head: normocephalic, Atraumatic Eyes: normal inspection, EOMI Neck: supple, Trachea midline Respiratory/Chest: Decreased breath sounds, CTA, +Pacemaker on left side Cardiovascular: S1, S2, +systolic murmur Abdomen/GI:Soft, Epigastric tender, Bowel sounds present Extremities/Musculoskelatal:normal inspection, B/L LE edema, leg wounds Neurologic/Psych:AAOX3, grossly no focal neurological deficits, +hearing loss Skin: normal color, warm Results & Data Vital Signs (Past 12 Hours) Vital Signs Temp Pulse Resp BP BP Pulse Ox 03/05/19 14:50 36.2 C L 60 17 122/66 97 03/05/19 07:25 36.5 C 61 17 120/64 98 Laboratory Results Short CBC 03/05/19 Range/Units 05:31 WBC 6.95 (4.8-10.8) K/uL Hgb 9.5 L (14.0-18.0) g/dL Hct 29.0 L (42-52) % Plt Count 257 (130-400) K/uL BMP 03/05/19 05:30 Sodium 146 H Potassium 3.8 Chloride 115 H Carbon Dioxide 26 BUN 44 H Creatinine 1.14 Glucose 106 H Calcium 8.1 L
[2019-03-05] MEDS: WARFARIN SOD 2.5 MG TAB PO SCH (17:32)
[2019-03-05 20:24] LABS: Hematocrit (blood only) 29.6 % (42-52); Hemoglobin 9.9 g/dL (14.0-18.0)
[2019-03-05] MEDS ORDERED: DOXAZOSIN MESYLATE 1 MG TAB PO SCH (21:00)
[2019-03-06 05:54] LABS: Hematocrit (blood only) 26.9 % (42-52); Hemoglobin 8.9 g/dL (14.0-18.0)
[2019-03-06 06:03] LABS: INR 1.9 (0.9-1.1)
[2019-03-06] MEDS: ATORVASTATIN 40 MG TAB PO SCH (08:56)
[2019-03-06] MEDS: FINASTERIDE 5 MG TAB PO SCH (08:56)
[2019-03-06] MEDS: DOXYCYCLINE HYCLATE 100 MG CAP PO SCH (08:56)
[2019-03-06] MEDS: PANTOprazole 40 MG TAB PO SCH (08:56)
[2019-03-06] MEDS: FOLIC ACID 1 MG TAB PO SCH (08:56)
[2019-03-06] MEDS: METOPROLOL TARTRATE 25 MG TAB PO SCH (08:56)
[2019-03-06] MEDS: INSULIN GLARGINE SOLOSTAR 100 UNITS/ML 3 ML PEN SC SCH (08:57)
[2019-03-06] MEDS: INSULIN ASPART 100 UNITS/ML 3 ML PEN SC SCH ×2 (08:58→12:48)
[2019-03-06] MEDS: DRONABINOL 2.5 MG CAP PO SCH (09:01)
[2019-03-06] MEDS: AMOXICILLIN/CLAVULANATE 875 MG TAB PO SCH ×2 (10:12→15:29)
--- NOTE | 2019-03-06 15:02 | Hospitalist Progress Note ---
Date of Service March 06, 2019 Assessment & Plan (1) Symptomatic anemia: (2) GI bleed: (3) Supratherapeutic INR: (4) Acute kidney injury superimposed on chronic kidney disease: (5) Weakness: Patient is an 88 yr male with multiple comorbidities presents with H/O secondary to shortness of breath, melena x1 day. Symptomatic anemia Acute GI bleeding Likely secondary to Coumadin in setting of Supratherapeutic INR S/P EGD:Normal esophagus. Erosion noted in the fundus. Normal stomach. Normal duodenal bulb and second portion of the duodenum. S/P 3 units PRBCs INR reversed Hb Stable IV Protonix ggt>> transitioned to PO Resumed Aspirin, Coumadin Monitor CBC and Transfuse PRBCs PRN Appreciate GI Input Normal Ferritin, Folate, Vit B12 levels Peripheral smear suggestive of secondary to CKG, GI bleed Monitor CBC VARUN on CKD III:Resolved Baseline Cr around Mid 1s Received IV fluids For nephrotoxic agents as able Monitor renal function B/L LE wounds Continue Doxycycline Day#4 Added Augmentin Day #2 Continue Wound Care Needs follow up with wound clinic upon discharge (6) CAD (coronary artery disease): H/O CABG X2 11/2006 along with PFO closure ABAD-LAD, SVG to daig and PDA H/O Intolerance to sam inhibitors Continue Aspirin, lipitor, Metoprolol (7) Paroxysmal atrial fibrillation: Ventricular paced Rate controlled on metoprolol Monitor INR:1.9 Decrease coumadin to 2mg If Hb drops, will plan to discontinue coumadin considering risks Vs benefits (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 Fabian On Metoprolol, coumadin monitor (9) Aortic valve stenosis: Patient had bioprosthetic aortic valve in 11/2006 Echocardiogram 01/2019 revealed EF 65 to 70%, bioprosthetic AVR with moderate to borderline severe aortic valve stenosis, mild to moderate mitral valve stenosis, right ventricular systolic pressure 50-60mmhg Monitor volume status (10) Chronic venous insufficiency: B/L lower extremity venous insufficiency Sacral erythema present on admission consulted wound care nurse (11) T2DM (type 2 diabetes mellitus): Last AIC 9.6, 02/07/19 hold januvia Continue Lantus/novolog per protocol (12) HTN (hypertension): BP Stable Continue current meds Monitor Urinary Retention: Could have underlying BPH Resumed Doxazosin Continue hoyos for now Voiding trial at Rehab facility Consider Urology follow up as outpatient (13) Hyperlipidemia: on statin Chronic respiratory failure with hypoxia Continue supplemental oxygen (14) DVT prophylaxis: DVT Px: On coumadin Disposition: Discharge to Rehab facility Subjective Patient is seen and examined at bedside Doing much better today Leg wounds improving No bleeding issues Denies any chest pain, shortness of breath, nausea, dizziness, abd pain Planned to be discharged to Rehab facility today Review of Systems Review of Systems: All systems reviewed & are unremarkable except as noted in HPI & below Physical Exam Physical Exam: Physical Exam: Vitals signs as noted above General Appearance:No apparent distress, +Frail Head: normocephalic, Atraumatic Eyes: normal inspection, EOMI Neck: supple, Trachea midline Respiratory/Chest: Decreased breath sounds, CTA, +Pacemaker on left side Cardiovascular: S1, S2, +systolic murmur Abdomen/GI:Soft, Epigastric tender, Bowel sounds present Extremities/Musculoskelatal:normal inspection, B/L LE edema, leg wounds Neurologic/Psych:AAOX3, grossly no focal neurological deficits, +hearing loss Skin: normal color, warm Results & Data Vital Signs (Past 12 Hours) Vital Signs Temp Pulse Resp BP Pulse Ox 03/06/19 07:31 36.5 C 60 16 119/57 L 99 Laboratory Results Short CBC 03/05/19 03/06/19 Range/Units 20:11 05:19 Hgb 9.9 L 8.9 L (14.0-18.0) g/dL Hct 29.6 L 26.9 L (42-52) %
--- NOTE | 2019-03-06 15:20 | Discharge Summary ---
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 Patient had follow-up in cardiology clinic for pacemaker today in which she was notably dyspneic with conversation, fatigue, complaining of dizziness and overall look for; therefore, he was referred to ED. Of significance patient recently confined 02/08-02/16 secondary to falls and possible pneumonia. 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 Fabian. He was also noted to have anemia requiring 2 units of PRBC and a positive FOBT. Patient was not seen by GI was referred colonoscopies and was having no signs of GI bleeding; therefore was not further explored. Patient is overall poor historian and ROS is unreliable. He does admit to being treated with at rest and with exertion, decreased appetite, weakness, difficulty with walking. He denies any f/c/s, chest pain, palpitations, n/v/d. He is unsure if he stool has been black, but nurse at bedside states pt just had loose dark tarry BM. Admission Exam Per Admitting Provider Physical Exam Physical Exam: Gen:Elderly, well developed M, lying in bed, chronically ill appearing, NAD, +pale, dyspneic with conversation, answers questions appropriately but unsure of accuracy Head: Normocephalic, Atraumatic Eyes: Sclera pale, no conjunctival injection, PERRLA, EOMI ENT: Gross hearing intact, normal pharynx, mucous membranes dry poor dentition Neck: supple, no adenopathy, No JVD, no bruit, Resp: Clear to auscultation b/l, diminished at bases b/l poor inspiratory effort on ausculatation, no wheeze, rales, rhonchi. Normal insp/exp effort, no accessory muscle use CV: LACW PPM incision site CDI healing well. 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 Extremities: b/l venous stasis with ulcerations lower ext, no sudarshan edema b/l Skin: warm, moist, no rash, + turgor, cap refill > 2sec Neuro: Alert and oriented x 3, speech normal, good mood/affect, cran nerve 2-12 intact grossly : + erythema to sacrum, blanchable, noted black tarry stool around rectum no sudarshan blood Principal Diagnosis Discharge Information Discharge Diagnosis Symptomatic anemia Acute GI bleeding Bilateral Leg wounds Acute Kidney Injury Urinary Retention Discharge Goals Decrease discomfort,Improve disease control, Improve function Discharge Activity Limitations Resume your previous activity Discharge Data Allergies Allergy/AdvReac Type Severity Reaction Status Date / Time lisinopril Allergy Unknown Unknown Verified 02/28/19 10:31 sulfamethoxazole Allergy Unknown Unverified 02/28/19 10:31 [From Bactrim] trimethoprim [From Bactrim] Allergy Unknown Unverified 02/28/19 10:31 Consultations 02/28/19 12:07 ED Decision to Admit Stat 02/28/19 14:06 Consult Gastroenterology Routine 02/28/19 17:00 Consult Case Management - Discharge Planning Routine Procedures Performed Operation Date: 03/01/19 08:30 Actual Procedures p Esophagogastroduodenoscopy(Not Applicable) - Cata Rowe M.D. CXR: 1. Cardiomegaly with evidence of congestive failure. 2. There are right larger than left pleural effusions with bibasilar consolidation. The right pleural effusion appears modestly decreased in size from 02/15/2019. EGD: Impression: - Normal esophagus. - Erosion noted in the fundus. - Normal stomach. - Normal duodenal bulb and second portion of the duodenum. Recommendation: - Allow IV PPI drip to run out then would transition to PPI 40 mg po daily (given ckdz), prior to his am meal, for at least the next 8 weeks. - Likely bled in the setting of a supratherapeutic INR (INR of approximately 7.9) at the time of reported melenic episode. - Return to the floor. Hospital Course (1) Symptomatic anemia: (2) GI bleed: (3) Supratherapeutic INR: (4) Acute kidney injury superimposed on chronic kidney disease: (5) Weakness: Patient is an 88 yr male with multiple comorbidities presents with H/O secondary to shortness of breath, melena x1 day. Symptomatic anemia Acute GI bleeding Likely secondary to Coumadin in setting of Supratherapeutic INR S/P EGD:Normal esophagus. Erosion noted in the fundus. Normal stomach. Normal duodenal bulb and second portion of the duodenum. S/P 3 units PRBCs INR reversed Hb Stable IV Protonix ggt>> transitioned to PO Resumed Aspirin, Coumadin Monitor CBC and Transfuse PRBCs PRN Appreciate GI Input Normal Ferritin, Folate, Vit B12 levels Peripheral smear suggestive of secondary to CKG, GI bleed Monitor CBC VARUN on CKD III:Resolved Baseline Cr around Mid 1s Received IV fluids For nephrotoxic agents as able Monitor renal function B/L LE wounds Continue Doxycycline Day#4 Added Augmentin Day #2 Continue Wound Care Needs follow up with wound clinic upon discharge (6) CAD (coronary artery disease): H/O CABG X2 11/2006 along with PFO closure ABAD-LAD, SVG to daig and PDA H/O Intolerance to sam inhibitors Continue Aspirin, lipitor, Metoprolol (7) Paroxysmal atrial fibrillation: Ventricular paced Rate controlled on metoprolol Monitor INR:1.9 Decrease coumadin to 2mg If Hb drops, will plan to discontinue coumadin considering risks Vs benefits (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 Fabian On Metoprolol, coumadin monitor (9) Aortic valve stenosis: Patient had bioprosthetic aortic valve in 11/2006 Echocardiogram 01/2019 revealed EF 65 to 70%, bioprosthetic AVR with moderate to borderline severe aortic valve stenosis, mild to moderate mitral valve stenosis, right ventricular systolic pressure 50-60mmhg Monitor volume status (10) Chronic venous insufficiency: B/L lower extremity venous insufficiency Sacral erythema present on admission consulted wound care nurse (11) T2DM (type 2 diabetes mellitus): Last AIC 9.6, 02/07/19 hold januvia Continue Lantus/novolog per protocol (12) HTN (hypertension): BP Stable Continue current meds Monitor Urinary Retention: Could have underlying BPH Resumed Doxazosin Continue hoyos for now Voiding trial at Rehab facility Consider Urology follow up as outpatient (13) Hyperlipidemia: on statin Chronic respiratory failure with hypoxia Continue supplemental oxygen (14) DVT prophylaxis: DVT Px: On coumadin Disposition: Discharge to Rehab facility Total Time Total Time Spent Total Time Spent (In Minutes): 39 minutes Total Time Includes: Examination of the Patient, Discharge Planning, Medication Reconciliation, Communication With Other Providers and Other Discharge Plan Discharge Items Patient Disposition: Transfer Shelter Fac Reason For Visit: GIB,SYMPTOMATIC ANEMIA Discharge Diagnosis: Symptomatic anemia Acute GI bleeding Bilateral Leg wounds Acute Kidney Injury Urinary Retention Discharge Goals: Decrease discomfort, Improve disease control and Improve function Activity: Resume your previous activity Exercise/Sports: Gradually increase as tolerated Non-emergency contact: Primary Care Provider, Encephalographer and Urologist Call non-emergency contact if: you have any medication questions, your symptoms worsen, your pain is not controlled, your pain is worsening, your pain is unusual for you, your pain is concerning for you, you have a fever, your wound has increased redness, your wound has increased drainage and your wound pain has increased Follow-up/Referrals: Charlie Ball [Primary Care Provider] - Diet: Carb Consistent or DM2 Other Ambulatory Orders: Prothrombin Time INR (Routine) Timeframe: 2 Days Location: Determined by Patient Ordered By: Alan Green [facility] Provider Instructions: Follow-up with your primary care physician at [facility] in 1 week as advised Follow-up with wound clinic in 1-2 week for further management of your leg wounds Follow up with your Urologist in 2 weeks for Urinary Retention Follow-up with Coumadin clinic for dosing of your Coumadin and management of PT/INR as advised Consider 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 Seek immediate medical attention if your symptoms reoccur or worsen Prescriptions: New doxycycline hyclate 100 mg Capsule 100 mg PO BID 3 Days Qty: 6 RF: 0 warfarin [Coumadin] 2 mg Tablet 2 mg PO DAILY@1600 Qty: 0 RF: 0 amoxicillin-pot clavulanate 875-125 mg Tablet 1 tab PO BIDM 7 Days Qty: 14 RF: 0 polyethylene glycol 3350 [Miralax] 17 gram Powder In Packet 17 g PO DAILY PRN (Reason: constipation) 30 Days Qty: 30 RF: 0 pantoprazole 40 mg Tablet,Delayed Release (Dr/Ec) 40 mg PO QAM 30 Days Qty: 30 RF: 1 Continued ascorbic acid (vitamin C) 500 mg capsule 1,000 mg PO BID RF: 0 aspirin [Brandon Chewable Aspirin] 81 mg tablet,chewable 81 mg PO Q OTHER DAY RF: 0 atorvastatin [Lipitor] 40 mg tablet 40 mg PO DAILY RF: 0 ferrous sulfate 325 mg (65 mg iron) tablet 325 mg PO BID RF: 0 finasteride [Proscar] 5 mg tablet 5 mg PO DAILY RF: 0 folic acid 1 mg tablet 1 mg PO DAILY RF: 0 multivitamin tablet 1 tab PO DAILY RF: 0 Januvia 50 mg tablet 50 mg PO DAILY RF: 0 sennosides [Senokot] 8.6 mg Tablet 8.6 mg PO BID PRN (Reason: Constipation) RF: 0 triamcinolone acetonide 0.1 % Cream 1 applic TOPICAL BID PRN (Reason: Skin Irritation) RF: 0 doxazosin [Cardura] 1 mg Tablet 2 mg PO HS 30 Days Qty: 60 RF: 0 metoprolol tartrate 25 mg Tablet 25 mg PO BID 30 Days Qty: 60 RF: 0 Lantus Solostar U-100 Insulin 100 unit/mL (3 mL) Insulin Pen 10 unit SC DAILY 30 Days Qty: 3 RF: 0 acetaminophen 325 mg Tablet 650 mg PO Q6H PRN (Reason: Pain) RF: 0 dronabinol [Marinol] 2.5 mg Capsule 2.5 mg PO BID RF: 0 tramadol 50 mg Tablet 50 mg PO DAILY PRN (Reason: Pain) Qty: 5 RF: 0 Discontinued warfarin [Coumadin] 4 mg tablet 4 mg PO DIRECTED RF: 0 warfarin [Coumadin] 5 mg tablet 5 mg PO DIRECTED RF: 0 acetaminophen 325 mg Tablet 650 mg PO Q6H PRN (Reason: Fever) RF: 0 Stand-Alone Forms: [facility] [place] Discharge Orders: Discharge Order (Routine); Ordered 03/06/19 Ordered By: Alan Green Skilled Items Patient informed of condition?: Yes DNR: No Discharge Level of Care: Skilled Communicable Disease: No Discharge Prognosis: Improving Admission Data Admit Date/Time: 02/28/19 14:06 Attending Provider: Alan Green Admit Provider: Ragini Alexander Primary Care Provider: Charlie Ball Other Providers: Ragini Alexander ; Cata Rowe Service: Medical Other Interventions: Discharge Summary Assessment (RN) Last Done: 03/06/19 15:21 Pending Studies at Discharge: No DC Date/Time DO NOT enter until pt leaves facility: 03/06/19 15:55
[2019-03-06] MEDS ORDERED: WARFARIN SOD 2 MG TAB PO SCH (16:00)
== END 2019-03-06 15:55 | DRG 813 ==
LOC: ED 09:28 → 2S 14:06 → 4W 03-04 13:09

== ENCOUNTER 2019-04-15 15:50 | Inpatient (IN) ==
[2019-04-15] MEDS ORDERED: SODIUM CHLORIDE 0.9% 1000ML 1,000 ML IV ONE (16:18)
[2019-04-15] MEDS ORDERED: CEFEPIME 2,000 MG/20 ML VIAL IV STA (16:24)
[2019-04-15] MEDS ORDERED: VANCOMYCIN HCL 1,750 MG in SODIUM CHLORIDE 0.9% 500 ML IV ONE (16:24)
[2019-04-15] MEDS ORDERED: VANCOMYCIN CONSULT ACTIVE PRN (16:24)
[2019-04-15 16:57] LABS: Basophils # (auto) 0.02 K/uL (0-0.2); Basophils % (auto) 0.3 %; Eosinophils # (auto) 0.06 K/uL (0-0.5); Eosinophils % (auto) 0.8 %; Hematocrit (blood only) 32.9 % (42-52); Hemoglobin 10.2 g/dL (14.0-18.0); Immature Granulocytes # (auto) 0.04 K/uL (0.00-0.02); Immature Granulocytes % (auto) 0.5 %; Lymphocytes # (auto) 0.65 K/uL (1.2-3.4); Lymphocytes % (auto) 8.3 %; Mean Corpuscular Hemoglobin 28.6 pg (25-34); Mean Corpuscular Volume 92.2 fL (80-100); Mean Platelet Volume 9.8 fL (7.4-10.4); Monocytes # (auto) 0.53 K/uL (0.11-0.59); Monocytes % (auto) 6.8 %; Neutrophils # (auto) 6.54 K/uL (1.4-6.5); Neutrophils % (auto) 83.3 %; Platelet Count 243 K/uL (130-400); RDW Coefficient of Variation 16.8 % (11.5-14.5); RDW Standard Deviation 56.7 fL (36.4-46.3); Red Blood Count 3.57 M/uL (4.7-6.1); White Blood Count 7.84 K/uL (4.8-10.8)
[2019-04-15 17:16] LABS: Albumin Level 1.9 gm/dl (3.4-5.0); BUN Creatinine Ratio 39.6 (10-20); Est GFR (African American) 44.3; Est GFR (Non-African American) 38.2; Potassium 3.6 mmol/L (3.5-5.1)
[2019-04-15 17:19] LABS: Albumin Globulin Ratio 0.5 (0.9-2); Bilirubin,Total 0.7 mg/dl (0.2-1); Globulin 3.9 gm/dl (2.5-4.0); Total Protein 5.8 gm/dl (6.4-8.2)
[2019-04-15 17:26] LABS: INR 2.3 (0.9-1.1); Partial Thromboplastin Ratio 1.5; Partial Thromboplastin Time 41.4 Seconds (21.0-31.0); Prothrombin Time 21.8 Seconds (9.0-12.0)
[2019-04-15 17:44] LABS: Appearance Urine Turbid (Clear); Bacteria Urine Automated 2+ (Negative); Bilirubin Urine Negative (Negative); Blood Urine 3+ (Negative); Color Urine Dark Yellow; Glucose Urine UA Negative (Negative); Ketones Urine Negative (Negative); Leukocyte Esterase Urine 3+ (Negative); Nitrite Urine Negative (Negative); Specific Gravity Urine 1.009 (1.000-1.030); Urobilinogen Urine Negative (Negative); WBC Urine Automated >30 /hpf (0-5); pH Urine >= 9.0 (4.5-7.5)
[2019-04-15 17:52] LABS: Protein Urine 3+ (Negative)
[2019-04-15 17:53] LABS: Sulfosalicylic Acid Urine Positive (Negative)
[2019-04-15 17:56] LABS: Triple Phosphate Crystal Urine Present (None Prsent)
[2019-04-15 17:57] LABS: Mucus Urine Present (None Prsent)
--- NOTE | 2019-04-15 18:20 | XRay Report ---
SINGLE VIEW CHEST CLINICAL HISTORY: Sepsis. FINDINGS: An AP, portable, upright chest radiograph is compared to study dated 02/28/2019. The examina tion is degraded by portable technique and patient rotation. The patient is status post midline krishnamurthy otomy. A 2-lead cardiac pacemaker is unchanged in position and partially obscures the left upper ches t. The heart is enlarged and there is atherosclerotic calcification of the thoracic aorta. There is p ulmonary vascular congestion with interstitial edema. There are layering pleural effusions with bibas ilar consolidation. No pneumothorax is seen. The skeletal structures are osteopenic. The bony thorax is grossly intact. Advanced degenerative change is seen in the shoulders. Superior subluxation of the humeral heads suggest chronic bilateral rotator cuff injuries. IMPRESSION: 1. Cardiomegaly and cardiac pacemaker. There is evidence of congestive failure with interstitial sandi a. 2. Layering pleural effusions with bibasilar consolidation. Electronically signed by: Ahsan Lutz M.D. 04/15/2019 6:18 PM
--- NOTE | 2019-04-15 18:25 | Emergency Department Note ---
Entered by Evelyn Pack acting as a scribe for Rahul Ceja MD History of Present Illness General Chief complaint: Dehydration Time Seen by Provider: 04/15/19 16:06 Source: other (nursing staff) History of Present Illness Provider complaint: dehydrated Onset (ago): hour(s) ([facility]) Severity: similar to prior episodes Relieved By: + none Exacerbated By: + none Associated symptoms: + confusion The patient is a 88 male w/ PMHx of recent TBS s/p PPM 02/14, PAF on Coumadin, CAD with history of CABG x2 in 11/2006, history of PFO closure 11/2006, history of bioprosthetic AVR in 11/2006, moderate stenosis of bioprosthetic AVR, bilateral venous insufficiency, T2DM, HTN, HLD, CKD stage III, anemia of chronic disease, history of TIA, BPH who presents to the ED w/ CC of dehydration beginning prior to arrival. Per the nursing staff, the patient was brought in by [facility] where they found the patient unresponsive and dehydrated. They reports that the patient was given saline prior to arrival. Home Medications Home Medications Medication Instructions Recorded Confirmed Type ascorbic acid (vitamin C) 500 mg 1,000 mg PO BID cap 03/17/18 04/15/19 History capsule aspirin 81 mg chewable tablet 81 mg PO Q OTHER DAY tab 03/17/18 04/15/19 History atorvastatin 40 mg tablet 40 mg PO HS 03/17/18 04/15/19 History ferrous sulfate 325 mg (65 mg 325 mg PO BID tab 03/17/18 04/15/19 History iron) tablet finasteride 5 mg tablet 5 mg PO QAM tab 03/17/18 04/15/19 History folic acid 1 mg tablet 1 mg PO DAILY 03/17/18 04/15/19 History multivitamin tablet 1 tab PO QAM 03/17/18 04/15/19 History acetaminophen 650 mg PO Q6H PRN 02/28/19 04/15/19 History pantoprazole 40 mg PO QAM 30 Days #30 tab 03/06/19 04/15/19 Rx B complex-minerals [Stress B Plus 1 tab PO QAM 04/15/19 04/15/19 History Zinc] bisacodyl [Dulcolax (bisacodyl)] 10 mg TN DAILY PRN 04/15/19 04/15/19 History doxazosin [Cardura] 2 mg PO HS 04/15/19 04/15/19 History gabapentin 100 mg PO HS 04/15/19 04/15/19 History linagliptin [Tradjenta] 5 mg PO QAM 04/15/19 04/15/19 History magnesium hydroxide 15 ml PO DAILY PRN 04/15/19 04/15/19 History metoprolol tartrate 25 mg PO BID 04/15/19 04/15/19 History oxycodone 10 mg PO Q12H PRN 04/15/19 04/15/19 History tamsulosin 0.4 mg PO QPM 04/15/19 04/15/19 History tramadol 100 mg PO DAILY PRN 04/15/19 04/15/19 History warfarin 0.5 mg PO HS 04/15/19 04/15/19 History Allergies Allergy/AdvReac Type Severity Reaction Status Date / Time lisinopril Allergy Unknown Unknown Verified 04/15/19 17:38 sulfamethoxazole Allergy Unknown Unverified 04/15/19 17:38 [From Bactrim] trimethoprim [From Bactrim] Allergy Unknown Unverified 04/15/19 17:38 Past Med/Surg History Medical History History of TIA (transient ischemic attack) (Chronic) BPH (benign prostatic hyperplasia) (Chronic) 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) Aortic valve stenosis (Chronic) s/p bioprosthetic avr 11/21/06 along with CABG x 2 and PFO closure T2DM (type 2 diabetes mellitus) (Chronic) CAD (coronary artery disease) (Chronic) Tachy-rodrigue syndrome Paroxysmal atrial fibrillation Junctional bradycardia Mobitz type 1 second degree AV block Weakness (Chronic) 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) Chronic venous insufficiency (Chronic) HTN (hypertension) (Chronic) Hyperlipidemia (Chronic) GERD (gastroesophageal reflux disease) (Chronic) GERD (gastroesophageal reflux disease) (Chronic) HTN (hypertension) (Chronic) Hyperlipidemia (Chronic) Surgical History History of total right hip arthroplasty Status post patent foramen ovale closure 11/21/06 S/P AVR s/p bioprosthetic avr 11/21/06 along with CABG x 2 and PFO closure History of open heart surgery (Chronic) History of open heart surgery (Chronic) Family History Father Cancer kidney Mother Stroke Sister Stroke Social History Preferred Language: Upper Sorbian Communication Ability: Effective Mma Fighter Required: No Beliefs That Will Affect Care: None Current Living Situation: Personal Care Facility Current Living Situation Comment: Has been at [facility] x 2-3 weeks s/p hospitalization Feels Safe at Home: Yes Smoking Status: Never smoker Second Hand Exposure: No ; Hx Alcohol Use: No Hx Substance Use: No Review of Systems See HPI for pertinent positives & negatives. and A total of 10 systems reviewed and were otherwise negative Physical Exam Vital Signs Vital Signs - 24 hr 04/15/19 15:51 04/15/19 15:54 04/15/19 15:55 Temperature 36.5 C Temperature Source Axillary Sepsis Recent Fever Within 48 Hours No Sepsis Action Taken by Nursing No Action Required Pulse Rate 71 71 72 Pulse Rate [Apical] Pulse Rate from SpO2 Sensor 70 70 Respiratory Rate 14 11 L 12 Blood Pressure 112/53 L 112/53 L Blood Pressure [Left Arm] Blood Pressure Mean 72 72 Blood Pressure Mean [Left Arm] Pulse Oximetry 93 91 93 Oxygen Delivery Method Room Air Oxygen Flow Rate 04/15/19 16:00 04/15/19 16:15 04/15/19 16:30 Temperature Temperature Source Sepsis Recent Fever Within 48 Hours Sepsis Action Taken by Nursing Pulse Rate 71 69 69 Pulse Rate [Apical] Pulse Rate from SpO2 Sensor 68 66 67 Respiratory Rate 12 14 12 Blood Pressure Blood Pressure [Left Arm] Blood Pressure Mean Blood Pressure Mean [Left Arm] Pulse Oximetry 91 90 90 Oxygen Delivery Method Oxygen Flow Rate 04/15/19 16:45 04/15/19 16:48 04/15/19 17:00 Temperature Temperature Source Sepsis Recent Fever Within 48 Hours Sepsis Action Taken by Nursing Pulse Rate 72 62 Pulse Rate [Apical] Pulse Rate from SpO2 Sensor 75 64 Respiratory Rate 17 9 L Blood Pressure Blood Pressure [Left Arm] Blood Pressure Mean Blood Pressure Mean [Left Arm] Pulse Oximetry 85 L 96 98 Oxygen Delivery Method Room Air Oxygen Flow Rate 04/15/19 17:15 04/15/19 17:30 04/15/19 17:45 Temperature Temperature Source Sepsis Recent Fever Within 48 Hours Sepsis Action Taken by Nursing Pulse Rate 64 69 63 Pulse Rate [Apical] Pulse Rate from SpO2 Sensor 63 71 63 Respiratory Rate 13 14 17 Blood Pressure Blood Pressure [Left Arm] Blood Pressure Mean Blood Pressure Mean [Left Arm] Pulse Oximetry 98 97 98 Oxygen Delivery Method Oxygen Flow Rate 04/15/19 18:45 04/15/19 18:58 Temperature Temperature Source Sepsis Recent Fever Within 48 Hours Sepsis Action Taken by Nursing Pulse Rate 66 Pulse Rate [Apical] 66 Pulse Rate from SpO2 Sensor 66 Respiratory Rate 16 Blood Pressure 110/45 L Blood Pressure [Left Arm] 110/45 L Blood Pressure Mean 66 Blood Pressure Mean [Left Arm] 66 Pulse Oximetry 100 99 Oxygen Delivery Method Nasal Cannula Nasal Cannula Oxygen Flow Rate 2 3 GENERAL: Well nourished, NAD, non-toxic. EYE EXAM: Normal conjunctiva. PERRL, no anisocoria and EOM's grossly intact w/o pain. OROPHARYNX: Dry mucous membranes. Edentulous. NECK: Supple, no nuchal rigidity, no adenopathy, non-tender. No signs of meningismus. LUNGS: Clear to auscultation. Normal chest wall mechanics. HEART: NSR, no MRG. CHEST: Device in left chest. ABDOMEN: Abdomen soft, non-tender, normo-active bowel sounds, no masses, no rebound or guarding. : Suazo catheter draining yellow urine. BACK: No CVA TTP. SKIN: Bilateral calve wounds. No rashes and no bruising. UPPER EXTREMITIES: Upper extremities are grossly normal. LOWER EXTREMITIES: Foul smelling ulceration to posterior aspect of bilateral calves, moves lower extremity at ankles and toes, chronic changes within venous insufficiency noted in bilateral extremities. No pitting edema. No calf pain. NEURO EXAM: A&O x3, cranial nerves II-XII grossly intact, normal speech, moves all 4 extremities on command w/o issue. Course 1615: The patient was evaluated in room B4B, and a complete history and physical examination were performed. 0: I reviewed the patient's case with Dr. Viktoriya Fletcher Hospitalist. He will evaluate the patient for further management. Administered Medications Discontinued Medications Sodium Chloride (Nss 1000ml) 1,000 mls @ 999 mls/hr IV .[id number] ONE Stop: 04/15/19 17:18 Last Infusion: 04/15/19 17:23 Dose: 0 mls/hr Documented by: [id number] Admin: 04/15/19 16:23 Dose: 999 mls/hr Documented by: [id number] Cefepime HCl (Maxipime) 2,000 mg in 20 mls @ 5 mls/min IV NOW STA; Protocol Stop: 04/15/19 16:27 Last Admin: 04/15/19 17:11 Dose: 5 mls/min Documented by: [id number] Vancomycin HCl 1,750 mg/ (Sodium Chloride) 535 mls @ 200 mls/hr IV NOW ONE Stop: 04/15/19 19:04 Last Admin: 04/15/19 17:11 Dose: 200 mls/hr Documented by: [id number] Medical Decision Making Medical Records Attestation: I reviewed the patient's medical records. Home Medications Current Medication List: was personally reviewed by me Laboratory Data Attestation: I reviewed the patient's lab results. Result diagrams: 04/15/19 16:39 04/15/19 16:39 Lab Results 04/15/19 04/15/19 04/15/19 Range/Units 16:39 16:39 16:39 WBC 7.84 (4.8-10.8) K/uL RBC 3.57 L (4.7-6.1) M/uL Hgb 10.2 L (14.0-18.0) g/dL Hct 32.9 L (42-52) % MCV 92.2 (80-100) fL MCH 28.6 (25-34) pg MCHC 31.0 L (32-36) g/dL RDW Std Deviation 56.7 H (36.4-46.3) fL RDW Coeff of [place] 16.8 H (11.5-14.5) % Plt Count 243 (130-400) K/uL MPV 9.8 (7.4-10.4) fL Immature Gran % (Auto) 0.5 % Neut % (Auto) 83.3 % Lymph % (Auto) 8.3 % Osborne % (Auto) 6.8 % Eos % (Auto) 0.8 % Baso % (Auto) 0.3 % Immature Gran # (Auto) 0.04 H (0.00-0.02) K/uL Neut # (Auto) 6.54 H (1.4-6.5) K/uL Lymph # (Auto) 0.65 L (1.2-3.4) K/uL Osborne # (Auto) 0.53 (0.11-0.59) K/uL Eos # (Auto) 0.06 (0-0.5) K/uL Baso # (Auto) 0.02 (0-0.2) K/uL PT 21.8 H (9.0-12.0) Seconds INR 2.3 H (0.9-1.1) APTT 41.4 H (21.0-31.0) Seconds PTT Ratio 1.5 Sodium (136-145) mmol/L Potassium (3.5-5.1) mmol/L Chloride (98-107) mmol/L Carbon Dioxide (21-32) mmol/L Anion Gap (3-11) BUN (7-18) mg/dl Creatinine (0.6-1.4) mg/dl Est Cr Clr Drug Dosing ml/min Est GFR ( Amer) Est GFR (Non-Af Amer) BUN/Creatinine Ratio (10-20) Glucose (70-99) mg/dl Lactate (0.4-2.0) mmol/L Calcium (8.5-10.1) mg/dl Total Bilirubin (0.2-1) mg/dl AST (15-37) U/L ALT (12-78) U/L Alkaline Phosphatase (45-117) U/L Total Protein (6.4-8.2) gm/dl Albumin (3.4-5.0) gm/dl Globulin (2.5-4.0) gm/dl Albumin/Globulin Ratio (0.9-2) Procalcitonin 0.77 H (0-0.5) ng/ml Urine Color Urine Appearance (Clear) Urine pH (4.5-7.5) Ur Specific Wainwright (1.000-1.030) Urine Protein (Negative) Urine Glucose (UA) (Negative) Urine Ketones (Negative) Urine Blood (Negative) Urine Nitrite (Negative) Urine Bilirubin (Negative) Urine Urobilinogen (Negative) Ur Leukocyte Esterase (Negative) Urine WBC (Auto) (0-5) /hpf Urine RBC (Auto) (0-4) /hpf U Hyaline Cast (Auto) (0-5) /lpf U Epithel Cells (Auto) (0-5) /lpf Urine Bacteria (Auto) (Negative) Triple Phos Crystals (None Prsent) Urine Mucus (None Prsent) Urine Yeast 04/15/19 04/15/19 04/15/19 Range/Units 16:39 16:57 17:15 WBC (4.8-10.8) K/uL RBC (4.7-6.1) M/uL Hgb (14.0-18.0) g/dL Hct (42-52) % MCV (80-100) fL MCH (25-34) pg MCHC (32-36) g/dL RDW Std Deviation (36.4-46.3) fL RDW Coeff of Carolina (11.5-14.5) % Plt Count (130-400) K/uL MPV (7.4-10.4) fL Immature Gran % (Auto) % Neut % (Auto) % Lymph % (Auto) % Osborne % (Auto) % Eos % (Auto) % Baso % (Auto) % Immature Gran # (Auto) (0.00-0.02) K/uL Neut # (Auto) (1.4-6.5) K/uL Lymph # (Auto) (1.2-3.4) K/uL Osborne # (Auto) (0.11-0.59) K/uL Eos # (Auto) (0-0.5) K/uL Baso # (Auto) (0-0.2) K/uL PT (9.0-12.0) Seconds INR (0.9-1.1) APTT (21.0-31.0) Seconds PTT Ratio Sodium 152 H (136-145) mmol/L Potassium 3.6 (3.5-5.1) mmol/L Chloride 117 H (98-107) mmol/L Carbon Dioxide 27 (21-32) mmol/L Anion Gap 8.0 (3-11) BUN 63 H (7-18) mg/dl Creatinine 1.59 H (0.6-1.4) mg/dl Est Cr Clr Drug Dosing 29.0 ml/min Est GFR ( Amer) 44.3 Est GFR (Non-Af Amer) 38.2 BUN/Creatinine Ratio 39.6 H (10-20) Glucose 180 H (70-99) mg/dl Lactate 1.2 (0.4-2.0) mmol/L Calcium 8.0 L (8.5-10.1) mg/dl Total Bilirubin 0.7 (0.2-1) mg/dl AST 56 H (15-37) U/L ALT 39 (12-78) U/L Alkaline Phosphatase 171 H (45-117) U/L Total Protein 5.8 L (6.4-8.2) gm/dl Albumin 1.9 L (3.4-5.0) gm/dl Globulin 3.9 (2.5-4.0) gm/dl Albumin/Globulin Ratio 0.5 L (0.9-2) Procalcitonin (0-0.5) ng/ml Urine Color Dark Yellow Urine Appearance Turbid A (Clear) Urine pH >= 9.0 H (4.5-7.5) Ur Specific Wainwright 1.009 (1.000-1.030) Urine Protein 3+ H (Negative) Urine Glucose (UA) Negative (Negative) Urine Ketones Negative (Negative) Urine Blood 3+ H (Negative) Urine Nitrite Negative (Negative) Urine Bilirubin Negative (Negative) Urine Urobilinogen Negative (Negative) Ur Leukocyte Esterase 3+ H (Negative) Urine WBC (Auto) >30 H (0-5) /hpf Urine RBC (Auto) 5-10 H (0-4) /hpf U Hyaline Cast (Auto) 1-5 (0-5) /lpf U Epithel Cells (Auto) 5-10 H (0-5) /lpf Urine Bacteria (Auto) 2+ H (Negative) Triple Phos Crystals Present A (None Prsent) Urine Mucus Present A (None Prsent) Urine Yeast Not Reportable Imaging Data Radiologist's Impression: Radiology results as stated below per my review and the radiologist's interpretation: SINGLE VIEW CHEST CLINICAL HISTORY: Sepsis. FINDINGS: An AP, portable, upright chest radiograph is compared to study dated 02/28/2019. The examination is degraded by portable technique and patient rotation. The patient is status post midline sternotomy. A 2-lead cardiac pac emaker is unchanged in position and partially obscures the left upper chest. The heart is enlarged and there is atherosclerotic calcification of the thoracic aorta. There is pulmonary vascular congestion with interstitial edema. There are layering pleural effusions with bibasilar consolidation. No pneumothorax is seen. The skeletal structures are osteopenic. The bony thorax is grossly intact. Advanced degenerative change is seen in the shoulders. Superior subluxation of the humeral heads suggest chronic bilateral rotator cuff injuries. IMPRESSION: 1. Cardiomegaly and cardiac pacemaker. There is evidence of congestive failure with interstitial edema. 2. Layering pleural effusions with bibasilar consolidation. Electronically signed by: Ahsan Lutz M.D. 04/15/2019 6:18 PM Blood Pressure Blood Pressure Findings: Low blood pressure Blood Pressure Disposition: Referred to patients primary care provider MDM Narrative Differential Diagnoses include: Etiologies such as metabolic, infection, hypo/hyperglycemia, electrolyte abnormalities, cardiac sources, intracerebral event, toxicologic, neurologic, as well as others were entertained. The patient is a 88 male w/ PMHx of recent TBS s/p PPM 02/14, PAF on Coumadin, CAD with history of CABG x2 in 11/2006, history of PFO closure 11/2006, history of bioprosthetic AVR in 11/2006, moderate stenosis of bioprosthetic AVR, bilateral venous insufficiency, T2DM, HTN, HLD, CKD stage III, anemia of chronic disease, history of TIA, BPH who presents to the ED w/ CC of dehydration beginning prior to arrival. Patient was seen and evaluated the bedside. The patient was referred from her side due to unresponsiveness. The patient does have a foul-smelling odor coming from bilateral lower extremity's. The patient does have a known history of PVD does have ulcerations to bilateral calves. This is likely secondary to prolonged pressure over this areas. The patient appears very dry. The patient did a blood work completed. The patient is hypernatremic with a low calcium. The patient was given IV fluids. We will not give too much as the patient does have a history of aortic stenosis from his aortic valve repair. Patient is on Coumadin. INR is therapeutic. I did speak the on-call hospitalist after broad spectrum antibiotics due to concern for the wounds. Patient was admitted to the medicine service. Patient was not given excessive IV fluids given the concern for aortic stenosis and developing pulmonary edema. Impression & Plan Dehydration, UTI (urinary tract infection), PVD (peripheral vascular disease), Ulcers of both lower extremities, Hypernatremia Discharge Plan Visit Data Chief Complaint: Dehydration ED Provider: Rahul Ceja Discharge Problem: Dehydration, UTI (urinary tract infection), PVD (peripheral vascular disease), Ulcers of both lower extremities, Hypernatremia Patient Disposition: Being Evaluated by Hospitalist Forms Stand Alone Forms: [facility] Prescriptions Prescriptions: No Action ascorbic acid (vitamin C) 500 mg capsule 1,000 mg PO BID RF: 0 aspirin [Brandon Chewable Aspirin] 81 mg tablet,chewable 81 mg PO Q OTHER DAY RF: 0 atorvastatin [Lipitor] 40 mg tablet 40 mg PO HS RF: 0 ferrous sulfate 325 mg (65 mg iron) tablet 325 mg PO BID RF: 0 finasteride [Proscar] 5 mg tablet 5 mg PO QAM RF: 0 folic acid 1 mg tablet 1 mg PO DAILY RF: 0 multivitamin tablet 1 tab PO QAM RF: 0 acetaminophen 325 mg Tablet 650 mg PO Q6H PRN (Reason: Pain) RF: 0 pantoprazole 40 mg Tablet,Delayed Release (Dr/Ec) 40 mg PO QAM 30 Days Qty: 30 RF: 1 doxazosin [Cardura] 1 mg tablet 2 mg PO HS RF: 0 magnesium hydroxide 400 mg/5 mL Suspension 15 ml PO DAILY PRN (Reason: Constipation) RF: 0 tamsulosin 0.4 mg Capsule 0.4 mg PO QPM RF: 0 bisacodyl [Dulcolax (bisacodyl)] 10 mg Suppository 10 mg TN DAILY PRN (Reason: Constipation) RF: 0 Stress B Plus Zinc Tablet 1 tab PO QAM RF: 0 gabapentin 100 mg Capsule 100 mg PO HS RF: 0 warfarin 1 mg Tablet 0.5 mg PO HS RF: 0 metoprolol tartrate 25 mg Tablet 25 mg PO BID RF: 0 oxycodone 10 mg Tablet 10 mg PO Q12H PRN (Reason: Pain) RF: 0 Tradjenta 5 mg Tablet 5 mg PO QAM RF: 0 tramadol 50 mg tablet 100 mg PO DAILY PRN (Reason: Pain) RF: 0 Referrals Referrals: Charlie Ball [Primary Care Provider] - Discharge Problem: UTI (urinary tract infection) Qualifiers: Urinary tract infection type: site unspecified Hematuria presence: without hematuria Qualified Code(s): N39.0 - Urinary tract infection, site not specified Ulcers of both lower extremities Qualifiers: Non-pressure ulcer stage: unspecified non-pressure ulcer stage Qualified Code(s): L97.919 - Non-pressure chronic ulcer of unspecified part of right lower leg with unspecified severity The scribe's documentation has been prepared under my direction and personally reviewed by me in its entirety. I confirm that the note above accurately reflects all work, treatment, procedures, and medical decision making performed by me.
--- NOTE | 2019-04-15 19:52 | History & Physical Report ---
Date of Service April 15, 2019 Assessment & Plan (1) Hypernatremia: Presented with severe weakness and questionable unresponsiveness at the [facility] Sodium level is noted to be 152 Has little more than 3 L of fluid deficit Received 1 L of normal saline bolus and will continue with half-normal saline at rate of 75 cc/h for 2 liters Recheck sodium at around 11:30 PM-correction should be more than 1 mEq/l/hr Monitor PRP Advised more fluid intake orally Questionable unresponsiveness at [facility] Patient is alert and awake and back to his baseline in the emergency room Denies any significant symptoms Present on Admission?: Yes (2) Dehydration: Noted to have not been eating or drinking enough at the [facility] Advised more fluid oral IV fluid should be restricted because of cardiac issues Present on Admission?: Yes (3) Ulcers of both lower extremities: Has chronic bilateral leg ulcer secondary to peripheral vascular disease and complete complicated by diabetes Has ulceration/abrasion with possible cellulitis in bilateral calves Started with intravenous vancomycin and cefepime We will get wound care consult and ID input for recommendation about antibiotics Present on Admission?: Yes (4) PVD (peripheral vascular disease): Peripheral pulses were not palpable Chronic ischemic changes with mottled skin appearance in bilateral lower extremities (5) Acute kidney injury superimposed on chronic kidney disease: Acute on chronic kidney disease Increasing BUN and creatinine Cautious amount of IV fluid Monitor PRP Increase oral intake (6) S/P AVR: Has bioprosthetic aortic valve History of CAD status post CABG History of PAF No acute cardiac symptoms now Has been on Coumadin Continue Coumadin (7) Tachy-rodrigue syndrome: Status post pacemaker EKG shows paced rhythm with a rate of 71/min (8) Venous stasis ulcers of both lower extremities: Management as above Wound care consult Does have sacral decubitus stage I (9) T2DM (type 2 diabetes mellitus): Continue diabetic management and diabetic diet DVT prophylaxis Has been on Coumadin CODE STATUS Full code-discussed with the patient Patient is bedbound and requires assistance with ADL S No family members are available to discuss the case Try to contract [facility] but no response after repeated attempt History of Present Illness Chief Complaint: Was sent in from [facility] with possible unresponsiveness Primary Care Provider: Charlie Norrisrachel He is an 88-year-old male with significant complicated past medical history including tachybradycardia syndrome status post pacemaker in 02/14, PAF on Coumadin, CAD with history of CABG x2 in 2006, history of PFO closure in 2006, moderate stenosis of bioprosthetic aVR, bilateral venous insufficiency, type 2 diabetes, hypertension other medical conditions as mentioned below was sent in from [facility] with possible unresponsiveness. In the emergency room he appeared to be alert and awake and denies any significant symptoms and he cannot tell why he was sent in from [facility]. Did not get any response from [facility] on repeated attempt.He denies any chest pain, shortness of breath, palpitation, any abdominal pain, nausea and/or vomiting, any fever and/or chills, any increasing pain at the back or legs or any problem with his bowel habit and he has a chronic Suazo catheter. He complained to be weak with dry mouth. He was noted to have hyponatremia with sodium of 152 and showed bilateral ablation involving the caps with minimal bleeding on his chronic bilateral mottled legs. He received 1 L of IV fluid with normal saline bolus and was started with intravenous vancomycin and cefepime after discussion with the pharmacist by the ER physician. He was admitted to medical telemetry unit for continuation of care. Allergies Allergy/AdvReac Type Severity Reaction Status Date / Time lisinopril Allergy Unknown Unknown Verified 04/15/19 17:38 sulfamethoxazole Allergy Unknown Unverified 04/15/19 17:38 [From Bactrim] trimethoprim [From Bactrim] Allergy Unknown Unverified 04/15/19 17:38 Home Medications Home Medications Medication Instructions Recorded Confirmed Type ascorbic acid (vitamin C) 500 mg 1,000 mg PO BID cap 03/17/18 04/15/19 History capsule aspirin 81 mg chewable tablet 81 mg PO Q OTHER DAY tab 03/17/18 04/15/19 History atorvastatin 40 mg tablet 40 mg PO HS 03/17/18 04/15/19 History ferrous sulfate 325 mg (65 mg 325 mg PO BID tab 03/17/18 04/15/19 History iron) tablet finasteride 5 mg tablet 5 mg PO QAM tab 03/17/18 04/15/19 History folic acid 1 mg tablet 1 mg PO DAILY 03/17/18 04/15/19 History multivitamin tablet 1 tab PO QAM 03/17/18 04/15/19 History acetaminophen 650 mg PO Q6H PRN 02/28/19 04/15/19 History pantoprazole 40 mg PO QAM 30 Days #30 tab 03/06/19 04/15/19 Rx B complex-minerals [Stress B Plus 1 tab PO QAM 04/15/19 04/15/19 History Zinc] bisacodyl [Dulcolax (bisacodyl)] 10 mg NM DAILY PRN 04/15/19 04/15/19 History doxazosin [Cardura] 2 mg PO HS 04/15/19 04/15/19 History gabapentin 100 mg PO HS 04/15/19 04/15/19 History linagliptin [Tradjenta] 5 mg PO QAM 04/15/19 04/15/19 History magnesium hydroxide 15 ml PO DAILY PRN 04/15/19 04/15/19 History metoprolol tartrate 25 mg PO BID 04/15/19 04/15/19 History oxycodone 10 mg PO Q12H PRN 04/15/19 04/15/19 History tamsulosin 0.4 mg PO QPM 04/15/19 04/15/19 History tramadol 100 mg PO DAILY PRN 04/15/19 04/15/19 History warfarin 0.5 mg PO HS 04/15/19 04/15/19 History Past Med/Surg History Medical History History of TIA (transient ischemic attack) (Chronic) BPH (benign prostatic hyperplasia) (Chronic) 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) Aortic valve stenosis (Chronic) s/p bioprosthetic avr 11/21/06 along with CABG x 2 and PFO closure T2DM (type 2 diabetes mellitus) (Chronic) CAD (coronary artery disease) (Chronic) Tachy-rodrigue syndrome Paroxysmal atrial fibrillation Junctional bradycardia Mobitz type 1 second degree AV block Weakness (Chronic) 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) Chronic venous insufficiency (Chronic) HTN (hypertension) (Chronic) Hyperlipidemia (Chronic) GERD (gastroesophageal reflux disease) (Chronic) GERD (gastroesophageal reflux disease) (Chronic) HTN (hypertension) (Chronic) Hyperlipidemia (Chronic) Surgical History History of total right hip arthroplasty Status post patent foramen ovale closure 11/21/06 S/P AVR s/p bioprosthetic avr 11/21/06 along with CABG x 2 and PFO closure History of open heart surgery (Chronic) History of open heart surgery (Chronic) Family History Father Cancer kidney Mother Stroke Sister Stroke Social History Preferred Language: Kinyarwanda Communication Ability: Effective Interrelated Special Education Teacher Required: No Beliefs That Will Affect Care: None Current Living Situation: Personal Care Facility Current Living Situation Comment: Has been at [facility] x 2-3 weeks s/p hospitalization Feels Safe at Home: Yes Smoking Status: Never smoker Second Hand Exposure: No ; Hx Alcohol Use: No Hx Substance Use: No Review of Systems Review of Systems: All systems reviewed & are unremarkable except as noted in HPI & below Constitutional: + fatigue, + malaise and + weakness; no fever and no chills Respiratory: no cough and no dyspnea Cardiovascular: no chest pain, no dyspnea and no edema Gastrointestinal: no abdominal pain Musculoskeletal: + back pain (Chronic) Pain in the legs Integumentary: + skin ulcer (Bilateral calves with minimal bleeding and surrounding redness), + dry skin, + change in skin color (Mottled appearance bilaterally in the lower extremities) and + nail changes Neurologic: + generalized weakness and + confusion (Pleasantly confused) Bedbound Physical Exam Physical Exam: Lying in bed without any acute symptoms Constitutional: + ill appearing and + thin; no acute distress Eyes: PERRL, conjunctivae normal, anicteric sclerae ENMT: external ear and nose normal, oropharynx normal Neck: trachea midline, no thyromegaly Respiratory: normal respiratory effort; no respiratory distress Auscultation: + diminished lung sounds and + crackles (Minimal crackles at the bases) Cardiovascular: Rate/Rhythm: regular rate and regular rhythm Heart Sounds: + murmur (2/6 over precordium and prosthetic valve sounds) Gastrointestinal (Abdomen): Inspection/Auscultation: abdomen normal to inspection Percussion/Palpation: abdomen soft; abdomen nontender Musculoskeletal: No acute arthritis in any of the joint Skin: + ulcer Trauma: + laceration Bilateral chronic skin changes involving the lower extremities secondary to peripheral vascular disease. Neurologic: Motor/Sensory: no tremor Lymphatic: no cervical or axillary lymphadenopathy Results & Data Vital Signs (Past 12 Hours) Vital Signs Temp Pulse Pulse Resp BP BP Pulse Ox 04/15/19 18:58 99 04/15/19 18:45 66 66 16 110/45 L 110/45 L 100 04/15/19 17:45 63 17 98 04/15/19 17:30 69 14 97 04/15/19 17:15 64 13 98 04/15/19 17:00 62 9 L 98 04/15/19 16:48 96 04/15/19 16:45 72 17 85 L 04/15/19 16:30 69 12 90 04/15/19 16:15 69 14 90 04/15/19 16:00 71 12 91 04/15/19 15:55 36.5 C 72 12 112/53 L 93 04/15/19 15:54 71 11 L 91 04/15/19 15:51 71 14 112/53 L 93 Laboratory Results Short CBC 04/15/19 Range/Units 16:39 WBC 7.84 (4.8-10.8) K/uL Hgb 10.2 L (14.0-18.0) g/dL Hct 32.9 L (42-52) % Plt Count 243 (130-400) K/uL BMP 04/15/19 16:39 Sodium 152 H Potassium 3.6 Chloride 117 H Carbon Dioxide 27 BUN 63 H Creatinine 1.59 H Glucose 180 H Calcium 8.0 L Liver Function 04/15/19 Range/Units 16:39 Total Bilirubin 0.7 (0.2-1) mg/dl AST 56 H (15-37) U/L ALT 39 (12-78) U/L Alkaline Phosphatase 171 H (45-117) U/L Albumin 1.9 L (3.4-5.0) gm/dl Urine 04/15/19 Range/Units 17:15 Urine Color Dark Yellow Urine Appearance Turbid A (Clear) Urine pH >= 9.0 H (4.5-7.5) Ur Specific Frannie 1.009 (1.000-1.030) Urine Protein 3+ H (Negative) Urine Glucose (UA) Negative (Negative) Medications Administered Current Inpatient Medications Cefepime HCl 1,000 mg/ Syringe 11.3 mls @ 5.5 mls/min IV NOW LOCO; Protocol Stop: 04/25/19 19:14 Potassium Chloride/Sodium Chloride (1/2 Nss + 20meq Kcl 1000ml) 20 meq in 1,000 mls @ 75 mls/hr IV .[id number] LOCO Stop: 04/16/19 22:09 Miscellaneous Information (Consult) 1 ea N/A UD PRN PRN Reason: Consult Stop: 05/15/19 16:23 Code Status & VTE Plan VTE Prophylaxis Plan VTE Prophylaxis will be ordered: Yes (1) Ulcers of both lower extremities Non-pressure ulcer stage: unspecified non-pressure ulcer stage Qualified Code(s): L97.919 - Non-pressure chronic ulcer of unspecified part of right lower leg with unspecified severity; L97.929 - Non-pressure chronic ulcer of unspecified part of left lower leg with unspecified severity
[2019-04-15] MEDS ORDERED: MAGNESIUM HYDROXIDE SUSP 30 ML UDC PO PRN (20:14)
[2019-04-15] MEDS ORDERED: TRAMADOL HCL 50 MG TABLET PO PRN (20:14)
[2019-04-15] MEDS ORDERED: ACETAMINOPHEN 325 MG TAB PO PRN (20:14)
[2019-04-15] MEDS ORDERED: bisacodyL 10 MG SUPP PR PRN (20:14)
[2019-04-15] MEDS ORDERED: GLUCAGON FOR INJ 1 MG VIAL IM PRN (20:30)
[2019-04-15] MEDS ORDERED: GLUCOSE 40% GEL 15 GM TUBE PO PRN (20:30)
[2019-04-15] MEDS ORDERED: DEXTROSE 50% 50 ML SYRINGE IV PRN (20:30)
[2019-04-15] MEDS ORDERED: GLUCOSE 10 TABS/TUBE PO PRN (20:30)
[2019-04-15] MEDS ORDERED: SODIUM CHLOR 0.45% + 20MEQ KCL 20 MEQ/1,000 ML BAG IV SCH (20:30)
[2019-04-15] MEDS ORDERED: CARBOHYDRATES FOR HYPOGLYCEMIA PO PRN (20:30)
[2019-04-15] MEDS ORDERED: GABAPENTIN 100 MG CAP PO SCH (21:00)
[2019-04-15] MEDS: TAMSULOSIN HCL 0.4 MG CAP PO SCH (21:31)
[2019-04-15] MEDS: DOXAZOSIN MESYLATE 1 MG TAB PO SCH (21:31)
[2019-04-15] MEDS: WARFARIN SOD 0.5 MG TAB PO SCH (21:32)
[2019-04-15] MEDS: METOPROLOL TARTRATE 25 MG TAB PO SCH (21:32)
[2019-04-15] MEDS: ATORVASTATIN 40 MG TAB PO SCH (21:32)
[2019-04-15] MEDS: FERROUS SULFATE 325 MG TAB PO SCH (21:33)
[2019-04-15] MEDS: INSULIN ASPART 100 UNITS/ML 3 ML PEN SC SCH (21:33)
[2019-04-15] MEDS: ASCORBIC ACID 500 MG TAB PO SCH (21:33)
[2019-04-15] MEDS ORDERED: INFLUENZA ADMINISTRATION CHARGE ONE (21:45)
[2019-04-15] MEDS ORDERED: INFLUENZA VIRUS QUAD VACCINE 0.5 ML SYR IM ONE (21:45)
[2019-04-15 23:57] LABS: BUN Creatinine Ratio 38.8 (10-20); Calcium 7.1 mg/dl (8.5-10.1); Creatinine Clr Calc Pharmacy 30.3 ml/min; Est GFR (African American) 48.3; Est GFR (Non-African American) 41.6; Magnesium 2.6 mg/dl (1.8-2.4); Potassium 3.6 mmol/L (3.5-5.1)
[2019-04-16] MEDS ORDERED: POTASSIUM CHLORIDE 20 MEQ in DEXTROSE 5% 1,000 ML IV STA (00:02)
[2019-04-16] MEDS ORDERED: INSULIN GLARGINE SOLOSTAR 100 UNITS/ML 3 ML PEN SQ STA (00:03)
[2019-04-16] MEDS ORDERED: XOPENEX/ATROVENT 1.25mg/0.5MG NEB COMBO NEB STA (00:04)
[2019-04-16] MEDS ORDERED: LEVALBUTEROL 1.25MG/0.5ML NEB INH ONE (00:15)
[2019-04-16] MEDS ORDERED: IPRATROPIUM BROMIDE NEB SOLN 0.02% 2.5 ML VIAL INH ONE (00:15)
[2019-04-16] MEDS ORDERED: FUROSEMIDE 40 MG/4 ML VIAL IV ONE (00:36)
[2019-04-16] MEDS ORDERED: FUROSEMIDE 20 MG in SYRINGE 0 ML IV ONE (00:45)
[2019-04-16] MEDS ORDERED: PIPERACILL/TAZOBAC CONSULT ACTIVE PRN (00:59)
--- NOTE | 2019-04-16 01:00 | Hospitalist Progress Note ---
Date of Service April 16, 2019 Subjective Around 12:30 AM, patient noted by RN to be lethargic and unresponsive, with periods of apnea. AP Encephalopathy Multifactorial : Worsening hypernatremia Hypoxemic respiratory failure secondary to pulmonary congestion rule out aspiration pneumonia Complicated UTI (hx cefepime resistant Pseudomonas as per outpatient urine cultures 2007) Rule out structural intracranial pathology (px on Coumadin) Home Gabapentin contributory Change half-normal IVF to D5 water Supplemental O2, baseline ABG, stat Lasix Change Cefepime to Zosyn Hold gabapentin for now CT chest RE low O2 rule out aspiration CT head RE encephalopathy Will relay to AM provider. ADDENDUM : CT head initial read: No intracranial hemorrhage or acute cortical infarct. Involutional/chronic ischemic changes. CT chest initial read: Large bilateral pleural effusions with bilateral atelectasis/consolidation/nonspecific groundglass densities. 305 AM Update given by RN via [facility]. Patient looking better, more alert and waking up when spoken to. Results & Data Vital Signs (Past 12 Hours) Vital Signs Temp Pulse Pulse Resp BP BP BP 04/16/19 00:44 36.6 C 60 17 103/49 L 04/15/19 20:11 36.7 C 76 16 109/56 L 04/15/19 19:39 60 11 L 110/55 L 04/15/19 18:58 04/15/19 18:45 66 66 16 110/45 L 110/45 L 04/15/19 17:45 63 17 04/15/19 17:30 69 14 04/15/19 17:15 64 13 04/15/19 17:00 62 9 L 04/15/19 16:48 04/15/19 16:45 72 17 04/15/19 16:30 69 12 04/15/19 16:15 69 14 04/15/19 16:00 71 12 04/15/19 15:55 36.5 C 72 12 112/53 L 04/15/19 15:54 71 11 L 04/15/19 15:51 71 14 112/53 L Pulse Ox 04/16/19 00:44 96 04/15/19 20:11 89 L 04/15/19 19:39 100 04/15/19 18:58 99 04/15/19 18:45 100 04/15/19 17:45 98 04/15/19 17:30 97 04/15/19 17:15 98 04/15/19 17:00 98 04/15/19 16:48 96 04/15/19 16:45 85 L 04/15/19 16:30 90 04/15/19 16:15 90 04/15/19 16:00 91 04/15/19 15:55 93 04/15/19 15:54 91 04/15/19 15:51 93
[2019-04-16] MEDS ORDERED: PIPERACILLIN/TAZOBACTAM 4.5 GM/120 ML BAG IV ONE (01:15)
[2019-04-16 01:49] LABS: INR 2.6 (0.9-1.1); Partial Thromboplastin Ratio 1.5; Partial Thromboplastin Time 41.2 Seconds (21.0-31.0); Prothrombin Time 25.3 Seconds (9.0-12.0)
[2019-04-16 02:09] LABS: Basophils # (auto) 0.03 K/uL (0-0.2); Basophils % (auto) 0.4 %; Eosinophils # (auto) 0.11 K/uL (0-0.5); Eosinophils % (auto) 1.3 %; Hematocrit (blood only) 28.9 % (42-52); Hemoglobin 9.1 g/dL (14.0-18.0); Immature Granulocytes # (auto) 0.06 K/uL (0.00-0.02); Immature Granulocytes % (auto) 0.7 %; Lymphocytes # (auto) 0.61 K/uL (1.2-3.4); Lymphocytes % (auto) 7.5 %; Mean Corpuscular Hemoglobin 28.8 pg (25-34); Mean Corpuscular Volume 91.5 fL (80-100); Mean Platelet Volume 9.5 fL (7.4-10.4); Monocytes # (auto) 0.71 K/uL (0.11-0.59); Monocytes % (auto) 8.7 %; Neutrophils # (auto) 6.64 K/uL (1.4-6.5); Neutrophils % (auto) 81.4 %; Platelet Count 224 K/uL (130-400); RDW Coefficient of Variation 16.7 % (11.5-14.5); RDW Standard Deviation 55.8 fL (36.4-46.3); Red Blood Count 3.16 M/uL (4.7-6.1); White Blood Count 8.16 K/uL (4.8-10.8)
[2019-04-16 02:13] LABS: Mean Corpuscular Hgb Conc 31.5 g/dL (32-36)
[2019-04-16 02:21] LABS: Base Excess ABG -0.5 mEq/L (-9-1.8); HCO3 ABG 24 mmol/L (19-24); Oxygen Saturation ABG 97.1 % (90-95); PCO2 ABG 35 mmHg (35-46); PO2 ABG 96 mm/Hg (80-95); pH ABG 7.44 (7.35-7.45)
[2019-04-16 02:23] LABS: Allen Test Pos (Pos)
[2019-04-16 03:06] LABS: BUN Creatinine Ratio 42.6 (10-20); Calcium 7.2 mg/dl (8.5-10.1); Creatinine Clr Calc Pharmacy 33.4 ml/min; Est GFR (African American) 54.4; Potassium 3.6 mmol/L (3.5-5.1)
[2019-04-16] MEDS: PIPERACILLIN/TAZOBACTAM 3.375 GM in DEXTROSE 5% 100 ML IV SCH ×3 (05:16→21:55)
--- NOTE | 2019-04-16 06:35 | CT Scan Report ---
CT head/brain wo con CLINICAL HISTORY: Acute change in mental status COMPARISON STUDY: 02/07/2019 TECHNIQUE: Axial CT of the brain is performed from the vertex to the skull base. IV contrast was not administered for this examination. A dose lowering technique was utilized adhering to the principles of ALARA. CT DOSE: FINDINGS: No intra or extra-axial mass lesions are visualized. There is no CT evidence of acute cortical infarc tion. There is no evidence of midline shift. There is no acute hemorrhage. No calvarial fractures ar e visualized. There are patchy white matter hypodensities likely on a small vessel basis. Again evident are areas o f cortical infarction involving the left temporal/parietal lobe as well as the left cerebellar hemisp here. There is no evidence of pathologic ventricular dilatation. There is no evidence of acute sinusitis The medical lab assistant topogram reveals radiographic evidence of congestive failure with bilateral pleural effusio ns IMPRESSION: 1. Areas of prior cortical infarction. No acute intracranial findings Electronically signed by: Franky Lal M.D. 04/16/2019 6:34 AM
--- NOTE | 2019-04-16 06:47 | XRay Report ---
XR chest 1V portable CLINICAL HISTORY: low o2 COMPARISON STUDY: Chest radiograph April 15, 2019. FINDINGS: Note is made of a dual lead left subclavian pacemaker, median sternotomy wires and mediasti nal surgical clips. There is no pneumothorax. Large bilateral pleural effusions are noted. Interstiti al thickening represents pulmonary edema. Cardiomegaly is again noted. IMPRESSION: 1. Large bilateral pleural effusions with associated bibasilar opacities which favor atelectasis. 2. Pulmonary edema. Electronically signed by: Valentín García M.D. 04/16/2019 6:46 AM
--- NOTE | 2019-04-16 07:27 | CT Scan Report ---
CT OF THE CHEST WITHOUT IV CONTRAST CLINICAL HISTORY: cough, low o2 COMPARISON STUDY: Chest radiograph April 15, 2019 and April 16, 2019 1:[address] DOSE: 861.41 mGy.cm TECHNIQUE: Axial images of the chest were obtained without IV contrast. Images were reviewed in the axial, sagittal, and coronal planes. IV contrast was not administered for this examination. Automat ed exposure control was utilized for the study. A dose lowering technique was utilized adhering to t he principles of ALARA. FINDINGS: Note is made of a dual-lead left subclavian pacemaker, median sternotomy wires and mediast inal surgical clips. The heart is moderately enlarged. There is mild dilatation of the ascending aort a, measuring 4.2 cm. There is extensive atherosclerotic plaque. There is no pericardial effusion. 2 a moderate pleural effusion is noted with right lower lobe collapse. There is segmental right middle l obe atelectasis. There is subtotal left lower lobe collapse. Groundglass opacities suggest pulmonary edema. Exam is compromised by respiratory motion artifact. Secretions within the trachea and right lo wer lobe segmental bronchi are noted. Several old right rib fractures are noted. There are also old l eft rib old bilateral rib fractures are noted. IMPRESSION: 1. Large bilateral pleural effusions, right larger than left. Associated right lower lobe atelectasis and subtotal left lower lobe atelectasis. 2. Evidence for pulmonary edema. 3. Secretions within the trachea, bilateral mainstem bronchi and right lower lobe segmental bronchi. 4. Moderate cardiomegaly. Extensive atherosclerotic plaque. Mild dilatation of the ascending aorta. Electronically signed by: Valentín García M.D. 04/16/2019 7:26 AM
[2019-04-16] MEDS: DEXTROSE 5% 1,000 ML IV SCH ×2 (07:57→16:10)
[2019-04-16] MEDS: INSULIN ASPART 100 UNITS/ML 3 ML PEN SC SCH ×4 (08:04→20:24)
[2019-04-16] MEDS: METOPROLOL TARTRATE 25 MG TAB PO SCH ×2 (08:08→21:24)
--- NOTE | 2019-04-16 08:57 | XRay Report ---
XR chest 1V portable CLINICAL HISTORY: Chest x-ray status post thoracentesis COMPARISON STUDY: 04/16/2019 FINDINGS: There are postsurgical changes of midline sternotomy. The heart remains enlarged. There are persistent bilateral pleural effusions. There is interval decrease in the size the right pleural eff usion. There is no pneumothorax status post thoracentesis. Underlying pulmonary vascular congestion i s suspected. Basilar opacity statistically representing compressive atelectatic change.[There is a le ft subclavian dual-chamber central venous pacemaker. IMPRESSION: No evidence of pneumothorax status post thoracentesis. Electronically signed by: Franky Lal M.D. 04/16/2019 8:56 AM
[2019-04-16] MEDS ORDERED: NON-FORMULARY MEDICATION (Linagliptin [Tradjenta] 5 MG) PO SCH (09:00)
[2019-04-16] MEDS ORDERED: INSULIN GLARGINE SOLOSTAR 100 UNITS/ML 3 ML PEN SQ SCH (09:00)
[2019-04-16 09:38] LABS: Glucose Pleural Fluid 153 mg/dl
--- NOTE | 2019-04-16 09:54 | Operative Report ---
DATE OF OPERATION: 04/16/2019 PREOPERATIVE DIAGNOSIS: Huge bilateral pleural effusions. POSTOPERATIVE DIAGNOSIS: Huge bilateral pleural effusions. PROCEDURE: Right thoracentesis under ultrasound guidance. SURGEON: Cristian Pascual MD. SMT OPERATOR: GRIS Sal ANESTHESIA: Local. SPECIFICS OF PROCEDURE: This is an 88-year-old elderly male who has shortness of breath and has marked effusions on both sides. We turned him slightly to the right and after appropriate timeout had been called, we marked him with an ultrasound and sterilely prepped and draped him. A 25-gauge needle with 1% Xylocaine was used to anesthetize the skin and subcutaneous tissues and pleura. He is very thin. We went right above the rib. We then placed a large bore needle into the patient's chest cavity and got free flowing serous fluid. A guidewire was inserted and the needle removed. Triple lumen catheter was slid over the guidewire and 1200 mL of a rust-colored fluid which was a bit darker than I expected was drained. We had no bleeding. He had some reexpansion coughing with mild pain, so we stopped, although we could have drained more. I did put a suture into his puncture site to prevent any bleeding, although he really was not bleeding, but he is on Coumadin. He tolerated it quite well. Antimicrobial dressings were placed and his x-ray looked quite good. I attest to the content of the Intraoperative Record and any orders documented therein. Any exception s are noted below.
[2019-04-16 09:58] LABS: Amylase Pleural Fluid 14 U/L; LDH Pleural Fluid 120 U/L; Total Protein Pleural Fluid 1.4 g/dl
--- NOTE | 2019-04-16 10:05 | Consultation Report ---
DATE OF CONSULTATION: 04/15/2019 REASON FOR CONSULTATION: Large bilateral pleural effusions. HISTORY OF PRESENT ILLNESS: Mr. You is an 88-year-old male who was admitted from [facility]. He has an indwelling Suazo. He may have a urinary tract infection. He was found unresponsive. He did respond to some fluid. He has huge bilateral pleural effusions. I was asked to evaluate him from a pleural effusion standpoint. The patient has had a white count of only 11,000, which is normalized now. I am concerned as his BUN and creatinine were quite high at 63/1.59 which is now improved to 57 and 1.34. He does have evidence of a urinary tract infection on his UA. It appears he is growing a proteus species from this. I had a long talk with the patient. He is hard of hearing, but he understood this. We obtained a consent and we will perform a thoracentesis. His INR is 2.6, however, with a small catheter, I think it would behoove us to get a diagnosis and to help his breathing as his effusions are huge bilaterally. He has very little of his lung is ventilating. PAST MEDICAL HISTORY: 1. Bilateral lower extremity venous insufficiency, chronic. 2. Recurrent urinary tract infections with indwelling Suazo. 3. Paroxysmal atrial fibrillation. 4. Coronary artery disease. 5. Status post aortic valve replacement. 6. Tachybrady syndrome. 7. Sacral wound. 8. Type 2 diabetes. 9. Patent foramen ovale. 10. Severe osteoarthritis. PAST SURGICAL HISTORY: 1. Insertion of a left infraclavicular pacemaker. 2. Aortic valve replacement in 2006 with apparent coronary artery bypass grafting. 3. Closure of patent foramen ovale with coronary artery bypass grafting. 4. Right total hip arthroplasty. ALLERGIES: 1. BACTRIM. 2. LISINOPRIL. MEDICATIONS: 1. Aspirin. 2. Atorvastatin. 3. Ferrous sulfate. 4. Warfarin. 5. Tramadol. 6. Flomax. 7. Oxycodone. 8. Metoprolol. 9. Tradjenta. 10. Gabapentin. 11. Cardura. 12. Pantoprazole. 13. Finasteride. 14. Folic acid. SOCIAL HISTORY: The patient is a chronic resident. The patient has never smoked. He has been at [facility] in a personal care facility. He does not use alcohol or smoke now. He does not really have much of a family support system. FAMILY MEDICAL HISTORY: Significant for a cerebrovascular accident which resulted in the demise of his mother and his sister. His father had renal cell carcinoma. REVIEW OF SYSTEMS: The patient has been less responsive but no fever, chills or night sweats. Been quite weak and has not been eating. He has not had a cough or hemoptysis. He has had no productive cough. He denies chest pain or dyspnea. He has chronic back pain and he has pain in his legs with venous stasis ulcers. Denies nausea, vomiting or diarrhea. According to the notes, he has been more confused. PHYSICAL EXAMINATION: GENERAL: This is a cachectic elderly male standing 5 feet 6 inches tall and weighing about 130 pounds. He has temporal wasting. HEENT: His extraocular movements are intact. He has bilateral arcus senilis. His sclerae are pale. His face is symmetric. His tongue is midline and he is edentulous and his mucosa is dark and dry. NECK: Thin and supple with no obvious adenopathy. I do not detect carotid bruits. He has a well-healed left infraclavicular incision. HEART: He has a regular rate and rhythm of his heart; however, it appears to me that he may be paced. His sternotomy incision is well healed with no click. ABDOMEN: Flat, soft. His lower extremities have trace edema and have marked hemosiderin deposition with some venous stasis ulcers. He has no obvious joint effusions. I can palpate dorsalis pedis pulses bilaterally. NEUROLOGIC: He does move all extremities to command. He is slow to respond. ASSESSMENT AND PLAN: Huge bilateral effusions with very little ventilation on either side. Currently, I had a long discussion with Dr. Maggie Valverde. Even though the INR is 2.6, I am going to proceed with a thoracentesis today that we can do safely. I believe that this does not appear to be from congestive heart failure.
[2019-04-16] MEDS: ASCORBIC ACID 500 MG TAB PO SCH ×2 (10:09→21:24)
[2019-04-16] MEDS: VITAMIN B COMPLEX TAB PO SCH (10:09)
[2019-04-16] MEDS: MULTIVITAMIN TAB PO SCH (10:09)
[2019-04-16] MEDS: FERROUS SULFATE 325 MG TAB PO SCH ×2 (10:10→21:23)
[2019-04-16] MEDS: FOLIC ACID 1 MG TAB PO SCH ×2 (10:10→11:48)
[2019-04-16 10:36] LABS: Appearance Pleural Fluid CLOUDY; Color Pleural Fluid YELLOW; Mononuclear WBC Pleural 52.7 %; Polynuclear WBC Pleural 47.3 %; RBC Pleural Fluid (A) 7000 /uL; Source Pleural Fluid RIGHT LUNG; WBC Pleural Fluid (A) 246 /uL
--- NOTE | 2019-04-16 10:43 | Infectious Disease Consult ---
Date of Consultation April 16, 2019 Assessment & Plan (1) UTI (urinary tract infection): continue zosyn for now, await final urine culture results. doubt cellulitis, lower leg changes appear chronic. History of Present Illness Attending Physician: Maggie Valverde, pt admitted after being found unresponsive at snf. In ER was reportedly alert, he is lethargic and non verbal on my exam. He was started on emperic abx and ID was consulted for cellulitis. on zosyn, also received dose of genao in ER. wbc 8, creat 1.3, UA from chronic hoyos with > 30 wbc, + 2 bacteria, culture growing proteus. Blood cultures pending. Cxr and ct showing large effusions with atelectasis. Allergies Allergy/AdvReac Type Severity Reaction Status Date / Time lisinopril Allergy Unknown Unknown Verified 04/15/19 17:38 sulfamethoxazole Allergy Unknown Unverified 04/15/19 17:38 [From Bactrim] trimethoprim [From Bactrim] Allergy Unknown Unverified 04/15/19 17:38 Home Medications Home Medications Medication Instructions Recorded Confirmed Type ascorbic acid (vitamin C) 500 mg 1,000 mg PO BID cap 03/17/18 04/15/19 History capsule aspirin 81 mg chewable tablet 81 mg PO Q OTHER DAY tab 03/17/18 04/15/19 History atorvastatin 40 mg tablet 40 mg PO HS 03/17/18 04/15/19 History ferrous sulfate 325 mg (65 mg 325 mg PO BID tab 03/17/18 04/15/19 History iron) tablet finasteride 5 mg tablet 5 mg PO QAM tab 03/17/18 04/15/19 History folic acid 1 mg tablet 1 mg PO DAILY 03/17/18 04/15/19 History multivitamin tablet 1 tab PO QAM 03/17/18 04/15/19 History acetaminophen 650 mg PO Q6H PRN 02/28/19 04/15/19 History pantoprazole 40 mg PO QAM 30 Days #30 tab 03/06/19 04/15/19 Rx B complex-minerals [Stress B Plus 1 tab PO QAM 04/15/19 04/15/19 History Zinc] bisacodyl [Dulcolax (bisacodyl)] 10 mg MD DAILY PRN 04/15/19 04/15/19 History doxazosin [Cardura] 2 mg PO HS 04/15/19 04/15/19 History gabapentin 100 mg PO HS 04/15/19 04/15/19 History linagliptin [Tradjenta] 5 mg PO QAM 04/15/19 04/15/19 History magnesium hydroxide 15 ml PO DAILY PRN 04/15/19 04/15/19 History metoprolol tartrate 25 mg PO BID 04/15/19 04/15/19 History oxycodone 10 mg PO Q12H PRN 04/15/19 04/15/19 History tamsulosin 0.4 mg PO QPM 04/15/19 04/15/19 History tramadol 100 mg PO DAILY PRN 04/15/19 04/15/19 History warfarin 0.5 mg PO HS 04/15/19 04/15/19 History Patient History Medical History History of TIA (transient ischemic attack) (Chronic) BPH (benign prostatic hyperplasia) (Chronic) 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) Aortic valve stenosis (Chronic) s/p bioprosthetic avr 11/21/06 along with CABG x 2 and PFO closure T2DM (type 2 diabetes mellitus) (Chronic) CAD (coronary artery disease) (Chronic) Tachy-rodrigue syndrome Paroxysmal atrial fibrillation Junctional bradycardia Mobitz type 1 second degree AV block Weakness (Chronic) 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) Chronic venous insufficiency (Chronic) HTN (hypertension) (Chronic) Hyperlipidemia (Chronic) GERD (gastroesophageal reflux disease) (Chronic) GERD (gastroesophageal reflux disease) (Chronic) HTN (hypertension) (Chronic) Hyperlipidemia (Chronic) Surgical History History of total right hip arthroplasty Status post patent foramen ovale closure 11/21/06 S/P AVR s/p bioprosthetic avr 11/21/06 along with CABG x 2 and PFO closure History of open heart surgery (Chronic) History of open heart surgery (Chronic) Family History Father Cancer kidney Mother Stroke Sister Stroke Social History Preferred Language: Swedish Communication Ability: Impaired Sandfill Operator Required: No Beliefs That Will Affect Care: None Current Living Situation: [facility] Current Living Situation Comment: Has been at [facility] x 2-3 weeks s/p hospitalization Feels Safe at Home: Yes Safety Concerns: Feels Safe At This Time Smoking Status: Former smoker Second Hand Exposure: No ; Hx Alcohol Use: No Hx Substance Use: No Review of Systems Review of Systems: Unobtainable due to cognitive status Physical Exam Constitutional: + ill appearing, + cachectic and + altered mental status Eyes: closed, did not follow commands ENMT: Mouth: + dry oral mucous membranes Neck: normal visual inspection Respiratory: normal respiratory effort, lungs clear to auscultation Auscultation: + diminished lung sounds Cardiovascular: Rate/Rhythm: regular rate Extremities: no pedal edema Gastrointestinal (Abdomen): normal bowel sounds, soft, nontender, no hepatosplenomegaly Musculoskeletal: Head/Neck/Chest: + head abnormal to inspection Skin: no rashes, warm and dry + mottling b/l legs with chronic changes, excoritations, no warmth, likely chronic changes Psychiatric: lethargic, non verbal Results & Data Vital Signs (Past 12 Hours) Vital Signs Temp Pulse Resp BP BP Pulse Ox 04/16/19 10:12 83/46 L 04/16/19 07:26 36.3 C L 95 H 17 71/36 L 95 04/16/19 05:03 36.5 C 61 17 91/54 L 94 04/16/19 00:44 36.6 C 60 17 103/49 L 96 Laboratory Results Microbiology 04/16/19 08:45 Pleural Fluid Fungal Smear - Final 04/16/19 08:45 Pleural Fluid Gram Stain - Final 04/15/19 17:15 Urine,Straight Cath Urine Culture - Preliminary Proteus species PG Care Time/CCT Total # of Minutes Spent Total Time Spent with Patient: Total time spent is greater than 50% in coordination of care (as documented) at patient's floor/unit and/or counseling patient: (1) UTI (urinary tract infection) Hematuria presence: without hematuria Urinary tract infection type: site unspecified Qualified Code(s): N39.0 - Urinary tract infection, site not spec ified
--- NOTE | 2019-04-16 11:08 | Hospitalist Progress Note ---
Date of Service April 16, 2019 Assessment & Plan (1) Hypernatremia: Chronic likely 2/2 decreased access to free water in correction environment. He has multiple pressure ulcers indicating his inability to help himself at baseline. Cont dextrose infusion and trend Na q6h for goal 145 in 24 hours. Encourage PO hydration. Likely contributing to his less responsive state at correction and decreased cognition now. (2) Pleural effusion, bilateral: (3) Dehydration: (4) Ulcers of both lower extremities: Has chronic bilateral leg ulcer secondary to peripheral vascular disease and complete complicated by diabetes Has ulceration/abrasion with possible cellulitis in bilateral calves Wound care nurse able to probe to bone. Surface culture, cont broad spectrum abx. Obtain plain films of feet and ankles bilaterally Cont good nursing care of wounds including off-loading pressure spots. Ulcers appear to be pressure-induced per wound care nurse. He does have a h/o venous stasis ulcers in addition to this. (5) PVD (peripheral vascular disease): Doppler for pulses q4h (6) Acute kidney injury superimposed on chronic kidney disease: Acute on chronic kidney disease 2/2 dehydration. Cont to encourage oral rehydration. (7) S/P AVR: Has bioprosthetic aortic valve History of CAD status post CABG History of PAF No acute cardiac symptoms now Has been on Coumadin Continue Coumadin (8) T2DM (type 2 diabetes mellitus): hold home tradjenta, cont novolog correction as needed with carb coverage. DC Lantus 5 U BID. A1C pending. (9) PAF (paroxysmal atrial fibrillation): Anticoagulated on coumadin, no overt bleeding, therapeutic INR. Trend INR daily. (10) Urinary retention: Failed a TOV at [facility] and was seen by Urology one month ago. Added tamsulosin to finasteride and kept Suazo in place. Will cont to follow urine culture results. (11) DVT prophylaxis: coumadin Full Code-pt has no family sales solutions representative and is in the process of having a guardian appointed for him. Dispo-uncertain at this time. Will likely be here for the next several days to optimize his issues. Maggie Valverde DO [facility] Hospitalist Subjective 88-year-old man presents from [facility] correction with multiple pressure ulcer wounds on his legs. He was found to be less responsive prompting admission to the ER. Work-up revealed hypernatremia and he was started on volume replacement for dehydration. Sodium this morning remained elevated at 154. Dextrose was increased and afternoon sodium was down to 151. He continues on a dextrose infusion. He notably had an VARUN with a creatinine around 1.6 and baseline 1.1-1.3. He is listed as full code and has no family sales solutions representative or guardian at this time. This morning I reviewed the CT scans with the thoracic surgeon who performed a right-sided thoracentesis under ultrasound guidance draining 1200 mL of rest colored fluid. He is" regulated on Coumadin but has no overt signs of bleeding. Wound care nurse notified me regarding wound evaluation and is concerned for deeper possible bone infection. X-rays were ordered and are pending. Review of Systems Review of Systems: Unobtainable due to cognitive status Physical Exam Physical Exam: CONSTITUTIONAL: WNWD, vitals as above,elderly, frail, ill- appearing, somnolent. EYES: normal conjunctivae, no scleral icterus ENT: MMM RESPIRATORY: clear to auscultation bilaterally, no crackles, rales or wheezes, normal respiratory effort CARDIOVASCULAR: regular rate and rhythm, S1 and 2 heard without murmurs, gallops or rubs, no JVD, no peripheral edema CHEST: +pacemaker GASTROINTESTINAL: soft, nontender, nondistended MUSCULOSKELETAL: deconditioned, cannot perform tests as he is somnolent SKIN: warm and dry, chronic venous stasis changes in lower legs, multiple ulcerative wounds that are present on bilateral lower extremities and feet. NEUROLOGIC: No facial palsy, decreased cognition (somnolent), however, he can awaken to physical and verbal stimuli and follow instructions. He can articulate some words and answer orientation questions correctly when he is not falling asleep. PSYCHIATRIC: alert cooperative and oriented to person, place and time. Results & Data Vital Signs (Past 12 Hours) Vital Signs Temp Pulse Pulse Resp BP BP Pulse Ox 04/16/19 10:12 83/46 L 04/16/19 08:00 66 04/16/19 07:26 36.3 C L 95 H 17 71/36 L 95 04/16/19 05:03 36.5 C 61 17 91/54 L 94 04/16/19 00:44 36.6 C 60 17 103/49 L 96 Laboratory Results Short CBC 04/15/19 04/16/19 04/16/19 Range/Units 16:39 01:29 01:29 WBC 7.84 Cancelled 8.16 (4.8-10.8) K/uL Hgb 10.2 L Cancelled 9.1 L (14.0-18.0) g/dL Hct 32.9 L Cancelled 28.9 L (42-52) % Plt Count 243 Cancelled 224 (130-400) K/uL BMP 04/15/19 04/15/19 04/16/19 16:39 23:21 01:29 Sodium 152 H 155 H 154 H Potassium 3.6 3.6 3.6 Chloride 117 H 122 H 122 H Carbon Dioxide 27 26 25 BUN 63 H 57 H 57 H Creatinine 1.59 H 1.48 H 1.34 Glucose 180 H 141 H 128 H Calcium 8.0 L 7.1 L 7.2 L Liver Function 04/15/19 Range/Units 16:39 Total Bilirubin 0.7 (0.2-1) mg/dl AST 56 H (15-37) U/L ALT 39 (12-78) U/L Alkaline Phosphatase 171 H (45-117) U/L Albumin 1.9 L (3.4-5.0) gm/dl Urine 04/15/19 Range/Units 17:15 Urine Color Dark Yellow Urine Appearance Turbid A (Clear) Urine pH >= 9.0 H (4.5-7.5) Ur Specific Glidden 1.009 (1.000-1.030) Urine Protein 3+ H (Negative) Urine Glucose (UA) Negative (Negative) Medications Administered Current Inpatient Medications Acetaminophen (Tylenol) 650 mg PO Q6H PRN PRN Reason: Pain Stop: 05/15/19 20:13 Ascorbic Acid (Vitamin C) 1,000 mg PO BID LOCO Stop: 05/15/19 20:59 Last Admin: 04/16/19 10:09 Dose: Not Given Documented by: Aspirin (Ecotrin Ectab) 81 mg PO Q2D@0900 [facility] Stop: 05/16/19 08:59 Atorvastatin Calcium (Lipitor) 40 mg PO HS LOCO Stop: 05/15/19 20:59 Last Admin: 04/15/19 21:32 Dose: 40 mg Documented by: Bisacodyl (Dulcolax) 10 mg KS DAILY PRN PRN Reason: Constipation Stop: 05/15/19 20:13 Dextrose (Dextrose 50%) 25 - 50 ml IV UD PRN; Protocol PRN Reason: Hypoglycemia Protocol Stop: 05/15/19 20:29 Doxazosin Mesylate (Cardura) 2 mg PO HS [facility] Stop: 05/15/19 20:59 Last Admin: 04/15/19 21:31 Dose: 2 mg Documented by: Ferrous Sulfate (Feosol) 325 mg PO BID LOCO Stop: 05/15/19 20:59 Last Admin: 04/16/19 10:10 Dose: Not Given Documented by: Finasteride (Proscar) 5 mg PO QAM LOCO Stop: 05/16/19 08:59 Folic Acid (Folvite) 1 mg PO DAILY LOCO Stop: 05/16/19 08:59 Last Admin: 04/16/19 10:10 Dose: Not Given Documented by: Glucagon (Glucagen) 1 mg IM UD PRN; Protocol PRN Reason: Hypoglycemia Protocol Stop: 05/15/19 20:29 Glucose (Glucose 40%) 15 - 30 gm PO UD PRN; Protocol PRN Reason: Hypoglycemia Protocol Stop: 05/15/19 20:29 Glucose (Dex4 Glucose) 4 - 8 tabs PO UD PRN; Protocol PRN Reason: Hypoglycemia Protocol Stop: 05/15/19 20:29 Piperacillin Sod/Tazobactam (Sod 3.375 gm/ Dextrose) 115 mls @ 28.75 mls/hr IV Q8H [facility]; Protocol Stop: 04/26/19 05:59 Last Admin: 04/16/19 05:16 Dose: 28.8 mls/hr Documented by: Dextrose (D5w) 1,000 mls @ 125 mls/hr IV .Q8H LOCO Stop: 05/16/19 07:59 Last Admin: 04/16/19 07:57 Dose: 125 mls/hr Documented by: Insulin Aspart (Novolog Flexpen) 0 units SC ACHS LOCO Stop: 05/15/19 20:59 Last Admin: 04/16/19 08:04 Dose: 1 units Documented by: Insulin Glargine (Lantus Solostar Pen) 5 units SQ BID LOCO Stop: 05/16/19 08:59 Last Admin: 04/16/19 08:08 Dose: 5 units Documented by: Magnesium Hydroxide (Milk Of Magnesia) 15 ml PO DAILY PRN PRN Reason: Constipation Stop: 05/15/19 20:13 Metoprolol Tartrate (Lopressor) 25 mg PO BID [facility] Stop: 05/15/19 20:59 Last Admin: 04/16/19 08:08 Dose: Not Given Documented by: Miscellaneous (Carbohydrates For Hypoglycemia) 15 - 30 gm PO UD PRN PRN Reason: Hypoglycemia Treatment Stop: 05/15/19 20:29 Miscellaneous (Order Awaiting Action) 1 ea N/A QS LOCO Stop: 05/16/19 00:00 Last Admin: 04/16/19 08:08 Dose: Not Given Documented by: Miscellaneous Information (Consult) 1 ea N/A UD PRN PRN Reason: Consult Stop: 05/16/19 00:58 Multivitamins (Multivitamin Tab) 1 tab PO QAM [facility] Stop: 05/16/19 08:59 Last Admin: 04/16/19 10:09 Dose: Not Given Documented by: Pantoprazole Sodium (Protonix) 40 mg PO QAM [facility] Stop: 05/16/19 08:59 Tamsulosin HCl (Flomax) 0.4 mg PO QPM [facility] Stop: 05/15/19 20:59 Last Admin: 04/15/19 21:31 Dose: 0.4 mg Documented by: Vitamin B Complex (Vitamin B Complex) 1 tab PO QAM [facility] Stop: 05/16/19 08:59 Last Admin: 04/16/19 10:09 Dose: Not Given Documented by: Warfarin Sodium (Coumadin) 0.5 mg PO DAILY@1600 [facility] Stop: 05/15/19 20:59 Last Admin: 04/15/19 21:32 Dose: 0.5 mg Documented by: (1) Ulcers of both lower extremities Non-pressure ulcer stage: unspecified non-pressure ulcer stage Qualified Code(s): L97.919 - Non-pressure chronic ulcer of unspecified part of right lower leg with unspecified severity; L97.929 - Non-pressure chronic ulcer of unspecified part of left lower leg with unspecified severity
[2019-04-16] MEDS: PANTOprazole 40 MG TAB PO SCH (11:48)
[2019-04-16] MEDS: ASPIRIN 81 MG ECTAB PO SCH (11:48)
[2019-04-16] MEDS: FINASTERIDE 5 MG TAB PO SCH ×2 (11:48→11:56)
[2019-04-16 14:08] LABS: BUN Creatinine Ratio 36.4 (10-20); Calcium 7.1 mg/dl (8.5-10.1); Creatinine Clr Calc Pharmacy 29.3 ml/min; Est GFR (African American) 46.4; Potassium 3.5 mmol/L (3.5-5.1)
[2019-04-16] MEDS ORDERED: CEFEPIME 1,000 MG in SYRINGE 0 ML IV SCH (16:00)
[2019-04-16] MEDS ORDERED: VANCOMYCIN CONSULT ACTIVE PRN (16:41)
--- NOTE | 2019-04-16 16:55 | XRay Report ---
LEFT FOOT 2 VIEWS CLINICAL HISTORY: Left foot wounds. FINDINGS: AP and crosstable lateral portable views of the left foot are obtained. No prior studies ar e available for comparison at the time of dictation. The examination is degraded by overlying radiode nsities. The skeletal structures are osteopenic. There is no evidence of fracture. No bony erosion or periostitis is identified. Moderate osteoarthritic change is present at the first metatarsophalangea l joint. Milder arthritic change is seen throughout the midfoot. Degenerative spurring is seen along the dorsal aspect of the tarsal bones. Soft tissue edema suggested along the plantar aspect of the he el and throughout the forefoot. IMPRESSION: 1. Foci of soft tissue edema with no acute bony abnormality identified. 2. Osteopenia and arthritic change as above. Electronically signed by: Ahsan Lutz M.D. 04/16/2019 4:54 PM
[2019-04-16] MEDS: WARFARIN SOD 0.5 MG TAB PO SCH (17:06)
--- NOTE | 2019-04-16 17:08 | Pharmacy Report ---
Pharmacy Abx Dose Short Note - Date of Service April 16, 2019 - Assessment & Plan Assessment * Mr You is an 88 year old M receiving Zosyn for treatment of UTI/pulm infxn. Vanc initially ordered but stopped 2/2 negative MRSA swab. Vanc re- initiated at this point to cover significant B/L LE wounds/?cellulitis/?osteo. * Patient resides at [facility]. * Blood cultures pending, wound cultures ordered * ID consult in place Plan Vancomycin * Vancomycin 1750mg IV (~28mg/kg) x1 dose last evening in the ER, then * Vancomycin 1000mg (~16mg/kg) q24h * Patient's estimated p'kinetic parameters (based on CrCl ~33mL/min): * Vd ~ 0.7L/kg Ke ~ 0.032/hr t1/2 ~ 21.7hr * Goal trough level for SSTI, r/o osteo: 18 to 20 mcg/mL * Will evaluate a trough level after 3-4 doses if patient remains on vancomycin therapy Pharmacy will continue to follow and will adjust dose/frequency as necessary. Thank you.
--- NOTE | 2019-04-16 17:20 | XRay Report ---
XR ankle RT 2V CLINICAL HISTORY: 88 years-old Male presenting with mult deep tissue wounds, concern 4 osteomyelitis. TECHNIQUE: Frontal and crosstable lateral views of the right ankle were obtained. COMPARISON: None. FINDINGS: Chronic appearing transversely oriented fracture of the medial malleolus. Ankle mortise is grossly in tact. Diffuse soft tissue swelling at the ankle. Severe osteopenia. This limits evaluation for nondis placed fracture. Allowing for this, no gross evidence of a fracture. No malalignment. Degenerative ch anges at the ankle mortise with anterior osteophytosis. Degenerative changes also evident at the firs t tarsometatarsal articulation and bases of the first and second metatarsals. Soft tissue emphysema w ith an ulceration noted over the posterior calcaneus. There may be sclerosis of the subjacent calcane us though there is no gross evidence of osseous erosion or periosteal reaction. A soft tissue defect may also be present in the medial hindfoot, which is less extensive and without underlying osseous ch anges. IMPRESSION: 1. Ulceration of the posterior calcaneus with sclerosis of the calcaneus suggesting changes related to chronic osteomyelitis. No osteolysis or periosteal reaction to suggest acute osteomyelitis. 2. Additional possible soft tissue wound in the medial hindfoot without subjacent osseous changes. 3. Severe osteopenia. 4. Posttraumatic deformity of the medial malleolus. 5. Degenerative changes in the midfoot-hindfoot articulation. Electronically signed by: Leonard Couch M.D. 04/16/2019 5:18 PM
--- NOTE | 2019-04-16 17:22 | XRay Report ---
XR ankle LT 2V CLINICAL HISTORY: 88 years-old Male presenting with mult deep tissue wounds, concern 4 osteomyelitis. TECHNIQUE: Frontal and crosstable lateral views of the left ankle were obtained. COMPARISON: None. FINDINGS: Significant overlying external object with resultant artifact. This degrades underlying osseous detai l. The ankle mortise is grossly intact. Osteopenia and atherosclerosis evident. Allowing for the degr ee of osteopenia, no displaced fracture or malalignment. Diffuse soft tissue swelling at the ankle. T here is no focal soft tissue defect identified on this radiograph. No soft tissue emphysema is radiog raphically apparent. Degenerative changes at the first tarsometatarsal articulation as well as at the articulation of the bases of the first and second metatarsals. No osseous erosion or periosteal reac tion is grossly evident. IMPRESSION: 1. Allowing for significant image quality degradation related to an overlapping external covering, n o gross evidence of acute or chronic osteomyelitis. Nonspecific soft tissue swelling. 2. Degenerative changes as above. 3. Osteopenia. 4. No gross evidence of acute osseous injury. Electronically signed by: Leonard Couch M.D. 04/16/2019 5:21 PM
--- NOTE | 2019-04-16 17:27 | XRay Report ---
RIGHT FOOT 2 VIEWS CLINICAL HISTORY: Soft tissue wounds. FINDINGS: AP and crosstable lateral portable views of the right foot are obtained. No prior studies a re available for comparison at the time of dictation. The skeletal structures are osteopenic. There i s diffuse soft tissue edema throughout the foot with atherosclerotic calcification of the regional ar teries. A large ulceration with foci of subcutaneous gas is present along the plantar aspect of the h eel. Sclerotic change is noted in the calcaneus deep to the ulcer. No fracture is seen. There is no b zain erosion or periostitis. Degenerative spurring is seen along the dorsal aspect of the tarsal bones . There is chronic posttraumatic deformity of the second metatarsal shaft. Moderate osteoarthritic ch trini is seen at the first metatarsophalangeal joint. Mild to moderate arthritic change is seen throug hout the remainder of the forefoot and midfoot. IMPRESSION: 1. Soft tissue edema seen throughout the foot with a large soft tissue ulceration overlying the heel with foci of subcutaneous gas. 2. Sclerotic change is present within the dorsal calcaneus deep to the ulceration. Acute versus chron ic osteomyelitis is not excluded. 3. No additional concerning foci of osseous change are identified. 4. Osteopenia and arthritic change as above. Electronically signed by: Ahsan Lutz M.D. 04/16/2019 5:26 PM
[2019-04-16] MEDS: VANCOMYCIN HCL 1,000 MG in SODIUM CHLORIDE 0.9% 250 ML IV SCH (17:59)
[2019-04-16 19:57] LABS: Creatinine Clr Calc Pharmacy 30.1 ml/min; Est GFR (African American) 47.9; Est GFR (Non-African American) 41.3; Potassium 3.3 mmol/L (3.5-5.1)
[2019-04-16] MEDS ORDERED: POTASSIUM CHLORIDE 20 MEQ/15 ML UDC PO ONE (21:00)
[2019-04-16] MEDS: TAMSULOSIN HCL 0.4 MG CAP PO SCH (21:23)
[2019-04-16] MEDS: DOXAZOSIN MESYLATE 1 MG TAB PO SCH (21:23)
[2019-04-16] MEDS: ATORVASTATIN 40 MG TAB PO SCH (21:24)
[2019-04-16 22:53] LABS: Protein Creatinine Ratio Urine 0.6 (0-0.2); Total Protein Urine Random 65.4 mg/dl (0-11.9)
[2019-04-17] MEDS: DEXTROSE 5% 1,000 ML IV SCH ×3 (00:17→16:23)
[2019-04-17] MEDS: PIPERACILLIN/TAZOBACTAM 3.375 GM in DEXTROSE 5% 100 ML IV SCH ×3 (05:47→21:11)
[2019-04-17 06:21] LABS: Estimated Average Glucose 117 mg/dl; Hemoglobin A1C 5.7 % (4.5-5.6)
[2019-04-17 06:23] LABS: Hematocrit (blood only) 26.6 % (42-52); Hemoglobin 8.3 g/dL (14.0-18.0); Mean Corpuscular Hemoglobin 28.2 pg (25-34); Mean Corpuscular Hgb Conc 31.2 g/dL (32-36); Mean Corpuscular Volume 90.5 fL (80-100); Mean Platelet Volume 9.5 fL (7.4-10.4); Platelet Count 201 K/uL (130-400); RDW Coefficient of Variation 16.6 % (11.5-14.5); Red Blood Count 2.94 M/uL (4.7-6.1); White Blood Count 9.74 K/uL (4.8-10.8)
[2019-04-17 06:52] LABS: BUN Creatinine Ratio 36.4 (10-20); Creatinine Clr Calc Pharmacy 30.9 ml/min; Est GFR (African American) 49.5; Est GFR (Non-African American) 42.7; Potassium 3.5 mmol/L (3.5-5.1)
--- NOTE | 2019-04-17 07:38 | XRay Report ---
XR chest 1V portable HISTORY: effusion COMPARISON: Chest 04/16/2019. FINDINGS: There are low lung volumes. No pneumothorax. Bilateral pleural effusions are again noted. T his has progressed on the right. The heart remains enlarged. A right basilar airspace opacity have pr ogressed. Poststernotomy changes and a left-sided dual-chamber pacemaker. Mild congestive change pers ists. IMPRESSION: 1. Interval progression of the right pleural effusion and right basilar airspace opacities. 2. Left pleural effusion and mild congestive change persists. Electronically signed by: Davidson Carnes M.D. 04/17/2019 7:37 AM
[2019-04-17] MEDS: INSULIN ASPART 100 UNITS/ML 3 ML PEN SC SCH ×4 (08:09→20:38)
[2019-04-17] MEDS: METOPROLOL TARTRATE 25 MG TAB PO SCH ×2 (08:10→20:40)
[2019-04-17] MEDS: VITAMIN B COMPLEX TAB PO SCH (08:11)
[2019-04-17] MEDS: MULTIVITAMIN TAB PO SCH (08:11)
[2019-04-17] MEDS: FOLIC ACID 1 MG TAB PO SCH (08:11)
[2019-04-17] MEDS: FERROUS SULFATE 325 MG TAB PO SCH ×2 (08:12→20:40)
[2019-04-17] MEDS: PANTOprazole 40 MG TAB PO SCH (08:12)
[2019-04-17] MEDS: FINASTERIDE 5 MG TAB PO SCH (08:12)
[2019-04-17] MEDS: ASCORBIC ACID 500 MG TAB PO SCH ×2 (08:13→20:39)
--- NOTE | 2019-04-17 14:17 | Infectious Disease Progress Nt ---
Date of Service April 17, 2019 Assessment & Plan (1) UTI (urinary tract infection): continue zosyn for now, await final urine culture results. doubt cellulitis, lower leg changes appear chronic. can obtain wound care consutl/culture to further guide therapy for ankle. Subjective pt underwent drainage of right effusion, cultures pending, gram stain negative, wbc 246. wbc 9.7, remains afebrile on vanco and zoysn. foot x ray showing chroni c osteo right ankle. blood cultures remain negative. tolerating abx. Results & Data Vital Signs (Past 12 Hours) Vital Signs Temp Pulse Resp BP BP Pulse Ox 04/17/19 11:59 37.1 C 65 20 120/65 98 04/17/19 07:46 36.8 C 62 18 93/49 L 96 04/17/19 04:13 36.5 C 66 19 111/74 97 Laboratory Results Microbiology 04/15/19 17:15 Urine,Straight Cath Urine Culture - Final Proteus mirabilis 04/16/19 08:45 Pleural Fluid Gram Stain - Final 04/16/19 08:45 Pleural Fluid Aerobic and Anaerobic Culture - Preliminary No growth to date. 04/16/19 08:45 Pleural Fluid Acid Fast Bacilli Smear - Final 04/15/19 16:57 Blood Aerobic Blood Culture - Preliminary No growth in Aerobic bottle after 24 hours. 04/15/19 16:57 Blood Anaerobic Blood Culture - Final 04/15/19 16:39 Blood Aerobic Blood Culture - Preliminary No growth in Aerobic bottle after 24 hours. 04/15/19 16:39 Blood Anaerobic Blood Culture - Preliminary No growth in Anaerobic bottle after 24 hours. 04/16/19 08:45 Pleural Fluid Fungal Smear - Final PG Care Time/CCT Total # of Minutes Spent Total Time Spent with Patient: Total time spent is greater than 50% in coordination of care (as documented) at patient's floor/unit and/or counseling patient: (1) UTI (urinary tract infection) Hematuria presence: without hematuria Urinary tract infection type: site unspecified Qualified Code(s): N39.0 - Urinary tract infection, site not specified
--- NOTE | 2019-04-17 14:57 | Palliative Care Consultation ---
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 He was found to be significantly hypernatremic with sodium of 154. Apparently at SNF, patient had significantly decreased PO intake. There is concern for osteomyelitis, his cellulitis is being managed with abx. Infectious disease is on board. Patient also had large bilateral pleural effusions on CT chest-- had right sided thoracentesis in which 1200ml rust colored fluid was drained. Given patient's advanced age, comorbidities, decondition and bedbound status, prognosis is poor. Palliative care is consulted. -Met with patient in room 282. He is awake and oriented to person. Knew he was in hospital, but had no idea why. Stated it was 1952. Fell asleep multiple times during conversation. -Patient is unable to make medical decisions for himself at this time. I'm assuming from documentation that this is patient's baseline mental status, as per case management notes, the [facility] is currently in the middle of guardianship process for this patient as he has no family or friends to help him make decisions. -If patient becomes clear enough to understand medical condition, prognosis, outcomes of decisions, please contact palliative care team and we will return to see him. -Once patient has an official guardian, they will be able to help make medical decisions for this patient. -Palliative care will sign off. Please contact us with any further palliative care needs. -PPS 30%. (2) Pleural effusion, bilateral: (3) Severe protein-calorie malnutrition: (4) Dehydration: (5) Hypernatremia: History of Present Illness Reason for Consultation: Goals of care, code status Requesting Physician: Dr. 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 He was found to be significantly hypernatremic with sodium of 154. Apparently at SNF, patient had significantly decreased PO intake. There is concern for osteomyelitis, his cellulitis is being managed with abx. Infectious disease is on board. Patient also had large bilateral pleural effusions on CT chest-- had right sided thoracentesis in which 1200ml rust colored fluid was drained. Given patient's advanced age, comorbidities, decondition and bedbound status, prognosis is poor. Palliative care is consulted. Thank you kindly for this consult. Allergies Allergy/AdvReac Type Severity Reaction Status Date / Time lisinopril Allergy Unknown Unknown Verified 04/15/19 17:38 sulfamethoxazole Allergy Unknown Unverified 04/15/19 17:38 [From Bactrim] trimethoprim [From Bactrim] Allergy Unknown Unverified 04/15/19 17:38 Home Medications Home Medications Medication Instructions Recorded Confirmed Type ascorbic acid (vitamin C) 500 mg 1,000 mg PO BID cap 03/17/18 04/15/19 History capsule aspirin 81 mg chewable tablet 81 mg PO Q OTHER DAY tab 03/17/18 04/15/19 History atorvastatin 40 mg tablet 40 mg PO HS 03/17/18 04/15/19 History ferrous sulfate 325 mg (65 mg 325 mg PO BID tab 03/17/18 04/15/19 History iron) tablet finasteride 5 mg tablet 5 mg PO QAM tab 03/17/18 04/15/19 History folic acid 1 mg tablet 1 mg PO DAILY 03/17/18 04/15/19 History multivitamin tablet 1 tab PO QAM 03/17/18 04/15/19 History acetaminophen 650 mg PO Q6H PRN 02/28/19 04/15/19 History pantoprazole 40 mg PO QAM 30 Days #30 tab 03/06/19 04/15/19 Rx B complex-minerals [Stress B Plus 1 tab PO QAM 04/15/19 04/15/19 History Zinc] bisacodyl [Dulcolax (bisacodyl)] 10 mg [place] DAILY PRN 04/15/19 04/15/19 History doxazosin [Cardura] 2 mg PO HS 04/15/19 04/15/19 History gabapentin 100 mg PO HS 04/15/19 04/15/19 History linagliptin [Tradjenta] 5 mg PO QAM 04/15/19 04/15/19 History magnesium hydroxide 15 ml PO DAILY PRN 04/15/19 04/15/19 History metoprolol tartrate 25 mg PO BID 04/15/19 04/15/19 History oxycodone 10 mg PO Q12H PRN 04/15/19 04/15/19 History tamsulosin 0.4 mg PO QPM 04/15/19 04/15/19 History tramadol 100 mg PO DAILY PRN 04/15/19 04/15/19 History warfarin 0.5 mg PO HS 04/15/19 04/15/19 History Patient History Medical History History of TIA (transient ischemic attack) (Chronic) BPH (benign prostatic hyperplasia) (Chronic) 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) Aortic valve stenosis (Chronic) s/p bioprosthetic avr 11/21/06 along with CABG x 2 and PFO closure T2DM (type 2 diabetes mellitus) (Chronic) CAD (coronary artery disease) (Chronic) Tachy-rodrigue syndrome Paroxysmal atrial fibrillation Junctional bradycardia Mobitz type 1 second degree AV block Weakness (Chronic) 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) Chronic venous insufficiency (Chronic) HTN (hypertension) (Chronic) Hyperlipidemia (Chronic) GERD (gastroesophageal reflux disease) (Chronic) GERD (gastroesophageal reflux disease) (Chronic) HTN (hypertension) (Chronic) Hyperlipidemia (Chronic) Surgical History History of total right hip arthroplasty Status post patent foramen ovale closure 11/21/06 S/P AVR s/p bioprosthetic avr 11/21/06 along with CABG x 2 and PFO closure History of open heart surgery (Chronic) History of open heart surgery (Chronic) Family History Father Cancer kidney Mother Stroke Sister Stroke Social History Preferred Language: German Communication Ability: Impaired Accountant Controller Required: No Beliefs That Will Affect Care: None Current Living Situation: Skilled Nursing Current Living Situation Comment: Has been at [facility] x 2-3 weeks s/p hospitalization Feels Safe at Home: Yes Smoking Status: Former smoker Second Hand Exposure: No ; Hx Alcohol Use: No Hx Substance Use: No Review of Systems Constitutional: + weakness Respiratory: + cough; no dyspnea Cardiovascular: no chest pain Gastrointestinal: no abdominal pain and no nausea Musculoskeletal: no pain Psychiatric: no anxiety Physical Exam Constitutional: + ill appearing and + frail appearing ENMT: external ear and nose normal, oropharynx normal Neck: normal visual inspection Respiratory: no labored breathing Auscultation: + diminished lung sounds and + rhonchi Cardiovascular: Rate/Rhythm: regular rate and regular rhythm Extremities: + edema (+1 BLE) Gastrointestinal (Abdomen): Inspection/Auscultation: abdomen normal to inspection and normal bowel sounds; abdomen not distended Percussion/Palpation: abdomen soft; abdomen nontender Skin: purple discoloration of BLE, many ulcerations and wounds. see notes for images of wounds Neurologic: moves all extremities and awake Psychiatric: Orientation: oriented to person and oriented to place; + not oriented to time Insight: + poor insight Results & Data Vital Signs (Past 12 Hours) Vital Signs Temp Pulse Resp BP BP Pulse Ox 04/17/19 11:59 37.1 C 65 20 120/65 98 04/17/19 07:46 36.8 C 62 18 93/49 L 96 04/17/19 04:13 36.5 C 66 19 111/74 97 Time Spent Midlevel 50 minutes with >50% of the time spent at bedside with patient and collaborating with attending physician and CM to discuss condition and POC.
--- NOTE | 2019-04-17 14:58 | Progress Note ---
DATE: 04/17/2019 The patient is seen today. He has not really changed much. He is on 2 liters of 98% saturations. I removed his dressing from his thoracentesis site in the right lateral lower back and this site is clean. His x-ray was difficult to interpret due to technique, but it appears that he does have fluid in his right base, although greatly improved from before our thoracentesis. This fluid is a transudate. The LDH was 120. Protein was 1.4. Our Gram stain showed no evidence of any organisms and our fungal smear as well as our AFB smear showed no evidence of organisms or hyphae. It is a difficult situation. The cytology is still pending; however, I am not sure what else we would do for this elderly male. This is benign, which I assumed it to be given his transudative nature. I am concerned about how he would handle this. I am not enthusiastic about placing a PleurX for chance of infection which would be fatal in this elderly gentleman. We will see how he looks if and when the fluid re-accumulates.
[2019-04-17] MEDS: WARFARIN SOD 0.5 MG TAB PO SCH (15:47)
--- NOTE | 2019-04-17 16:12 | Hospitalist Progress Note ---
Date of Service April 17, 2019 Assessment & Plan (1) Metabolic encephalopathy: Intermittent ability to orient correctly, likely multifactorial in setting of possibly infected wounds with inflammation present, abnormal sodium and poor nutrition state, hospital state, and poor health at baseline. Intermittent delirium is absolutely expected. Reorient as needed. (2) Ulcers of both lower extremities: Multiple wounds to lower legs. Screening xrays revealed possible osteomyelitis to R heel and ulcerative wounds with soft tissue gas associated. Wounds are severe. Ortho has been consulted. [facility] is following and given instructions for hospital care. He does have a h/o venous stasis ulcerations in addition to these new pressure ulcers. (3) Severe protein-calorie malnutrition: Cont supportive care. Nutrition is consulted. Phos in am. Poor prognosis. (4) UTI (urinary tract infection) due to urinary indwelling catheter: (5) Hypernatremia: Chronic likely 2/2 decreased access to free water in correction environment. He has multiple pressure ulcers indicating his inability to help himself at baseline. Cont dextrose infusion and trend sodium. Currently 146 and mentating better today. With questionable ability to ask for water and hydrate himself, will continue dextrose infusion for another day and plan to stop in am. Encourage PO hydration. (6) Pleural effusion, bilateral: Likely secondary to severe malnutrition and hypoalbuminuria. Underlying inflammatory state may also contribute to hypoalbuminuria with possible chronic osteomyelitis of the R heel area and presence of severe chronic wounds. Cont legal editor efforts including liberalizing diet and adding multivitamins. Thoracentesis on R two days ago with improvement in respiratory status, however, this transudative fluid has returned and this is likely related to malnourished state. Will order echo in setting of known valvular disease s/p bioprosthetic aortic valve, known CAD and atrial fibrillation to ensure pump function is adequate. PE also considered but less likely in severely malnourished state. Cont supportive care efforts and appreciate Palliative care team recommendations. (7) Dehydration: Continuing to rehydrate with dextrose, however, patient is severely malnourished and uncertain that he will be able to maintain appropriate oral intake for his body's needs. (8) PVD (peripheral vascular disease): Doppler for pulses [id number] are warm and pulses are present via doppler (9) Acute kidney injury superimposed on chronic kidney disease: Acute on chronic kidney disease 2/2 dehydration. Cont to encourage oral rehydration. Trend BMP (10) S/P AVR: Has bioprosthetic aortic valve History of CAD status post CABG History of PAF No acute cardiac symptoms now Has been on Coumadin Continue Coumadin (11) T2DM (type 2 diabetes mellitus): hold home tradjenta, cont novolog correction as needed with carb coverage. A1C 5.7. Glucose increasing today so will add Lantus back tonight. (12) PAF (paroxysmal atrial fibrillation): Anticoagulated on coumadin, no overt bleeding, therapeutic INR. Trend INR daily. (13) Urinary retention: Failed a TOV at [facility] and was seen by Urology one month ago. Added tamsulosin to finasteride and kept Suazo in place. Will cont to follow urine culture results. (14) Chronic venous insufficiency: (15) DVT prophylaxis: coumadin DNR Dispo-uncertain at this time. Will likely be here for the next several days to optimize his issues. [facility] currently seeking guardianship for him. Maggie Valverde, [facility] Subjective Pt doing well, somewhat less lethargic today but still not completely alert. Tolerating PO Answering orientation questions correctly Denies any pain Uncertain if he known he has multiple wounds to legs. Very deconditioned. Review of Systems Review of Systems: All systems reviewed & are unremarkable except as noted in HPI & below Physical Exam Physical Exam: CONSTITUTIONAL: WNWD, vitals as above, elderly, frail, ill- appearing EYES: normal conjunctivae, no scleral icterus ENT: MMM RESPIRATORY: clear to auscultation bilaterally, no crackles, rales or wheezes, normal respiratory effort CARDIOVASCULAR: regular rate and rhythm, S1 and 2 heard without murmurs, gallops or rubs, no JVD, no peripheral edema, extremities are warm to touch CHEST: +pacemaker GASTROINTESTINAL: soft, nontender, nondistended MUSCULOSKELETAL: deconditioned, cannot perform tests as he is somnolent SKIN: warm and dry, chronic venous stasis changes in lower legs, multiple ulcerative wounds that are present on bilateral lower extremities and feet. NEUROLOGIC: No facial palsy,oriented to person place and year. Results & Data Vital Signs (Past 12 Hours) Vital Signs Temp Pulse Pulse Resp BP BP Pulse Ox 04/17/19 16:00 36.4 C L 66 18 104/56 L 95 04/17/19 15:32 67 04/17/19 11:59 37.1 C 65 20 120/65 98 04/17/19 07:46 36.8 C 62 18 93/49 L 96 04/17/19 04:13 36.5 C 66 19 111/74 97 Laboratory Results Short CBC 04/17/19 Range/Units 06:00 WBC 9.74 (4.8-10.8) K/uL Hgb 8.3 L (14.0-18.0) g/dL Hct 26.6 L (42-52) % Plt Count 201 (130-400) K/uL BMP 04/16/19 04/17/19 19:10 06:00 Sodium 148 H 146 H Potassium 3.3 L 3.5 Chloride 117 H 114 H Carbon Dioxide 23 23 BUN 55 H 53 H Creatinine 1.49 H 1.45 H Glucose 130 H 177 H Calcium 7.0 L 7.0 L Medications Administered Current Inpatient Medications Acetaminophen (Tylenol) 650 mg PO Q6H PRN PRN Reason: Pain Stop: 05/15/19 20:13 Ascorbic Acid (Vitamin C) 1,000 mg PO BID LOCO Stop: 05/15/19 20:59 Last Admin: 04/17/19 08:13 Dose: 1,000 mg Documented by: Aspirin (Ecotrin Ectab) 81 mg PO Q2D@0900 [facility] Stop: 05/16/19 08:59 Last Admin: 04/16/19 11:48 Dose: 81 mg Documented by: Atorvastatin Calcium (Lipitor) 40 mg PO HS LOCO Stop: 05/15/19 20:59 Last Admin: 04/16/19 21:24 Dose: Not Given Documented by: Bisacodyl (Dulcolax) 10 mg [place] DAILY PRN PRN Reason: Constipation Stop: 05/15/19 20:13 Dextrose (Dextrose 50%) 25 - 50 ml IV UD PRN; Protocol PRN Reason: Hypoglycemia Protocol Stop: 05/15/19 20:29 Doxazosin Mesylate (Cardura) 2 mg PO HS LOCO Stop: 05/15/19 20:59 Last Admin: 04/16/19 21:23 Dose: Not Given Documented by: Ferrous Sulfate (Feosol) 325 mg PO BID LOCO Stop: 05/15/19 20:59 Last Admin: 04/17/19 08:12 Dose: 325 mg Documented by: Finasteride (Proscar) 5 mg PO QAM [facility] Stop: 05/16/19 08:59 Last Admin: 04/17/19 08:12 Dose: 5 mg Documented by: Folic Acid (Folvite) 1 mg PO DAILY [facility] Stop: 05/16/19 08:59 Last Admin: 04/17/19 08:11 Dose: 1 mg Documented by: Glucagon (Glucagen) 1 mg IM UD PRN; Protocol PRN Reason: Hypoglycemia Protocol Stop: 05/15/19 20:29 Glucose (Glucose 40%) 15 - 30 gm PO UD PRN; Protocol PRN Reason: Hypoglycemia Protocol Stop: 05/15/19 20:29 Glucose (Dex4 Glucose) 4 - 8 tabs PO UD PRN; Protocol PRN Reason: Hypoglycemia Protocol Stop: 05/15/19 20:29 Piperacillin Sod/Tazobactam (Sod 3.375 gm/ Dextrose) 115 mls @ 28.75 mls/hr IV Q8H [facility]; Protocol Stop: 04/26/19 05:59 Last Admin: 04/17/19 13:50 Dose: 29 mls/hr Documented by: Dextrose (D5w) 1,000 mls @ 125 mls/hr IV .Q8H [facility] Stop: 05/16/19 07:59 Last Admin: 04/17/19 08:10 Dose: 125 mls/hr Documented by: Vancomycin HCl 1,000 mg/ (Sodium Chloride) 270 mls @ 125 mls/hr IV Q24H [facility] Stop: 04/25/19 17:59 Last Infusion: 04/16/19 20:32 Dose: Infused Documented by: Insulin Aspart (Novolog Flexpen) 0 units SC ACHS [facility] Stop: 05/15/19 20:59 Last Admin: 04/17/19 13:41 Dose: 2 units Documented by: Magnesium Hydroxide (Milk Of Magnesia) 15 ml PO DAILY PRN PRN Reason: Constipation Stop: 05/15/19 20:13 Metoprolol Tartrate (Lopressor) 25 mg PO BID [facility] Stop: 05/15/19 20:59 Last Admin: 04/17/19 08:10 Dose: Not Given Documented by: Miscellaneous (Carbohydrates For Hypoglycemia) 15 - 30 gm PO UD PRN PRN Reason: Hypoglycemia Treatment Stop: 05/15/19 20:29 Miscellaneous (Order Awaiting Action) 1 ea N/A QS [facility] Stop: 05/16/19 00:00 Last Admin: 04/17/19 15:56 Dose: Not Given Documented by: Miscellaneous Information (Consult) 1 ea N/A UD PRN PRN Reason: Consult Stop: 05/16/19 00:58 Miscellaneous Information (Consult) 1 ea N/A UD PRN PRN Reason: Consult Stop: 05/16/19 16:40 Multivitamins (Multivitamin Tab) 1 tab PO QAM [facility] Stop: 05/16/19 08:59 Last Admin: 04/17/19 08:11 Dose: 1 tab Documented by: Pantoprazole Sodium (Protonix) 40 mg PO QAM [facility] Stop: 05/16/19 08:59 Last Admin: 04/17/19 08:12 Dose: 40 mg Documented by: Tamsulosin HCl (Flomax) 0.4 mg PO QPM [facility] Stop: 05/15/19 20:59 Last Admin: 04/16/19 21:23 Dose: Not Given Documented by: Vitamin B Complex (Vitamin B Complex) 1 tab PO QAM [facility] Stop: 05/16/19 08:59 Last Admin: 04/17/19 08:11 Dose: 1 tab Documented by: Warfarin Sodium (Coumadin) 0.5 mg PO DAILY@1600 [facility] Stop: 05/15/19 20:59 Last Admin: 04/17/19 15:47 Dose: 0.5 mg Documented by: (1) Ulcers of both lower extremities Non-pressure ulcer stage: unspecified non-pressure ulcer stage Qualified Code(s): L97.919 - Non-pressure chronic ulcer of unspecified part of right lower leg with unspecified severity; L97.929 - Non-pressure chronic ulcer of unspecified part of left lower leg with unspecified severity
--- NOTE | 2019-04-17 16:29 | Orthopedic Consultation ---
Date of Consultation April 17, 2019 Assessment & Plan (1) Ulcers of both lower extremities: The patient will require vascular work up and treated appropriately if found to be positive prior to any orthopedic intervention, would likely require a combination of debridement and/or amputation. B/L LE US testing ordered. Unclear on chronicity of the wounds however given findings on XR of right heel, likely acute on chronic now with necrosis of right heel. Prior wound image from 03/01/19 showed edematous changes without necrosis. Continue with abx per ID. We will have [facility] foot [facility] ankle specialist, Dr Saunders look over the case for additional treatment input/care. Thank you for the consultation. History of Present Illness Reason for Consultation: Multiple pressure ulcers and right heel osteo Attending Physician: Maggie Valverde, History of Present Illness The patient is a 88-year-old male with significant PMHx for tachybradycardia syndrome status post pacemaker in 02/14, PAF on Coumadin, CAD with history of CABG x2 in 2006, history of PFO closure in 2006, moderate stenosis of bioprosthetic aVR, bilateral venous insufficiency, type 2 diabetes, hypertension, PVD who presented from [facility] secondary to unresponsiveness. Found to have hypernaturemia, UTI and pleural effusions. He was subsequently admitted for further inpatient observation and treatment. Patient was started on vancomycin and cefepime upon admission. We were asked to evaluate the patient in regards to right heel wound. 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 The patient is a poor historian and only oriented to self at this time. The history was obtained from the EMR. Allergies Allergy/AdvReac Type Severity Reaction Status Date / Time lisinopril Allergy Unknown Unknown Verified 04/15/19 17:38 sulfamethoxazole Allergy Unknown Unverified 04/15/19 17:38 [From Bactrim] trimethoprim [From Bactrim] Allergy Unknown Unverified 04/15/19 17:38 Home Medications Home Medications Medication Instructions Recorded Confirmed Type ascorbic acid (vitamin C) 500 mg 1,000 mg PO BID cap 03/17/18 04/15/19 History capsule aspirin 81 mg chewable tablet 81 mg PO Q OTHER DAY tab 03/17/18 04/15/19 History atorvastatin 40 mg tablet 40 mg PO HS 03/17/18 04/15/19 History ferrous sulfate 325 mg (65 mg 325 mg PO BID tab 03/17/18 04/15/19 History iron) tablet finasteride 5 mg tablet 5 mg PO QAM tab 03/17/18 04/15/19 History folic acid 1 mg tablet 1 mg PO DAILY 03/17/18 04/15/19 History multivitamin tablet 1 tab PO QAM 03/17/18 04/15/19 History acetaminophen 650 mg PO Q6H PRN 02/28/19 04/15/19 History pantoprazole 40 mg PO QAM 30 Days #30 tab 03/06/19 04/15/19 Rx B complex-minerals [Stress B Plus 1 tab PO QAM 04/15/19 04/15/19 History Zinc] bisacodyl [Dulcolax (bisacodyl)] 10 mg SD DAILY PRN 04/15/19 04/15/19 History doxazosin [Cardura] 2 mg PO HS 04/15/19 04/15/19 History gabapentin 100 mg PO HS 04/15/19 04/15/19 History linagliptin [Tradjenta] 5 mg PO QAM 04/15/19 04/15/19 History magnesium hydroxide 15 ml PO DAILY PRN 04/15/19 04/15/19 History metoprolol tartrate 25 mg PO BID 04/15/19 04/15/19 History oxycodone 10 mg PO Q12H PRN 04/15/19 04/15/19 History tamsulosin 0.4 mg PO QPM 04/15/19 04/15/19 History tramadol 100 mg PO DAILY PRN 04/15/19 04/15/19 History warfarin 0.5 mg PO HS 04/15/19 04/15/19 History Patient History Medical History History of TIA (transient ischemic attack) (Chronic) BPH (benign prostatic hyperplasia) (Chronic) 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) Aortic valve stenosis (Chronic) s/p bioprosthetic avr 11/21/06 along with CABG x 2 and PFO closure T2DM (type 2 diabetes mellitus) (Chronic) CAD (coronary artery disease) (Chronic) Tachy-rodrigue syndrome Paroxysmal atrial fibrillation Junctional bradycardia Mobitz type 1 second degree AV block Weakness (Chronic) 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) Chronic venous insufficiency (Chronic) HTN (hypertension) (Chronic) Hyperlipidemia (Chronic) GERD (gastroesophageal reflux disease) (Chronic) GERD (gastroesophageal reflux disease) (Chronic) HTN (hypertension) (Chronic) Hyperlipidemia (Chronic) Surgical History History of total right hip arthroplasty Status post patent foramen ovale closure 11/21/06 S/P AVR s/p bioprosthetic avr 11/21/06 along with CABG x 2 and PFO closure History of open heart surgery (Chronic) History of open heart surgery (Chronic) Family History Father Cancer kidney Mother Stroke Sister Stroke Social History Preferred Language: Faroese Communication Ability: Impaired 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 PE limited secondary to patient's inability to follow commands. B/L LE Diminished +1 DP pulse. multiple pressure ulcers, left heel .5x1cm, .6x.7cmm left 5th MTP, large 6x6 heel pressure ulcer with dry gangrene/necrosis. Foul smelling. No active drainage or purulence. Constitutional: + frail appearing Results & Data Vital Signs (Past 12 Hours) Vital Signs Temp Pulse Pulse Resp BP BP Pulse Ox 04/17/19 16:00 36.4 C L 66 18 104/56 L 95 04/17/19 15:32 67 04/17/19 11:59 37.1 C 65 20 120/65 98 04/17/19 07:46 36.8 C 62 18 93/49 L 96 Diagnostic Findings XR ankle RT 2V CLINICAL HISTORY: 88 years-old Male presenting with mult deep tissue wounds, co ncern 4 osteomyelitis. TECHNIQUE: Frontal and crosstable lateral views of the right ankle were obtained. COMPARISON: None. FINDINGS: Chronic appearing transversely oriented fracture of the medial malleolus. Ankle mortise is grossly intact. Diffuse soft tissue swelling at the ankle. Severe osteopenia. This limits evaluation for nondisplaced fracture. Allowing for this, no gross evidence of a fracture. No malalignment. Degenerative changes at the ankle mortise with anterior osteophytosis. Degenerative changes also evident at the first tarsometatarsal articulation and bases of the first and second metatarsals. Soft tissue emphysema with an ulceration noted over the posterior calcaneus. There may be sclerosis of the subjacent calcaneus though there is no gross evidence of osseous erosion or periosteal reaction. A soft tissue defect may also be present in the medial hindfoot, which is less extensive and without underlying osseous changes. IMPRESSION: 1. Ulceration of the posterior calcaneus with sclerosis of the calcaneus suggesting changes related to chronic osteomyelitis. No osteolysis or periosteal reaction to suggest acute osteomyelitis. 2. Additional possible soft tissue wound in the medial hindfoot without subjacent osseous changes. 3. Severe osteopenia. 4. Posttraumatic deformity of the medial malleolus. 5. Degenerative changes in the midfoot-hindfoot articulation. RIGHT FOOT 2 VIEWS CLINICAL HISTORY: Soft tissue wounds. FINDINGS: AP and crosstable lateral portable views of the right foot are obtained. No prior studies are available for comparison at the time of dictation. The skeletal structures are osteopenic. There is diffuse soft tissue edema throughout the foot with atherosclerotic calcification of the regional arteries. A large ulceration with foci of subcutaneous gas is present along the plantar aspect of the heel. Sclerotic change is noted in the calcaneus deep to the ulcer. No fracture is seen. There is no bony erosion or periostitis. Dege nerative spurring is seen along the dorsal aspect of the tarsal bones. There is chronic posttraumatic deformity of the second metatarsal shaft. Moderate osteoarthritic change is seen at the first metatarsophalangeal joint. Mild to moderate arthritic change is seen throughout the remainder of the forefoot and midfoot. IMPRESSION: 1. Soft tissue edema seen throughout the foot with a large soft tissue ulceration overlying the heel with foci of subcutaneous gas. 2. Sclerotic change is present within the dorsal calcaneus deep to the ulceration. Acute versus chronic osteomyelitis is not excluded. 3. No additional concerning foci of osseous change are identified. 4. Osteopenia and arthritic change as above. (1) Ulcers of both lower extremities Non-pressure ulcer stage: unspecified non-pressure ulcer stage Qualified Code(s): L97.919 - Non-pressure chronic ulcer of unspecified part of right lower leg with unspecified severity; L97.929 - Non-pressure chronic ulcer of unspecified part of left lower leg with unspecified severity
[2019-04-17] MEDS: VANCOMYCIN HCL 1,000 MG in SODIUM CHLORIDE 0.9% 250 ML IV SCH (18:05)
[2019-04-17] MEDS: INSULIN GLARGINE SOLOSTAR 100 UNITS/ML 3 ML PEN SQ SCH (20:38)
[2019-04-17] MEDS: ATORVASTATIN 40 MG TAB PO SCH (20:39)
[2019-04-17] MEDS: TAMSULOSIN HCL 0.4 MG CAP PO SCH (20:40)
[2019-04-17] MEDS: DOXAZOSIN MESYLATE 1 MG TAB PO SCH (20:40)
[2019-04-18] MEDS: DEXTROSE 5% 1,000 ML IV SCH ×2 (00:03→08:29)
[2019-04-18] MEDS: PIPERACILLIN/TAZOBACTAM 3.375 GM in DEXTROSE 5% 100 ML IV SCH (05:44)
[2019-04-18 05:49] LABS: Hematocrit (blood only) 28.6 % (42-52); Mean Corpuscular Hemoglobin 28.5 pg (25-34); Mean Corpuscular Hgb Conc 31.5 g/dL (32-36); Mean Corpuscular Volume 90.5 fL (80-100); Mean Platelet Volume 9.8 fL (7.4-10.4); Platelet Count 215 K/uL (130-400); RDW Coefficient of Variation 16.2 % (11.5-14.5); RDW Standard Deviation 54.1 fL (36.4-46.3); Red Blood Count 3.16 M/uL (4.7-6.1); White Blood Count 11.91 K/uL (4.8-10.8)
[2019-04-18 06:21] LABS: Creatinine Clr Calc Pharmacy 31.8 ml/min; Est GFR (African American) 51.2; Est GFR (Non-African American) 44.2; Magnesium 2.1 mg/dl (1.8-2.4); Phosphorus 2.3 mg/dl (2.5-4.9); Potassium 3.8 mmol/L (3.5-5.1)
[2019-04-18] MEDS: INSULIN ASPART 100 UNITS/ML 3 ML PEN SC SCH ×4 (08:29→20:51)
[2019-04-18] MEDS: METOPROLOL TARTRATE 25 MG TAB PO SCH ×2 (08:30→20:51)
[2019-04-18] MEDS: ASPIRIN 81 MG ECTAB PO SCH (08:30)
[2019-04-18] MEDS: FOLIC ACID 1 MG TAB PO SCH (08:31)
[2019-04-18] MEDS: FINASTERIDE 5 MG TAB PO SCH (08:31)
[2019-04-18] MEDS: VITAMIN B COMPLEX TAB PO SCH (08:31)
[2019-04-18] MEDS: ASCORBIC ACID 500 MG TAB PO SCH ×2 (08:32→20:52)
[2019-04-18] MEDS: PANTOprazole 40 MG TAB PO SCH (08:32)
[2019-04-18] MEDS: FERROUS SULFATE 325 MG TAB PO SCH ×2 (08:32→20:52)
[2019-04-18] MEDS: MULTIVITAMIN TAB PO SCH (08:32)
--- NOTE | 2019-04-18 10:34 | Ultrasound Report ---
US arterial duplex LE BI CLINICAL HISTORY: Peripheral vascular disease. Multiple ulcers. Osteomyelitis. COMPARISON STUDY: No previous studies for comparison. FINDINGS: Ankle brachial indices were not performed due to open ulcers on the lower leg and a chronic painful s kin. On the right, there was biphasic flow within the common femoral, superficial femoral, popliteal arter ies. There is biphasic flow within the right anterior tibial. There is monophasic flow within the rig ht posterior tibial and peroneal. On the left there was biphasic flow within the common femoral superficial femoral and popliteal arter ies. There is biphasic flow within the left anterior tibial artery. There is monophasic flow within t he left peroneal and posterior tibial arteries. No high velocity jets were visualized. IMPRESSION: No evidence of hemodynamic significant lower extremity arterial stenosis Electronically signed by: Franky Lal M.D. 04/18/2019 10:33 AM
--- NOTE | 2019-04-18 11:41 | Hospitalist Progress Note ---
Date of Service April 18, 2019 Assessment & Plan (1) Metabolic encephalopathy: -as per ED notes on 04/15/19: "The patient is a 88 male w/ PMHx of recent TBS s/p PPM 02/14, PAF on Coumadin, CAD with history of CABG x2 in 11/2006, history of PFO closure 11/2006, history of bioprosthetic AVR in 11/2006, moderate stenosis of bioprosthetic AVR, bilateral venous insufficiency, T2DM, HTN, HLD, CKD stage III, anemia of chronic disease, history of TIA, BPH who presents to the ED w/ CC of dehydration beginning prior to arrival. Per the nursing staff, the patient was brought in by [facility] where they found the patient unresponsive and dehydrated." -acute metabolic encephalopathy from dehydration, hypernatremia, and possible from underlying infection -as of 04/18/19, patient appears to be more interactive (2) Dehydration: -dehydration corrected in the hospital stay with IV fluids (3) Hypernatremia: -chronic hypernatremia likely from poor oral intake and lack of water -admission serum sodium in the 150s -serum sodium normalized on 04/18/19 due to use of IV fluids with dextrose -stop further IV fluids for now and monitor (4) Severe protein-calorie malnutrition: Hypoalbuminemia -Integrity Assessor consult -offer BOOST nutrition supplements (5) Pleural effusion, bilateral: -from severe malnutrition and Hypoalbuminemia -Right thoracentesis under ultrasound guidance on 04/16/19 revealed transudative fluid only -resting cardiac echogram completed, follow results (6) PAF (paroxysmal atrial fibrillation): -known history of valvular disease s/p bioprosthetic aortic valve, known CAD and atrial fibrillation -Anticoagulated on coumadin, Trend INR daily. (7) S/P AVR: -known history of valvular disease s/p bioprosthetic aortic valve, known CAD and atrial fibrillation -Anticoagulated on coumadin, Trend INR daily. (8) PVD (peripheral vascular disease): -arterial ultrasound of legs on 04/17/19: No evidence of hemodynamic significant lower extremity arterial stenosis (9) Chronic venous insufficiency: (10) Ulcers of both lower extremities: -Multiple wounds to lower legs -venous stasis ulcers -Screening xrays revealed possible osteomyelitis to R heel and ulcerative wounds with soft tissue gas associated -wound care nursing -waffle boots -right foot X ray 04/16/19: Soft tissue edema seen throughout the foot with a large soft tissue ulceration overlying the heel with foci of subcutaneous gas. Sclerotic change is present within the dorsal calcaneus deep to the ulceration. Acute versus chronic osteomyelitis is not excluded -right ankle X ray 04/16/19: Ulceration of the posterior calcaneus with sclerosis of the calcaneus suggesting changes related to chronic osteomyelitis. No osteolysis or periosteal reaction to suggest acute osteomyelitis -Left foot X ray 04/16/19: Foci of soft tissue edema with no acute bony abnormality identified -Left ankle X ray 03/3019: no gross evidence of acute or chronic osteomyelitis -orthopedic consult is following the patient (11) Acute kidney injury superimposed on chronic kidney disease: -creatinine downtrended with IV fluids during this hospital stay (12) Urinary retention: -Patient failed a trial of void at [facility] and was seen by Urology one month ago -continue tamsulosin with finasteride and kept Hoyos in place. Will cont to follow urine culture results. 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 -hold home tradjenta -cont novolog correction as needed with carb coverage. -on Lantus 10 units qhs currently (15) DVT prophylaxis: -on coumadin Code Status DNR/DNI [facility] currently seeking guardianship for him. Subjective Patient seen and examined at bedside. he is verbal and answers questions appropriately. He is cooperative on exam but needed assistance from medical staff to sit up for posterior auscultation. patient on nasal cannula. he reports he has cough. he denies other symptoms bilateral brown discoloration of the lower extremities. feet are in waffle boots and dressing on heel ulcer. Physical Exam Constitutional: comfortable Eyes: PERRL, conjunctivae normal, anicteric sclerae EOM intact bilaterally ENMT: external ear and nose normal, oropharynx normal Neck: normal visual inspection Respiratory: normal respiratory effort, lungs clear to auscultation Cardiovascular: Rate/Rhythm: regular rate and regular rhythm Gastrointestinal (Abdomen): normal bowel sounds, soft, nontender, no hepatosp lenomegaly Musculoskeletal: needed assistance from medical staff to sit up for posterior auscultation Skin: bilateral brown discoloration of the lower extremities. feet are in waffle boots and dressing on heel ulcer Psychiatric: Orientation: alert and cooperative Results & Data Vital Signs (Past 12 Hours) Vital Signs Temp Pulse Resp BP BP Pulse Ox 04/18/19 07:45 36.5 C 63 18 100/45 L 92 04/18/19 04:22 36.7 C 80 16 111/55 L 98 04/17/19 23:43 36.9 C 72 20 107/51 L 98 (1) Ulcers of both lower extremities Non-pressure ulcer stage: unspecified non-pressure ulcer stage Qualified Code(s): L97.919 - Non-pressure chronic ulcer of unspecified part of right lower leg with unspecified severity; L97.929 - Non-pressure chronic ulcer of unspecified part of left lower leg with unspecified severity
[2019-04-18] MEDS ORDERED: FUROSEMIDE 20 MG in SYRINGE 0 ML IV SCH (12:00)
--- NOTE | 2019-04-18 12:07 | XRay Report ---
XR chest 1V portable CLINICAL HISTORY: 88 years-old Male presenting with cough, rule out fluid overload/lung infiltrates. TECHNIQUE: Portable upright AP view of the chest was obtained. COMPARISON: 04/17/2019. FINDINGS: Left subclavian pacer with leads in the right atrium and right ventricular apex. Median sternotomy wi res and mediastinal surgical clips. Several external leads also noted. Cardiac silhouette moderately enlarged. Atherosclerosis of the aortic arch. Pulmonary vascular prominence evident. Moderate to larg e bilateral layering pleural effusions with poor aeration of the lung bases. No pneumothorax. Degener ative changes of the thoracic spine. Upper abdomen normal. IMPRESSION: 1. Moderate to large bilateral layering pleural effusions with poor aeration of the lung bases. 2. Cardiomegaly with significant volume overload. Underlying pulmonary edema is not excluded given t he degree of pleural effusion and basilar atelectasis. Electronically signed by: Leonard Couch M.D. 04/18/2019 12:05 PM
[2019-04-18] MEDS: CEFEPIME 2,000 MG in SYRINGE 7.5 ML IV SCH (13:24)
[2019-04-18] MEDS ORDERED: FUROSEMIDE 20 MG in SYRINGE 0 ML IV ONE (17:41)
[2019-04-18 18:07] LABS: Albumin Globulin Ratio 0.4 (0.9-2); Albumin Level 1.5 gm/dl (3.4-5.0); BUN Creatinine Ratio 33.6 (10-20); Bilirubin,Total 0.7 mg/dl (0.2-1); Calcium 7.4 mg/dl (8.5-10.1); Creatinine Clr Calc Pharmacy 33.9 ml/min; Est GFR (African American) 55.4; Est GFR (Non-African American) 47.8; Globulin 3.7 gm/dl (2.5-4.0); Total Protein 5.2 gm/dl (6.4-8.2)
[2019-04-18 18:08] LABS: Potassium 3.2 mmol/L (3.5-5.1)
[2019-04-18] MEDS: WARFARIN SOD 0.5 MG TAB PO SCH (18:33)
[2019-04-18] MEDS: DOXAZOSIN MESYLATE 1 MG TAB PO SCH (20:52)
[2019-04-18] MEDS: INSULIN GLARGINE SOLOSTAR 100 UNITS/ML 3 ML PEN SQ SCH (20:53)
[2019-04-18] MEDS: TAMSULOSIN HCL 0.4 MG CAP PO SCH (20:53)
[2019-04-18] MEDS: ATORVASTATIN 40 MG TAB PO SCH (20:53)
[2019-04-19 06:28] LABS: Prothrombin Time 35.9 Seconds (9.0-12.0)
[2019-04-19 06:31] LABS: Albumin Level 1.5 gm/dl (3.4-5.0); BUN Creatinine Ratio 33.1 (10-20); Calcium 7.5 mg/dl (8.5-10.1); Creatinine Clr Calc Pharmacy 34.4 ml/min; Est GFR (African American) 56.5; Est GFR (Non-African American) 48.7; Potassium 3.1 mmol/L (3.5-5.1)
[2019-04-19 06:34] LABS: Albumin Globulin Ratio 0.4 (0.9-2); Bilirubin,Total 0.7 mg/dl (0.2-1); Globulin 3.4 gm/dl (2.5-4.0); INR 3.9 (0.9-1.1); Total Protein 4.9 gm/dl (6.4-8.2)
[2019-04-19] MEDS: INSULIN ASPART 100 UNITS/ML 3 ML PEN SC SCH ×4 (08:02→21:32)
[2019-04-19] MEDS: METOPROLOL TARTRATE 25 MG TAB PO SCH ×2 (08:02→21:30)
[2019-04-19] MEDS: ASCORBIC ACID 500 MG TAB PO SCH ×2 (08:03→21:33)
[2019-04-19] MEDS: PANTOprazole 40 MG TAB PO SCH (08:03)
[2019-04-19] MEDS: FERROUS SULFATE 325 MG TAB PO SCH ×2 (08:03→21:30)
[2019-04-19] MEDS: FINASTERIDE 5 MG TAB PO SCH (08:03)
[2019-04-19] MEDS: FOLIC ACID 1 MG TAB PO SCH (08:03)
[2019-04-19] MEDS: MULTIVITAMIN TAB PO SCH (08:03)
[2019-04-19] MEDS: FUROSEMIDE 20 MG in SYRINGE 0 ML IV SCH ×2 (08:46→13:51)
[2019-04-19] MEDS: VITAMIN B COMPLEX TAB PO SCH (08:46)
[2019-04-19] MEDS: POTASSIUM CHLORIDE / WTR 10 MEQ/100 ML PLCT IV SCH ×2 (08:50→09:52)
--- NOTE | 2019-04-19 08:57 | Progress Note ---
DATE: 04/19/2019 Mr. You is seen today. He is on room air with 92% saturations. He does have a cough. He does not appear to be short of breath. The patient's right pleural effusion was tapped 3 days ago for 1200 mL of fluid. This is benign. It is a transudate. It is quite likely due to his heart. At this point, I would not recommend doing anything else. Placing a PleurX catheter in this patient would not be recommended due to the fact that he is at high risk of developing a nosocomial infection. If he is not requiring oxygen and quite frankly, it appears to me that this man is reaching end of life and will be 89 this month. I would hold off doing anything aggressive.
[2019-04-19] MEDS ORDERED: FUROSEMIDE 20 MG in SYRINGE 0 ML IV SCH (09:00)
[2019-04-19] MEDS: CEFEPIME 2,000 MG in SYRINGE 7.5 ML IV SCH (12:03)
--- NOTE | 2019-04-19 14:56 | Hospitalist Progress Note ---
Date of Service April 19, 2019 Assessment & Plan (1) Metabolic encephalopathy: -as per ED notes on 04/15/19: "The patient is a 88 male w/ PMHx of recent TBS s/p PPM 02/14, PAF on Coumadin, CAD with history of CABG x2 in 11/2006, history of PFO closure 11/2006, history of bioprosthetic AVR in 11/2006, moderate stenosis of bioprosthetic AVR, bilateral venous insufficiency, T2DM, HTN, HLD, CKD stage III, anemia of chronic disease, history of TIA, BPH who presents to the ED w/ CC of dehydration beginning prior to arrival. Per the nursing staff, the patient was brought in by [email or web address] where they found the patient unresponsive and dehydrated." -acute metabolic encephalopathy from dehydration, hypernatremia, and possible from underlying infection -as of 04/18/19, patient appears to be more interactive (2) Dehydration: -dehydration corrected in the hospital stay with IV fluids (3) Hypernatremia: -chronic hypernatremia likely from poor oral intake and lack of water -admission serum sodium in the 150s -serum sodium normalized on 04/18/19 due to use of IV fluids with dextrose, IV fluids stopper on 04/18/19 (4) Severe protein-calorie malnutrition: Hypoalbuminemia -Interventional Neuroradiologist consult -offer BOOST nutrition supplements (5) Pleural effusion, bilateral: acute congestive diastolic heart failure -from severe malnutrition and Hypoalbuminemia and diastolic heart failure -he came in to hospital and found to have pleural effusion -Right thoracentesis under ultrasound guidance on 04/16/19 revealed transudative fluid only -because patient was aggressively hydrated to reduce the serum sodium, there is chance that IV fluids contributed to the return of the effusions -Patient has been given IV Lasix on 04/18/19 and 04/19/19 -as of 04/19/19, patient appears to be breathing comfortably on room air and saturating well. will need day to day assessment of diuresis (6) PAF (paroxysmal atrial fibrillation): -known history of valvular disease s/p bioprosthetic aortic valve, known CAD and atrial fibrillation -Anticoagulated on coumadin, Trend INR daily. (7) S/P AVR: -known history of valvular disease s/p bioprosthetic aortic valve, known CAD and atrial fibrillation -Anticoagulated on coumadin -INR is 3.9 on 04/19/19, avoid coumadin at this time, check INR on 04/20/19 (8) PVD (peripheral vascular disease): -arterial ultrasound of legs on 04/17/19: No evidence of hemodynamic significant lower extremity arterial stenosis (9) Chronic venous insufficiency: (10) Ulcers of both lower extremities: -Multiple wounds to lower legs -venous stasis ulcers -Screening X rays revealed possible osteomyelitis to R heel and ulcerative wounds with soft tissue gas associated -wound care nursing -waffle boots -right foot X ray 04/16/19: Soft tissue edema seen throughout the foot with a large soft tissue ulceration overlying the heel with foci of subcutaneous gas. Sclerotic change is present within the dorsal calcaneus deep to the ulceration. Acute versus chronic osteomyelitis is not excluded -right ankle X ray 04/16/19: Ulceration of the posterior calcaneus with sclerosis of the calcaneus suggesting changes related to chronic osteomyelitis. No osteolysis or periosteal reaction to suggest acute osteomyelitis -Left foot X ray 04/16/19: Foci of soft tissue edema with no acute bony abnormality identified -Left ankle X ray 03/3019: no gross evidence of acute or chronic osteomyelitis -04/17/19 right foot wound culture with gram negative bacilli: (patient has been on broad spectrum IV antibiotics of Zosyn and Vancomycin as of 04/16/19 to 04/18/19, transition and de-escalate to cefepime alone on 04/18/19) -orthopedic consult is following the patient (11) Acute kidney injury superimposed on chronic kidney disease: -creatinine downtrended with IV fluids during this hospital stay (12) Urinary retention: -Patient failed a trial of void at [facility] and was seen by Urology one month ago -continue tamsulosin with finasteride -has hoyos (13) UTI (urinary tract infection) due to urinary indwelling catheter: -has chronic hoyos -04/15/19 urine with generally pansensitive Proteus mirabilis that is resistant to fluroquinolone -patient has been on broad spectrum IV antibiotics of Zosyn and Vancomycin as of 04/16/19 to 04/18/19, transition and de-escalate to cefepime alone on 04/18/19 (14) T2DM (type 2 diabetes mellitus): 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 -hold home tradjenta -cont novolog correction as needed with carb coverage. -on Lantus 10 units qhs currently (15) DVT prophylaxis: -on coumadin Code Status DNR/DNI [facility] currently seeking guardianship for him. Subjective Patient got IV Lasix today. He is breathing on room air. He reports he feels fine. He denies pain. He is not in distress. Physical Exam Constitutional: comfortable Eyes: PERRL, conjunctivae normal, anicteric sclerae EOM intact bilaterally ENMT: external ear and nose normal, oropharynx normal Neck: normal visual inspection Respiratory: normal respiratory effort, lungs clear to auscultation Cardiovascular: Rate/Rhythm: regular rate and regular rhythm Gastrointestinal (Abdomen): normal bowel sounds, soft, nontender, no hepatosplenomegaly Musculoskeletal: legs in waffle boots, right heel in dressing and the right heel has dark skin discoloration Psychiatric: Orientation: alert and cooperative Results & Data Vital Signs (Past 12 Hours) Vital Signs Temp Pulse Pulse Resp BP BP Pulse Ox 04/19/19 14:52 36.8 C 68 18 103/50 L 95 04/19/19 11:19 37.0 C 76 18 93/50 L 97 04/19/19 08:00 71 04/19/19 06:55 36.9 C 67 17 113/56 L 92 04/19/19 04:02 36.7 C 78 12 102/53 L 95 (1) Ulcers of both lower extremities Non-pressure ulcer stage: unspecified non-pressure ulcer stage Qualified Code(s): L97.919 - Non-pressure chronic ulcer of unspecified part of right lower leg with unspecified severity; L97.929 - Non-pressure chronic ulcer of unspecified part of left lower leg with unspecified severity
--- NOTE | 2019-04-19 16:10 | Orthopedic Progress Note ---
Date of Service April 19, 2019 Assessment & Plan (1) Ulcers of both lower extremities: Duplex scan done yesterday showing no overt blockages in the lower extremities. I have discussed the case with Dr. Saunders. Plans will be for irrigation and debridement of the right heel and then possibly the left heel ulcer as well. This will likely occur either Tuesday or Tuesday but more likelihood of Tuesday. INR is 3.9 will need to be brought down to reasonable level for surgery. Dr. Saunders will review the case further tomorrow when he is here and make final recommendations for how extensive debridement will be needed for the right heel. Subjective Patient currently sitting up in bed. Nursing staff present to help with dressing change on the right foot. Patient appears comfortable but states that when he is moving his legs his feet are quite sore. No other complaints at this time. He is very hard of hearing. Physical Exam Physical Exam: Blankets removed from the lower extremities to reveal chronic venous stasis changes and discoloration of most of the lower extremities below the knees. Dressing on the right heel was removed. A foul odor is noted. A large black necrotic area is noted over most of the heel. He does have some scant serous drainage that is on the dressing and also on the bed. Tender on palpation. Scant yellow slough noted on certain areas around the edges along with some erythema. He also has a small pressure ulceration noted on the left heel near as large as the right. I can appreciate dorsalis pedis pulses. Results & Data Vital Signs (Past 12 Hours) Vital Signs Temp Pulse Pulse Resp BP BP Pulse Ox 04/19/19 15:57 64 04/19/19 15:21 37.0 C 68 20 96/56 L 95 04/19/19 14:52 36.8 C 68 18 103/50 L 95 04/19/19 11:19 37.0 C 76 18 93/50 L 97 04/19/19 08:00 71 04/19/19 06:55 36.9 C 67 17 113/56 L 92 Laboratory Results Laboratory Results WBC 11.91 K/uL (4.8-10.8) H 04/18/19 05:27 RBC 3.16 M/uL (4.7-6.1) L 04/18/19 05:27 Hgb 9.0 g/dL (14.0-18.0) L 04/18/19 05:27 Hct 28.6 % (42-52) L 04/18/19 05:27 MCV 90.5 fL (80-100) 04/18/19 05:27 MCH 28.5 pg (25-34) 04/18/19 05:27 MCHC 31.5 g/dL (32-36) L 04/18/19 05:27 RDW Std Deviation 54.1 fL (36.4-46.3) H 04/18/19 05:27 RDW Coeff of [place] 16.2 % (11.5-14.5) H 04/18/19 05:27 Plt Count 215 K/uL (130-400) 04/18/19 05:27 MPV 9.8 fL (7.4-10.4) 04/18/19 05:27 Immature Gran % (Auto) 0.7 % 04/16/19 01:29 Immature Gran % (Auto) Cancelled 04/16/19 01:29 Neut % (Auto) 81.4 % 04/16/19 01:29 Neut % (Auto) Cancelled 04/16/19 01:29 Lymph % (Auto) 7.5 % 04/16/19 01:29 Lymph % (Auto) Cancelled 04/16/19 01:29 [place] % (Auto) 8.7 % 04/16/19 01:29 [place] % (Auto) Cancelled 04/16/19 01:29 Eos % (Auto) 1.3 % 04/16/19 01:29 Eos % (Auto) Cancelled 04/16/19 01:29 Baso % (Auto) 0.4 % 04/16/19 01:29 Baso % (Auto) Cancelled 04/16/19 01:29 Immature Gran # (Auto) 0.06 K/uL (0.00-0.02) H 04/16/19 01:29 Immature Gran # (Auto) Cancelled 04/16/19 01:29 Neut # (Auto) 6.64 K/uL (1.4-6.5) H 04/16/19 01:29 Neut # (Auto) Cancelled 04/16/19 01:29 Lymph # (Auto) 0.61 K/uL (1.2-3.4) L 04/16/19 01:29 Lymph # (Auto) Cancelled 04/16/19 01:29 [place] # (Auto) 0.71 K/uL (0.11-0.59) H 04/16/19 01:29 [place] # (Auto) Cancelled 04/16/19 01:29 Eos # (Auto) 0.11 K/uL (0-0.5) 04/16/19 01:29 Eos # (Auto) Cancelled 04/16/19 01:29 Baso # (Auto) 0.03 K/uL (0-0.2) 04/16/19 01:29 Baso # (Auto) Cancelled 04/16/19 01:29 Absolute Nucleated RBC Cancelled 04/16/19 01:29 Nucleated RBC % (auto) Cancelled 04/16/19 01:29 Neutrophils % (Manual) Cancelled 04/16/19 01:29 Band Neutrophils % Cancelled 04/16/19 01:29 Lymphocytes % (Manual) Cancelled 04/16/19 01:29 Prolymphocyte % Cancelled 04/16/19 01:29 Reactive Lymphs % (Man) Cancelled 04/16/19 01:29 Monocytes % (Manual) Cancelled 04/16/19 01:29 Eosinophils % (Manual) Cancelled 04/16/19 01:29 Basophils % (Manual) Cancelled 04/16/19 01:29 Metamyelocytes % (Man) Cancelled 04/16/19 01:29 Myelocytes % (Man) Cancelled 04/16/19 01:29 Promyelocytes % (Man) Cancelled 04/16/19 01:29 Blast Cells % (Manual) Cancelled 04/16/19 01:29 Plasma Cell % (Manual) Cancelled 04/16/19 01:29 Other Cells % Cancelled 04/16/19 01:29 Nucleated RBC % Cancelled 04/16/19 01:29 Neutrophils # (Manual) Cancelled 04/16/19 01:29 Band Neutrophils # Cancelled 04/16/19 01:29 Total Absolute Neuts Cancelled 04/16/19 01:29 Lymphocytes # (Manual) Cancelled 04/16/19 01:29 Prolymphocyte # Cancelled 04/16/19 01:29 Reactive Lymphs # Cancelled 04/16/19 01:29 Total Abs Lymphocytes Cancelled 04/16/19 01:29 Monocytes # (Manual) Cancelled 04/16/19 01:29 Eosinophils # (Manual) Cancelled 04/16/19 01:29 Basophils # (Manual) Cancelled 04/16/19 01:29 Metamyelocytes # (Man) Cancelled 04/16/19 01:29 Myelocytes # (Manual) Cancelled 04/16/19 01:29 Promyelocytes # (Man) Cancelled 04/16/19 01:29 Blast Cells # (Man) Cancelled 04/16/19 01:29 Plasma Cell # (Manual) Cancelled 04/16/19 01:29 Other Cells # Cancelled 04/16/19 01:29 Nucleated RBCs # (Man) Cancelled 04/16/19 01:29 Hypersegmented Neuts Cancelled 04/16/19 01:29 Hyposegmented Neuts Cancelled 04/16/19 01:29 Hypogranular Neuts Cancelled 04/16/19 01:29 Large Granular Lymphs Cancelled 04/16/19 01:29 # Lrg Granular Lymphs Cancelled 04/16/19 01:29 Hairy Cells Cancelled 04/16/19 01:29 Smudge Cells Cancelled 04/16/19 01:29 Toxic Granulation Cancelled 04/16/19 01:29 Toxic Vacuolation Cancelled 04/16/19 01:29 Dohle Bodies Cancelled 04/16/19 01:29 Adilene Rods Cancelled 04/16/19 01:29 Platelet Estimate Cancelled 04/16/19 01:29 Hypogranular Platelets Cancelled 04/16/19 01:29 Clumped Platelets Cancelled 04/16/19 01:29 Giant Platelets Cancelled 04/16/19 01:29 Platelet Satelliting Cancelled 04/16/19 01:29 RBC Morphology Cancelled 04/16/19 01:29 Polychromasia Cancelled 04/16/19 01:29 Hypochromasia Cancelled 04/16/19 01:29 Poikilocytosis Cancelled 04/16/19 01:29 Basophilic Stippling Cancelled 04/16/19 01:29 Anisocytosis Cancelled 04/16/19 01:29 Microcytosis Cancelled 04/16/19 01:29 Macrocytosis Cancelled 04/16/19 01:29 Spherocytes Cancelled 04/16/19 01:29 Pappenheimer Bodies Cancelled 04/16/19 01:29 Sickle Cells Cancelled 04/16/19 01:29 Target Cells Cancelled 04/16/19 01:29 Tear Drop Cells Cancelled 04/16/19 01:29 Ovalocytes Cancelled 04/16/19 01:29 Stomatocytes Cancelled 04/16/19 01:29 [employer] Bodies Cancelled 04/16/19 01:29 Echinocytes Cancelled 04/16/19 01:29 Acanthocytes (Spur) Cancelled 04/16/19 01:29 Rouleaux Cancelled 04/16/19 01:29 RBC Agglutinates Cancelled 04/16/19 01:29 Schistocytes Cancelled 04/16/19 01:29 RBC Morph Comment Cancelled 04/16/19 01:29 Sezary Cell Cancelled 04/16/19 01:29 PT 35.9 Seconds (9.0-12.0) H 04/19/19 05:43 INR 3.9 (0.9-1.1) H 04/19/19 05:43 APTT 41.2 Seconds (21.0-31.0) H 04/16/19 01:29 PTT Ratio 1.5 04/16/19 01:29 ABG pH 7.44 (7.35-7.45) 04/16/19 02:06 ABG pCO2 35 mmHg (35-46) 04/16/19 02:06 ABG pO2 96 mm/Hg (80-95) H 04/16/19 02:06 ABG HCO3 24 mmol/L (19-24) 04/16/19 02:06 ABG O2 Saturation 97.1 % (90-95) H 04/16/19 02:06 ABG Base Excess -0.5 mEq/L (-9-1.8) 04/16/19 02:06 Syed Test Pos (Pos) 04/16/19 02:06 Barometric Pressure Cancelled 04/16/19 01:29 Oxygen Given 2L 04/16/19 02:06 Sodium 139 mmol/L (136-145) 04/19/19 05:43 Potassium 3.1 mmol/L (3.5-5.1) L 04/19/19 05:43 Chloride 108 mmol/L (98-107) H 04/19/19 05:43 Carbon Dioxide 23 mmol/L (21-32) 04/19/19 05:43 Anion Gap 8.0 (3-11) 04/19/19 05:43 BUN 43 mg/dl (7-18) H 04/19/19 05:43 Creatinine 1.30 mg/dl (0.6-1.4) 04/19/19 05:43 Est Cr Clr Drug Dosing 34.4 ml/min 04/19/19 05:43 Est GFR ( Amer) 56.5 04/19/19 05:43 Est GFR (Non-Af Amer) 48.7 04/19/19 05:43 BUN/Creatinine Ratio 33.1 (10-20) H 04/19/19 05:43 Glucose 74 mg/dl (70-99) 04/19/19 05:43 POC Glucose 79 (70-99) 04/19/19 11:45 Estimat Average Glucose 117 mg/dl 04/16/19 19:10 Hemoglobin A1c 5.7 % (4.5-5.6) H 04/16/19 19:10 Lactate 1.2 mmol/L (0.4-2.0) 04/15/19 16:57 Calcium 7.5 mg/dl (8.5-10.1) L 04/19/19 05:43 Phosphorus 2.3 mg/dl (2.5-4.9) L 04/18/19 05:27 Magnesium 2.2 mg/dl (1.8-2.4) 04/19/19 05:43 Total Bilirubin 0.7 mg/dl (0.2-1) 04/19/19 05:43 AST 41 U/L (15-37) H 04/19/19 05:43 ALT 36 U/L (12-78) 04/19/19 05:43 Alkaline Phosphatase 163 U/L (45-117) H 04/19/19 05:43 Ammonia 23.4 umol/L (11-32) 04/16/19 01:29 Total Protein 4.9 gm/dl (6.4-8.2) L 04/19/19 05:43 Albumin 1.5 gm/dl (3.4-5.0) L 04/19/19 05:43 Globulin 3.4 gm/dl (2.5-4.0) 04/19/19 05:43 Albumin/Globulin Ratio 0.4 (0.9-2) L 04/19/19 05:43 Procalcitonin 0.77 ng/ml (0-0.5) H 04/15/19 16:39 Urine Color Dark Yellow 04/15/19 17:15 Urine Appearance Turbid (Clear) A 04/15/19 17:15 Urine pH >= 9.0 (4.5-7.5) H 04/15/19 17:15 Ur Specific [place] 1.009 (1.000-1.030) 04/15/19 17:15 Urine Protein 3+ (Negative) H 04/15/19 17:15 Urine Glucose (UA) Negative (Negative) 04/15/19 17:15 Urine Ketones Negative (Negative) 04/15/19 17:15 Urine Blood 3+ (Negative) H 04/15/19 17:15 Urine Nitrite Negative (Negative) 04/15/19 17:15 Urine Bilirubin Negative (Negative) 04/15/19 17:15 Urine Urobilinogen Negative (Negative) 04/15/19 17:15 Ur Leukocyte Esterase 3+ (Negative) H 04/15/19 17:15 Urine WBC (Auto) >30 /hpf (0-5) H 04/15/19 17:15 Urine RBC (Auto) 5-10 /hpf (0-4) H 04/15/19 17:15 U Hyaline Cast (Auto) 1-5 /lpf (0-5) 04/15/19 17:15 U Epithel Cells (Auto) 5-10 /lpf (0-5) H 04/15/19 17:15 Urine Bacteria (Auto) 2+ (Negative) H 04/15/19 17:15 Triple Phos Crystals Present (None Prsent) A 04/15/19 17:15 Urine Mucus Present (None Prsent) A 04/15/19 17:15 Urine Yeast Not Reportable 04/15/19 17:15 Ur Random Creatinine 105.0 mg/dl 04/16/19 22:20 U Random Total Protein 65.4 mg/dl (0-11.9) H 04/16/19 22:20 Protein/Creatinin Ratio 0.6 (0-0.2) H 04/16/19 22:20 Pleural Fluid Source RIGHT LUNG 04/16/19 08:45 Pleural Color YELLOW 04/16/19 08:45 Pleural Appearance CLOUDY 04/16/19 08:45 Pleural WBC 246 /uL 04/16/19 08:45 Pleural RBC 7000 /uL 04/16/19 08:45 Pleural Polynuclear % 47.3 % 04/16/19 08:45 Pleural Mononuclear % 52.7 % 04/16/19 08:45 Pleural Total Protein 1.4 g/dl 04/16/19 08:45 Pleural LDH 120 U/L 04/16/19 08:45 Pleural Glucose 153 mg/dl 04/16/19 08:45 Pleural Glucose Cancelled 04/16/19 08:45 Pleural Amylase 14 U/L 04/16/19 08:45 Pleural Amylase Cancelled 04/16/19 08:45 Pleural Cholesterol see note 04/16/19 08:45 Nasal Screen MRSA (PCR) Negative (Negative) 04/15/19 21:50 Vancomycin Trough 12.5 mcg/ml (See Comment) 04/18/19 17:24 Diagnostic Findings Patient: BRYSON JOHN DAdmit Date: 04/15/19 MR#: [id number]: 450 GONZALESSandie Acct ID:[id number]: TOÑO Date: [address] Zip: [place] [address] Age: 88Location: 2N Sex: M Room/Bed: [facility] Att Phy: Edinson Pruitt, MDDiagnosis: HYPERNATREMIA, QUESTIONABLE UNRESPONSIVENESS Brenad Phy: Heartcosmeide, NittanyService Date: 04/18/19 Fam Phy:Interpreting Phy: Franky Lal MD Admit Phy: Ragini Alexander MD Ordering Phy: Julio César Kimball D.O. cc: ~ US arterial duplex LE BI CLINICAL HISTORY: Peripheral vascular disease. Multiple ulcers. Osteomyelitis. COMPARISON STUDY: No previous studies for comparison. FINDINGS: Ankle brachial indices were not performed due to open ulcers on the lower leg and a chronic painful skin. On the right, there was biphasic flow within the common femoral, superficial femoral, popliteal arteries. There is biphasic flow within the right anterior tibial. There is monophasic flow within the right posterior tibial and peroneal. On the left there was biphasic flow within the common femoral superficial femoral and popliteal arteries. There is biphasic flow within the left anterior tibial artery. There is monophasic flow within the left peroneal and posterior tibial arteries. No high velocity jets were visualized. IMPRESSION: No evidence of hemodynamic significant lower extremity arterial stenosis (1) Ulcers of both lower extremities Non-pressure ulcer stage: unspecified non-pressure ulcer stage Qualified Code(s): L97.919 - Non-pressure chronic ulcer of unspecified part of right lower leg with unspecified severity; L97.929 - Non-pressure chronic ulcer of unspecified part of left lower leg with unspecified severity
[2019-04-19] MEDS: ATORVASTATIN 40 MG TAB PO SCH (21:30)
[2019-04-19] MEDS: INSULIN GLARGINE SOLOSTAR 100 UNITS/ML 3 ML PEN SQ SCH (21:30)
[2019-04-19] MEDS: DOXAZOSIN MESYLATE 1 MG TAB PO SCH (21:30)
[2019-04-19] MEDS: TAMSULOSIN HCL 0.4 MG CAP PO SCH (21:30)
[2019-04-20 06:19] LABS: INR 2.9 (0.9-1.1)
[2019-04-20 06:45] LABS: Albumin Level 1.3 gm/dl (3.4-5.0); BUN Creatinine Ratio 33.7 (10-20); Calcium 7.4 mg/dl (8.5-10.1); Creatinine Clr Calc Pharmacy 35.3 ml/min; Est GFR (African American) 58.1; Est GFR (Non-African American) 50.1; Potassium 2.9 mmol/L (3.5-5.1)
[2019-04-20 06:48] LABS: Albumin Globulin Ratio 0.4 (0.9-2); Bilirubin,Total 0.6 mg/dl (0.2-1); Globulin 3.3 gm/dl (2.5-4.0); Total Protein 4.6 gm/dl (6.4-8.2)
[2019-04-20 07:01] LABS: Basophils # (auto) 0.01 K/uL (0-0.2); Basophils % (auto) 0.1 %; Eosinophils # (auto) 0.07 K/uL (0-0.5); Eosinophils % (auto) 0.7 %; Hemoglobin 8.7 g/dL (14.0-18.0); Immature Granulocytes # (auto) 0.06 K/uL (0.00-0.02); Immature Granulocytes % (auto) 0.6 %; Lymphocytes # (auto) 0.57 K/uL (1.2-3.4); Lymphocytes % (auto) 5.4 %; Mean Corpuscular Hemoglobin 28.6 pg (25-34); Mean Corpuscular Hgb Conc 33.5 g/dL (32-36); Mean Corpuscular Volume 85.5 fL (80-100); Mean Platelet Volume 9.7 fL (7.4-10.4); Monocytes # (auto) 0.77 K/uL (0.11-0.59); Monocytes % (auto) 7.3 %; Neutrophils # (auto) 9.02 K/uL (1.4-6.5); Neutrophils % (auto) 85.9 %; Platelet Count 232 K/uL (130-400); RDW Coefficient of Variation 16.2 % (11.5-14.5); RDW Standard Deviation 50.6 fL (36.4-46.3); Red Blood Count 3.04 M/uL (4.7-6.1)
[2019-04-20] MEDS ORDERED: POTASSIUM CHLORIDE 20 MEQ TABCR PO STA ×2 (07:22→13:53)
[2019-04-20 07:53] LABS: Phosphorus 2.6 mg/dl (2.5-4.9)
[2019-04-20] MEDS ORDERED: PHYTONADIONE 2.5 MG in SODIUM CHLORIDE 0.9% 50 ML IV ONE (07:54)
[2019-04-20] MEDS: POTASSIUM CHLORIDE / WTR 10 MEQ/100 ML PLCT IV SCH ×2 (08:04→09:58)
[2019-04-20] MEDS: INSULIN ASPART 100 UNITS/ML 3 ML PEN SC SCH ×4 (08:04→20:37)
[2019-04-20] MEDS: METOPROLOL TARTRATE 25 MG TAB PO SCH ×2 (08:57→20:23)
[2019-04-20] MEDS: ASCORBIC ACID 500 MG TAB PO SCH ×2 (08:57→20:23)
[2019-04-20] MEDS: FERROUS SULFATE 325 MG TAB PO SCH ×2 (08:57→20:24)
[2019-04-20] MEDS: ASPIRIN 81 MG ECTAB PO SCH (08:58)
[2019-04-20] MEDS: VITAMIN B COMPLEX TAB PO SCH (08:58)
[2019-04-20] MEDS: FINASTERIDE 5 MG TAB PO SCH (08:58)
[2019-04-20] MEDS: PANTOprazole 40 MG TAB PO SCH (08:58)
[2019-04-20] MEDS: MULTIVITAMIN TAB PO SCH (08:58)
[2019-04-20] MEDS: FOLIC ACID 1 MG TAB PO SCH (08:58)
[2019-04-20] MEDS: CEFEPIME 2,000 MG in SYRINGE 7.5 ML IV SCH (12:06)
[2019-04-20 12:16] LABS: INR 2.3 (0.9-1.1); Prothrombin Time 21.9 Seconds (9.0-12.0)
[2019-04-20 12:32] LABS: BUN Creatinine Ratio 32.6 (10-20); Calcium 7.6 mg/dl (8.5-10.1); Est GFR (African American) 57.5; Est GFR (Non-African American) 49.6; Potassium 3.4 mmol/L (3.5-5.1)
[2019-04-20] MEDS ORDERED: WARFARIN SOD 0.5 MG TAB PO SCH (16:00)
[2019-04-20] MEDS ORDERED: LEVALBUTEROL 1.25MG/0.5ML NEB NEB STA (16:03)
[2019-04-20] MEDS ORDERED: ACETAMINOPHEN 325 MG TAB PO PRN (16:04)
--- NOTE | 2019-04-20 16:10 | Hospitalist Progress Note ---
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 Per the nursing staff, the patient was brought in by [facility] where they found the patient unresponsive and dehydrated." -acute metabolic encephalopathy from dehydration, hypernatremia, and possible from underlying infection -as of 04/18/19, patient appears to be more interactive (2) Dehydration: -dehydration corrected in the hospital stay with IV fluids (3) Hypernatremia: -chronic hypernatremia likely from poor oral intake and lack of water -admission serum sodium in the 150s -serum sodium normalized on 04/18/19 due to use of IV fluids with dextrose, IV fluids stopper on 04/18/19 (4) Severe protein-calorie malnutrition: Hypoalbuminemia -Flume Ride Operator consult -offer BOOST nutrition supplements (5) Pleural effusion, bilateral: acute congestive diastolic heart failure -from severe malnutrition and Hypoalbuminemia and diastolic heart failure -he came in to hospital and found to have pleural effusion -Right thoracentesis under ultrasound guidance on 04/16/19 revealed transudative fluid only -because patient was aggressively hydrated to reduce the serum sodium, there is chance that IV fluids contributed to the return of the effusions -Patient has been given IV Lasix on 04/18/19 and 04/19/19 -as of 04/19/19, patient appears to be breathing comfortably on room air and saturating well. will need day to day assessment of diuresis -04/20/19 still on room air with good oxygenation; there is an anesthesia service chest X ray order to assess for fluid overload. However, patient is known to have effusions. prn nebulizers if needed Hypokalemia -recent diuresis complicated by hypokalemia -patient also having hypokalemia secondary to recent Lasix IV on 04/18/19 and 04/19/19 -His potassium levels have been repleted currently (6) PAF (paroxysmal atrial fibrillation): -known history of valvular disease s/p bioprosthetic aortic valve, known CAD and atrial fibrillation -had been on coumadin -INR is 3.9 on 04/19/19,coumadin held and morning INR on 04/20/19 was 2.9 -vitamin K IV 5 mg given on 04/20/19 for possible orthopedic procedure and recent INR on 04/20/19 is 2.3 -trend INR (7) S/P AVR: -known history of valvular disease s/p bioprosthetic aortic valve, known CAD and atrial fibrillation -had been on coumadin -INR is 3.9 on 04/19/19,coumadin held and morning INR on 04/20/19 was 2.9 -vitamin K IV 5 mg given on 04/20/19 for possible orthopedic procedure and recent INR on 04/20/19 is 2.3 -trend INR (8) PVD (peripheral vascular disease): -arterial ultrasound of legs on 04/17/19: No evidence of hemodynamic significant lower extremity arterial stenosis (9) Chronic venous insufficiency: (10) Ulcers of both lower extremities: -Multiple wounds to lower legs -venous stasis ulcers -Screening X rays revealed possible osteomyelitis to R heel and ulcerative wounds with soft tissue gas associated -wound care nursing -waffle boots -right foot X ray 04/16/19: Soft tissue edema seen throughout the foot with a large soft tissue ulceration overlying the heel with foci of subcutaneous gas. Sclerotic change is present within the dorsal calcaneus deep to the ulceration. Acute versus chronic osteomyelitis is not excluded -right ankle X ray 04/16/19: Ulceration of the posterior calcaneus with sclerosis of the calcaneus suggesting changes related to chronic osteomyelitis. No osteolysis or periosteal reaction to suggest acute osteomyelitis -Left foot X ray 04/16/19: Foci of soft tissue edema with no acute bony abnormality identified -Left ankle X ray 03/3019: no gross evidence of acute or chronic osteomyelitis -04/17/19 right foot wound culture with gram negative bacilli: (patient has been on broad spectrum IV antibiotics of Zosyn and Vancomycin as of 04/16/19 to 04/18/19, transition and de-escalate to cefepime alone on 04/18/19) -orthopedic consult is following the patient -04/20/19: Patient breathing on room air. Was trying to discuss with him that orthopedic doctor planning for possible debridement of the right heel on Tuesday04/21/19. patient received vitamin K to lower INR and orders for NPO after midnight. I do not think patient can carry a conversation with me about procedure right now. He appears tired after waking from sleep. blood pressure noted to be low today. blood pressure at time of my exam is 108/45. there is an anesthesia service chest X ray order to assess for fluid overload. However, patient is known to have effusions. patient also having hypokalemia secondary to recent Lasix IV on 04/18/19 and 04/19/19. His potassium levels have been repleted today. (11) Acute kidney injury superimposed on chronic kidney disease: -creatinine downtrended with IV fluids during this hospital stay (12) Urinary retention: -Patient failed a trial of void at [facility] and was seen by Urology one month ago -continue tamsulosin with finasteride -has hoyos (13) UTI (urinary tract infection) due to urinary indwelling catheter: -has chronic hoyos -04/15/19 urine with generally pansensitive Proteus mirabilis that is resistant to fluroquinolone -patient has been on broad spectrum IV antibiotics of Zosyn and Vancomycin as of 04/16/19 to 04/18/19, transition and de-escalate to cefepime alone on 04/18/19 (14) T2DM (type 2 diabetes mellitus): 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 -hold home tradjenta -cont novolog correction as needed with carb coverage. -recently on Lantus 10 units qhs, stopped long acting insulin order for 04/20/19 to avoid hypoglycemia (15) DVT prophylaxis: -has been on coumadin and INR to be reversed with vitamin K IV 5 mg given on 04/20/19 Code Status DNR/DNI [facility] currently seeking guardianship for him. Subjective Patient breathing on room air. Was trying to discuss with him that orthopedic doctor planning for possible debridement of the right heel on Tuesday04/21/19. patient received vitamin K to lower INR and orders for NPO after midnight. I do not think patient can carry a conversation with me about procedure right now. He appears tired after waking from sleep. blood pressure noted to be low today. blood pressure at time of my exam is 108/45. there is an anesthesia service chest X ray order to assess for fluid overload. However, patient is known to have effusions. patient also having hypokalemia secondary to recent Lasix IV on 04/18/19 and 04/19/19. His potassium levels have been repleted today. Physical Exam Constitutional: comfortable Eyes: PERRL, conjunctivae normal, anicteric sclerae EOM intact bilaterally ENMT: external ear and nose normal, oropharynx normal Neck: normal visual inspection Respiratory: normal respiratory effort, lungs clear to auscultation Cardiovascular: Rate/Rhythm: regular rate and regular rhythm Gastrointestinal (Abdomen): normal bowel sounds, soft, nontender, no hepatosplenomegaly Musculoskeletal: Head/Neck/Chest: normocephalic and head atraumatic feet in waffle boots Neurologic: PERRL, EOMI, accommodation nl, no face palsy, no dysarthria Psychiatric: Orientation: alert and cooperative Results & Data Vital Signs (Past 12 Hours) Vital Signs Temp Pulse Pulse Resp BP Pulse Ox 04/20/19 15:48 36.9 C 72 20 89/46 L 94 04/20/19 15:15 77 04/20/19 09:22 36.6 C 72 18 106/47 L 92 04/20/19 09:00 36.8 C 76 18 110/50 L 94 04/20/19 04:17 36.9 C 67 18 106/44 L 91 (1) Ulcers of both lower extremities Non-pressure ulcer stage: unspecified non-pressure ulcer stage Qualified Code(s): L97.919 - Non-pressure chronic ulcer of unspecified part of right lower leg with unspecified severity; L97.929 - Non-pressure chronic ulcer of unspecified part of left lower leg with unspecified severity
[2019-04-20] MEDS ORDERED: ALBUT/IPRATROP 3MG/0.5MG NEB 3 ML VIAL NEB PRN (16:17)
--- NOTE | 2019-04-20 18:18 | XRay Report ---
XR chest 2V routine HISTORY: pre-operative, r/o fluid overload COMPARISON: Chest 04/18/2019. FINDINGS: There are low lung volumes with moderate bilateral pleural effusions. Bibasilar densities p ersist and favor atelectasis from the pleural effusions. There appears to be a tiny right apical pneu mothorax, unchanged. This measures a pleural gap of 4 mm. The heart remains enlarged. There are posts ternotomy changes and a left-sided dual-chamber pacemaker. Mild pulmonary edema persists. Cardiac preston ve prosthesis is noted. IMPRESSION: 1. No significant change in the moderate bilateral pleural effusions and pulmonary edema. 2. There are low lung volumes with bibasilar densities suggesting atelectasis. A pneumonia could also have a similar appearance. 3. There is a tiny right apical pneumothorax, unchanged. Electronically signed by: Davidson Carnes M.D. 04/20/2019 6:17 PM
[2019-04-20] MEDS: ATORVASTATIN 40 MG TAB PO SCH (20:22)
[2019-04-20] MEDS: TAMSULOSIN HCL 0.4 MG CAP PO SCH (20:24)
--- NOTE | 2019-04-20 20:24 | Orthopedic Progress Note ---
Date of Service April 20, 2019 Assessment & Plan (1) Ulcers of both lower extremities: Plan for irrigation and debridement of the right heel and then possibly the left heel ulcer tomorrow if INR is improved from 3.9. Needs to be brought down to reasonable level for surgery (~1.5 or less). Keep NPO. Subjective Patient resting in bed. His feet are painful and sore. No other complaints at this time. He is hard of hearing. Physical Exam Physical Exam: Significant bilateral Venous stasis changes. Eschar right heel w/ foul odor. Trace erythema surrounding eschar right. Left heel with leathery eschar. No noticible odor left heel. Minimal erythema. Dorsal pulses palpable. Results & Data Vital Signs (Past 12 Hours) Vital Signs Temp Pulse Pulse Resp BP Pulse Ox 04/20/19 20:03 36.7 C 76 20 148/51 H 97 04/20/19 16:17 76 18 92 04/20/19 16:09 36.3 C L 66 24 108/45 L 94 04/20/19 15:48 36.9 C 72 20 89/46 L 94 04/20/19 15:15 77 04/20/19 09:22 36.6 C 72 18 106/47 L 92 04/20/19 09:00 36.8 C 76 18 110/50 L 94 (1) Ulcers of both lower extremities Non-pressure ulcer stage: unspecified non-pressure ulcer stage Qualified Code(s): L97.919 - Non-pressure chronic ulcer of unspecified part of right lower leg with unspecified severity; L97.929 - Non-pressure chronic ulcer of unspecified part of left lower leg with unspecified severity
[2019-04-20] MEDS: DOXAZOSIN MESYLATE 1 MG TAB PO SCH (20:25)
[2019-04-20 21:13] LABS: INR 1.5 (0.9-1.1); Prothrombin Time 15.3 Seconds (9.0-12.0)
[2019-04-21] MEDS ORDERED: ONDANSETRON INJ 2 MG/ML 2 ML VIAL ONE (06:50)
[2019-04-21] MEDS ORDERED: PROPOFOL IV EMULSION 10 MG/ML 20 ML VIAL IV ONE (06:50)
[2019-04-21] MEDS ORDERED: fentaNYL citrate 100 MCG/2 ML VIAL ONE ×2 (06:50→08:56)
[2019-04-21] MEDS ORDERED: LIDOCAINE HCL 2% 2 ML VIAL/AMP(20MG/ML) INFIL ONE (06:50)
--- NOTE | 2019-04-21 07:03 | XRay Report ---
XR chest 1V portable CLINICAL HISTORY: pleural effusions COMPARISON STUDY: 04/20/2019 FINDINGS: The heart remains enlarged. There are postsurgical changes of a midline sternotomy. There i s a left subclavian dual-chamber central venous pacemaker. There are persistent bilateral pleural eff usions, with associated bibasilar opacity statistically representing compressive atelectasis.. There is persistent radiographic evidence of congestive failure. There is a persistent trace right apical p neumothorax.[ IMPRESSION: 1. Radiographic evidence of congestive failure/pulmonary edema with cardiac enlargement and bilateral pleural effusions 2. Stable trace right apical pneumothorax 3. No significant change from the preceding study Electronically signed by: Franky Lal M.D. 04/21/2019 7:01 AM
[2019-04-21] MEDS ORDERED: BUPIVACAINE 0.5 % 5 MG/1 ML MPF 30ML VIAL ONE ×2 (07:16→08:29)
[2019-04-21] MEDS ORDERED: BACITRACIN INJ 50,000 UNIT VIAL ONE ×2 (07:17→08:51)
[2019-04-21 07:29] LABS: Basophils # (auto) 0.01 K/uL (0-0.2); Basophils % (auto) 0.1 %; Eosinophils # (auto) 0.06 K/uL (0-0.5); Eosinophils % (auto) 0.5 %; Hematocrit (blood only) 27.8 % (42-52); Hemoglobin 9.1 g/dL (14.0-18.0); Immature Granulocytes # (auto) 0.04 K/uL (0.00-0.02); Immature Granulocytes % (auto) 0.4 %; Lymphocytes # (auto) 0.57 K/uL (1.2-3.4); Lymphocytes % (auto) 5.2 %; Mean Corpuscular Hemoglobin 28.3 pg (25-34); Mean Corpuscular Hgb Conc 32.7 g/dL (32-36); Mean Corpuscular Volume 86.6 fL (80-100); Mean Platelet Volume 9.7 fL (7.4-10.4); Monocytes # (auto) 0.95 K/uL (0.11-0.59); Monocytes % (auto) 8.6 %; Neutrophils # (auto) 9.36 K/uL (1.4-6.5); Neutrophils % (auto) 85.2 %; Platelet Count 254 K/uL (130-400); RDW Coefficient of Variation 16.3 % (11.5-14.5); RDW Standard Deviation 52.2 fL (36.4-46.3); Red Blood Count 3.21 M/uL (4.7-6.1); White Blood Count 10.99 K/uL (4.8-10.8)
[2019-04-21 07:39] LABS: INR 1.5 (0.9-1.1); Prothrombin Time 14.5 Seconds (9.0-12.0)
[2019-04-21 07:40] LABS: INR 1.5 (0.9-1.1); Prothrombin Time 14.5 Seconds (9.0-12.0)
--- NOTE | 2019-04-21 07:41 | Anesthesiology Consultation ---
Date of Service April 21, 2019 Assessment & Plan (1) Encounter for pre-operative examination: Chart Review Chart Review: Acceptable Risk for Surgery Consults Requested none ASA ASA4 Proposed Anesthesia Anesthesia Type: MAC Risk / Benefits Reviewed With: PT / POA / Parent / Guardian, Accepts Plan and Informed Consent Obtained History Surgery Operation Date: 04/21/19 07:30 Proposed Procedures p Right Heel Incision and Drainage, Possible Left Heel Ulcer Incision and Drainage - Mike Saunders, DO Height/Weight Height: 5 ft 6 in Weight: 62 kg Allergies Allergy/AdvReac Type Severity Reaction Status Date / Time lisinopril Allergy Unknown Unknown Verified 04/15/19 17:38 sulfamethoxazole Allergy Unknown Unverified 04/15/19 17:38 [From Bactrim] trimethoprim [From Bactrim] Allergy Unknown Unverified 04/15/19 17:38 Medications Home Medications Medication Instructions Recorded Confirmed Last Taken ascorbic acid (vitamin C) 500 mg 1,000 mg PO BID cap 03/17/18 04/15/19 04/15/19 09:00 capsule aspirin 81 mg chewable tablet 81 mg PO Q OTHER DAY tab 03/17/18 04/15/19 04/14/19 08:00 atorvastatin 40 mg tablet 40 mg PO HS 03/17/18 04/15/19 04/14/19 20:00 ferrous sulfate 325 mg (65 mg 325 mg PO BID tab 03/17/18 04/15/19 04/15/19 08:00 iron) tablet finasteride 5 mg tablet 5 mg PO QAM tab 03/17/18 04/15/19 04/15/19 08:00 folic acid 1 mg tablet 1 mg PO DAILY 03/17/18 04/15/19 04/15/19 08:00 multivitamin tablet 1 tab PO QAM 03/17/18 04/15/19 04/15/19 08:00 acetaminophen 650 mg PO Q6H PRN 02/28/19 04/15/19 03/30/19 17:15 pantoprazole 40 mg PO QAM 30 Days #30 tab 03/06/19 04/15/19 04/15/19 05:00 B complex-minerals [Stress B Plus 1 tab PO QAM 04/15/19 04/15/19 04/15/19 09:00 Zinc] bisacodyl [Dulcolax (bisacodyl)] 10 mg [place] DAILY PRN 04/15/19 04/15/19 04/05/19 doxazosin [Cardura] 2 mg PO HS 04/15/19 04/15/19 04/14/19 20:00 gabapentin 100 mg PO HS 04/15/19 04/15/19 04/14/19 20:00 linagliptin [Tradjenta] 5 mg PO QAM 04/15/19 04/15/19 04/15/19 08:00 magnesium hydroxide 15 ml PO DAILY PRN 04/15/19 04/15/19 04/05/19 07:30 metoprolol tartrate 25 mg PO BID 04/15/19 04/15/19 04/15/19 08:00 oxycodone 10 mg PO Q12H PRN 04/15/19 04/15/19 04/15/19 09:00 tamsulosin 0.4 mg PO QPM 04/15/19 04/15/19 04/14/19 20:00 tramadol 100 mg PO DAILY PRN 04/15/19 04/15/19 04/10/19 06:00 warfarin 0.5 mg PO HS 04/15/19 04/15/19 04/14/19 20:00 Active Medications Generic Name Dose Route Start Last Admin Trade Name Cris PRN Reason Stop Dose Admin Ascorbic Acid 1,000 mg 04/15/19 21:00 04/20/19 20:23 Vitamin C PO 05/15/19 20:59 1,000 mg BID LOCO Administration Aspirin 81 mg 04/16/19 09:00 04/20/19 08:58 Ecotrin Ectab PO 05/16/19 08:59 81 mg Q2D@0900 LOCO Administration Atorvastatin Calcium 40 mg 04/15/19 21:00 04/20/19 20:22 Lipitor PO 05/15/19 20:59 40 mg HS LOCO Administration Doxazosin Mesylate 2 mg 04/15/19 21:00 04/20/19 20:25 Cardura PO 05/15/19 20:59 2 mg HS LOCO Administration Ferrous Sulfate 325 mg 04/15/19 21:00 04/20/19 20:24 Feosol PO 05/15/19 20:59 325 mg BID LOCO Administration Finasteride 5 mg 04/16/19 09:00 04/20/19 08:58 Proscar PO 05/16/19 08:59 5 mg QAM LOCO Administration Folic Acid 1 mg 04/16/19 09:00 04/20/19 08:58 Folvite PO 05/16/19 08:59 1 mg DAILY LOCO Administration Cefepime HCl 2,000 mg/ Syringe 20 mls @ 5.5 mls/min 04/18/19 12:15 04/20/19 12:06 IV 04/28/19 12:14 5.5 mls/min Q24H LOCO Administration Protocol Insulin Aspart 0 units 04/15/19 21:00 04/20/19 20:37 Novolog Flexpen SC 05/15/19 20:59 Not Given ACHS LOCO Metoprolol Tartrate 25 mg 04/15/19 21:00 04/20/19 20:23 Lopressor PO 05/15/19 20:59 25 mg BID LOCO Administration Miscellaneous 15 - 30 gm 04/15/19 20:30 04/20/19 08:01 Carbohydrates For Hypoglycemia PO 05/15/19 20:29 15 gm UD PRN Administration Hypoglycemia Treatment Multivitamins 1 tab 04/16/19 09:00 04/20/19 08:58 Multivitamin Tab PO 05/16/19 08:59 1 tab QAM LOCO Administration Pantoprazole Sodium 40 mg 04/16/19 09:00 04/20/19 08:58 Protonix PO 05/16/19 08:59 40 mg QAM LOCO Administration Tamsulosin HCl 0.4 mg 04/15/19 21:00 04/20/19 20:24 Flomax PO 05/15/19 20:59 0.4 mg QPM LOCO Administration Vitamin B Complex 1 tab 04/16/19 09:00 04/20/19 08:58 Vitamin B Complex PO 05/16/19 08:59 1 tab QAM LOCO Administration NPO Date Last Intake of Fluids: 04/20/19 Time Last Intake of Fluids: 23:00 Date Last Intake of Solids: 04/20/19 Time Last Intake of Solids: 17:30 Past Medical History Medical History History of TIA (transient ischemic attack) (Chronic) BPH (benign prostatic hyperplasia) (Chronic) 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) Aortic valve stenosis (Chronic) s/p bioprosthetic avr 5/7/07 along with CABG x 2 and PFO closure T2DM (type 2 diabetes mellitus) (Chronic) CAD (coronary artery disease) (Chronic) Tachy-rodrigue syndrome Paroxysmal atrial fibrillation Junctional bradycardia Mobitz type 1 second degree AV block Weakness (Chronic) 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) Chronic venous insufficiency (Chronic) HTN (hypertension) (Chronic) Hyperlipidemia (Chronic) GERD (gastroesophageal reflux disease) (Chronic) Poor historian GERD (gastroesophageal reflux disease) (Chronic) HTN (hypertension) (Chronic) Hyperlipidemia (Chronic) Exercise / Class Metabolic Activity IV < 2 Limit ADL/Bedbound Past Family History Family History Father Cancer kidney Mother Stroke Sister Stroke Past Surgical History Surgical History History of total right hip arthroplasty Status post patent foramen ovale closure 11/21/06 S/P AVR s/p bioprosthetic avr 11/21/06 along with CABG x 2 and PFO closure History of open heart surgery (Chronic) History of open heart surgery (Chronic) Past Anesthesia History No Hx of Anesthesia Complications and No Family Hx of Anesthesia Complications History of PONV No Hx of PONV and No Hx of Motion Sickness Social History Smoking Status: Former smoker Hx Alcohol Use: No Hx Substance Use: No Physical Exam Vital Signs Last Vital Signs Temp 98.2 F 04/21/19 04:19 Pulse 70 04/21/19 04:19 Resp 18 04/21/19 04:19 BP 95/50 L 04/21/19 04:19 Pulse Ox 97 04/21/19 04:19 ENMT Mouth: no dentition abnormality Thyromental Distance: > or= 3.5 Finger Breadths Mallampati Class: II Neck normal visual inspection Respiratory normal respiratory effort Auscultation: lungs clear to auscultation bilaterally Cardiovascular Rate/Rhythm: regular rate and regular rhythm Testing Laboratory Results 04/21/19 06:05 PT 14.5 Seconds (9.0-12.0) H 04/21/19 06:05 INR 1.5 (0.9-1.1) H 04/21/19 06:05 APTT 41.2 Seconds (21.0-31.0) H 04/16/19 01:29 Hemoglobin A1c 5.7 % (4.5-5.6) H 04/16/19 19:10 Urine Color Dark Yellow 04/15/19 17:15 Urine Appearance Turbid (Clear) A 04/15/19 17:15 Urine pH >= 9.0 (4.5-7.5) H 04/15/19 17:15 Ur Specific [place] 1.009 (1.000-1.030) 04/15/19 17:15 Urine Protein 3+ (Negative) H 04/15/19 17:15 Urine Glucose (UA) Negative (Negative) 04/15/19 17:15 Urine Ketones Negative (Negative) 04/15/19 17:15 Urine Nitrite Negative (Negative) 04/15/19 17:15 Ur Leukocyte Esterase 3+ (Negative) H 04/15/19 17:15 Urine WBC (Auto) >30 /hpf (0-5) H 04/15/19 17:15 Urine RBC (Auto) 5-10 /hpf (0-4) H 04/15/19 17:15 U Hyaline Cast (Auto) 1-5 /lpf (0-5) 04/15/19 17:15 U Epithel Cells (Auto) 5-10 /lpf (0-5) H 04/15/19 17:15 Urine Bacteria (Auto) 2+ (Negative) H 04/15/19 17:15 04/17/19 14:33 Gram Stain - Final Foot,Right Wound Culture - Final Proteus mirabilis Morganella morganii Staphylococcus aureus 04/15/19 16:39 Aerobic Blood Culture - Final Blood No growth in Aerobic bottle after 5 days. Anaerobic Blood Culture - Final No growth in Anaerobic bottle after 5 days. 04/15/19 16:57 Aerobic Blood Culture - Final Blood No growth in Aerobic bottle after 5 days. Anaerobic Blood Culture - Final 04/15/19 17:15 Urine Culture - Final Urine,Straight Cath Proteus mirabilis 04/16/19 08:45 Gram Stain - Final Pleural Fluid Aerobic and Anaerobic Culture - Preliminary No growth to date. 04/16/19 08:45 Acid Fast Bacilli Smear - Final Pleural Fluid 04/16/19 08:45 Fungal Smear - Final Pleural Fluid 04/21/19 04/20/19 07:19 20:30 POC Glucose 88 99 Electrocardiogram Date: 04/15/19 Ventricular-paced rhythm, rate 71 bpm Abnormal ECG When compared with ECG of 02-MAR-2019 06:24, Vent. rate has increased BY 10 BPM Confirmed by Ricky Keenan ([id number]) on 04/16/2019 6:20:20 PM Chest X-Ray Date: 04/21/19 FINDINGS: The heart remains enlarged. There are postsurgical changes of a midline sternotomy. There is a left subclavian dual-chamber central venous pacemaker. There are persistent bilateral pleural effusions, with associated bibasilar opacity statistically representing compressive atelectasis.. There is persistent radiographic evidence of congestive failure. There is a persistent trace right apical pneumothorax.[ IMPRESSION: 1. Radiographic evidence of congestive failure/pulmonary edema with cardiac enlargement and bilateral pleural effusions 2. Stable trace right apical pneumothorax 3. No significant change from the preceding study Echocardiogram Date: 04/18/19 EF: 65-70% mod bioprosthetic AV stenosis severe mitral annular calcification mild MR/MS
--- NOTE | 2019-04-21 07:55 | History & Physical Bridge Note ---
Date of Service April 21, 2019 History & Physical Bridge Note I have examined the patient, reviewed the History & Physical and in the interval since the performance of the History & Physical I have noted the following changes of clinical significance: Will require debridement of bilateral necrotic heel ulcers. Spoke with patient who is hard of hearing to obtain consent. Patient gave verbal and signed consent for procedure with staff witnesses present.
[2019-04-21 07:59] LABS: Albumin Level 1.4 gm/dl (3.4-5.0); BUN Creatinine Ratio 34.6 (10-20); Calcium 7.9 mg/dl (8.5-10.1); Creatinine Clr Calc Pharmacy 39.3 ml/min; Est GFR (African American) 66.2; Est GFR (Non-African American) 57.1; Potassium 3.3 mmol/L (3.5-5.1)
[2019-04-21 08:02] LABS: Albumin Globulin Ratio 0.4 (0.9-2); Bilirubin,Total 0.8 mg/dl (0.2-1); Globulin 3.6 gm/dl (2.5-4.0)
[2019-04-21] MEDS ORDERED: KETAMINE HCL INJ 50 MG/ML 10 ML VIAL ONE (08:06)
[2019-04-21] MEDS ORDERED: GLYCOPYRROLATE 0.2 MG/ML VIAL ONE (08:25)
[2019-04-21] MEDS: INSULIN ASPART 100 UNITS/ML 3 ML PEN SC SCH ×4 (09:17→20:11)
--- NOTE | 2019-04-21 09:30 | Post Operative Brief Note ---
Immediate Post Op Note v1 Date of Surgery April 21, 2019 Pre & Post Diagnosis Operation Date: 04/21/19 07:30 Pre-Op Diagnosis: Bilateral foot ulcers, gangrene, peripheral vascular disease, diabetes Post-Op Diagnosis: Bilateral foot ulcers ( Right 5X6 cm) (L 3.3cm jeronimo), gangrene, peripheral vascular disease, diabetes, fat necrosis, fasciitis Procedure Operation Date: 04/21/19 07:30 Actual Procedures p Right Heel Incision and Drainage, Left Heel Ulcer Incision and Drainage, Irrigation and debridement bilateral heel ulcers, Debridement: Skin, Eschar, Fascia, Subcutaneous fat. (Bilateral) - Mike Saunders DO Surgeon Mike Saunders DO Production Recovery Operator None Estimated Blood Loss 10 Findings Consistent with Post-Op Diagnosis Specimens Anaerobic, Aerobic, Gram stain bilateral heel abscesses, Skin and tissue bi Anesthesia Type MAC Complications none Disposition Accompanied Patient To Recovery: No Disposition: Recovery Room
--- NOTE | 2019-04-21 09:55 | Anesthesiology Progress Note ---
Date of Service April 21, 2019 Anesthesia Post Procedure Vital Signs Vital Signs: Temp Pulse Pulse Resp BP Pulse Ox 04/21/19 07:05 98.4 F 72 19 101/53 L 95 04/21/19 04:19 98.2 F 70 18 95/50 L 97 04/21/19 00:13 97.7 F 62 18 100/47 L 98 04/20/19 20:03 98.1 F 76 20 148/51 H 97 04/20/19 16:17 76 18 92 04/20/19 16:09 97.3 F L 66 24 108/45 L 94 04/20/19 15:48 98.4 F 72 20 89/46 L 94 04/20/19 15:15 77 Transfer of Care Handoff Completed per policy Notes Mental Status: alert / awake / arousable and participated in evaluation Patient Amnestic to Procedure: Yes Nausea / Vomiting: adequately controlled Pain: adequately controlled Airway Patency, RR, SpO2: stable & adequate BP & HR: stable & adequate Hydration State: stable & adequate Anesthetic Complications: no major complications apparent and Pt Satisfied with anesthetic care
--- NOTE | 2019-04-21 11:50 | Hospitalist Progress Note ---
Date of Service April 21, 2019 Assessment & Plan (1) Metabolic encephalopathy: -as per ED notes on 04/15/19: "The patient is a 88 male w/ PMHx of recent TBS s/p PPM 02/14, PAF on Coumadin, CAD with history of CABG x2 in 11/2006, history of PFO closure 11/2006, history of bioprosthetic AVR in 11/2006, moderate stenosis of bioprosthetic AVR, bilateral venous insufficiency, T2DM, HTN, HLD, CKD stage III, anemia of chronic disease, history of TIA, BPH who presents to the ED w/ CC of dehydration beginning prior to arrival. Per the nursing staff, the patient was brought in by [facility] where they found the patient unresponsive and dehydrated." -acute metabolic encephalopathy initial admission from dehydration, hypernatremia, and possible from underlying infection (2) Dehydration: -dehydration corrected in the hospital stay with IV fluids (3) Hypernatremia: -chronic hypernatremia likely from poor oral intake and lack of water -admission serum sodium in the 150s -serum sodium normalized on 04/18/19 due to use of IV fluids with dextrose, IV fluids stopper on 04/18/19 (4) Severe protein-calorie malnutrition: Hypoalbuminemia -[employer] Manager consult -offer BOOST nutrition supplements (5) Pleural effusion, bilateral: acute congestive diastolic heart failure -from severe malnutrition and Hypoalbuminemia and diastolic heart failure -he came in to hospital and found to have pleural effusion -Right thoracentesis under ultrasound guidance on 04/16/19 revealed transudative fluid only -because patient was aggressively hydrated to reduce the serum sodium, there is chance that IV fluids contributed to the return of the effusions -Patient has been given IV Lasix on 04/18/19 and 04/19/19 -diuresis with Lasix complicated by hypokalemia -CXR ON 04/20/19 1. No significant change in the moderate bilateral pleural effusions and pulmonary edema. 2. There are low lung volumes with bibasilar densities suggesting atelectasis. A pneumonia could also have a similar appearance. 3. There is a tiny right apical pneumothorax, unchanged. (nursing instruction: place patient on oxygen as 2 liters/min increase as needed based on oxygen saturation. if decrease or discontinue, inform medical doctor. patient has tiny right apical pneumothorax which is being read as unchanged in size) -hold Lasix on 04/21/19 because of orthopedic procedure Hypokalemia -recent diuresis complicated by hypokalemia -patient also having hypokalemia secondary to recent Lasix IV on 04/18/19 and 04/19/19 with serum potassium as low as 2.9 on 04/20/19 -patient has been getting potassium supplements, serum potassium 3.4 on 04/21/19, will give IV potassium (6) PAF (paroxysmal atrial fibrillation): -known history of valvular disease s/p bioprosthetic aortic valve, known CAD and atrial fibrillation -vitamin K IV 5 mg given on 04/20/19 for orthopedic procedure -resume coumadin as 0.5 mg daily starting on 04/21/19 (7) S/P AVR: -known history of valvular disease s/p bioprosthetic aortic valve, known CAD and atrial fibrillation -vitamin K IV 5 mg given on 04/20/19 for orthopedic procedure -resume coumadin as 0.5 mg daily starting on 04/21/19 (8) PVD (peripheral vascular disease): -arterial ultrasound of legs on 04/17/19: No evidence of hemodynamic significant lower extremity arterial stenosis (9) Chronic venous insufficiency: (10) Ulcers of both lower extremities: -Multiple wounds to lower legs -venous stasis ulcers -Screening X rays revealed possible osteomyelitis to R heel and ulcerative wounds with soft tissue gas associated -wound care nursing -waffle boots -right foot X ray 04/16/19: Soft tissue edema seen throughout the foot with a large soft tissue ulceration overlying the heel with foci of subcutaneous gas. Sclerotic change is present within the dorsal calcaneus deep to the ulceration. Acute versus chronic osteomyelitis is not excluded -right ankle X ray 04/16/19: Ulceration of the posterior calcaneus with sclerosis of the calcaneus suggesting changes related to chronic osteomyelitis. No osteolysis or periosteal reaction to suggest acute osteomyelitis -Left foot X ray 04/16/19: Foci of soft tissue edema with no acute bony abnormality identified -Left ankle X ray 04/16/19: no gross evidence of acute or chronic osteomyelitis -04/17/19 right foot wound culture with gram negative bacilli that speciated to proteus and morganella which included sensitivity to cefepime, and staph aureus -04/21/19: s/p Right Heel Incision and Drainage, Left Heel Ulcer Incision and Drainage, Irrigation and debridement bilateral heel ulcers, Debridement: Skin, Eschar, Fascia, Subcutaneous fat. antibiotic course: patient was on broad spectrum IV antibiotics of Zosyn and Vancomycin as of 04/16/19 to 04/18/19 and then de-escalated to cefepime alone on 04/18/19, follow the surgical cultures from 04/21/19 and continue cefepime for now. (11) Acute kidney injury superimposed on chronic kidney disease: -creatinine downtrended with IV fluids during this hospital stay -monitor renal function (12) Urinary retention: -Patient failed a trial of void at [facility] and was seen by Urology one month ago -continue tamsulosin with finasteride -has hoyos (13) UTI (urinary tract infection) due to urinary indwelling catheter: -has chronic hoyos -04/15/19 urine with generally pansensitive Proteus mirabilis that is resistant to fluroquinolone -patient has been on broad spectrum IV antibiotics of Zosyn and Vancomycin as of 04/16/19 to 04/18/19, transition and de-escalate to cefepime alone on 04/18/19 (14) T2DM (type 2 diabetes mellitus): Type 2 diabetes melitus with buttermaker continuous churn current use of insulin -HbA1C 5.7. -hold home tradjenta -cont novolog correction as needed with carb coverage. -recently on Lantus 10 units qhs, stopped long acting insulin order for 04/20/19 to avoid hypoglycemia because of orthopedic procured completed on 04/21/19 -monitor on sliding scale insulin for now (15) DVT prophylaxis: -will resume coumadin on 04/21/19. SCD for now Code Status DNR/DNI [facility] currently seeking guardianship for him. Subjective . s/p Right Heel Incision and Drainage, Left Heel Ulcer Incision and Drainage, Irrigation and debridement bilateral heel ulcers, Debridement: Skin, Eschar, Fascia, Subcutaneous fat. Patient is somewhat lethargic after returning from procedure. he is arousable to the touch. Patient opens the eyes. he does not say anything and goes back to sleep Physical Exam Constitutional: somewhat lethargic after returning from procedure. he is arousable to the touch. Patient opens the eyes. he does not say anything and goes back to sleep Eyes: PERRL, conjunctivae normal, anicteric sclerae EOM intact bilaterally ENMT: external ear and nose normal, oropharynx normal Neck: normal visual inspection Respiratory: normal respiratory effort, lungs clear to auscultation Cardiovascular: Rate/Rhythm: regular rate and regular rhythm Gastrointestinal (Abdomen): normal bowel sounds, soft, nontender, no hepatosplenomegaly Musculoskeletal: Head/Neck/Chest: normocephalic and head atraumatic Skin: feet in dressing and have waffle boots Neurologic: PERRL, EOMI, accommodation nl, no face palsy, no dysarthria Results & Data Vital Signs (Past 12 Hours) Vital Signs Temp Pulse Pulse Resp BP Pulse Ox 04/21/19 11:40 36.4 C L 72 18 111/61 95 04/21/19 10:26 37.3 C 73 18 114/53 L 98 04/21/19 10:10 37.3 C 69 21 108/52 L 100 04/21/19 10:00 77 21 101/53 L 100 04/21/19 09:50 77 17 115/59 L 100 04/21/19 09:40 75 16 96/49 L 100 04/21/19 09:33 26.3 C L 85 20 95/51 L 95 04/21/19 07:05 36.9 C 72 19 101/53 L 95 04/21/19 04:19 36.8 C 70 18 95/50 L 97 04/21/19 00:13 36.5 C 62 18 100/47 L 98 (1) Ulcers of both lower extremities Non-pressure ulcer stage: unspecified non-pressure ulcer stage Qualified Code(s): L97.919 - Non-pressure chronic ulcer of unspecified part of right lower leg with unspecified severity; L97.929 - Non-pressure chronic ulcer of unspecified part of left lower leg with unspecified severity
[2019-04-21] MEDS: FERROUS SULFATE 325 MG TAB PO SCH ×2 (12:32→20:16)
[2019-04-21] MEDS: METOPROLOL TARTRATE 25 MG TAB PO SCH ×2 (12:33→20:24)
[2019-04-21] MEDS: FOLIC ACID 1 MG TAB PO SCH (12:33)
[2019-04-21] MEDS: FINASTERIDE 5 MG TAB PO SCH (12:34)
[2019-04-21] MEDS: VITAMIN B COMPLEX TAB PO SCH (12:34)
[2019-04-21] MEDS: PANTOprazole 40 MG TAB PO SCH (12:34)
[2019-04-21] MEDS: MULTIVITAMIN TAB PO SCH (12:34)
[2019-04-21] MEDS: ASCORBIC ACID 500 MG TAB PO SCH ×2 (12:35→20:17)
--- NOTE | 2019-04-21 12:44 | Operative Report ---
DATE OF OPERATION: 04/21/2019 PREOPERATIVE DIAGNOSES: 1. Bilateral severe heel ulcerations with eschar. 2. Gangrene, bilateral heels. 3. Peripheral vascular disease. 4. Diabetes mellitus. POSTOPERATIVE DIAGNOSES: 1. Bilateral heel ulcers, severe (right side 5 x 6 cm) (left side 3.3 cm in diameter). 2. Gangrene. 3. Eschar. 4. Peripheral vascular disease. 5. Diabetes mellitus. 6. Fasciitis. 7. Fatty necrosis and skin necrosis. PROCEDURES: 1. Incision and drainage of bilateral heel ulcers. 2. Irrigation and debridement of bilateral heel ulcers and skin loss. 3. Debridement of skin. 4. Debridement of eschar. 5. Debridement of fascia. 6. Debridement of subcutaneous fat, bilateral heels, right 5 x 6 cm, left 3.3 cm in diameter. SURGEON: Mike Saunders DO. PLANER OPERATOR: None. ANESTHESIA: Local MAC. SPECIMENS: Aerobic, anaerobic, Gram stain bilateral heel abscess; deep and necrotic tissue, bilateral heels. DRAINS: None. COMPLICATIONS: None. BLOOD LOSS: 10 mL. PERTINENT HISTORY: This is an 88-year-old gentleman who had presented to [facility] on 04/15. He had a questionable unresponsiveness with complicated past medical history noted in the medical record. He was transported from [facility] as possible unresponsiveness. He was admitted with hyponatremia, noted to have severe ulcerations in bilateral heels. He was placed on IV antibiotics. He had a pulmonary procedure by Dr. Pascual to drain significant bilateral pleural effusions and after he is stabilized, then scheduled for a debridement of his heel ulcers as indicated. All potential risks, benefits, complications, alternatives, rehab potential for incomplete relief of symptoms, need for further surgery, DVT, PE, , persistent pain, swelling, scarring, weakness, neurovascular injury, need for possible amputation were discussed with the patient. The patient decided to proceed with the procedure as indicated. Consent for the procedure was obtained from the patient who is hard of hearing; however, he did give verbal and written consent for the procedure. It is a witnessed consent with other staff members present. DESCRIPTION OF PROCEDURE: The patient was taken to the operative suite, placed supine on the operating table. After review of consent and identification of proper operative site, the patient was sedated and bilateral lower extremities were then sterilely prepped and draped in usual fashion. Noted to have multiple ulcerations and significant bilateral venous stasis changes due to chronic venous insufficiency bilaterally. Large areas of skin slough and superficial ulcerations noted in bilateral lower extremities. Heel ulcers were dressed. These were undressed and then the lower extremities were then sterilely prepped and draped in usual fashion. First beginning on the right side, after surgical timeout was performed, the sterile surgical towel was placed at the level of the ankle and an Esmarch was then used to perform an Esmarch tourniquet at the level of the ankle over the surgical towel to prevent soft tissue impingement or abrasion. The eschar was then sharply debrided with a 15 blade scalpel circumferentially and then peeled off of the lower deeper necrotic skin and subcutaneous fat layer. There was noted to be a sinus that propagated distally under the subcutaneous fat. This abscess pocket was encountered and this was cultured, aerobic, anaerobic, Gram stain was passed off followed by sharp debridement of the fibrinous exudate and caseative fatty necrosis. Full thickness skin and subcutaneous tissue loss down to the level of the fascia. There was noted to be inflammation of the fascia. This was debrided with a 15 blade scalpel and a rongeur back to more healthy-appearing tissue. There is no exposed bone; however, there is a thin layer of fascia and periosteum over the calcaneus. The necrotic foul-smelling tissue and caseative necrosis was then resected completely. More healthy appearing, though likely hypoperfused tissue was left intact to provide some sort of covering over the calcaneus. Next, pulsatile lavage, 3 liters with bacitracin was then used to cleanse the heel. This area measured 5 x 6 cm and a circular patch centered over the calcaneal tuberosity. Next, an ankle block was performed with 30 mL of 0.5% Marcaine plain for postop pain control. Next, a sterile compressive dressing consisting of Xeroform gauze, sterile 4 x 4s, ABD pads x2, cast padding and Junior wrap was applied with also Xeroform gauze placed over the areas of lower leg ulcerations as well, overwrapped with an Junior wrap to the right calf. This was covered with a sterile drape and then from the left side. Next, attention was then directed toward the left lower extremity. An ankle block was performed with 30 mL of 0.5% Marcaine plain followed by placement of a sterile surgical towel at the level of the ankle. Next, a 4-inch Esmarch was then applied over the surgical towel to perform a tourniquet function. The 15 blade scalpel was then used to debride the heel eschar and full thickness skin from the ulcer which measured 3.3 cm in diameter. Next, the fatty exposed subcutaneous tissue was noted to be necrotic with fibrinous exudate. This was sharply debrided with a 15 blade scalpel and a rongeur. There was noted to be a sinus tract, which tracked distally on the plantar aspect of the foot. This entered in an abscess pocket, which was then cultured, aerobic, anaerobic, Gram stain. Next, tissue was harvested also from the left heel and passed off as specimen as well. The areas of caseative necrosis and fasciitis were also noted in the left heel; it was debrided sharply with a 15 blade scalpel and a rongeur back to more healthy-appearing tissue. The pulsatile lavage, 3 liters with bacitracin was then used to cleanse the left heel. Marked improvement in overall condition of the remaining tissue; however, there is a large defect as noted previously. Next, a sterile compressive dressing consisting of Xeroform gauze, sterile 4 x 4s, ABD pads x2, cast padding and Junior wrap was applied to the heel. Also, there were 2 other areas of superficial lower extremity ulcerations, which were also covered with Xeroform gauze, 4 x 4s and Junior wrap. Junior wraps were applied to the level just below the knee. Tourniquet was released on both sides. The patient was then awakened and transferred to recovery in stable condition. I attest to the content of the Intraoperative Record and any orders documented therein. Any exceptions are noted below. MTDD
[2019-04-21] MEDS: POTASSIUM CHLORIDE / WTR 10 MEQ/100 ML PLCT IV SCH ×2 (12:49→14:17)
[2019-04-21] MEDS: CEFEPIME 2,000 MG in SYRINGE 7.5 ML IV SCH (12:55)
[2019-04-21] MEDS: WARFARIN SOD 0.5 MG TAB PO SCH (17:10)
[2019-04-21] MEDS: TAMSULOSIN HCL 0.4 MG CAP PO SCH (20:17)
[2019-04-21] MEDS: DOXAZOSIN MESYLATE 1 MG TAB PO SCH (20:18)
[2019-04-21] MEDS: ATORVASTATIN 40 MG TAB PO SCH (20:19)
[2019-04-22] MEDS ORDERED: OXYCODONE HCL IR 5 MG TAB (IMMEDIATE RELEASE) PO STA (05:44)
[2019-04-22] MEDS ORDERED: OXYCODONE HCL IR 5 MG TAB (IMMEDIATE RELEASE) ONE (05:53)
[2019-04-22 07:29] LABS: INR 1.4 (0.9-1.1); Prothrombin Time 13.7 Seconds (9.0-12.0)
[2019-04-22] MEDS: FINASTERIDE 5 MG TAB PO SCH (07:54)
[2019-04-22] MEDS: FERROUS SULFATE 325 MG TAB PO SCH (07:54)
[2019-04-22] MEDS: MULTIVITAMIN TAB PO SCH (07:55)
[2019-04-22] MEDS: METOPROLOL TARTRATE 25 MG TAB PO SCH ×2 (07:55→21:01)
[2019-04-22] MEDS: ASPIRIN 81 MG ECTAB PO SCH (07:56)
[2019-04-22] MEDS: PANTOprazole 40 MG TAB PO SCH (07:56)
[2019-04-22] MEDS: ASCORBIC ACID 500 MG TAB PO SCH (07:57)
[2019-04-22] MEDS: FOLIC ACID 1 MG TAB PO SCH (07:57)
[2019-04-22] MEDS: VITAMIN B COMPLEX TAB PO SCH (07:57)
--- NOTE | 2019-04-22 08:30 | Orthopedic Progress Note ---
Date of Service April 22, 2019 Assessment & Plan (1) Ulcers of both lower extremities: 88 yo male stable POD #1 s/p bilat heel I&D, gram negative bacilli on culture 1. Med management- cont IV abx 2. DVT prophylaxis- Coumadin, SCDs 3. PT/OT 4. D/C planning- Subjective Pt sleeping. difficult to arouse, will respond to questions Physical Exam Physical Exam: Bilat heel dressings in place, protective waffle boots in place Results & Data Vital Signs (Past 12 Hours) Vital Signs Temp Pulse Pulse Resp BP BP Pulse Ox 04/22/19 07:42 36.4 C L 73 16 98/41 L 94/56 L 91 04/22/19 03:52 36.5 C 60 18 107/61 98 04/22/19 00:00 62 04/21/19 22:05 36.6 C 61 18 110/60 97 Laboratory Results 04/22/19 04/22/19 04/21/19 Range/Units 07:49 06:58 21:00 PT 13.7 H (9.0-12.0) Seconds INR 1.4 H (0.9-1.1) POC Glucose 141 H (70-99) Stl C. diff Tox B Gene Negative Cdiff Gene (Neg) Blood Type Antibody Screen 04/21/19 04/21/19 04/21/19 Range/Units 19:58 16:47 12:02 PT (9.0-12.0) Seconds INR (0.9-1.1) POC Glucose 93 85 75 (70-99) Stl C. diff Tox B Gene (Neg) Blood Type Antibody Screen 04/21/19 04/21/19 Range/Units 10:19 06:05 PT (9.0-12.0) Seconds INR (0.9-1.1) POC Glucose 83 (70-99) Stl C. diff Tox B Gene (Neg) Blood Type A Positive Antibody Screen NEGATIVE Microbiology 04/21/19 09:33 Gram Stain - Final Foot,Left Aerobic and Anaerobic Culture - Preliminary Gram negative bacilli 04/21/19 09:33 Gram Stain - Final Foot,Right Aerobic and Anaerobic Culture - Preliminary Gram negative bacilli 04/16/19 08:45 Gram Stain - Final Pleural Fluid Aerobic and Anaerobic Culture - Final No growth 04/17/19 14:33 Gram Stain - Final Foot,Right Wound Culture - Final Proteus mirabilis Morganella morganii Staphylococcus aureus 04/15/19 16:39 Aerobic Blood Culture - Final Blood No growth in Aerobic bottle after 5 days. Anaerobic Blood Culture - Final No growth in Anaerobic bottle after 5 days. 04/15/19 16:57 Aerobic Blood Culture - Final Blood No growth in Aerobic bottle after 5 days. Anaerobic Blood Culture - Final (1) Ulcers of both lower extremities Non-pressure ulcer stage: unspecified non-pressure ulcer stage Qualified Code(s): L97.919 - Non-pressure chronic ulcer of unspecified part of right lower leg with unspecified severity; L97.929 - Non-pressure chronic ulcer of unspecified part of left lower leg with unspecified severity
[2019-04-22] MEDS: INSULIN ASPART 100 UNITS/ML 3 ML PEN SC SCH ×4 (08:47→20:46)
[2019-04-22 11:23] LABS: Basophils # (auto) 0.01 K/uL (0-0.2); Basophils % (auto) 0.1 %; Eosinophils # (auto) 0.07 K/uL (0-0.5); Eosinophils % (auto) 0.5 %; Hematocrit (blood only) 28.8 % (42-52); Hemoglobin 9.3 g/dL (14.0-18.0); Immature Granulocytes # (auto) 0.05 K/uL (0.00-0.02); Immature Granulocytes % (auto) 0.4 %; Lymphocytes # (auto) 0.62 K/uL (1.2-3.4); Lymphocytes % (auto) 4.7 %; Mean Corpuscular Hemoglobin 28.3 pg (25-34); Mean Corpuscular Volume 87.5 fL (80-100); Mean Platelet Volume 9.5 fL (7.4-10.4); Monocytes # (auto) 0.92 K/uL (0.11-0.59); Neutrophils # (auto) 11.45 K/uL (1.4-6.5); Neutrophils % (auto) 87.3 %; Platelet Count 235 K/uL (130-400); RDW Coefficient of Variation 16.3 % (11.5-14.5); RDW Standard Deviation 52.5 fL (36.4-46.3); Red Blood Count 3.29 M/uL (4.7-6.1); White Blood Count 13.12 K/uL (4.8-10.8)
[2019-04-22 11:26] LABS: Mean Corpuscular Hgb Conc 32.3 g/dL (32-36)
[2019-04-22 11:49] LABS: Albumin Globulin Ratio 0.4 (0.9-2); Albumin Level 1.4 gm/dl (3.4-5.0); BUN Creatinine Ratio 29.4 (10-20); Bilirubin,Total 0.6 mg/dl (0.2-1); Creatinine Clr Calc Pharmacy 35.3 ml/min; Est GFR (African American) 58.1; Est GFR (Non-African American) 50.1; Globulin 3.9 gm/dl (2.5-4.0); Potassium 4.5 mmol/L (3.5-5.1); Total Protein 5.3 gm/dl (6.4-8.2)
--- NOTE | 2019-04-22 12:13 | Hospitalist Progress Note ---
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 Per the nursing staff, the patient was brought in by [facility] where they found the patient unresponsive and dehydrated." -acute metabolic encephalopathy on initial admission from dehydration, hypernatremia, underlying infection -mental status improved and then worsened after orthopedic procedure on 04/21/19 (2) Dehydration: -dehydration was corrected in the hospital stay with IV fluids -since patient appears to have minimal oral intake after orthopedic procedure on 04/21/19, resume low rate of fluids as D5 1/2 normal saline on 04/22/19 (3) Hypernatremia: -chronic hypernatremia likely from poor oral intake and lack of water -admission serum sodium in the 150s -serum sodium normalized on 04/18/19 due to use of IV fluids with dextrose -monitor (4) Severe protein-calorie malnutrition: Hypoalbuminemia -Supervisor Bindery consult -offer BOOST nutrition supplements if he can take orals (5) Pleural effusion, bilateral: acute congestive diastolic heart failure -from severe malnutrition and Hypoalbuminemia and diastolic heart failure -he came in to hospital and found to have pleural effusion -Right thoracentesis under ultrasound guidance on 04/16/19 revealed transudative fluid only -because patient was aggressively hydrated to reduce the serum sodium, there is chance that IV fluids contributed to the return of the effusions -Patient has been given IV Lasix on 04/18/19 and 04/19/19 -diuresis with Lasix complicated by hypokalemia -CXR ON 04/20/19 1. No significant change in the moderate bilateral pleural effusions and pulmonary edema. 2. There are low lung volumes with bibasilar densities suggesting atelectasis. A pneumonia could also have a similar appearance. 3. There is a tiny right apical pneumothorax, unchanged. (nursing instruction: place patient on oxygen as 2 liters/min increase as needed based on oxygen saturation. if decrease or discontinue, inform medical doctor. patient has tiny right apical pneumothorax which is being read as unchanged in size) -Lasix held on 04/21/19 because of orthopedic procedure -since patient has poor oral intake after orthopedic procedure, low dose IV fluids with dextrose to be resumed on 04/22/19, Lasix to be given as 20 mg IV on 04/22/19 day time and 20 mg IV HS for now Hypokalemia -recent diuresis complicated by hypokalemia -patient also having hypokalemia secondary to recent Lasix IV on 04/18/19 and 04/19/19 with serum potassium as low as 2.9 on 04/20/19 -patient has been getting potassium supplements, serum potassium 3.4 on 04/21/19, given IV potassium -serum potassium is 4.5 on 04/22/19 (6) PAF (paroxysmal atrial fibrillation): -known history of valvular disease s/p bioprosthetic aortic valve, known CAD and atrial fibrillation -vitamin K IV 5 mg given on 04/20/19 for orthopedic procedure and orders to resume coumadin as 0.5 mg daily starting on 04/21/19 -however given patient's lethargy it is unclear whether he can take daily coumadin and if poor nutrition intake then INR can rise quickly (7) S/P AVR: -known history of valvular disease s/p bioprosthetic aortic valve, known CAD and atrial fibrillation -vitamin K IV 5 mg given on 04/20/19 for orthopedic procedure and orders to resume coumadin as 0.5 mg daily starting on 04/21/19 -however given patient's lethargy it is unclear whether he can take daily coumadin and if poor nutrition intake then INR can rise quickly (8) PVD (peripheral vascular disease): -arterial ultrasound of legs on 04/17/19: No evidence of hemodynamic sig nificant lower extremity arterial stenosis (9) Chronic venous insufficiency: (10) Ulcers of both lower extremities: -Multiple wounds to lower legs -venous stasis ulcers -Screening X rays revealed possible osteomyelitis to R heel and ulcerative wounds with soft tissue gas associated -wound care nursing -waffle boots -right foot X ray 04/16/19: Soft tissue edema seen throughout the foot with a large soft tissue ulceration overlying the heel with foci of subcutaneous gas. Sclerotic change is present within the dorsal calcaneus deep to the ulceration. Acute versus chronic osteomyelitis is not excluded -right ankle X ray 04/16/19: Ulceration of the posterior calcaneus with sclerosis of the calcaneus suggesting changes related to chronic osteomyelitis. No osteolysis or periosteal reaction to suggest acute osteomyelitis -Left foot X ray 04/16/19: Foci of soft tissue edema with no acute bony abnormality identified -Left ankle X ray 04/16/19: no gross evidence of acute or chronic osteomyelitis -04/17/19 right foot wound culture with gram negative bacilli that speciated to proteus and morganella which included sensitivity to cefepime, and staph aureus -04/21/19: s/p Right Heel Incision and Drainage, Left Heel Ulcer Incision and Drainage, Irrigation and debridement bilateral heel ulcers, Debridement: Skin, Eschar, Fascia, Subcutaneous fat. antibiotic course: patient was on broad spectrum IV antibiotics of Zosyn and Vancomycin as of 04/16/19 to 04/18/19 and then de-escalated to cefepime alone on 04/18/19, follow surgical cultures from 04/21/19 as Gram negative bacilli and to continue cefepime for now. (11) Acute kidney injury superimposed on chronic kidney disease: -creatinine downtrended with IV fluids during this hospital stay -monitor renal function (12) Urinary retention: -Patient failed a trial of void at [facility] and was seen by Urology one month ago -has hoyos -tamsuolsin and flomax held because of poor oral intake (13) UTI (urinary tract infection) due to urinary indwelling catheter: -has chronic hoyos -04/15/19 urine with generally pansensitive Proteus mirabilis that is resistant to fluroquinolone -patient has been on broad spectrum IV antibiotics of Zosyn and Vancomycin as of 04/16/19 to 04/18/19, transition and de-escalate to cefepime alone on 04/18/19 (14) T2DM (type 2 diabetes mellitus): 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 -hold home tradjenta -cont novolog correction as needed with carb coverage. -recently on Lantus 10 units qhs, stopped long acting insulin order for 04/20/19 to avoid hypoglycemia because of orthopedic procured completed on 04/21/19 -monitor on sliding scale insulin for now (15) DVT prophylaxis: -SCDs Code Status DNR/DNI [facility] currently seeking guardianship for him. Prognosis: prognosis is overall very poor as patient has multiple organ systems being managed in the hospital. at this time we can try to treat the medical issues independently, but given concerns of malnutrition and dehydration and concurrent concerns of fluid overload with an underlying infection, the patient is unlikely to have good prognosis for full recovery or medical stability without hospitalization Subjective Patient still lethargic since the orthopedic procedure yesterday. Nurse did report some activity yesterday night and they were able to give him some dinner. This AM, patient's appearance about the same when returned from OR yesterday. He is able to be aroused and opens his eyes but does jot say anything and would go back to sleep. Patient does not appear to be grimacing on physical exam Physical Exam Constitutional: + frail appearing Eyes: EOM intact bilaterally ENMT: external ear and nose normal, oropharynx normal Neck: normal visual inspection Respiratory: normal respiratory effort, lungs clear to auscultation Cardiovascular: Rate/Rhythm: regular rate and regular rhythm Gastrointestinal (Abdomen): normal bowel sounds, soft, nontender, no hepatosplenomegaly Musculoskeletal: Head/Neck/Chest: normocephalic and head atraumatic Neurologic: PERRL, EOMI, accommodation nl, no face palsy, no dysarthria Psychiatric: Orientation: alert and cooperative Results & Data Vital Signs (Past 12 Hours) Vital Signs Temp Pulse Resp BP BP Pulse Ox 04/22/19 11:30 36.1 C L 67 16 102/40 L 91 04/22/19 07:42 36.4 C L 73 16 98/41 L 94/56 L 91 04/22/19 03:52 36.5 C 60 18 107/61 98 (1) Ulcers of both lower extremities Non-pressure ulcer stage: unspecified non-pressure ulcer stage Qualified Code(s): L97.919 - Non-pressure chronic ulcer of unspecified part of right lower leg with unspecified severity; L97.929 - Non-pressure chronic ulcer of unspecified part of left lower leg with unspecified severity
--- NOTE | 2019-04-22 12:16 | Progress Note ---
DATE: 04/22/2019 Mr. You was seen today. He is responsive to stimuli, but is still lethargic. He is on 2 liters with adequate saturations. I reviewed an x-ray done recently and he has reaccumulated essentially all of the fluid in his right chest. This is not surprising. I do not think I would address this fluid anymore. I believe this patient is coming to end of life, no matter what we do and I think placing a PleurX or an indwelling pleural catheter in, would simply lead to an infection with the open wounds that he has. I would hold off doing that. Incidentally, it should be noted that the thoracentesis which netted a significant amount of fluid did not change him clinically. I will sign off this patient. Please call us.
[2019-04-22] MEDS: CEFEPIME 2,000 MG in SYRINGE 7.5 ML IV SCH (12:21)
[2019-04-22] MEDS: D5W AND 1/2NSS 1,000 ML IV SCH (12:21)
[2019-04-22] MEDS ORDERED: FUROSEMIDE 20 MG in SYRINGE 0 ML IV ONE (12:30)
[2019-04-22] MEDS: ACETAMINOPHEN 65 ML IV SCH ×2 (12:49→20:46)
[2019-04-22] MEDS ORDERED: SODIUM CHLORIDE 0.9% 1000ML 250 ML IV ONE (16:23)
[2019-04-22] MEDS: WARFARIN SOD 0.5 MG TAB PO SCH (17:52)
[2019-04-22] MEDS ORDERED: SODIUM CHLORIDE 0.9% 500 ML IV SCH (21:00)
[2019-04-22] MEDS ORDERED: FUROSEMIDE 20 MG in SYRINGE 0 ML IV SCH (21:00)
[2019-04-23] MEDS: D5W AND 1/2NSS 1,000 ML IV SCH (02:23)
[2019-04-23] MEDS: ACETAMINOPHEN 65 ML IV SCH ×3 (05:01→20:56)
[2019-04-23 05:47] LABS: Basophils # (auto) 0.01 K/uL (0-0.2); Basophils % (auto) 0.1 %; Eosinophils # (auto) 0.03 K/uL (0-0.5); Eosinophils % (auto) 0.2 %; Hematocrit (blood only) 25.9 % (42-52); Hemoglobin 8.3 g/dL (14.0-18.0); Immature Granulocytes # (auto) 0.07 K/uL (0.00-0.02); Immature Granulocytes % (auto) 0.5 %; Lymphocytes # (auto) 0.53 K/uL (1.2-3.4); Lymphocytes % (auto) 4.1 %; Mean Corpuscular Hemoglobin 28.1 pg (25-34); Mean Corpuscular Volume 87.8 fL (80-100); Mean Platelet Volume 9.6 fL (7.4-10.4); Monocytes % (auto) 7.7 %; Neutrophils # (auto) 11.28 K/uL (1.4-6.5); Neutrophils % (auto) 87.4 %; Platelet Count 224 K/uL (130-400); RDW Coefficient of Variation 16.6 % (11.5-14.5); RDW Standard Deviation 53.8 fL (36.4-46.3); Red Blood Count 2.95 M/uL (4.7-6.1); White Blood Count 12.92 K/uL (4.8-10.8)
[2019-04-23 06:11] LABS: Albumin Level 1.3 gm/dl (3.4-5.0); BUN Creatinine Ratio 26.7 (10-20); Calcium 7.5 mg/dl (8.5-10.1); Creatinine Clr Calc Pharmacy 29.1 ml/min; Est GFR (Non-African American) 39.7; Potassium 4.1 mmol/L (3.5-5.1)
[2019-04-23 06:14] LABS: Albumin Globulin Ratio 0.4 (0.9-2); Bilirubin,Total 0.6 mg/dl (0.2-1); Globulin 3.5 gm/dl (2.5-4.0); Total Protein 4.8 gm/dl (6.4-8.2)
--- NOTE | 2019-04-23 07:59 | Anesthesiology Progress Note ---
Date of Service April 23, 2019 Anesthesia Post Procedure Vital Signs Vital Signs: Temp Pulse Pulse Resp BP BP Pulse Ox 04/23/19 07:23 36.8 C 66 20 99/39 L 94 04/23/19 03:07 36.5 C 62 18 89/44 L 95 04/23/19 00:09 66 04/22/19 22:08 36.5 C 61 18 95/43 L 98 04/22/19 20:10 36.5 C 64 18 89/51 L 95 04/22/19 17:54 96/49 L 04/22/19 15:31 36.0 C L 60 16 88/43 L 100 04/22/19 11:30 36.1 C L 67 16 102/40 L 91 Notes Mental Status: alert / awake / arousable and participated in evaluation Nausea / Vomiting: adequately controlled Pain: adequately controlled Airway Patency, RR, SpO2: stable & adequate BP & HR: stable & adequate Hydration State: stable & adequate
[2019-04-23] MEDS: INSULIN ASPART 100 UNITS/ML 3 ML PEN SC SCH ×4 (08:20→21:16)
[2019-04-23] MEDS: PANTOprazole 40 MG TAB PO SCH (08:22)
[2019-04-23] MEDS: METOPROLOL TARTRATE 25 MG TAB PO SCH ×2 (08:22→20:54)
[2019-04-23] MEDS: MULTIVITAMIN TAB PO SCH (08:23)
--- NOTE | 2019-04-23 09:02 | Orthopedic Progress Note ---
Date of Service April 23, 2019 Assessment & Plan (1) Ulcers of both lower extremities: 88 yo male stable POD #2 s/p bilat heel I&D, gram negative bacilli on culture 1. Med management 2. DVT prophylaxis- Coumadin, SCDs 3. PT/OT 4. Wound care for buttock and bilateral heel dressings. Recommending PRAFOs bilateral LE. Dressing changes daily. Subjective Patient currently lying in bed. He appears restless at times. He does not open his eyes to verbal stimuli. He does not answer any questions. Physical Exam Physical Exam: Bilateral lower externally dressings noted. Both dressings taken down. Left lower extremity with a 2-1/2 cm heel ulcer that is slightly macerated around the edges but has a clean base. He has multiple skin tears m ostly over the posterior calf. The ulcer and the skin tears were redressed with Adaptic 4 x 4's and a light Kerlix dressing. Wound care nurse present for the viewing of the right lower extremity. Dressing removed. Again he had multiple skin tears and abrasions on the posterior calf. Large area over the heel that have been debrided down to the calcaneus. This area appears somewhat grayish. Adaptic gauze placed over the wounds of the right lower extremity with 4 x 4's and a light Kerlix dressing. Results & Data Vital Signs (Past 12 Hours) Vital Signs Temp Pulse Pulse Resp BP Pulse Ox 04/23/19 07:23 36.8 C 66 20 99/39 L 94 04/23/19 03:07 36.5 C 62 18 89/44 L 95 04/23/19 00:09 66 04/22/19 22:08 36.5 C 61 18 95/43 L 98 (1) Ulcers of both lower extremities Non-pressure ulcer stage: unspecified non-pressure ulcer stage Qualified Code(s): L97.919 - Non-pressure chronic ulcer of unspecified part of right lower leg with unspecified severity; L97.929 - Non-pressure chronic ulcer of unspecified part of left lower leg with unspecified severity
--- NOTE | 2019-04-23 11:04 | Infectious Disease Progress Nt ---
Date of Service April 23, 2019 Assessment & Plan (1) UTI (urinary tract infection): was changed tocefepime, treating proteus, was previously on zosyn, this would treat MSSA as well. await final culture results. doubt cellulitis, lower leg changes appear chronic - ? need for addtional surgery. will continue to follow. Subjective lying in bed, moaning, does not answer questions. s/p debridement over weekend, wound cultures growing proteus right foot, gnr left, final pending. remains on cefepime, tolerating well. afebrile. no cbc, creat 1.5. awaiting decision regarding additional surgery. Review of Systems Review of Systems: Unobtainable due to cognitive status Physical Exam Constitutional: + ill appearing, + cachectic and + altered mental status ENMT: Mouth: + dry oral mucous membranes Neck: normal visual inspection Respiratory: normal respiratory effort, lungs clear to auscultation Auscultation: + diminished lung sounds Cardiovascular: Rate/Rhythm: regular rate Extremities: no pedal edema Gastrointestinal (Abdomen): normal bowel sounds, soft, nontender, no hepatosplenomegaly Musculoskeletal: Head/Neck/Chest: + head abnormal to inspection Skin: no rashes, warm and dry + mottling Results & Data Vital Signs (Past 12 Hours) Vital Signs Temp Pulse Pulse Resp BP Pulse Ox 04/23/19 07:23 36.8 C 66 20 99/39 L 94 04/23/19 03:07 36.5 C 62 18 89/44 L 95 04/23/19 00:09 66 Laboratory Results Microbiology 04/21/19 09:33 Foot,Right Gram Stain - Final 04/21/19 09:33 Foot,Right Aerobic and Anaerobic Culture - Preliminary Proteus mirabilis 04/16/19 08:45 Pleural Fluid Fungal Smear - Final 04/16/19 08:45 Pleural Fluid Fungal Culture - Preliminary No yeast or fungus isolated - Report 1, Additional Report to Follow. 04/16/19 08:45 Pleural Fluid Acid Fast Bacilli Smear - Final 04/16/19 08:45 Pleural Fluid Acid Fast Bacilli Culture - Preliminary No Acid-Fast Bacilli Isolated - Report 1, Additional Report to Follow. 04/21/19 09:33 Foot,Left Gram Stain - Final 04/21/19 09:33 Foot,Left Aerobic and Anaerobic Culture - Preliminary Gram negative bacilli 04/16/19 08:45 Pleural Fluid Gram Stain - Final 04/16/19 08:45 Pleural Fluid Aerobic and Anaerobic Culture - Final No growth 04/17/19 14:33 Foot,Right Gram Stain - Final 04/17/19 14:33 Foot,Right Wound Culture - Final Proteus mirabilis Morganella morganii Staphylococcus aureus 04/15/19 16:39 Blood Aerobic Blood Culture - Final No growth in Aerobic bottle after 5 days. 04/15/19 16:39 Blood Anaerobic Blood Culture - Final No growth in Anaerobic bottle after 5 days. 04/15/19 16:57 Blood Aerobic Blood Culture - Final No growth in Aerobic bottle after 5 days. 04/15/19 16:57 Blood Anaerobic Blood Culture - Final 04/15/19 17:15 Urine,Straight Cath Urine Culture - Final Proteus mirabilis PG Care Time/CCT Total # of Minutes Spent Total Time Spent with Patient: Total time spent is greater than 50% in coordination of care (as documented) at patient's floor/unit and/or counseling patient: (1) UTI (urinary tract infection) Hematuria presence: without hematuria Urinary tract infection type: site unspecified Qualified Code(s): N39.0 - Urinary tract infection, site not specified
--- NOTE | 2019-04-23 11:17 | Hospitalist Progress Note ---
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 Per the nursing staff, the patient was brought in by [facility] where they found the patient unresponsive and dehydrated." -acute metabolic encephalopathy on initial admission from dehydration, hypernatremia, underlying infection -mental status improved and then worsened after orthopedic procedure on 04/21/19 (2) Dehydration: -dehydration was corrected in the hospital stay with IV fluids -since patient appears to have minimal oral intake after orthopedic procedure on 04/21/19, was given low rate of fluids as D5 1/2 normal saline on 04/22/19 (3) Severe protein-calorie malnutrition: Hypoalbuminemia -[employer] was consulted; offer BOOST nutrition supplements if he can take orals -currently poor oral intake (4) Hypernatremia: -chronic hypernatremia likely from poor oral intake and lack of water -admission serum sodium in the 150s -serum sodium normalized on 04/18/19 due to use of IV fluids with dextrose -monitor Hypotension -patient has low diastolic blood pressures and has at times received IV fluids for blood pressure reasons -However, the need to give IV fluids is problematic due to pleural effusions (5) Pleural effusion, bilateral: acute congestive diastolic heart failure -from severe malnutrition and Hypoalbuminemia and diastolic heart failure -he came in to hospital and found to have pleural effusion -Right thoracentesis under ultrasound guidance on 04/16/19 revealed transudative fluid only -because patient was aggressively hydrated to reduce the serum sodium, there is chance that IV fluids contributed to the return of the effusions -Patient has been given IV Lasix on 04/18/19 and 04/19/19 -diuresis with Lasix complicated by hypokalemia -CXR ON 04/20/19 1. No significant change in the moderate bilateral pleural effusions and pulmonary edema. 2. There are low lung volumes with bibasilar densities suggesting atelectasis. A pneumonia could also have a similar appearance. 3. There is a tiny right apical pneumothorax, unchanged. (nursing instruction: place patient on oxygen as 2 liters/min increase as needed based on oxygen saturation. if decrease or discontinue, inform medical doctor. patient has tiny right apical pneumothorax which is being read as unchanged in size) -Lasix held on 04/21/19 because of orthopedic procedure -since patient has poor oral intake after orthopedic procedure, low dose IV fluids with dextrose to be resumed on 04/22/19, Lasix given as 20 mg IV on 04/22/19 day time and 20 mg IV HS -04/23/19 give lung sounds of pulmonary congestion and cough, have held IV fluids with dextrose, give Lasix 20 mg IV x 1. given poor prognosis discussed with CT surgery Dr. Pascual and he assesses that patient would not benefit from bilateral chest tubes which may cause further complications such as infection risks Hypokalemia -recent diuresis complicated by hypokalemia -patient also having hypokalemia secondary to recent Lasix IV on 04/18/19 and 04/19/19 with serum potassium as low as 2.9 on 04/20/19 -patient has been getting potassium supplements, serum potassium 3.4 on 04/21/19, given IV potassium -serum potassium is 4.5 on 04/22/19 ans is 4.1 on 04/23/19 (6) PAF (paroxysmal atrial fibrillation): -known history of valvular disease s/p bioprosthetic aortic valve, known CAD and atrial fibrillation -vitamin K IV 5 mg given on 04/20/19 for orthopedic procedure and orders to resume coumadin as 0.5 mg daily starting on 04/21/19 -however given patient's lethargy it is unclear whether he can take daily coumadin and if poor nutrition intake then INR can rise quickly -stopped coumadin orders (7) S/P AVR: -known history of valvular disease s/p bioprosthetic aortic valve, known CAD and atrial fibrillation -vitamin K IV 5 mg given on 04/20/19 for orthopedic procedure and orders to resume coumadin as 0.5 mg daily starting on 04/21/19 -however given patient's lethargy it is unclear whether he can take daily coumadin and if poor nutrition intake then INR can rise quickly -stopped coumadin orders (8) PVD (peripheral vascular disease): -arterial ultrasound of legs on 04/17/19: No evidence of hemodynamic significant lower extremity arterial stenosis (9) Chronic venous insufficiency: (10) Ulcers of both lower extremities: -Multiple wounds to lower legs -venous stasis ulcers -Screening X rays revealed possible osteomyelitis to R heel and ulcerative wounds with soft tissue gas associated -wound care nursing -waffle boots -right foot X ray 04/16/19: Soft tissue edema seen throughout the foot with a large soft tissue ulceration overlying the heel with foci of subcutaneous gas. Sclerotic change is present within the dorsal calcaneus deep to the ulceration. Acute versus chronic osteomyelitis is not excluded -right ankle X ray 04/16/19: Ulceration of the posterior calcaneus with sclerosis of the calcaneus suggesting changes related to chronic osteomyelitis. No osteolysis or periosteal reaction to suggest acute osteomyelitis -Left foot X ray 04/16/19: Foci of soft tissue edema with no acute bony abnormality identified -Left ankle X ray 04/16/19: no gross evidence of acute or chronic osteomyelitis -04/17/19 right foot wound culture with gram negative bacilli that speciated to proteus and morganella which included sensitivity to cefepime, and staph aureus -04/21/19: s/p Right Heel Incision and Drainage, Left Heel Ulcer Incision and Drainage, Irrigation and debridement bilateral heel ulcers, Debridement: Skin, Eschar, Fascia, Subcutaneous fat. antibiotic course: patient was on broad spectrum IV antibiotics of Zosyn and Vancomycin as of 04/16/19 to 04/18/19 and then de-escalated to cefepime alone on 04/18/19, follow surgical cultures from 04/21/19 as Gram negative bacilli and to continue cefepime for now. (11) Acute kidney injury superimposed on chronic kidney disease: -creatinine downtrended with IV fluids during this hospital stay -creatinine increasing to 1.54 on 04/23/19 likely because of Lasix (12) Urinary retention: -Patient failed a trial of void at [facility] and was seen by Urology one month ago -has hoyos -tamsuolsin and flomax held because of poor oral intake (13) UTI (urinary tract infection) due to urinary indwelling catheter: -has chronic hoyos -04/15/19 urine with generally pansensitive Proteus mirabilis that is resistant to fluroquinolone -patient has been on broad spectrum IV antibiotics of Zosyn and Vancomycin as of 04/16/19 to 04/18/19, transition and de-escalate to cefepime alone on 04/18/19 (14) T2DM (type 2 diabetes mellitus): 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 -hold home tradjenta -cont novolog correction as needed with carb coverage. -recently on Lantus 10 units qhs, stopped long acting insulin order for 04/20/19 to avoid hypoglycemia because of orthopedic procured completed on 04/21/19 -monitor on sliding scale insulin for now (15) DVT prophylaxis: -SCDs Code Status is Full Code as per palliative care services who has been following patient's care since initial presentation [facility] currently seeking guardianship for him. Prognosis: prognosis is overall very poor as patient has multiple organ systems being managed in the hospital. at this time we can try to treat the medical issues independently, but given concerns of malnutrition and dehydration and concurrent concerns of fluid overload with an underlying infection, the patient is unlikely to have good prognosis for full recovery or medical stability without hospitalization. Palliative has reviewed that patient is full code status. However, patient's condition likely to continue to deteriorate. And if patient goes into a code situation, his chance of meaningful recovery is very low. Subjective Patient more active but not at mental baseline. He is moaning but shakes his head when asked if he has pain. He has cough and sounds congested. On nasal cannula. saturating well. he is not able to carry conversation Physical Exam Constitutional: + frail appearing Eyes: PERRL, conjunctivae normal, anicteric sclerae EOM intact bilaterally ENMT: external ear and nose normal, oropharynx normal Neck: normal visual inspection Respiratory: normal respiratory effort, lungs clear to auscultation Cardiovascular: Rate/Rhythm: regular rate and regular rhythm Gastrointestinal (Abdomen): normal bowel sounds, soft, nontender, no hepatosplenomegaly Musculoskeletal: Head/Neck/Chest: normocephalic and head atraumatic Skin: legs in waffle boots and in dressings Neurologic: PERRL, EOMI, accommodation nl, no face palsy, no dysarthria Psychiatric: Orientation: alert and cooperative Results & Data Vital Signs (Past 12 Hours) Vital Signs Temp Pulse Pulse Resp BP Pulse Ox 04/23/19 07:23 36.8 C 66 20 99/39 L 94 04/23/19 03:07 36.5 C 62 18 89/44 L 95 04/23/19 00:09 66 (1) Ulcers of both lower extremities Non-pressure ulcer stage: unspecified non-pressure ulcer stage Qualified Code(s): L97.919 - Non-pressure chronic ulcer of unspecified part of right lower leg with unspecified severity; L97.929 - Non-pressure chronic ulcer of unspecified part of left lower leg with unspecified severity
[2019-04-23] MEDS ORDERED: FUROSEMIDE 20 MG in SYRINGE 0 ML IV ONE (11:30)
[2019-04-23] MEDS: CEFEPIME 2,000 MG in SYRINGE 7.5 ML IV SCH (11:53)
--- NOTE | 2019-04-23 13:42 | Palliative Care Consultation ---
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 He was found to be significantly hypernatremic with sodium of 154. Apparently at SNF, patient had significantly decreased PO intake. There is concern for osteomyelitis, his cellulitis is being managed with abx. Infectious disease is on board. Patient also had large bilateral pleural effusions on CT chest-- had right sided thoracentesis in which 1200ml rust colored fluid was drained. Given patient's advanced age, comorbidities, decondition and bedbound status, prognosis is poor. Palliative care was consulted on 04/17 for goals of care. Given patient is not able to make decision for himself due to confusion and mental status, that he has no family or decision makers, and that the [facility] is currently seeking a legal guardian for this patient, palliative care signed off. -Palliative care is reconsulted at this time as patient continues to deteriorate. CXR on 04/21 showed congestive change, patient being diuresed with IV furosemide. Creatinine increased to 1.53. Patient went to OR two days ago for I&D of bilateral heels. Patient continues to moist cough, edema to upper legs to knees, low blood pressure, trouble maintaining saturations. Patient is increasingly lethargic, deteriorating mental status, not eating/drinking. P rognosis is extremely poor, may be time to readdress futility of care and discuss code status. -DNR was ordered previously in error, patient is a FULL CODE. Has been a FULL CO DE for years at the [facility]. Has been FULL CODE on every admission to hospital. Has no decision maker, is not able to make decisions or himself. Will have Dr. Mckenna from palliative care team evaluate patient and advise. If two physicians can certify patient should be DNR, my understanding is that his code status can be changed. We would then discuss this with the [facility]. -Will have multidisciplinary meeting regarding plan of care once patient has been evaluated by physician. UPDATE: Spoke with Dr. Mckenna and Dr. Pruitt, as well as the Director of Case Management. Both physicians, as well as myself, are in agreement that patient should be a DNR. This DNR will be valid within [facility] emery. If the care team feels that we need to deescalate care and/or change the goal to comfort measures only, this would require an ethics consult. This is palliative care team's recommendations at this timee: Will change to DNR. Continue current care and if patient continues to decline, place ethics consult to address goals of care in this patient who has no family or decision maker, no living will, and no legal guardian. Supervising Physician Co-Signing Physician Notes Past medical history reviewed, chart reviewed on this hospitalization. Collaborated with ZANDRA Alvarado as well as attending physician Dr. Pruitt PE: Patient is minimally responsive, unable to follow simple commands or answer simple questions. HEENT: EOMI, does respond to voice Respirations: Unlabored, on O2, diminished breath sounds bilaterally with coarse rhonchi CV: Regular rate, positive lower extremity edema Abdomen: Not distended, no grimace on palpation Neuro: Minimally responsive Agree with above note, assessment and plan as per ZANDRA Alvarado. Given patient's comorbidities as well as his decline despite aggressive treatment during this hospitalization-would recommend CODE STATUS be changed to DO NOT RESUSCITATE-resuscitation would not be of any benefit for the patient at this time, patient appears to be approaching end-of-life. Patient was hypertensive-meds have been held due to hypotension, patient has required increased O2 to keep sats above 90%. Patient has no children and no family-patient was a resident at the [facility]- they had started procedure to gain guardianship-not completed. Agree with Dr. Pruitt that patient should not be resuscitated, would recommend an ethics consult to determine it is in patient's best interest to make him comfort care only. History of Present Illness Requesting Physician: Dr. 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 He was found to be significantly hypernatremic with sodium of 154. Apparently at SNF, patient had significantly decreased PO intake. There is concern for osteomyelitis, his cellulitis is being managed with abx. Infectious disease is on board. Patient also had large bilateral pleural effusions on CT chest-- had right sided thoracentesis in which 1200ml rust colored fluid was drained. Given patient's advanced age, comorbidities, decondition and bedbound status, prognosis is poor. Palliative care was consulted on 04/17 for goals of care. Given patient is not able to make decision for himself due to confusion and mental status, that he has no family or decision makers, and that the [facility] is currently seeking a legal guardian for this patient, palliative care signed off. -Palliative care is reconsulted at this time as patient continues to deteriorate. CXR on 04/21 showed congestive change, patient being diuresed with IV furosemide. Creatinine increased to 1.53. Patient went to OR two days ago for I&D of bilateral heels. Patient continues to moist cough, edema to upper legs to knees, low blood pressure, trouble maintaining saturations. Patient is inc reasingly lethargic, deteriorating mental status, not eating/drinking. Prognosis is extremely poor, may be time to readdress futility of care and discuss code status. Allergies Allergy/AdvReac Type Severity Reaction Status Date / Time lisinopril Allergy Unknown Unknown Verified 04/15/19 17:38 sulfamethoxazole Allergy Unknown Unverified 04/15/19 17:38 [From Bactrim] trimethoprim [From Bactrim] Allergy Unknown Unverified 04/15/19 17:38 Home Medications Home Medications Medication Instructions Recorded Confirmed Type ascorbic acid (vitamin C) 500 mg 1,000 mg PO BID cap 03/17/18 04/15/19 History capsule aspirin 81 mg chewable tablet 81 mg PO Q OTHER DAY tab 03/17/18 04/15/19 History atorvastatin 40 mg tablet 40 mg PO HS 03/17/18 04/15/19 History ferrous sulfate 325 mg (65 mg 325 mg PO BID tab 03/17/18 04/15/19 History iron) tablet finasteride 5 mg tablet 5 mg PO QAM tab 03/17/18 04/15/19 History folic acid 1 mg tablet 1 mg PO DAILY 03/17/18 04/15/19 History multivitamin tablet 1 tab PO QAM 03/17/18 04/15/19 History acetaminophen 650 mg PO Q6H PRN 02/28/19 04/15/19 History pantoprazole 40 mg PO QAM 30 Days #30 tab 03/06/19 04/15/19 Rx B complex-minerals [Stress B Plus 1 tab PO QAM 04/15/19 04/15/19 History Zinc] bisacodyl [Dulcolax (bisacodyl)] 10 mg NC DAILY PRN 04/15/19 04/15/19 History doxazosin [Cardura] 2 mg PO HS 04/15/19 04/15/19 History gabapentin 100 mg PO HS 04/15/19 04/15/19 History linagliptin [Tradjenta] 5 mg PO QAM 04/15/19 04/15/19 History magnesium hydroxide 15 ml PO DAILY PRN 04/15/19 04/15/19 History metoprolol tartrate 25 mg PO BID 04/15/19 04/15/19 History oxycodone 10 mg PO Q12H PRN 04/15/19 04/15/19 History tamsulosin 0.4 mg PO QPM 04/15/19 04/15/19 History tramadol 100 mg PO DAILY PRN 04/15/19 04/15/19 History warfarin 0.5 mg PO HS 04/15/19 04/15/19 History Patient History Medical History History of TIA (transient ischemic attack) (Chronic) BPH (benign prostatic hyperplasia) (Chronic) 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) Aortic valve stenosis (Chronic) s/p bioprosthetic avr 11/21/06 along with CABG x 2 and PFO closure T2DM (type 2 diabetes mellitus) (Chronic) CAD (coronary artery disease) (Chronic) Tachy-rodrigue syndrome Paroxysmal atrial fibrillation Junctional bradycardia Mobitz type 1 second degree AV block Weakness (Chronic) 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) Chronic venous insufficiency (Chronic) HTN (hypertension) (Chronic) Hyperlipidemia (Chronic) GERD (gastroesophageal reflux disease) (Chronic) Poor historian GERD (gastroesophageal reflux disease) (Chronic) HTN (hypertension) (Chronic) Hyperlipidemia (Chronic) Surgical History History of total right hip arthroplasty Status post patent foramen ovale closure 11/21/06 S/P AVR s/p bioprosthetic avr 11/21/06 along with CABG x 2 and PFO closure History of open heart surgery (Chronic) History of open heart surgery (Chronic) Family History Father Cancer kidney Mother Stroke Sister Stroke Social History Preferred Language: Monegasque Communication Ability: Impaired Green 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: No Beliefs That Will Affect Care: None Current Living Situation: Senior Care Current Living Situation Comment: Has been at [facility] x 2-3 weeks s/p hospitalization Feels Safe at Home: Yes Smoking Status: Former smoker Second Hand Exposure: No ; Hx Alcohol Use: No Hx Substance Use: No Review of Systems Review of Systems: Unobtainable due to cognitive status Physical Exam Constitutional: + ill appearing and + frail appearing ENMT: external ear and nose normal, oropharynx normal Neck: normal visual inspection Respiratory: no labored breathing Auscultation: + diminished lung sounds and + rhonchi Cardiovascular: Rate/Rhythm: regular rate and regular rhythm Extremities: + edema (+1 BLE) Gastrointestinal (Abdomen): Inspection/Auscultation: abdomen normal to inspection and normal bowel sounds; abdomen not distended Percussion/Palpation: abdomen soft; abdomen nontender Psychiatric: Orientation: + not alert (lethargic) Results & Data Vital Signs (Past 12 Hours) Vital Signs Temp Pulse Resp BP Pulse Ox 04/23/19 07:23 36.8 C 66 20 99/39 L 94 04/23/19 03:07 36.5 C 62 18 89/44 L 95 PG Care Time/CCT Prolonged Care Time Prolonged Care Time: Yes Total Prolonged Care Time: 30 Time Spent Midlevel 70 minutes with >50% of the time spent at bedside with patient and multiple physicians discussing plan of care, code status, social concerns. Attending Spent 30 minutes in addition to this 70 minutes spent by ZANDRA Alvarado for a total of 100 minutes with greater than 50% of the time spent at bedside assessing patient's current status. Critical Care Time Prolonged Care Time Prolonged Care Time: Yes Total Prolonged Care Time: 30 100
[2019-04-24] MEDS: ACETAMINOPHEN 65 ML IV SCH ×3 (04:35→21:09)
[2019-04-24] MEDS: INSULIN ASPART 100 UNITS/ML 3 ML PEN SC SCH ×4 (08:28→20:52)
[2019-04-24] MEDS: METOPROLOL TARTRATE 25 MG TAB PO SCH ×2 (08:30→20:52)
--- NOTE | 2019-04-24 11:53 | Palliative Care Progress Note ---
Date of Service April 24, 2019 Assessment & Plan (1) Goals of care, counseling/discussion: -Patient remains confused and somewhat lethargic today. He has less moist breath sounds, VS are stable today. No significant improvement in overall condition. -99% on nasal cannula. No respiratory distress. Blood pressure does remain borderline low, SBP <90. -Continuing with current treatment at this point. If no significant improvement or if patient continue to decline, goals of care may need to be addressed. In that case, an ethics consult would need to be obtained if we are considering transitioning to comfort measures. This has been discussed with Dr. Mckenna and Dr. Pruitt. -Palliative will follow as needed. (2) Metabolic encephalopathy: (3) Ulcers of both lower extremities: (4) Severe protein-calorie malnutrition: Subjective -Patient remains confused and somewhat lethargic today. He has less moist breath sounds, VS are stable today. No significant improvement in overall condition. Review of Systems Review of Systems: Unobtainable due to cognitive status Physical Exam Constitutional: + ill appearing and + frail appearing ENMT: external ear and nose normal, oropharynx normal Neck: normal visual inspection Respiratory: no labored breathing Auscultation: + diminished lung sounds Cardiovascular: Rate/Rhythm: regular rate and regular rhythm Extremities: + edema (+1 BLE) Gastrointestinal (Abdomen): Inspection/Auscultation: abdomen normal to inspection and normal bowel sounds; abdomen not distended Percussion/Palpation: abdomen soft; abdomen nontender Neurologic: moves all extremities and awake Psychiatric: Orientation: + not alert (lethargic) Results & Data Vital Signs (Past 12 Hours) Vital Signs Temp Pulse Pulse Resp BP Pulse Ox 04/24/19 11:42 36.6 C 70 16 98/46 L 99 04/24/19 08:10 36.3 C L 63 20 94/48 L 96 04/24/19 07:15 64 04/24/19 04:10 36.7 C 68 18 96/63 L 95 04/23/19 23:55 36.6 C 66 18 118/62 93 Supervising Physician Co-Signing Physician Notes Patient seen and examined in room 282 this afternoon-patient less alert than on prior exam Patient remains hypotensive, on O2 PE: Minimal response to voice and touch HEENT: Appears to hear Respirations: Unlabored, diminished breath sounds bilateral bases CV: Regular rate Abdomen: Soft, no grimace with palpation Extremities: Right lower extremity toes cool to touch Neuro: Minimally responsive, confused, unable to communicate Agree with above note, assessment and plan as per ZANDRA Alvarado. Patient was made a DNR with collaboration with attending physician Dr. Pruitt- patient would not benefit from resuscitation and that he did continues to decline despite aggressive treatment. We will plan for an ethics consult to determine patient's plan of care Time Spent Midlevel 35 minutes with >50% of the time spent at bedside with patient and collaborating with physicians to discuss condition and POC. (1) Ulcers of both lower extremities Non-pressure ulcer stage: unspecified non-pressure ulcer stage Qualified Code(s): L97.919 - Non-pressure chronic ulcer of unspecified part of right lower leg with unspecified severity; L97.929 - Non-pressure chronic ulcer of unspecified part of left lower leg with unspecified severity
[2019-04-24] MEDS: CEFEPIME 2,000 MG in SYRINGE 7.5 ML IV SCH (12:43)
--- NOTE | 2019-04-24 16:20 | Hospitalist Progress Note ---
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 Per the nursing staff, the patient was brought in by [facility] where they found the patient unresponsive and dehydrated." -acute metabolic encephalopathy on initial admission from dehydration, hypernatremia, underlying infection -mental status improved and then worsened after orthopedic procedure on 04/21/19 -mild improvements on 04/24/19 but patient generally cannot communicate about discomfort or agitation (2) Dehydration: -dehydration was corrected in the hospital stay with IV fluids -since patient appears to have minimal oral intake after orthopedic procedure on 04/21/19, was given low rate of fluids as D5 1/2 normal saline on 04/22/19 -IV fluids discontinued on 04/24/19 AM to avoid fluid overload, monitor the blood sugars (3) Severe protein-calorie malnutrition: Hypoalbuminemia -Assistant Professor Of Anthropology was consulted; offer BOOST nutrition supplements if he can take orals -currently poor oral intake -IV fluids discontinued on 04/24/19 AM to avoid fluid overload, monitor the blood sugars (4) Hypernatremia: -chronic hypernatremia likely from poor oral intake and lack of water -admission serum sodium in the 150s -serum sodium normalized on 04/18/19 due to use of IV fluids with dextrose -monitor Hypotension -patient has low diastolic blood pressures and has at times received IV fluids for blood pressure reasons -However, the need to give IV fluids is problematic due to pleural effusions -would not aggressively give IV fluids at this time (5) Pleural effusion, bilateral: acute congestive diastolic heart failure -from severe malnutrition and Hypoalbuminemia and diastolic heart failure -he came in to hospital and found to have pleural effusion -Right thoracentesis under ultrasound guidance on 04/16/19 revealed transudative fluid only -because patient was aggressively hydrated to reduce the serum sodium, there is chance that IV fluids contributed to the return of the effusions -Patient has been given IV Lasix on 04/18/19 and 04/19/19 -diuresis with Lasix complicated by hypokalemia -CXR ON 04/20/19 1. No significant change in the moderate bilateral pleural effusions and pulmonary edema. 2. There are low lung volumes with bibasilar densities suggesting atelectasis. A pneumonia could also have a similar appearance. 3. There is a tiny right apical pneumothorax, unchanged. (nursing instruction: place patient on oxygen as 2 liters/min increase as needed based on oxygen saturation. if decrease or discontinue, inform medical doctor. patient has tiny right apical pneumothorax which is being read as unchanged in size) -Lasix held on 04/21/19 because of orthopedic procedure -since patient has poor oral intake after orthopedic procedure, low dose IV fluids with dextrose to be resumed on 04/22/19, Lasix given as 20 mg IV on 04/22/19 day time and 20 mg IV HS -04/23/19 give lung sounds of pulmonary congestion and cough, have held IV fluids with dextrose, give Lasix 20 mg IV x 1. given poor prognosis discussed with CT surgery Dr. Pascual and he assesses that patient would not benefit from bilateral chest tubes which may cause further complications such as infection risks Hypokalemia -recent diuresis complicated by hypokalemia -patient also having hypokalemia secondary to recent Lasix IV on 04/18/19 and 04/19/19 with serum potassium as low as 2.9 on 04/20/19 -patient has been getting potassium supplements, serum potassium 3.4 on 04/21/19, given IV potassium -serum potassium is 4.5 on 04/22/19 and is 4.1 on 04/23/19 (6) PAF (paroxysmal atrial fibrillation): -known history of valvular disease s/p bioprosthetic aortic valve, known CAD and atrial fibrillation -vitamin K IV 5 mg given on 04/20/19 for orthopedic procedure and orders to resume coumadin as 0.5 mg daily starting on 04/21/19 -however given patient's lethargy it is unclear whether he can take daily coumadin and if poor nutrition intake then INR can rise quickly -no longer on coumadin (7) S/P AVR: -known history of valvular disease s/p bioprosthetic aortic valve, known CAD and atrial fibrillation -vitamin K IV 5 mg given on 04/20/19 for orthopedic procedure and orders to resume coumadin as 0.5 mg daily starting on 04/21/19 -however given patient's lethargy it is unclear whether he can take daily coumadin and if poor nutrition intake then INR can rise quickly -no longer on coumadin (8) PVD (peripheral vascular disease): -arterial ultrasound of legs on 04/17/19: No evidence of hemodynamic significant lower extremity arterial stenosis (9) Chronic venous insufficiency: (10) Ulcers of both lower extremities: -Multiple wounds to lower legs -venous stasis ulcers -Screening X rays revealed possible osteomyelitis to R heel and ulcerative wounds with soft tissue gas associated -wound care nursing -waffle boots -right foot X ray 04/16/19: Soft tissue edema seen throughout the foot with a large soft tissue ulceration overlying the heel with foci of subcutaneous gas. Sclerotic change is present within the dorsal calcaneus deep to the ulceration. Acute versus chronic osteomyelitis is not excluded -right ankle X ray 04/16/19: Ulceration of the posterior calcaneus with sclerosis of the calcaneus suggesting changes related to chronic osteomyelitis. No osteolysis or periosteal reaction to suggest acute osteomyelitis -Left foot X ray 04/16/19: Foci of soft tissue edema with no acute bony abnormality identified -Left ankle X ray 04/16/19: no gross evidence of acute or chronic osteomyelitis -04/17/19 right foot wound culture with gram negative bacilli that speciated to proteus mirabilis and morganella which included sensitivity to cefepime, and staph aureus -04/21/19: s/p Right Heel Incision and Drainage, Left Heel Ulcer Incision and Drainage, Irrigation and debridement bilateral heel ulcers, Debridement: Skin, Eschar, Fascia, Subcutaneous fat. antibiotic course: patient was on broad spectrum IV antibiotics of Zosyn and Vancomycin as of 04/16/19 to 04/18/19 and then de-escalated to cefepime alone on 04/18/19, follow surgical cultures from 04/21/19 as Proteus mirabilis and Pseudomonas aeruginosa; continue cefepime for now. has been on TID IV acetaminophen since 04/22/19 for pain control after the orthopedic procedure and patient not able to ask for pain medications (11) Acute kidney injury superimposed on chronic kidney disease: -creatinine downtrended with IV fluids during this hospital stay -creatinine increasing to 1.54 on 04/23/19 likely because of Lasix (12) Urinary retention: -Patient failed a trial of void at [facility] and was seen by Urology one month ago -has hoyos -tamsuolsin and flomax held because of poor oral intake (13) UTI (urinary tract infection) due to urinary indwelling catheter: -has chronic hoyos -04/15/19 urine with generally pansensitive Proteus mirabilis that is resistant to fluoroquinolone -patient has been on broad spectrum IV antibiotics of Zosyn and Vancomycin as of 04/16/19 to 04/18/19, transition and de-escalate to cefepime alone on 04/18/19 (14) T2DM (type 2 diabetes mellitus): 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 -hold home tradjenta -cont novolog correction as needed with carb coverage. -stopped long acting insulin order for 04/20/19 to avoid hypoglycemia because of orthopedic procured completed on 04/21/19 -monitor on sliding scale insulin for now (15) DVT prophylaxis: -SCDs Prognosis: Code Status prognosis is overall very poor as patient has multiple organ systems being managed in the hospital. at this time we can try to treat the medical issues independently, but given concerns of malnutrition and dehydration and concurrent concerns of fluid overload with an underlying infection, the patient is unlikely to have good prognosis for full recovery or medical stability without hospitalization. Palliative had reviewed that patient was full code status. However, patient's condition likely to continue to deteriorate. And if patient goes into a code situation, his chance of meaningful recovery is very low. 04/23/19: after consulting palliative care medical doctor, Dr. Alexandria Mckenna, she informed me as hospitalist physician that there needs to be 2 physicians to certify patients code status from Full Code to DO NOT RESUCITATE/DO NOT INTUBATE. And given patients poor overall health sta tus and poor prognosis and lack of decision making ability and lack of guardianship, she agrees that patients code status should be certified as DO NOT RESUCITATE/DO NOT INTUBATE with concordance with hospitalist physician. if patient's medical condition continues to decline, an ethics consult would need to be obtained if any further considerations transitioning to comfort measures [facility] in which patient previously resided is currently seeking guardianship for him Subjective Patient moving a little more today. He appears uncomfortable and some moaning. He opens his eyes to verbal stimuli which is better than the past 2 days. He cannot speak about what is wrong or where these is pain. Physical Exam Constitutional: + frail appearing Eyes: PERRL, conjunctivae normal, anicteric sclerae EOM intact bilaterally ENMT: external ear and nose normal, oropharynx normal Neck: normal visual inspection Respiratory: normal respiratory effort, lungs clear to auscultation Cardiovascular: Rate/Rhythm: regular rate and regular rhythm Gastrointestinal (Abdomen): normal bowel sounds, soft, nontender, no hepatosplenomegaly Musculoskeletal: Head/Neck/Chest: normocephalic and head atraumatic Neurologic: + confused Psychiatric: Motor Behavior: + psychomotor agitation Results & Data Vital Signs (Past 12 Hours) Vital Signs Temp Pulse Pulse Resp BP Pulse Ox 04/24/19 15:46 36.6 C 77 20 99/50 L 98 04/24/19 11:42 36.6 C 70 16 98/46 L 99 04/24/19 08:10 36.3 C L 63 20 94/48 L 96 04/24/19 07:15 64 (1) Ulcers of both lower extremities Non-pressure ulcer stage: unspecified non-pressure ulcer stage Qualified Code(s): L97.919 - Non-pressure chronic ulcer of unspecified part of right lower leg with unspecified severity; L97.929 - Non-pressure chronic ulcer of unspecified part of left lower leg with unspecified severity
--- NOTE | 2019-04-24 17:35 | Orthopedic Progress Note ---
Date of Service April 24, 2019 Assessment & Plan (1) Ulcers of both lower extremities: 88 yo male stable POD #3 s/p bilat heel I&D, gram negative bacilli on culture 1. Med management 2. DVT prophylaxis- Coumadin, SCDs 3. PT/OT 4. Wound care for buttock and bilateral heel dressings. Recommending PRAFOs bilateral LE. Dressing changes daily. 5. We will discuss any further wound care for the heels with Dr. Saunders. Subjective Patient currently sitting up in bed asleep. Arouses slightly to verbal stimuli but does not open his eyes. Physical Exam Physical Exam: Dressings changed today by wound care team. No new changes per wound care team. PRAFO brace is currently on. Dressings intact. Toes very dry still with Betadine discoloration noted. Results & Data Vital Signs (Past 12 Hours) Vital Signs Temp Pulse Pulse Resp BP Pulse Ox 04/24/19 15:46 36.6 C 77 20 99/50 L 98 04/24/19 11:42 36.6 C 70 16 98/46 L 99 04/24/19 08:10 36.3 C L 63 20 94/48 L 96 04/24/19 07:15 64 (1) Ulcers of both lower extremities Non-pressure ulcer stage: unspecified non-pressure ulcer stage Qualified Code(s): L97.919 - Non-pressure chronic ulcer of unspecified part of right lower leg with unspecified severity; L97.929 - Non-pressure chronic ulcer of unspecified part of left lower leg with unspecified severity
[2019-04-25] MEDS: ACETAMINOPHEN 65 ML IV SCH ×2 (04:32→12:04)
[2019-04-25] MEDS: METOPROLOL TARTRATE 25 MG TAB PO SCH (08:18)
[2019-04-25] MEDS: INSULIN ASPART 100 UNITS/ML 3 ML PEN SC SCH ×3 (08:20→16:58)
[2019-04-25] MEDS: FINASTERIDE 5 MG TAB PO SCH (10:27)
[2019-04-25] MEDS: CEFEPIME 2,000 MG in SYRINGE 7.5 ML IV SCH (12:03)
--- NOTE | 2019-04-25 15:10 | Hospitalist Progress Note ---
Date of Service April 25, 2019 Assessment & Plan (1) Ulcers of both lower extremities: combo of venous stasis and pressure ulcers present, likely with associated osteomyelitis. He is s/p bilateral heel incision and drainage on 04/21. Become more aggressive on post-op pain control efforts. (2) Metabolic encephalopathy: Possibly a side effect of uncontrolled pain/nausea in the post-operative setting with likely persistent infection present vs adverse side effect of cefepime. Other etiologies include but not limited to intracranial event, worsening infectious state, dehydrated state or malnutrition. Will treat empirically with morphine now to monitor response, then continue as needed, scheduled Tylenol at an increased dose of 1000mg q8hrs IV, switch Zosyn to cefepime to eliminate the possible antibiotic side effect of this drug, schedule some Zofran, keep his HOB as elevated as he can tolerate so that he can breathe easier in the setting of large pleural effusions. There is no easy way to feed him outside of PPN which can be caustic to his frail vessels, however, an NGT may be deadly as he is living on minimal lung function currently. Hydration is also an issue because he refuses all food/water/pills, but if we give IVF we can cause fluid overload very easily in the setting of hypoalbuminemia and severe malnutrition. I will start D5LR to give some free water in conjunction with a colloid to add oncotic intravascular pressure while trying to hydrate. (3) Dehydration: D5LR to start now. (4) Severe protein-calorie malnutrition: Intolerant of PO. Give thiamine and continue to try to reverse delirium state. NPO for now until mental status improves. (5) Pleural effusion, bilateral: Likely 2/2 malnourished state. Lasix relatively contraindicated in setting of dehydration and trying to offset this with fluids, but may be necessary if he goes into respiratory distress. (6) PAF (paroxysmal atrial fibrillation): not a candidate for coumadin at this point. He is somewhat autoanticoagulated 2/2 malnourished state. Rate is under control. Will give Lopressor IV if this becomes an issue. Pacemaker is in place. (7) S/P AVR: (8) Acute kidney injury superimposed on chronic kidney disease: Multifactorial. Repeat BMP now. Hydrate with IVF as above. (9) Urinary retention: -Patient failed a trial of void at [facility] and was seen by Urology one month ago -has hoyos -tamsuolsin and flomax held because of poor oral intake (10) UTI (urinary tract infection) due to urinary indwelling catheter: CAUTI 2/2 proteus. Completed antibiotic course at this point. (11) T2DM (type 2 diabetes mellitus): No insulin, minimize fingersticks for comfort. (12) DVT prophylaxis: Heparin DNR/DNI Dispo-uncertain at this time. Will see how he responds to new therapies above. Will consider trial of PPN tomorrow if no improvement and continue the discussion regarding ethics consult likely Tuesday. If he improves clinically would transition him to oral antibiotics and send him back to [facility] or whatever his wishes are. Maggie Valverde DO [facility] Hospitalist Subjective delirious, cannot assess ROS, appears agitated and uncomfortable. Review of Systems Review of Systems: Unobtainable due to cognitive status Physical Exam Physical Exam: CONSTITUTIONAL: cachectic, vitals as above, generally ill- appearing and elderly, doesn't appear comfortable, constantly moving around to adjust EYES: normal conjunctivae, no scleral icterus RESPIRATORY: clear to auscultation bilaterally from what I can tell, but exam is limited as patient is pushing me away and is delirious, normal respiratory effort CARDIOVASCULAR: regular rate and rhythm, S1 and 2 heard without murmurs CHEST: +pacemaker GASTROINTESTINAL: normal bowel sounds, soft, nondistended MUSCULOSKELETAL: cannot assess 2/2/ delirium SKIN: warm and dry, multiple wounds to lower extremities. Cannot assess sacral area as patient is delirious and he is pushing me away. NEUROLOGIC: No facial palsy, pupils are equal bilaterally. Somnolent but arousable, nonverbal, delirious Results & Data Vital Signs (Past 12 Hours) Vital Signs Temp Pulse Resp BP Pulse Ox 04/25/19 14:49 36.4 C L 77 18 106/50 L 98 04/25/19 11:33 36.6 C 84 20 151/55 H 94 Medications Administered Current Inpatient Medications Albuterol (Duoneb) 3 ml NEB Q8H PRN PRN Reason: shortness of breath or wheezing Stop: 05/20/19 16:29 Ascorbic Acid (Vitamin C) 1,000 mg PO BID LOCO Stop: 05/15/19 20:59 Last Admin: 04/22/19 07:57 Dose: 1,000 mg Documented by: Aspirin (Ecotrin Ectab) 81 mg PO Q2D@0900 LOCO Stop: 05/16/19 08:59 Last Admin: 04/22/19 07:56 Dose: 81 mg Documented by: Atorvastatin Calcium (Lipitor) 40 mg PO HS [facility] Stop: 05/15/19 20:59 Last Admin: 04/21/19 20:19 Dose: 40 mg Documented by: Bisacodyl (Dulcolax) 10 mg DC DAILY PRN PRN Reason: Constipation Stop: 05/15/19 20:13 Dextrose (Dextrose 50%) 25 - 50 ml IV UD PRN; Protocol PRN Reason: Hypoglycemia Protocol Stop: 05/15/19 20:29 Ferrous Sulfate (Feosol) 325 mg PO BID LOCO Stop: 05/15/19 20:59 Last Admin: 04/22/19 07:54 Dose: 325 mg Documented by: Finasteride (Proscar) 5 mg PO QAM LOCO Stop: 05/16/19 08:59 Last Admin: 04/25/19 10:27 Dose: Not Given Documented by: Folic Acid (Folvite) 1 mg PO DAILY LOCO Stop: 05/16/19 08:59 Last Admin: 04/22/19 07:57 Dose: 1 mg Documented by: Glucagon (Glucagen) 1 mg IM UD PRN; Protocol PRN Reason: Hypoglycemia Protocol Stop: 05/15/19 20:29 Glucose (Glucose 40%) 15 - 30 gm PO UD PRN; Protocol PRN Reason: Hypoglycemia Protocol Stop: 05/15/19 20:29 Glucose (Dex4 Glucose) 4 - 8 tabs PO UD PRN; Protocol PRN Reason: Hypoglycemia Protocol Stop: 05/15/19 20:29 Cefepime HCl 2,000 mg/ Syringe 20 mls @ 5.5 mls/min IV Q24H LOCO; Protocol Stop: 04/28/19 12:14 Last Admin: 04/25/19 12:03 Dose: 5.5 mls/min Documented by: Acetaminophen (Ofirmev) 65 mls @ 200 mls/hr IV Q8H LOCO; Protocol Stop: 05/22/19 12:59 Last Infusion: 04/25/19 12:24 Dose: Infused Documented by: Insulin Aspart (Novolog Flexpen) 0 units SC ACHS LOCO Stop: 05/15/19 20:59 Last Admin: 10/09/19 11:52 Dose: Not Given Documented by: Magnesium Hydroxide (Milk Of Magnesia) 15 ml PO DAILY PRN PRN Reason: Constipation Stop: 05/15/19 20:13 Metoprolol Tartrate (Lopressor) 25 mg PO BID LOCO Stop: 05/15/19 20:59 Last Admin: 04/25/19 08:18 Dose: Not Given Documented by: Miscellaneous (Carbohydrates For Hypoglycemia) 15 - 30 gm PO UD PRN PRN Reason: Hypoglycemia Treatment Stop: 05/15/19 20:29 Last Admin: 04/20/19 08:01 Dose: 15 gm Documented by: Multivitamins (Multivitamin Tab) 1 tab PO QAM LOCO Stop: 05/16/19 08:59 Last Admin: 04/23/19 08:23 Dose: Not Given Documented by: Pantoprazole Sodium (Protonix) 40 mg PO QAM LOCO Stop: 05/16/19 08:59 Last Admin: 04/23/19 08:22 Dose: Not Given Documented by: Tamsulosin HCl (Flomax) 0.4 mg PO QPM LOCO Stop: 05/15/19 20:59 Last Admin: 04/21/19 20:17 Dose: 0.4 mg Documented by: Vitamin B Complex (Vitamin B Complex) 1 tab PO QAM [facility] Stop: 05/16/19 08:59 Last Admin: 04/22/19 07:57 Dose: 1 tab Documented by: (1) Ulcers of both lower extremities Non-pressure ulcer stage: unspecified non-pressure ulcer stage Qualified Code(s): L97.919 - Non-pressure chronic ulcer of unspecified part of right lower leg with unspecified severity; L97.929 - Non-pressure chronic ulcer of unspecified part of left lower leg with unspecified severity
--- NOTE | 2019-04-25 16:22 | Communication Note ---
Date of Service: April 25, 2019 I have discussed this case with Dr. Saunders. Debridement of both heels done on Apr 21. R worse than L with exposed bone. With the patients current mental status and especially his nutritional status, healing these areas will be a difficult task. No further surgery planned at this time. He feels patient is not a candidate for free flap coverage. Dr. Saunders's recommendations are continue Wound Care nursing for the heels. NWB bilaterally at this time. Continue PRAFO braces. IV vs PO antibiotics as per ID / Med team. Pt may eventually require BKA on the right. Please call with any questions.
[2019-04-25] MEDS ORDERED: MoRPHine SULFATE 4 MG/ML 1 ML CARP\\VIAL IV STA (17:09)
[2019-04-25] MEDS ORDERED: MoRPHine SULFATE 4 MG/ML 1 ML CARP\\VIAL ONE (17:24)
[2019-04-25] MEDS ORDERED: THIAMINE HCL 100 MG in SYRINGE 9 ML IV ONE (17:30)
[2019-04-25] MEDS ORDERED: PIPERACILL/TAZOBAC CONSULT ACTIVE PRN (17:51)
[2019-04-25] MEDS ORDERED: PIPERACILLIN/TAZOBACTAM 4.5 GM in DEXTROSE 5% 100 ML IV ONE (18:00)
[2019-04-25] MEDS ORDERED: D5W AND LACTATED RINGERS 1,000 ML IV SCH (18:00)
[2019-04-25] MEDS ORDERED: ONDANSETRON INJ 2 MG/ML 2 ML VIAL IV SCH (18:00)
[2019-04-25 18:08] LABS: Base Excess ABG -3.5 mEq/L (-9-1.8); HCO3 ABG 20 mmol/L (19-24); Oxygen Saturation ABG 97.5 % (90-95); PCO2 ABG 30 mmHg (35-46); PO2 ABG 102 mm/Hg (80-95); pH ABG 7.45 (7.35-7.45)
[2019-04-25 18:10] LABS: Allen Test POS (Pos)
[2019-04-25 18:18] LABS: Basophils # (auto) 0.02 K/uL (0-0.2); Basophils % (auto) 0.2 %; Eosinophils # (auto) 0.11 K/uL (0-0.5); Eosinophils % (auto) 0.9 %; Hematocrit (blood only) 24.9 % (42-52); Hemoglobin 8.1 g/dL (14.0-18.0); Immature Granulocytes # (auto) 0.05 K/uL (0.00-0.02); Immature Granulocytes % (auto) 0.4 %; Lymphocytes # (auto) 0.59 K/uL (1.2-3.4); Lymphocytes % (auto) 4.9 %; Mean Corpuscular Hemoglobin 28.5 pg (25-34); Mean Corpuscular Hgb Conc 32.5 g/dL (32-36); Mean Corpuscular Volume 87.7 fL (80-100); Mean Platelet Volume 9.3 fL (7.4-10.4); Monocytes # (auto) 0.69 K/uL (0.11-0.59); Monocytes % (auto) 5.7 %; Neutrophils % (auto) 87.9 %; Platelet Count 245 K/uL (130-400); RDW Coefficient of Variation 16.9 % (11.5-14.5); RDW Standard Deviation 54.5 fL (36.4-46.3); Red Blood Count 2.84 M/uL (4.7-6.1); White Blood Count 12.06 K/uL (4.8-10.8)
[2019-04-25 18:34] LABS: BUN Creatinine Ratio 26.3 (10-20); Calcium 7.9 mg/dl (8.5-10.1); Creatinine Clr Calc Pharmacy 25.7 ml/min; Est GFR (African American) 39.7; Est GFR (Non-African American) 34.2; Magnesium 2.1 mg/dl (1.8-2.4); Phosphorus 2.7 mg/dl (2.5-4.9); Potassium 3.5 mmol/L (3.5-5.1)
--- NOTE | 2019-04-25 19:33 | Communication Note ---
Date of Service: April 25, 2019 88-year-old man who recently suffered a 10-day adler with infected wounds and severe malnutrition this evening. I was called to the bedside per nursing who were tending to him at the time. There was no reported agitaton, and he appeared calm. On exam the patient was not moving or responding. He was not responsive to physical pressure to the nailbed or calling his name. Pupils were fixed and dilated. Cardiac auscultation revealed evidence of pacemaker clicking but no heart sounds auscultated. Breath sounds were not auscultated. He was pronounced at 6:45 PM. Cause of is significant infection in the presence of severe malnutrition. He has no representation from a family perspective, so [facility] will be notified, as they were in the process of trying to find a guardian. Maggie Valverde, DO
[2019-04-25] MEDS ORDERED: ACETAMINOPHEN 1,000 MG/100 ML VIAL IV SCH (22:00)
--- NOTE | 2019-04-25 22:39 | Discharge Summary ---
Date of Service April 25, 2019 Admission HPI Per Admitting Provider He is an 88-year-old male with significant complicated past medical history including tachybradycardia syndrome status post pacemaker in 02/14, PAF on Coumadin, CAD with history of CABG x2 in 2006, history of PFO closure in 2006, moderate stenosis of bioprosthetic aVR, bilateral venous insufficiency, type 2 diabetes, hypertension other medical conditions as mentioned below was sent in from [facility] with possible unresponsiveness. In the emergency room he appeared to be alert and awake and denies any significant symptoms and he cannot tell why he was sent in from [facility]. Did not get any response from [facility] on repeated attempt.He denies any chest pain, shortness of breath, palpitation, any abdominal pain, nausea and/or vomiting, any fever and/or chills, any increasing pain at the back or legs or any problem with his bowel habit and he has a chronic Hoyos catheter. He complained to be weak with dry mouth. He was noted to have hyponatremia with sodium of 152 and showed bilateral ablation involving the caps with minimal bleeding on his chronic bilateral mottled legs. He received 1 L of IV fluid with normal saline bolus and was started with intravenous vancomycin and cefepime after discussion with the pharmacist by the ER physician. He was admitted to medical telemetry unit for continuation of care. Admission Exam Per Admitting Provider Physical Exam: Lying in bed without any acute symptoms Constitutional: + ill appearing and + thin; no acute distress Eyes: PERRL, conjunctivae normal, anicteric sclerae ENMT: external ear and nose normal, oropharynx normal Neck: trachea midline, no thyromegaly Respiratory: normal respiratory effort; no respiratory distress Auscultation: + diminished lung sounds and + crackles (Minimal crackles at the bases) Cardiovascular: Rate/Rhythm: regular rate and regular rhythm Heart Sounds: + murmur (2/6 over precordium and prosthetic valve sounds) Gastrointestinal (Abdomen): Inspection/Auscultation: abdomen normal to inspection Percussion/Palpation: abdomen soft; abdomen nontender Musculoskeletal: No acute arthritis in any of the joint Skin: + ulcer Trauma: + laceration Bilateral chronic skin changes involving the lower extremities secondary to peripheral vascular disease. 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, Severe protein calorie malnutrition, Metabolic encephalopathy, Hypernatremia, acute diastolic congestive heart failure, Hypokalemia, acute kidney injury on chronic kidney disease, urinary tract infection with chronic hoyos catheter Discharge Data Allergies Allergy/AdvReac Type Severity Reaction Status Date / Time lisinopril Allergy Unknown Unknown Verified 04/15/19 17:38 sulfamethoxazole Allergy Unknown Unverified 04/15/19 17:38 [From Bactrim] trimethoprim [From Bactrim] Allergy Unknown Unverified 04/15/19 17:38 Consultations 04/15/19 18:20 ED Decision to Admit Stat 04/15/19 19:20 Consult Infectious Diseases Routine 04/16/19 08:54 Consult Thoracic Surgery Routine 04/16/19 17:26 Consult Palliative Care Routine 04/16/19 18:33 Consult Orthopedic Surgery Routine 04/20/19 07:29 Consult Infectious Diseases Routine 04/23/19 07:22 Consult Palliative Care Routine Procedures Performed Operation Date: 04/21/19 07:30 Actual Procedures p Right Heel Incision and Drainage, Left Heel Ulcer Incision and Drainage(Bilateral) - Mike Saunders, Ordered Studies 04/16/19 00:51 CT chest wo con Urgent CT head/brain wo con Urgent 04/18/19 16:46 US arterial duplex LE BI Routine Hospital Course (1) Ulcers of both lower extremities: (2) Metabolic encephalopathy: (3) Dehydration: (4) Severe protein-calorie malnutrition: (5) Pleural effusion, bilateral: (6) PAF (paroxysmal atrial fibrillation): (7) S/P AVR: (8) Acute kidney injury superimposed on chronic kidney disease: (9) Urinary retention: (10) UTI (urinary tract infection) due to urinary indwelling catheter: (11) T2DM (type 2 diabetes mellitus): 88-year-old man with significant complicated past medical history including tachybradycardia syndrome status post pacemaker in January 2019, paroxysmal atrial fibrillation on Coumadin, CAD with history of CABG x2 in 2006, history of PFO closure in 2006, moderate stenosis of bioprosthetic AVR, bilateral venous insufficiency with a history of venous stasis ulcers, type 2 diabetes and hypertension was sent in for [facility] for episode of unresponsiveness. He was noted to have new pressure ulcers on his lower extremities with right being greater than left. He was hypernatremic and dehydrated and a dextrose infusion corrected this with some improvement in mental status. He was noted to have bilateral pleural effusions which were large and presumably chronic as he was not working to breathe or exhibiting significant hypoxia. Initially thoracic surgery was consulted and performed a thoracentesis obtaining approximately 1200 cc unilaterally, with the procedure aborted after coughing and concerns of developing expansion pulmonary edema were present. The next day the effusion returned, however. An echocardiogram was performed revealing ejection fraction 65 to 70% with moderate bioprosthetic aortic valve stenosis present. The clinical picture was consistent with acute congestive diastolic heart failure and pleural effusions were likely secondary to severe malnutrition and hypoalbuminemia. This presented a difficult situation as he could not receive Lasix in setting of dehydration and hypernatremia, however, to give him fluids would cause a problem from a heart failure standpoint. Orthopedics was consulted to evaluate his ulcers and he underwent a right heel incision and drainage, left heel ulcer incision and drainage, irrigation and debridement of bilateral heel ulcers on 04/21/2019. Following this he developed metabolic encephalopathy which was thought to be a combination of dehydration, hypernatremia and resulting from underlying infection. Although his mental status had improved after correction of his hypernatremia, he worsened after the orthopedic procedure. He was not eating enough to support his nutritional needs prior to the procedure and with the resulting encephalopathy declined to eat much at all. He was also found to have a urinary tract infection and was initially on Zosyn which was changed to cefepime by infectious diseases he was consulted. 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 Over the next several days he did not improve. He continued to decline to eat and exhibited delirium. Empiric pain and nausea was addressed, however he did not improve. Ultimately 2 physicians came together to decide it would be most ethical to convert him to DNR status, and on 04/25 he likely secondary to overwhelming infection from his lower extremity wounds with no nutrition or reserve to combat this effectively. 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
[2019-04-26] MEDS ORDERED: PIPERACILLIN/TAZOBACTAM 4.5 GM in DEXTROSE 5% 100 ML IV SCH
[2019-04-26] MEDS ORDERED: THIAMINE HCL 100 MG in SYRINGE 9 ML IV SCH (09:00)
== END 2019-04-25 20:28 | disposition expired | DRG 622 ==
LOC: ED 15:50 → SUATTDRO 19:00 → 2N 19:00
DX: L97.424 Non-pressure chronic ulcer of left heel and midfoot with necrosis of bone; Z66 Do not resuscitate; M86.672 Other chronic osteomyelitis, left ankle and foot; N39.0 Urinary tract infection, site not specified; Z95.1 Presence of aortocoronary bypass graft; N18.3 Chronic kidney disease, stage 3 (moderate); L97.414 Non-pressure chronic ulcer of right heel and midfoot with necrosis of bone; N40.0 Benign prostatic hyperplasia without lower urinary tract symptoms; Y84.6 Urinary catheterization as the cause of abnormal reaction of the patient, or of later complication, without mention of misadventure at the time of the procedure; B96.4 Proteus (mirabilis) (morganii) as the cause of diseases classified elsewhere; J91.8 Pleural effusion in other conditions classified elsewhere; E87.0 Hyperosmolality and hypernatremia; N17.9 Acute kidney failure, unspecified; I13.0 Hypertensive heart and chronic kidney disease with heart failure and stage 1 through stage 4 chronic kidney disease, or unspecified chronic kidney disease; Z87.74 Personal history of (corrected) congenital malformations of heart and circulatory system; M86.671 Other chronic osteomyelitis, right ankle and foot; Z79.82 Long term (current) use of aspirin; Z96.641 Presence of right artificial hip joint; Z87.891 Personal history of nicotine dependence; Z79.01 Long term (current) use of anticoagulants; R33.9 Retention of urine, unspecified; E43 Unspecified severe protein-calorie malnutrition; E86.0 Dehydration; I25.10 Atherosclerotic heart disease of native coronary artery without angina pectoris; I50.31 Acute diastolic (congestive) heart failure; Z95.2 Presence of prosthetic heart valve; Z86.73 Personal history of transient ischemic attack (TIA), and cerebral infarction without residual deficits; E11.622 Type 2 diabetes mellitus with other skin ulcer; I48.0 Paroxysmal atrial fibrillation; E78.5 Hyperlipidemia, unspecified; E87.6 Hypokalemia; Y92.129 Unspecified place in nursing home as the place of occurrence of the external cause; T83.511A Infection and inflammatory reaction due to indwelling urethral catheter, initial encounter; Z87.440 Personal history of urinary (tract) infections; E11.52 Type 2 diabetes mellitus with diabetic peripheral angiopathy with gangrene; Z95.0 Presence of cardiac pacemaker; E11.69 Type 2 diabetes mellitus with other specified complication; G93.41 Metabolic encephalopathy